=== PATIENT | male | born 1950 | race Caucasian/White ===

== ENCOUNTER 2017-03-06 19:26 | Emergency (ER) | payer MEDICARE ==
[~2017-03-06] VITALS: Ht 182.9 cm; Wt 113.4 kg
[2017-03-06] MEDS ORDERED: IV NORMAL SALINE 1000ML BAG 1,000 ML IV SCH (20:05)
[2017-03-06 20:13] LABS: BASO # 0.1 x10^3/uL (0.0-0.2); BASO % 1 % (0-3); EOS % 1 % (0-3); HEMATOCRIT 44.6 % (39.0-53.0); HEMOGLOBIN 15.3 g/dL (13.0-17.5); LYMPH # 2.1 x10^3/uL (1.0-4.8); LYMPH % 14 % (24-48); MEAN CORPUSCULAR HEMOGLOBIN 31 pg (25-35); MEAN CORPUSCULAR HGB CONC 34 g/dL (31-37); MEAN CORPUSCULAR VOLUME 91 fL (79-100); MONO % 7 % (0-9); NEUT % 77 % (31-73); PLATELET COUNT 278 x10^3/uL (140-400); RED CELL DISTRIBUTION WIDTH 14.6 % (11.5-14.5); WHITE BLOOD COUNT 14.8 x10^3/uL (4.0-11.0)
[2017-03-06] MEDS ORDERED: KETOROLAC TROMETHAMINE 30 MG/ML INJ. IV ONE (20:15)
[2017-03-06 20:36] LABS: ALBUMIN 3.6 g/dL (3.4-5.0); CREATININE 1.3 mg/dL (0.7-1.3); GFR 55.1; TOTAL BILIRUBIN 0.5 mg/dL (0.2-1.0); TOTAL PROTEIN 7.3 g/dL (6.4-8.2)
--- NOTE | 2017-03-06 20:55 | RAD ---
CT HEAD AND MAXILLOFACIAL WITHOUT CONTRAST History: 66-year-old male with facial pain, evaluate sinuses. History of sinus surgery. Comparison: None. Procedure: Axial images are obtained of the head from the skull base through the vertex without IV contrast. Noncontrast helical CT of the facial bones was performed. Axial, sagittal, and coronal reconstructions were obtained. RS compliance statement: One or more of the following individualized dose reduction techniques were utilized for this examination: 1. Automated exposure control 2. Adjustment of the mA and/or kV according to patient size 3. Use of iterative reconstruction technique Head Findings: The ventricles and sulci are normal for the patient's age. No mass-effect, midline shift, hemorrhage or obvious acute infarction is identified. Bone windows demonstrate no significant calvarial abnormality. Mastoid air cells are well aerated. Maxillofacial Findings: Postsurgical changes of the sinuses are seen. Mild mucosal thickening is present within the bilateral maxillary sinuses, left greater than right. Trace mucosal thickening is seen within the ethmoid air cells and right sphenoid sinus. No air-fluid levels are present. Globes and orbits are unremarkable. No acute facial fracture is seen. Surrounding soft tissues demonstrate no focal abnormality, specifically no fluid collection. IMPRESSION: 1. No acute intracranial abnormality. 2. Mild paranasal sinus mucosal thickening without an air-fluid level present. Electronically signed by: Preethi Chua MD (03/06/2017 8:52 PM) [facility]
[2017-03-06] MEDS ORDERED: AMOXICILLIN/K CLAV 875/125MG TABLET. PO ONE (21:30)
[2017-03-06] MEDS ORDERED: HYDROcodone/APAP 5/325MG 1 TAB TABLET PO ONE (21:30)
[2017-03-06] MEDS ORDERED: OXYMETAZOLINE 0.05% NASAL SPRAY 30ML BOTTLE. NS ONE (21:30)
--- NOTE | 2017-03-06 21:33 | PHYS DOC ---
Past Medical History Past Medical History: Diabetes-Type II, GERD, High Cholesterol, Hypertension, Hypothyroid, Other Additional Past Medical Histor: vertigo, restless leg syndrome Past Surgical History: Other Additional Past Surgical Histo: stents in back(to try to stop pain in knees), rt knee surgery/acl Alcohol Use: None Drug Use: None Adult General Chief Complaint Chief Complaint: DIZZY/LIGHT HEADED HPI HPI Patient is a 66 year old male brought from home by EMS with the complaint of a headache, dizziness. Patient lives alone. His in November. He has had a headache for about a week and has been dizzy. He describes his dizziness "the blood rushing to your head". He has tried Advil with little improvement. He 's had no nausea or vomiting. The headache is across the front of his head. His neck does not hurt and is not stiff. He's had no fever or chills. The headache has been constant. He's never had a headache like this before. He doesn't remember how it started, it was not thunderclap in onset. In terms of injury, the patient did have a fall 3 weeks ago but states he did not hit his head and had no head injury. PCP Dr. Knox Review of Systems Review of Systems Constitutional: Denies fever or chills [] Eyes: Denies change in visual acuity, redness, or eye pain [] HENT: He has had some nasal congestion and stuffiness Respiratory: Denies cough or shortness of breath [] Cardiovascular: Denies chest pain GI: Denies abdominal pain, nausea, vomiting, bloody stools or diarrhea [] : Denies dysuria or hematuria [] Musculoskeletal: Denies back pain or joint pain [] Integument: Denies rash or skin lesions [] Neurologic: As in history of present illness Current Medications Current Medications Current Medications Medications (Trade) Dose Ordered Sig/Xuan Start Time Stop Time Status Last Admin Dose Admin Acetaminophen/ Hydrocodone Bitart (Lortab 5/325) 1 tab 1X ONCE 03/06/17 21:30 03/06/17 21:31 Cancel Amoxicillin/ Clavulanate Potassium (Augmentin 875/ 125mg) 1 tab 1X ONCE 03/06/17 21:30 03/06/17 21:31 DC 03/06/17 21:49 1 TAB Fentanyl Citrate (Fentanyl 2ml Vial) 75 mcg 1X ONCE 03/06/17 22:00 03/06/17 22:01 DC 03/06/17 21:50 75 MCG Ketorolac Tromethamine (Toradol) 30 mg 1X ONCE 03/06/17 20:15 03/06/17 20:33 DC 03/06/17 20:26 30 MG Oxymetazoline HCl (Afrin) 2 spray 1X ONCE 03/06/17 21:30 03/06/17 21:31 DC 03/06/17 21:50 2 SPRAY Sodium Chloride 1,000 ml @ 1,000 mls/hr Q1H 03/06/17 20:05 03/06/17 21:04 DC 03/06/17 20:26 1,000 MLS/HR Allergies Allergies Allergies Coded Allergies Type Severity Reaction Last Updated Verified hydrocodone Allergy Severe throat swelling 03/06/17 Yes oxycodone Allergy Severe throat swelling 03/06/17 Yes Physical Exam Physical Exam Constitutional: Well developed, well nourished, appears to not feel well, alert , mentating normally, holding his forehead HENT: Normocephalic, atraumatic, bilateral external ears normal, nose normal. [ ] Eyes:PERRL, EOMI, conjunctiva normal, no discharge. [] Neck: Normal range of motion, no tenderness, supple, no stridor. [] Cardiovascular:Heart rate regular rhythm, no murmur [] Lungs & Thorax: Bilateral breath sounds clear to auscultation [] Abdomen: Bowel sounds normal, soft, no tenderness, no masses, no pulsatile masses. [] Skin: Warm, dry, no erythema, no rash. [] Extremities: No tenderness, no cyanosis, no clubbing, ROM intact, no edema. [] Neurologic: Alert and oriented X 3, normal motor function, normal sensory function, no focal deficits noted. [] Current Patient Data Vital Signs Vital Signs Date Time Temp Pulse Resp B/P (MAP) Pulse Ox O2 Delivery O2 Flow Rate FiO2 03/06/17 21:50 18 100 Room Air 03/06/17 21:37 58 142/65 (90) 03/06/17 19:26 97.9 97.9 Lab Values Laboratory Tests Test 03/06/17 19:34 White Blood Count 14.8 x10^3/uL (4.0-11.0) H Red Blood Count 4.90 x10^6/uL (4.30-5.70) Hemoglobin 15.3 g/dL (13.0-17.5) Hematocrit 44.6 % (39.0-53.0) Mean Corpuscular Volume 91 fL (79-100) Mean Corpuscular Hemoglobin 31 pg (25-35) Mean Corpuscular Hemoglobin Concent 34 g/dL (31-37) Red Cell Distribution Width 14.6 % (11.5-14.5) H Platelet Count 278 x10^3/uL (140-400) Neutrophils (%) (Auto) 77 % (31-73) H Lymphocytes (%) (Auto) 14 % (24-48) L Monocytes (%) (Auto) 7 % (0-9) Eosinophils (%) (Auto) 1 % (0-3) Basophils (%) (Auto) 1 % (0-3) Neutrophils # (Auto) 11.4 x10^3uL (1.8-7.7) H Lymphocytes # (Auto) 2.1 x10^3/uL (1.0-4.8) Monocytes # (Auto) 1.1 x10^3/uL (0.0-1.1) Eosinophils # (Auto) 0.2 x10^3/uL (0.0-0.7) Basophils # (Auto) 0.1 x10^3/uL (0.0-0.2) Sodium Level 138 mmol/L (136-145) Potassium Level 3.0 mmol/L (3.5-5.1) L Chloride Level 102 mmol/L (98-107) Carbon Dioxide Level 23 mmol/L (21-32) Anion Gap 13 (6-14) Blood Urea Nitrogen 19 mg/dL (8-26) Creatinine 1.3 mg/dL (0.7-1.3) Estimated GFR (Cockcroft-Gault) 55.1 BUN/Creatinine Ratio 15 (6-20) Glucose Level 138 mg/dL (70-99) H Calcium Level 9.0 mg/dL (8.5-10.1) Total Bilirubin 0.5 mg/dL (0.2-1.0) Aspartate Amino Transferase (AST) 19 U/L (15-37) Alanine Aminotransferase (ALT) 30 U/L (16-63) Alkaline Phosphatase 84 U/L (46-116) Total Protein 7.3 g/dL (6.4-8.2) Albumin 3.6 g/dL (3.4-5.0) Albumin/Globulin Ratio 1.0 (1.0-1.7) Laboratory Tests 03/06/17 19:34 Laboratory Tests 03/06/17 19:34 EKG EKG 12-lead EKG read by me. Sinus rhythm. Heart rate 60. There are no acute ST or T wave changes indicative of ischemia or infarction no STEMI. 1951 [] Radiology/Procedures Radiology/Procedures CT scan of the head and maxillofacial read by the radiologist. Head, nothing acute. Maxillofacial, positive for acute sinusitis [] Course & Med Decision Making Course & Med Decision Making Pertinent Labs and Imaging studies reviewed. (See chart for details) Patient was given IV fluids and IV Toradol in the ED which did help his symptoms some. Evaluation consistent with sinusitis. I believe sinusitis explains his symptoms. Discussed this with the patient. We will treat him with antibiotics. See instructions for plan. [] Dragon Disclaimer Dragon Disclaimer This electronic medical record was generated, in whole or in part, using a voice recognition dictation system. Departure Departure Impression: Primary Impression: Sinusitis Additional Impression: Headache Disposition: 01 HOME, SELF-CARE Condition: STABLE Referrals: AUGUST KNOX (PCP) Patient Instructions: Sinusitis, [id number] Additional Instructions: As we discussed, I believe your headache and dizziness are being caused by a sinus infection. I have prescribed Augmentin, an antibiotic, for sinus infection. Purchase ctrn-gvo-golnteg decongestant such as phenylephrine and take as directed for 2 or 3 days. Also use nasal spray decongestant every 12 hours for 2 or 3 days. Because you are allergic to oxycodone and hydrocodone, we are limited to Tylenol or ibuprofen mleb-pek-owqsffb for headache. Take as directed. Also try a warm moist towel to your forehead. Scripts Amoxicillin/Potassium Clav (AUGMENTIN 875-125 TABLET) 1 Each Tablet 1 TAB PO BID for sinus infection, #20 TAB Prov: MELODY COSTELLO MD 03/06/17 Problem Qualifiers MELODY COSTELLO MD Mar 06, 2017 21:33
[2017-03-06] MEDS ORDERED: AMOX1TAB61 PO (21:36)
[2017-03-06 21:37] VITALS: BP 142/65
[2017-03-06] MEDS ORDERED: fentaNYL PF VIAL 100 MCG/2 ML VIAL IV ONE (22:00)
--- NOTE | 2017-03-07 06:23 | EKG ---
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
== END 2017-03-06 22:10 | disposition home or self-care (01) ==
LOC: ER 19:26
DX: J32.9 Chronic sinusitis, unspecified (principal); E11.9 Type 2 diabetes mellitus without complications; E03.9 Hypothyroidism, unspecified; E78.00 Pure hypercholesterolemia, unspecified; G25.81 Restless legs syndrome; I10 Essential (primary) hypertension; K21.9 Gastro-esophageal reflux disease without esophagitis; Z88.5 Allergy status to narcotic agent
CPT/HCPCS: 36415; 70450; 70486; 80053; 85027; 93005; 96361; 96374; 96375; 99285; J1885; J3010; J7030

== ENCOUNTER 2017-12-26 13:54 | Inpatient (IN) | payer MEDICARE ==
[2017-12-26 14:17] LABS: POC GLUCOSE 118 mg/dL (70-99)
[2017-12-26 14:38] LABS: BASO # 0.1 x10^3/uL (0.0-0.2); BASO % 1 % (0-3); EOS # 0.1 x10^3/uL (0.0-0.7); EOS % 0 % (0-3); HEMATOCRIT 46.5 % (39.0-53.0); HEMOGLOBIN 16.4 g/dL (13.0-17.5); LYMPH # 2.1 x10^3/uL (1.0-4.8); LYMPH % 11 % (24-48); MEAN CORPUSCULAR HEMOGLOBIN 31 pg (25-35); MEAN CORPUSCULAR HGB CONC 35 g/dL (31-37); MEAN CORPUSCULAR VOLUME 88 fL (79-100); MONO # 1.2 x10^3/uL (0.0-1.1); MONO % 7 % (0-9); NEUT # 14.7 x10^3uL (1.8-7.7); NEUT % 81 % (31-73); PLATELET COUNT 315 x10^3/uL (140-400); RED BLOOD COUNT 5.31 x10^6/uL (4.30-5.70); WHITE BLOOD COUNT 18.1 x10^3/uL (4.0-11.0)
[2017-12-26 14:40] LABS: ADD MAN DIFF? YES
[2017-12-26 14:44] LABS: INR 1.1 (0.8-1.1); PROTHROMBIN TIME PATIENT 13.5 SEC (11.7-14.0)
[2017-12-26 14:51] LABS: ANION GAP 16 (6-14); BLOOD UREA NITROGEN 25 mg/dL (8-26); BUN/CREATININE RATIO 10 (6-20); CALCIUM 9.2 mg/dL (8.5-10.1); CARBON DIOXIDE 21 mmol/L (21-32); CHLORIDE 102 mmol/L (98-107); CREATININE 2.5 mg/dL (0.7-1.3); GFR 25.8; GLUCOSE 134 mg/dL (70-99); SODIUM 139 mmol/L (136-145)
[2017-12-26 14:56] LABS: ALBUMIN 4.2 g/dL (3.4-5.0); ALBUMIN/GLOBULIN RATIO 1.1 (1.0-1.7); ALK PHOS 103 U/L (46-116); ALT (SGPT) 33 U/L (16-63); AST (SGOT) 26 U/L (15-37); CREATINE KINASE 480 U/L (39-308); LIPASE 133 U/L (73-393); MAGNESIUM 2.2 mg/dL (1.8-2.4); TOTAL BILIRUBIN 1.2 mg/dL (0.2-1.0)
[2017-12-26 14:59] LABS: TROPONINI < 0.017 ng/mL (0.000-0.055)
[2017-12-26 15:00] LABS: D-DIMER < 0.27 ug/mlFEU (0.00-0.50)
[2017-12-26 15:05] LABS: CKMB INDEX 0.3 % (0-4); CKMB MASS 1.3 ng/mL (0.0-3.6); CREATINE KINASE 494 U/L (39-308)
[2017-12-26 15:05] LABS: NT-PRO BNP 164 pg/mL (0-124)
[2017-12-26] MEDS: ASPIRIN CHEWABLE 81 MG TABLET. PO (15:13)
[2017-12-26] MEDS: MECLIZINE HCL 12.5 MG TABLET. PO (15:13)
[2017-12-26] MEDS: IV NORMAL SALINE 1000ML BAG 1,000 ML IV ×2 (15:14→15:57)
[2017-12-26] MEDS: NITROGLYCERIN OINT 1 GM PACKET. TP (15:14)
[2017-12-26] MEDS: POTASSIUM CHLORIDE 20 MEQ TABLET.ER. PO (15:55)
[2017-12-26] MEDS: ACETAMINOPHEN 500 MG TABLET PO (15:55)
[2017-12-26] MEDS: IV RINGERS,LACTATED 1000ML 1,000 ML IV (16:46)
[2017-12-26 18:46] LABS: % LYMPHS 11 % (24-48); % MONOS 6 % (0-10); % SEGS 83 % (35-66); PLT ESTIMATE ADEQUATE (ADEQUATE)
[2017-12-26 19:45] LABS: TROPONINI < 0.017 ng/mL (0.000-0.055)
[2017-12-26 19:51] LABS: LACTIC ACID 1.7 mmol/L (0.4-2.0)
[2017-12-26 20:33] LABS: POC GLUCOSE 132 mg/dL (70-99)
[2017-12-26] MEDS ORDERED: traMADol 50 MG TABLET PO (22:15)
[2017-12-26] MEDS: KETOROLAC TROMETHAMINE 10 MG TABLET PO (22:59)
[2017-12-26 23:09] LABS: TROPONINI < 0.017 ng/mL (0.000-0.055)
[2017-12-27 05:26] LABS: ALK PHOS 80 U/L (46-116); ALT (SGPT) 23 U/L (16-63); ANION GAP 9 (6-14); AST (SGOT) 23 U/L (15-37); BLOOD UREA NITROGEN 23 mg/dL (8-26); BUN/CREATININE RATIO 10 (6-20); CALCIUM 8.1 mg/dL (8.5-10.1); CARBON DIOXIDE 25 mmol/L (21-32); CHLORIDE 106 mmol/L (98-107); CREATININE 2.2 mg/dL (0.7-1.3); GFR 29.9; GLUCOSE 113 mg/dL (70-99); POTASSIUM 3.2 mmol/L (3.5-5.1); SODIUM 140 mmol/L (136-145); TOTAL BILIRUBIN 0.6 mg/dL (0.2-1.0)
[2017-12-27 10:59] LABS: CHOLESTEROL 107 mg/dL (0-200); HDLC 25 mg/dL (40-60); LDLC 58 mg/dL (0-100); NON-HDL CHOLESTEROL 82 mg/dL (0-129); TRIGLYCERIDES 121 mg/dL (0-150); VLDLC 24 mg/dL (0-40)
[2017-12-27 11:00] LABS: CHOLESTEROL/HDL RATIO 4.3
[2017-12-27 11:08] LABS: THYROID STIM HORMONE (TSH) 6.169 uIU/mL (0.358-3.74)
[2017-12-27] MEDS ORDERED: hydrALAZINE 20 MG/ML VIAL. IVP (11:15)
[2017-12-27] MEDS: KETOROLAC TROMETHAMINE 10 MG TABLET PO (11:35)
[2017-12-27] MEDS: REGADENOSON 0.4 MG/5 ML DISP.SYRIN. IV ×2 (12:30→15:51)
[2017-12-27 14:08] LABS: FREE T4 1.19 ng/dL (0.76-1.46)
[2017-12-27] MEDS: ACETAMINOPHEN 325 MG TABLET. PO (17:46)
[2017-12-27] MEDS: POTASSIUM CHLORIDE 20 MEQ TABLET.ER. PO (17:47)
[2017-12-27] MEDS: ATORVASTATIN CALCIUM 40 MG TABLET. PO (19:43)
[2017-12-27] MEDS: GABAPENTIN 300 MG CAPSULE. PO (19:43)
[2017-12-27] MEDS: IBUPROFEN 600 MG TABLET. PO (19:43)
[2017-12-27 20:35] LABS: POC GLUCOSE 118 mg/dL (70-99)
[2017-12-28 05:35] LABS: ADD MAN DIFF? NO
[2017-12-28 05:45] LABS: BASO # 0.1 x10^3/uL (0.0-0.2); BASO % 1 % (0-3); EOS # 0.3 x10^3/uL (0.0-0.7); EOS % 5 % (0-3); HEMATOCRIT 42.6 % (39.0-53.0); LYMPH # 1.9 x10^3/uL (1.0-4.8); LYMPH % 25 % (24-48); MEAN CORPUSCULAR HEMOGLOBIN 32 pg (25-35); MEAN CORPUSCULAR HGB CONC 35 g/dL (31-37); MEAN CORPUSCULAR VOLUME 90 fL (79-100); MONO # 0.6 x10^3/uL (0.0-1.1); MONO % 8 % (0-9); NEUT # 4.7 x10^3uL (1.8-7.7); NEUT % 61 % (31-73); PLATELET COUNT 247 x10^3/uL (140-400); RED BLOOD COUNT 4.75 x10^6/uL (4.30-5.70); RED CELL DISTRIBUTION WIDTH 15.3 % (11.5-14.5); WHITE BLOOD COUNT 7.6 x10^3/uL (4.0-11.0)
[2017-12-28 05:59] LABS: ALBUMIN 3.1 g/dL (3.4-5.0); ALBUMIN/GLOBULIN RATIO 0.9 (1.0-1.7); ALK PHOS 82 U/L (46-116); ALT (SGPT) 27 U/L (16-63); ANION GAP 10 (6-14); AST (SGOT) 20 U/L (15-37); BLOOD UREA NITROGEN 20 mg/dL (8-26); BUN/CREATININE RATIO 13 (6-20); CARBON DIOXIDE 25 mmol/L (21-32); CHLORIDE 109 mmol/L (98-107); CREATININE 1.5 mg/dL (0.7-1.3); GFR 46.5; GLUCOSE 117 mg/dL (70-99); POTASSIUM 3.5 mmol/L (3.5-5.1); SODIUM 144 mmol/L (136-145); TOTAL BILIRUBIN 0.4 mg/dL (0.2-1.0); TOTAL PROTEIN 6.4 g/dL (6.4-8.2)
[2017-12-28] MEDS: LEVOTHYROXINE 50 MCG TABLET PO (06:20)
[2017-12-28 07:51] LABS: POC GLUCOSE 107 mg/dL (70-99)
[2017-12-28 08:01] LABS: BILIRUBIN,URINE NEGATIVE (NEG); CLARITY,URINE CLEAR; COLOR,URINE YELLOW; GLUCOSE,URINE NEGATIVE (NEG); NITRITE,URINE NEGATIVE (NEG); PROTEIN,URINE NEGATIVE (NEG-TRACE); UROBILINOGEN,URINE 0.2 mg/dL (0.2 mg/dL)
[2017-12-28 08:08] LABS: BARBITURATES POS (NEG); BENZODIAZEPINES NEG (NEG); CANNABINOIDS NEG (NEG); COCAINE NEG (NEG); METHADONE NEG (NEG); OPIATES NEG (NEG); PHENCYCLIDINE NEG (NEG)
[2017-12-28 08:10] LABS: AMPHETAMINE/METHAMPHETAMINE NEG (NEG); ETHANOL, URINE N (NEG)
[2017-12-28 08:25] LABS: BACTERIA,URINE 0 /HPF (0-FEW); RBC,URINE 0 /HPF (0-2); SQUAMOUS EPITHELIAL CELL,UR FEW /LPF; WBC,URINE 0 /HPF (0-4)
[2017-12-28] MEDS: GLIMEPIRIDE 2 MG TABLET. PO (08:51)
[2017-12-28] MEDS: PANTOPRAZOLE 40 MG TABLET.DR. PO (08:51)
[2017-12-28] MEDS: amLODIPine BESYLATE 10 MG TABLET PO (08:51)
[2017-12-28] MEDS: IBUPROFEN 600 MG TABLET. PO (08:51)
[2017-12-28] MEDS: POTASSIUM CITRATE 10 MEQ TABLET.ER PO (08:52)
[2017-12-28] MEDS: KETOROLAC TROMETHAMINE 10 MG TABLET PO (10:54)
[2017-12-28 11:27] LABS: POC GLUCOSE 126 mg/dL (70-99)
[2017-12-28 16:38] LABS: POC GLUCOSE 93 mg/dL (70-99)
[2017-12-28 20:24] LABS: POC GLUCOSE 96 mg/dL (70-99)
[2017-12-28] MEDS: ATORVASTATIN CALCIUM 40 MG TABLET. PO (20:34)
[2017-12-28] MEDS: TAMSULOSIN 0.4 MG CAP.ER.24H. PO (20:34)
[2017-12-28] MEDS: GABAPENTIN 300 MG CAPSULE. PO (20:35)
[2017-12-28] MEDS: ACETAMINOPHEN 325 MG TABLET. PO (20:39)
[2017-12-29] MEDS: LEVOTHYROXINE 50 MCG TABLET PO (06:22)
[2017-12-29 07:40] LABS: POC GLUCOSE 111 mg/dL (70-99)
[2017-12-29] MEDS: amLODIPine BESYLATE 10 MG TABLET PO (08:22)
[2017-12-29] MEDS: GLIMEPIRIDE 2 MG TABLET. PO (08:22)
[2017-12-29] MEDS: PANTOPRAZOLE 40 MG TABLET.DR. PO (08:22)
[2017-12-29] MEDS: POTASSIUM CITRATE 10 MEQ TABLET.ER PO (08:24)
[2017-12-29 11:53] LABS: POC GLUCOSE 109 mg/dL (70-99)
[2017-12-29 12:21] LABS: ANION GAP 10 (6-14); BLOOD UREA NITROGEN 20 mg/dL (8-26); CALCIUM 8.3 mg/dL (8.5-10.1); CARBON DIOXIDE 25 mmol/L (21-32); CHLORIDE 106 mmol/L (98-107); CREATININE 1.6 mg/dL (0.7-1.3); GFR 43.2; GLUCOSE 110 mg/dL (70-99); POTASSIUM 3.5 mmol/L (3.5-5.1); SODIUM 141 mmol/L (136-145)
[2017-12-29 16:49] LABS: POC GLUCOSE 85 mg/dL (70-99)
== END 2017-12-29 17:40 | disposition home or self-care (01) | DRG 391 ==
LOC: ER 13:54 → 2 NORTH 16:00
DX: K21.9 Gastro-esophageal reflux disease without esophagitis (principal); N17.0 Acute kidney failure with tubular necrosis; E87.1 Hypo-osmolality and hyponatremia; N13.30 Unspecified hydronephrosis; E11.22 Type 2 diabetes mellitus with diabetic chronic kidney disease; D72.829 Elevated white blood cell count, unspecified; E03.9 Hypothyroidism, unspecified; E78.5 Hyperlipidemia, unspecified; I12.9 Hypertensive chronic kidney disease with stage 1 through stage 4 chronic kidney disease, or unspecified chronic kidney disease; E87.6 Hypokalemia; F17.210 Nicotine dependence, cigarettes, uncomplicated; N18.9 Chronic kidney disease, unspecified; F41.9 Anxiety disorder, unspecified; M19.90 Unspecified osteoarthritis, unspecified site; G25.81 Restless legs syndrome; Z82.49 Family history of ischemic heart disease and other diseases of the circulatory system
CPT/HCPCS: 36415; 71045; 74176; 76770; 78452; 80048; 80053; 80061; 80307; 81001; 82550; 82553; 82962; 83605; 83690; 83735; 83880; 84439; 84443; 84484; 85007; 85025; 85379; 85610; 93005; 93017; 93306; 96360; 96361; 96374; 96375; 96376; 99285; 99285-25; A9500; J2785; J7030; J7120; J8597

== ENCOUNTER → 2018-09-13 | Outpatient (CLI) | payer OTHER ==
[2018-09-12 15:00] VITALS: BP 132/81
[~2018-09-13] MED LIST: ACET325T9 PO; AMLO10TA8 PO; AMOX1TAB61 PO; ASPI-612 PO; ATOR40TA59 PO; GABA300C18 PO; GLIM2TAB2 PO; LEVO50TA5 PO; LINE600T PO; LOSA1TAB22 PO; OMEP40CA5 PO; POTA10TA17 PO; SERT50TA8 PO; TAMS0.4C97 PO; TRIA15OI TP
== END | disposition home or self-care (01) ==
LOC: PMGWOUND 09:11
PROVIDERS: ATTEND Emergency Medicine Undersea and Hyperbaric Medicine
DX: L02.11 Cutaneous abscess of neck (principal); E11.9 Type 2 diabetes mellitus without complications; I10 Essential (primary) hypertension; E03.9 Hypothyroidism, unspecified; E78.5 Hyperlipidemia, unspecified; F41.9 Anxiety disorder, unspecified; G25.81 Restless legs syndrome; E78.00 Pure hypercholesterolemia, unspecified; M19.90 Unspecified osteoarthritis, unspecified site; K21.9 Gastro-esophageal reflux disease without esophagitis
CPT/HCPCS: 99214; G0463

== ENCOUNTER → 2018-09-17 | Outpatient (CLI) | payer OTHER ==
[2018-09-12 15:00] VITALS: BP 132/81
== END | disposition home or self-care (01) ==
LOC: PMGWOUND 12:00
PROVIDERS: ATTEND Emergency Medicine Undersea and Hyperbaric Medicine
DX: L02.11 Cutaneous abscess of neck (principal); E11.9 Type 2 diabetes mellitus without complications; G25.81 Restless legs syndrome; I10 Essential (primary) hypertension; E03.9 Hypothyroidism, unspecified; E78.5 Hyperlipidemia, unspecified; F41.9 Anxiety disorder, unspecified; E78.00 Pure hypercholesterolemia, unspecified; M19.90 Unspecified osteoarthritis, unspecified site; K21.9 Gastro-esophageal reflux disease without esophagitis
CPT/HCPCS: 99213

== ENCOUNTER → 2018-09-20 | Outpatient (CLI) | payer OTHER ==
[2018-09-12 15:00] VITALS: BP 132/81
[~2018-09-20] MED LIST changes: +MONT10TA9 PO; +PRED20TA PO
== END | disposition home or self-care (01) ==
LOC: PMGWOUND 12:11
PROVIDERS: ATTEND Emergency Medicine Undersea and Hyperbaric Medicine
DX: L02.11 Cutaneous abscess of neck (principal); E11.9 Type 2 diabetes mellitus without complications; G25.81 Restless legs syndrome; E03.9 Hypothyroidism, unspecified; E78.5 Hyperlipidemia, unspecified; F41.9 Anxiety disorder, unspecified; I10 Essential (primary) hypertension; E78.00 Pure hypercholesterolemia, unspecified; M19.90 Unspecified osteoarthritis, unspecified site; K21.9 Gastro-esophageal reflux disease without esophagitis
CPT/HCPCS: 99213; G0463

== ENCOUNTER → 2018-09-24 | Outpatient (CLI) | payer OTHER ==
[2018-09-12 15:00] VITALS: BP 132/81
== END | disposition home or self-care (01) ==
LOC: PMGWOUND 11:48
PROVIDERS: ATTEND Emergency Medicine Undersea and Hyperbaric Medicine
DX: L02.11 Cutaneous abscess of neck (principal); E11.9 Type 2 diabetes mellitus without complications; I10 Essential (primary) hypertension; G25.81 Restless legs syndrome; E03.9 Hypothyroidism, unspecified; E78.5 Hyperlipidemia, unspecified; F41.9 Anxiety disorder, unspecified; E78.00 Pure hypercholesterolemia, unspecified; M19.90 Unspecified osteoarthritis, unspecified site; K21.9 Gastro-esophageal reflux disease without esophagitis
CPT/HCPCS: 99214; G0463

== ENCOUNTER 2018-11-14 00:04 | Inpatient (IN) | payer OTHER ==
[~2018-11-14] VITALS: Ht 182.9 cm; Wt 112.5 kg
[~2018-11-14 00:04] MED LIST changes: -MONT10TA9 PO; -PRED20TA PO
[2018-11-14] MEDS ORDERED: MORPHINE SULFATE 2 MG/ML VIAL. IV/SQ PRN (00:30)
[2018-11-14] MEDS ORDERED: ASPIRIN CHEWABLE 81 MG TABLET. PO ONE (01:00)
[2018-11-14] MEDS ORDERED: ONDANSETRON PF 4 MG/2 ML VIAL. IV ONE (01:00)
[2018-11-14] MEDS ORDERED: IV NORMAL SALINE 1000ML BAG 1,000 ML IV SCH (01:00)
[2018-11-14 01:03] LABS: BASO # 0.1 x10^3/uL (0.0-0.2); BASO % 1 % (0-3); EOS # 0.2 x10^3/uL (0.0-0.7); EOS % 2 % (0-3); HEMATOCRIT 43.8 % (39.0-53.0); LYMPH # 1.6 x10^3/uL (1.0-4.8); LYMPH % 15 % (24-48); MEAN CORPUSCULAR HEMOGLOBIN 32 pg (25-35); MEAN CORPUSCULAR HGB CONC 34 g/dL (31-37); MEAN CORPUSCULAR VOLUME 94 fL (79-100); MONO # 1.3 x10^3/uL (0.0-1.1); MONO % 12 % (0-9); NEUT # 7.4 x10^3uL (1.8-7.7); NEUT % 70 % (31-73); PLATELET COUNT 274 x10^3/uL (140-400); RED BLOOD COUNT 4.68 x10^6/uL (4.30-5.70); RED CELL DISTRIBUTION WIDTH 15.1 % (11.5-14.5); WHITE BLOOD COUNT 10.5 x10^3/uL (4.0-11.0)
[2018-11-14 01:15] LABS: PROTHROMBIN TIME PATIENT 13.2 SEC (11.7-14.0)
[2018-11-14 01:21] LABS: ALBUMIN 3.5 g/dL (3.4-5.0); ALBUMIN/GLOBULIN RATIO 1.1 (1.0-1.7); CALCIUM 8.7 mg/dL (8.5-10.1); CREATININE 1.8 mg/dL (0.7-1.3); GFR 37.6; MAGNESIUM 1.9 mg/dL (1.8-2.4); POTASSIUM 3.4 mmol/L (3.5-5.1); TOTAL BILIRUBIN 0.6 mg/dL (0.2-1.0); TOTAL PROTEIN 6.8 g/dL (6.4-8.2)
--- NOTE | 2018-11-14 02:37 | PHYS DOC ---
Past Medical History Past Medical History: Diabetes-Type II, GERD, High Cholesterol, Hypertension, Hypothyroid, Other Additional Past Medical Histor: vertigo, restless leg syndrome Past Surgical History: Other Additional Past Surgical Histo: stents in back(to try to stop pain in knees), rt knee surgery/acl Alcohol Use: None Drug Use: None Adult General Chief Complaint Chief Complaint: SHORTNESS OF BREATH HPI HPI Patient is a 68-year-old male who presents with complaint of chest discomfort with shortness of breath, sore throat and cough that started about 3 days ago. Patient states his symptoms are progressively getting worse. Patient states that shortness of breath and chest discomfort are worsened with exertion. At times he describes pain as tightness and at other times it sharp and stabbing in nature. He denies any nausea, vomiting or diaphoresis. Patient states the cough is been dry. He states that nothing improves his symptoms. Review of Systems Review of Systems Constitutional: Denies fever or chills [] Eyes: Denies change in visual acuity, redness, or eye pain [] HENT: Positive sore throat [] Respiratory: Positive cough and shortness of breath [] Cardiovascular: No additional information not addressed in HPI [] GI: Denies abdominal pain, nausea, vomiting or diarrhea [] Neurologic: Denies headache, focal weakness or sensory changes [] All other systems were reviewed and found to be within normal limits, except as documented in this note. Current Medications Current Medications Current Medications Medications (Trade) Dose Ordered Sig/Xuan Start Time Stop Time Status Last Admin Dose Admin Albuterol/ Ipratropium (Duoneb) 3 ml 1X ONCE 11/14/18 03:00 11/14/18 03:01 DC 11/14/18 02:44 3 ML Aspirin (Children'S Aspirin) 324 mg 1X ONCE 11/14/18 01:00 11/14/18 01:01 DC 11/14/18 00:48 324 MG Morphine Sulfate (Morphine Sulfate) 4 mg 1X ONCE 11/14/18 03:00 11/14/18 03:01 DC Ondansetron HCl (Zofran) 4 mg 1X ONCE 11/14/18 01:00 11/14/18 01:01 DC 11/14/18 00:47 4 MG Sodium Chloride 1,000 ml @ 100 mls/hr Q10H 11/14/18 01:00 11/14/18 10:59 4/17/19 00:47 100 MLS/HR Allergies Allergies Allergies Coded Allergies Type Severity Reaction Last Updated Verified hydrocodone Allergy Severe throat swelling 09/08/18 Yes oxycodone Allergy Severe throat swelling 09/08/18 Yes Physical Exam Physical Exam Constitutional: Well developed, well nourished, no acute distress, non-toxic appearance. [] HENT: Normocephalic, atraumatic, bilateral external ears normal, oropharynx moist, no oral exudates, nose normal. [] Eyes: PERRLA, EOMI, conjunctiva normal, no discharge. [] Neck: Normal range of motion, no tenderness, supple, no stridor. [] Cardiovascular:Heart rate regular rhythm, no murmur [] Lungs & Thorax: Fine inspiratory and expiratory wheezes are noted to auscultation [] Abdomen: Bowel sounds normal, soft, no tenderness. [] Skin: Warm, dry, no erythema, no rash. [] Extremities: No tenderness, no cyanosis, no clubbing, ROM intact, no edema. [] Neurologic: Alert and oriented X 3, no focal deficits noted. [] Current Patient Data Vital Signs Vital Signs Date Time Temp Pulse Resp B/P (MAP) Pulse Ox O2 Delivery O2 Flow Rate FiO2 11/14/18 02:44 99 Room Air 11/14/18 00:18 98.4 80 20 147/86 (106) 98.4 Lab Values Laboratory Tests Test 11/14/18 00:44 White Blood Count 10.5 x10^3/uL (4.0-11.0) Red Blood Count 4.68 x10^6/uL (4.30-5.70) Hemoglobin 15.0 g/dL (13.0-17.5) Hematocrit 43.8 % (39.0-53.0) Mean Corpuscular Volume 94 fL (79-100) Mean Corpuscular Hemoglobin 32 pg (25-35) Mean Corpuscular Hemoglobin Concent 34 g/dL (31-37) Red Cell Distribution Width 15.1 % (11.5-14.5) H Platelet Count 274 x10^3/uL (140-400) Neutrophils (%) (Auto) 70 % (31-73) Lymphocytes (%) (Auto) 15 % (24-48) L Monocytes (%) (Auto) 12 % (0-9) H Eosinophils (%) (Auto) 2 % (0-3) Basophils (%) (Auto) 1 % (0-3) Neutrophils # (Auto) 7.4 x10^3uL (1.8-7.7) Lymphocytes # (Auto) 1.6 x10^3/uL (1.0-4.8) Monocytes # (Auto) 1.3 x10^3/uL (0.0-1.1) H Eosinophils # (Auto) 0.2 x10^3/uL (0.0-0.7) Basophils # (Auto) 0.1 x10^3/uL (0.0-0.2) Prothrombin Time 13.2 SEC (11.7-14.0) Prothrombin Time INR 1.0 (0.8-1.1) D-Dimer (Jessica) 0.33 ug/mlFEU (0.00-0.50) Sodium Level 137 mmol/L (136-145) Potassium Level 3.4 mmol/L (3.5-5.1) L Chloride Level 100 mmol/L (98-107) Carbon Dioxide Level 24 mmol/L (21-32) Anion Gap 13 (6-14) Blood Urea Nitrogen 29 mg/dL (8-26) H Creatinine 1.8 mg/dL (0.7-1.3) H Estimated GFR (Cockcroft-Gault) 37.6 BUN/Creatinine Ratio 16 (6-20) Glucose Level 146 mg/dL (70-99) H Calcium Level 8.7 mg/dL (8.5-10.1) Magnesium Level 1.9 mg/dL (1.8-2.4) Total Bilirubin 0.6 mg/dL (0.2-1.0) Aspartate Amino Transferase (AST) 27 U/L (15-37) Alanine Aminotransferase (ALT) 34 U/L (16-63) Alkaline Phosphatase 86 U/L (46-116) Troponin I Quantitative < 0.017 ng/mL (0.000-0.055) RN-Xpc-P-Type Natriuretic Peptide 28 pg/mL (0-124) Total Protein 6.8 g/dL (6.4-8.2) Albumin 3.5 g/dL (3.4-5.0) Albumin/Globulin Ratio 1.1 (1.0-1.7) Influenza Type A Antigen Negative (NEGATIVE) Influenza Type B Antigen Negative (NEGATIVE) Laboratory Tests 11/14/18 00:44 Laboratory Tests 11/14/18 00:44 EKG EKG [] Radiology/Procedures Radiology/Procedures [] Course & Med Decision Making Course & Med Decision Making Pertinent Labs and Imaging studies reviewed. (See chart for details) [] Dragon Disclaimer Dragon Disclaimer This electronic medical record was generated, in whole or in part, using a voice recognition dictation system. Departure Departure Impression: Primary Impression: Chest pain Additional Impression: Dyspnea Disposition: ADMITTED INPATIENT Admitting Physician: Adam Beltre Condition: IMPROVED Referrals: AUGUST KNOX (PCP) Problem Qualifiers Primary Impression: Chest pain Chest pain type: unspecified Qualified Codes: R07.9 - Chest pain, unspecified Additional Impression: Dyspnea Dyspnea type: shortness of breath Qualified Codes: R06.02 - Shortness of breath MARK ANTHONY HERNANDEZ Jr. DO Nov 14, 2018 02:37
[2018-11-14] MEDS ORDERED: MORPHINE SULFATE 4 MG/ML VIAL. IV ONE (03:00)
[2018-11-14] MEDS ORDERED: IPRATRPIUM/ALBUTEROL 0.5/2.5MG 3 ML NEBU. NEB ONE (03:00)
[2018-11-14 03:17] LABS: INFLUENZA A PATIENT NEGATIVE (NEGATIVE); INFLUENZA B PATIENT NEGATIVE (NEGATIVE)
[2018-11-14] MEDS ORDERED: ONDANSETRON PF 4 MG/2 ML VIAL. IV PRN (03:45)
--- NOTE | 2018-11-14 06:36 | EKG ---
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
[2018-11-14] MEDS: MORPHINE SULFATE 2 MG/ML VIAL. IV PRN ×3 (07:17→13:23)
[2018-11-14 07:38] VITALS: BP 141/65
[2018-11-14] MEDS: IPRATRPIUM/ALBUTEROL 0.5/2.5MG 3 ML NEBU. NEB SCH ×4 (08:11→19:33)
--- NOTE | 2018-11-14 08:37 | RAD ---
Single view of the chest. 11/14/2018 12:50 AM Indication: Shortness of breath Comparison: Chest radiograph December 26, 2017 Findings: There is no focal consolidation. There is no pleural effusion or pneumothorax. The cardiomediastinal silhouette and pulmonary vasculature are within normal limits. No acute osseous abnormalities are seen. Impression: No evidence of acute cardiopulmonary process. Electronically signed by: Sohail Villafuerte MD (11/14/2018 8:34 AM) [id number]
[2018-11-14] MEDS ORDERED: LIDO:MAALOX 1:1 20 ML SINGLE DOSE. PO PRN (09:00)
--- NOTE | 2018-11-14 09:17 | PDOC2 ---
CARDIAC CONSULT DATE OF CONSULT Date of Consult DATE: 11/14/18 TIME: 09:09 REASON FOR CONSULT Reason for Consult: Chest pain REFERRING PHYSICIAN Referring Physician: Tam SOURCE Source: Chart review, Patient HISTORY OF PRESENT ILLNESS HISTORY OF PRESENT ILLNESS This is a pleasant 68 yo male admitted for complains of chest pain. Reports that in the last few days he has been clearing his throat more and has been coughing significnatly especially in the last 2 days. Notrees sharp chest pain that raidates tohis left shoulder. Also has been SOA and has been having increased sensation of drainage to the back of his throat from his nose and started taking nasrin but no decongestants. The GI coctail given did helped some. No past hx of CAD, VTE and no recent falls or injury. PAST MEDICAL HISTORY Cardiovascular: HTN, Hyperlipidemia CENTRAL NERVOUS SYSTEM: Other (RLS) GI: GERD Psych: Anxiety Musculoskeletal: Osteoarthritis Endocrine: Diabetes (2), Hypothyroidism PAST SURGICAL HISTORY Past Surgical History: Other (neck abscess removal, left arm laceration repair) FAMILY HISTORY Family History: Heart Disease SOCIAL HISTORY Smoke: No ALCOHOL: none Drugs: None Lives: with Family CURRENT MEDICATIONS CURRENT MEDICATIONS Current Medications Medications (Trade) Dose Ordered Sig/Xuan Route PRN Reason Start Time Stop Time Status Last Admin Dose Admin Aspirin (Children'S Aspirin) 324 mg 1X ONCE PO 11/14/18 01:00 11/14/18 01:01 DC 11/14/18 00:48 Morphine Sulfate (Morphine Sulfate) 2 mg PRN Q15MIN PRN IV/SQ PAIN GREATER THAN 3/10 11/14/18 00:30 11/15/18 00:29 11/14/18 00:48 Sodium Chloride 1,000 ml @ 100 mls/hr Q10H IV 11/14/18 01:00 11/14/18 10:59 11/14/18 00:47 Ondansetron HCl (Zofran) 4 mg 1X ONCE IV 11/14/18 01:00 11/14/18 01:01 DC 11/14/18 00:47 Albuterol/ Ipratropium (Duoneb) 3 ml 1X ONCE NEB 11/14/18 03:00 11/14/18 03:01 DC 11/14/18 02:44 Morphine Sulfate (Morphine Sulfate) 2 mg PRN Q2HR PRN IV SEVERE PAIN 11/14/18 03:45 11/15/18 03:44 11/14/18 07:17 Albuterol/ Ipratropium (Duoneb) 3 ml RTQID NEB 11/14/18 08:00 11/15/18 07:59 11/14/18 08:11 Multi-Ingredient Mouthwash/Gargle (Gi Cocktail) 20 ml PRN QID PRN PO CHEST PAIN 11/14/18 09:00 11/14/18 08:53 ALLERGIES ALLERGIES: Coded Allergies: hydrocodone (Verified Allergy, Severe, throat swelling, 09/08/18) oxycodone (Verified Allergy, Severe, throat swelling, 09/08/18) ROS Review of System 14 point ROS evaluated with pertinent positives noted per HPI PHYSICAL EXAM General: Alert, Oriented X3, Cooperative, No acute distress HEENT: Atraumatic, Mucous membr. moist/pink, Other (nasal congestion) Lungs: Clear to auscultation, Normal air movement Heart: Regular rate (SR), Normal S1, Normal S2, No murmurs Abdomen: Soft, No tenderness Extremities: No cyanosis, No edema Skin: No breakdown, No significant lesion Neuro: Normal speech, Sensation intact Psych/Mental Status: Mental status NL, Mood NL MUSCULOSKELETAL: Osteoarthritic changes both hands VITALS VITALS Vital Signs Date Time Temp Pulse Resp B/P (MAP) Pulse Ox O2 Delivery O2 Flow Rate FiO2 11/14/18 08:11 96 Room Air 11/14/18 07:47 20 11/14/18 07:38 98.0 65 141/65 (90) 98.0 LABS Lab: Laboratory Tests Test 11/14/18 00:44 11/14/18 07:30 11/14/18 07:45 White Blood Count 10.5 x10^3/uL (4.0-11.0) Red Blood Count 4.68 x10^6/uL (4.30-5.70) Hemoglobin 15.0 g/dL (13.0-17.5) Hematocrit 43.8 % (39.0-53.0) Mean Corpuscular Volume 94 fL (79-100) Mean Corpuscular Hemoglobin 32 pg (25-35) Mean Corpuscular Hemoglobin Concent 34 g/dL (31-37) Red Cell Distribution Width 15.1 % (11.5-14.5) Platelet Count 274 x10^3/uL (140-400) Neutrophils (%) (Auto) 70 % (31-73) Lymphocytes (%) (Auto) 15 % (24-48) Monocytes (%) (Auto) 12 % (0-9) Eosinophils (%) (Auto) 2 % (0-3) Basophils (%) (Auto) 1 % (0-3) Neutrophils # (Auto) 7.4 x10^3uL (1.8-7.7) Lymphocytes # (Auto) 1.6 x10^3/uL (1.0-4.8) Monocytes # (Auto) 1.3 x10^3/uL (0.0-1.1) Eosinophils # (Auto) 0.2 x10^3/uL (0.0-0.7) Basophils # (Auto) 0.1 x10^3/uL (0.0-0.2) Prothrombin Time 13.2 SEC (11.7-14.0) Prothromb Time International Ratio 1.0 (0.8-1.1) D-Dimer (Jessica) 0.33 ug/mlFEU (0.00-0.50) Sodium Level 137 mmol/L (136-145) Potassium Level 3.4 mmol/L (3.5-5.1) Chloride Level 100 mmol/L (98-107) Carbon Dioxide Level 24 mmol/L (21-32) Anion Gap 13 (6-14) Blood Urea Nitrogen 29 mg/dL (8-26) Creatinine 1.8 mg/dL (0.7-1.3) Estimated GFR (Cockcroft-Gault) 37.6 BUN/Creatinine Ratio 16 (6-20) Glucose Level 146 mg/dL (70-99) Calcium Level 8.7 mg/dL (8.5-10.1) Magnesium Level 1.9 mg/dL (1.8-2.4) Total Bilirubin 0.6 mg/dL (0.2-1.0) Aspartate Amino Transf (AST/SGOT) 27 U/L (15-37) Alanine Aminotransferase (ALT/SGPT) 34 U/L (16-63) Alkaline Phosphatase 86 U/L (46-116) Troponin I Quantitative < 0.017 ng/mL (0.000-0.055) < 0.017 ng/mL (0.000-0.055) UI-Hlg-L-Type Natriuretic Peptide 28 pg/mL (0-124) Total Protein 6.8 g/dL (6.4-8.2) Albumin 3.5 g/dL (3.4-5.0) Albumin/Globulin Ratio 1.1 (1.0-1.7) Influenza Type A Antigen Negative (NEGATIVE) Influenza Type B Antigen Negative (NEGATIVE) Group A Streptococcus Rapid Negative (NEGATIVE) Glucose (Fingerstick) 128 mg/dL (70-99) ECHOCARDIOGRAM ECHOCARDIOGRAM <Conclusion> The left ventricular systolic function is normal and the ejection fraction is within normal range. The Ejection Fraction is 55-60%. There is normal LV segmental wall motion. Doppler and Color Flow revealed trace tricuspid regurgitation. The PA pressure was estimated at 35 mmHg. DATE: 12/29/17 0953 STRESS TEST STRESS TEST Conclusion 1. Regadenoson cardioisotope stress test did not show any evidence of ischemia or infarct. 2. Normal left ventricular systolic function with ejection fraction calculated at 69%. 3. Low risk for cardiac events. DATE: 12/27/17 1605 ASSESSMENT/PLAN ASSESSMENT/PLAN 1. Atypical chest pain: trops nml, EKG SR without acute changes by comparison. suspect MSK due to cough 2. Cough/nasal allergy/post nasal drip syndrome 3. HTN: mildly labile 4. DM2/HLP 5. Hypothyroidism 6. Suspect CKD3 Recommendations 1. TTE, TSH, A1C, BMP and Mg. 2. GI cocktail. Resume home BP meds. ASA and statin. 3. Potential DC this afternoon pending test. 4. Will consider for outpt stress test if CP persist BIPIN WARD CUSTOMER CONTACT SPECIALIST Nov 14, 2018 09:17
--- NOTE | 2018-11-14 10:06 | PDOC1 ---
History and Physical Date of Admission Date of Admission DATE: 11/14/18 TIME: 10:05 Identification/Chief Complaint Chief Complaint SEEN IN ER ,68-year-old male who presents with complaint of chest discomfort with shortness of breath, sore throat and cough that started about 3 days ago. Patient states his symptoms are progressively getting worse. Patient states that shortness of breath and chest discomfort are worsened with exertion. At times he describes pain as tightness Past Medical History Past Medical History Past Medical History Past Medical History Past Medical History: Diabetes-Type II, GERD, High Cholesterol, Hypertension, Hypothyroid, Other Additional Past Medical Histor: vertigo, restless leg syndrome Past Surgical History: Other Additional Past Surgical Histo: stents in back(to try to stop pain in knees), rt knee surgery/acl Alcohol Use: None Drug Use: None family hx obesity Cardiovascular: HTN, Hyperlipidemia Pulmonary: No pertinent hx CENTRAL NERVOUS SYSTEM: Other (RLS) GI: GERD Heme/Onc: No pertinent hx Hepatobiliary: No pertinent hx Psych: Anxiety Musculoskeletal: Osteoarthritis Rheumatologic: No pertinent hx Infectious disease: No pertinent hx Renal/: No pertinent hx Endocrine: Diabetes (2), Hypothyroidism Past Surgical History Past Surgical History: Other (neck abscess removal, left arm laceration repair) Family History Family History: Heart Disease Family History: Parent Social History Smoke: No ALCOHOL: none Drugs: None Current Problem List Problem List Problems Medical Problems: (1) Dyspnea Status: Acute Current Medications Current Medications Current Medications Aspirin (Children'S Aspirin) 324 mg 1X ONCE PO Last administered on 11/14/18at 00:48; Start 11/14/18 at 01:00; Stop 11/14/18 at 01:01; Status DC Morphine Sulfate (Morphine Sulfate) 2 mg PRN Q15MIN PRN IV/SQ PAIN GREATER THAN 3/10 Last administered on 11/14/18at 00:48; Start 11/14/18 at 00:30; Stop at 00:29 Sodium Chloride 1,000 ml @ 100 mls/hr Q10H IV Last administered on 11/14/18at 00:47; Start 11/14/18 at 01:00; Stop 11/14/18 at 10:59 Ondansetron HCl (Zofran) 4 mg 1X ONCE IV Last administered on 11/14/18at 00:47 ; Start 11/14/18 at 01:00; Stop 11/14/18 at 01:01; Status DC Morphine Sulfate (Morphine Sulfate) 4 mg 1X ONCE IV ; Start 11/14/18 at 03:00; Stop 11/14/18 at 03:01; Status DC Albuterol/ Ipratropium (Duoneb) 3 ml 1X ONCE NEB Last administered on at 02:44; Start 11/14/18 at 03:00; Stop 11/14/18 at 03:01; Status DC Ondansetron HCl (Zofran) 4 mg PRN Q8HRS PRN IV NAUSEA/VOMITING 1ST CHOICE; Start 11/14/18 at 03:45; Stop 11/15/18 at 03:44 Morphine Sulfate (Morphine Sulfate) 2 mg PRN Q2HR PRN IV SEVERE PAIN Last administered on 11/14/18at 09:48; Start 11/14/18 at 03:45; Stop 11/15/18 at 03:44 Albuterol/ Ipratropium (Duoneb) 3 ml RTQID NEB Last administered on 11/14/18at 08:11; Start 11/14/18 at 08:00; Stop 11/15/18 at 07:59 Multi-Ingredient Mouthwash/Gargle (Gi Cocktail) 20 ml PRN QID PRN PO CHEST PAIN Last administered on 11/14/18at 08:53; Start 11/14/18 at 09:00 Guaifenesin (MUCINEX ER with DM) 2 tab BID PO ; Start 11/14/18 at 21:00; Status UNV Cetirizine HCl (ZyrTEC) 10 mg DAILY PO ; Start 11/15/18 at 09:00; Status UNV Active Scripts Active Flomax (Tamsulosin Hcl) 0.4 Mg Cap.er.24h 0.4 Mg PO QHS 30 Days Tylenol (Acetaminophen) 325 Mg Tablet 650 Mg PO PRN Q6HRS PRN 30 Days Reported Losartan-Hctz 100-25 Mg Tab (Losartan/Hydrochlorothiazide) 1 Each Tablet 1 Tab PO DAILY Triamcinolone Acetonide 0.1% Oint (Triamcinolone Acetonide) 15 Gm Oint...g. 1 Zi TP BID PRN MIX WITH EUCERIN DIRECTED BY PHYSICIAN Aspirin Ec (Aspirin) 81 Mg Tablet.dr 1 Tab PO DAILY Glimepiride 2 Mg Tablet 2 Mg PO DAILY Atorvastatin Calcium 40 Mg Tablet 40 Mg PO HS Gabapentin 300 Mg Capsule 600 Mg PO HS Potassium Citrate 10 Meq Tablet.er 10 Meq PO DAILY Omeprazole 40 Mg Capsule.dr 40 Mg PO DAILYAC Levothyroxine Sodium 50 Mcg Tablet 50 Mcg PO DAILY Allergies Allergies: Coded Allergies: hydrocodone (Verified Allergy, Severe, throat swelling, 09/08/18) oxycodone (Verified Allergy, Severe, throat swelling, 09/08/18) ROS Review of System Review of Systems Review of Systems Constitutional: Denies fever or chills [] Eyes: Denies change in visual acuity, redness, or eye pain [] HENT: Positive sore throat [] Respiratory: Positive cough and shortness of breath [] Cardiovascular: No additional information not addressed in HPI [] GI: Denies abdominal pain, nausea, vomiting or diarrhea [] Neurologic: Denies headache, focal weakness or sensory changes [] 14 PT systems were reviewed and found to be within normal limits, except as documented . General: YES: Fatigue PSYCHOLOGICAL ROS: No: Anxiety, Behavioral Disorder, Concentration difficultie , Decreased libido, Depression, Disorientation, Hallucinations, Hostility, Irritablity, Memory difficulties, Mood Swings, Obsessive thoughts, Physical abuse, Sexual abuse, Sleep disturbances, Suicidal ideation, Other ALLERGY AND IMMUNOLOGY: YES: Nasal Congestion, Post Nasal Drip Hematological and Lymphatic: YES: Bleeding Problems; No: Blood Clots, Blood Transfusions, Brusing, Night Sweats, Pallor, Swollen Lymph Nodes, Other ENDOCRINE: No: Breast Changes, Galactorrhea, Hair Pattern Changes, Hot Flashes , Malaise/lethargy, Mood Swings, Palpitations, Polydipsia/polyuria, Skin Changes , Temperature Intolerance, Unexpected Weight Changes, Other Breast: No New/Changing Breast Lumps, No Nipple changes, No Nipple discharge, No Other Respiratory: YES: Cough, Pleuritic Pain, Shortness of breath Cardiovascular: yes Chest Pain, yes Palpitations Gastrointestinal: No Nausea, No Vomiting, No Abdominal Pain, No Diarrhea, No Constipation, No Melena, No Hematochezia, No Other Genitourinary: No Dysuria, No Frequency, No Incontinence, No Hematuria, No Retention, No Discharge, No Urgency, No Pain, No Flank Pain, No Other, No , No , No , No , No , No , No Musculoskeletal: Yes Joint Stiffness Neurological: No Behavorial Changes, No Bowel/Bladder ControlChng, No Confusion , No Dizziness, No Gait Disturbance, No Headaches, No Impaired Coord/balance, No Memory Loss, No Numbness/Tingling, No Seizures, No Speech Problems, No Tremors, No Visual Changes, No Weakness, No Other Skin: Yes Dry Skin Physical Exam Physical Exam Physical Exam Constitutional: Well developed, well nourished, no acute distress, non-toxic appearance. [] HENT: Normocephalic, atraumatic, bilateral external ears normal, oropharynx moist, no oral exudates, nose normal. [] Eyes: PERRLA, EOMI, conjunctiva normal, no discharge. [] Neck: Normal range of motion, no tenderness, supple, no stridor. [] Cardiovascular:Heart rate regular rhythm, no murmur [] Lungs & Thorax: Fine inspiratory and expiratory wheezes are noted to auscultation [] Abdomen: Bowel sounds normal, soft, no tenderness. [] Skin: Warm, dry, no erythema, no rash. [] Extremities: No tenderness, no cyanosis, no clubbing, ROM intact, no edema. [] Neurologic: Alert and oriented X 3, no focal deficits noted. [] General: Oriented X3, Cooperative, mild distress HEENT: Atraumatic, Mucous membr. moist/pink Lungs: Clear to auscultation Heart: RRR Rectal Exam: not examined Extremities: No cyanosis Neuro: Normal speech, Cranial nerves 3-12 NL Psych/Mental Status: Mental status NL, Mood NL Vitals Vitals Vital Signs Date Time Temp Pulse Resp B/P (MAP) Pulse Ox O2 Delivery O2 Flow Rate FiO2 11/14/18 09:48 15 96 Room Air 11/14/18 07:38 98.0 65 141/65 (90) 98.0 Labs Labs Laboratory Tests Test 11/14/18 00:44 11/14/18 07:30 11/14/18 07:45 White Blood Count 10.5 x10^3/uL (4.0-11.0) Red Blood Count 4.68 x10^6/uL (4.30-5.70) Hemoglobin 15.0 g/dL (13.0-17.5) Hematocrit 43.8 % (39.0-53.0) Mean Corpuscular Volume 94 fL (79-100) Mean Corpuscular Hemoglobin 32 pg (25-35) Mean Corpuscular Hemoglobin Concent 34 g/dL (31-37) Red Cell Distribution Width 15.1 % (11.5-14.5) Platelet Count 274 x10^3/uL (140-400) Neutrophils (%) (Auto) 70 % (31-73) Lymphocytes (%) (Auto) 15 % (24-48) Monocytes (%) (Auto) 12 % (0-9) Eosinophils (%) (Auto) 2 % (0-3) Basophils (%) (Auto) 1 % (0-3) Neutrophils # (Auto) 7.4 x10^3uL (1.8-7.7) Lymphocytes # (Auto) 1.6 x10^3/uL (1.0-4.8) Monocytes # (Auto) 1.3 x10^3/uL (0.0-1.1) Eosinophils # (Auto) 0.2 x10^3/uL (0.0-0.7) Basophils # (Auto) 0.1 x10^3/uL (0.0-0.2) Prothrombin Time 13.2 SEC (11.7-14.0) Prothromb Time International Ratio 1.0 (0.8-1.1) D-Dimer (Jessica) 0.33 ug/mlFEU (0.00-0.50) Sodium Level 137 mmol/L (136-145) Potassium Level 3.4 mmol/L (3.5-5.1) Chloride Level 100 mmol/L (98-107) Carbon Dioxide Level 24 mmol/L (21-32) Anion Gap 13 (6-14) Blood Urea Nitrogen 29 mg/dL (8-26) Creatinine 1.8 mg/dL (0.7-1.3) Estimated GFR (Cockcroft-Gault) 37.6 BUN/Creatinine Ratio 16 (6-20) Glucose Level 146 mg/dL (70-99) Calcium Level 8.7 mg/dL (8.5-10.1) Magnesium Level 1.9 mg/dL (1.8-2.4) Total Bilirubin 0.6 mg/dL (0.2-1.0) Aspartate Amino Transf (AST/SGOT) 27 U/L (15-37) Alanine Aminotransferase (ALT/SGPT) 34 U/L (16-63) Alkaline Phosphatase 86 U/L (46-116) Troponin I Quantitative < 0.017 ng/mL (0.000-0.055) < 0.017 ng/mL (0.000-0.055) BR-Mjn-K-Type Natriuretic Peptide 28 pg/mL (0-124) Total Protein 6.8 g/dL (6.4-8.2) Albumin 3.5 g/dL (3.4-5.0) Albumin/Globulin Ratio 1.1 (1.0-1.7) Influenza Type A Antigen Negative (NEGATIVE) Influenza Type B Antigen Negative (NEGATIVE) Group A Streptococcus Rapid Negative (NEGATIVE) Glucose (Fingerstick) 128 mg/dL (70-99) Laboratory Tests Test 11/14/18 00:44 11/14/18 07:30 11/14/18 07:45 White Blood Count 10.5 x10^3/uL (4.0-11.0) Red Blood Count 4.68 x10^6/uL (4.30-5.70) Hemoglobin 15.0 g/dL (13.0-17.5) Hematocrit 43.8 % (39.0-53.0) Mean Corpuscular Volume 94 fL (79-100) Mean Corpuscular Hemoglobin 32 pg (25-35) Mean Corpuscular Hemoglobin Concent 34 g/dL (31-37) Red Cell Distribution Width 15.1 % (11.5-14.5) Platelet Count 274 x10^3/uL (140-400) Neutrophils (%) (Auto) 70 % (31-73) Lymphocytes (%) (Auto) 15 % (24-48) Monocytes (%) (Auto) 12 % (0-9) Eosinophils (%) (Auto) 2 % (0-3) Basophils (%) (Auto) 1 % (0-3) Neutrophils # (Auto) 7.4 x10^3uL (1.8-7.7) Lymphocytes # (Auto) 1.6 x10^3/uL (1.0-4.8) Monocytes # (Auto) 1.3 x10^3/uL (0.0-1.1) Eosinophils # (Auto) 0.2 x10^3/uL (0.0-0.7) Basophils # (Auto) 0.1 x10^3/uL (0.0-0.2) Prothrombin Time 13.2 SEC (11.7-14.0) Prothromb Time International Ratio 1.0 (0.8-1.1) D-Dimer (Jessica) 0.33 ug/mlFEU (0.00-0.50) Sodium Level 137 mmol/L (136-145) Potassium Level 3.4 mmol/L (3.5-5.1) Chloride Level 100 mmol/L (98-107) Carbon Dioxide Level 24 mmol/L (21-32) Anion Gap 13 (6-14) Blood Urea Nitrogen 29 mg/dL (8-26) Creatinine 1.8 mg/dL (0.7-1.3) Estimated GFR (Cockcroft-Gault) 37.6 BUN/Creatinine Ratio 16 (6-20) Glucose Level 146 mg/dL (70-99) Calcium Level 8.7 mg/dL (8.5-10.1) Magnesium Level 1.9 mg/dL (1.8-2.4) Total Bilirubin 0.6 mg/dL (0.2-1.0) Aspartate Amino Transf (AST/SGOT) 27 U/L (15-37) Alanine Aminotransferase (ALT/SGPT) 34 U/L (16-63) Alkaline Phosphatase 86 U/L (46-116) Troponin I Quantitative < 0.017 ng/mL (0.000-0.055) < 0.017 ng/mL (0.000-0.055) FC-Mop-A-Type Natriuretic Peptide 28 pg/mL (0-124) Total Protein 6.8 g/dL (6.4-8.2) Albumin 3.5 g/dL (3.4-5.0) Albumin/Globulin Ratio 1.1 (1.0-1.7) Influenza Type A Antigen Negative (NEGATIVE) Influenza Type B Antigen Negative (NEGATIVE) Group A Streptococcus Rapid Negative (NEGATIVE) Glucose (Fingerstick) 128 mg/dL (70-99) Images Images Single view of the chest. 11/14/2018 12:50 AM Indication: Shortness of breath Comparison: Chest radiograph December 26, 2017 Findings: There is no focal consolidation. There is no pleural effusion or pneumothorax. The cardiomediastinal silhouette and pulmonary vasculature are within normal limits. No acute osseous abnormalities are seen. Impression: No evidence of acute cardiopulmonary process. Electronically signed by: Sohail Oleary MD (11/14/2018 8:34 AM) [id number] DICTATED and SIGNED BY: SOHAIL OLEARY MD VTE Prophylaxis Ordered VTE Prophylaxis Devices: Yes VTE Pharmacological Prophylaxi: Yes Assessment/Plan Assessment/Plan ASSESSMENT Atypical chest pain: Cough/allergy HTN: DM2/HLP Hypothyroidism Suspect CKD3 GERD bph PLAN 1. ECHO 2. SERIAL TROPONIN I 3. CARDIOLOGY CONSULT STRESS TESTING 4. CLARITIN, MUCINEX 5. HOME MEDS 6. TELE 7. DVT PROPHYLAXIS 55 min pt exam, chart review, > 50% of time spent with exam, chart review, pt care coordination JUAN RAMON TAPIA MD Nov 14, 2018 10:06
[2018-11-14 10:30] VITALS: BP 159/69
[2018-11-14 10:33] LABS: CALCIUM 8.3 mg/dL (8.5-10.1); CREATININE 1.6 mg/dL (0.7-1.3); GFR 43.1; POTASSIUM 3.5 mmol/L (3.5-5.1)
[2018-11-14 10:34] LABS: CHOLESTEROL/HDL RATIO 3.5
[2018-11-14 10:36] LABS: BILIRUBIN,URINE NEGATIVE (NEG); CLARITY,URINE CLEAR; COLOR,URINE YELLOW; NITRITE,URINE NEGATIVE (NEG); PROTEIN,URINE NEGATIVE (NEG-TRACE); UROBILINOGEN,URINE 0.2 mg/dL (0.2 mg/dL)
[2018-11-14] MEDS: guaiFENesin DM 600/30MG 1 TAB TAB.ER.12H PO SCH ×2 (10:44→20:42)
[2018-11-14 11:01] LABS: BACTERIA,URINE 0 /HPF (0-FEW); RBC,URINE 0 /HPF (0-2); SQUAMOUS EPITHELIAL CELL,UR OCC /LPF; WBC,URINE 0 /HPF (0-4)
[2018-11-14] MEDS ORDERED: BENZOCAINE/MENTHOL LOZENGE. PO PRN (11:45)
[2018-11-14 12:20] VITALS: BP 148/68
--- NOTE | 2018-11-14 12:36 | NUR ---
SS following for discharge planning. SS reviewed pt chart. Pt is from home and currently on room air. No discharge needs noted at this time. SS will continue to follow for pending discharge needs.
--- NOTE | 2018-11-14 12:55 | CARD ---
MR#: [id number] Date of Study: 11/14/2018 Ordering Physician: BIPIN WARD, Referring Physician: JUAN RAMON TAPIA Tech: Cely Hebert RDCS APPROVED REPORT EXAM: Two-dimensional and M-mode echocardiogram with Doppler and color Doppler. Other Information Quality : Good INDICATION Chest Pain 2D DIMENSIONS RVDd2.9 (2.9-3.5cm)Left Atrium(2D)5.2 (1.6-4.0cm) IVSd1.2 (0.7-1.1cm)Aortic Root(2D)2.6 (2.0-3.7cm) LVDd4.8 (3.9-5.9cm)LVOT Diameter2.3 (1.8-2.4cm) PWd1.0 (0.7-1.1cm)LVDs3.1 (2.5-4.0cm) FS (%) 36.0 %SV71.2 ml LVEF(%)65.5 (>50%) Aortic Valve AoV Peak Santy.196.2cm/sAoV VTI39.1cm AO Peak GR.15.4mmHgLVOT Peak Santy.132.5cm/s LVOT VTI 27.64cmAO Mean GR.8mmHg AGUSTIN (VMAX)2.30tn4LQE (VTI)2.82cm2 Mitral Valve MV E Xwhvlznf17.7cm/sMV DECEL OKKY882ni MV A Dugkbzec77.4cm/sMV GNU23mp E/A Ratio1.1MVA (PHT)3.52cm2 TDI E/Lateral E'6.9E/Medial E'9.3 Tricuspid Valve TR P. Ulbpcbol427zh/sRAP [id number] TR Peak Gr.46fnCuVNXX04bdIa Pulmonary Vein S1 Hyqhtgfj57.1cm/sD2 Wnipjera62.2cm/s LEFT VENTRICLE The left ventricle is normal size. There is mild concentric left ventricular hypertrophy. The left ve ntricular systolic function is normal. The Ejection Fraction is 55-60%. There is normal LV segmental wall motion. RIGHT VENTRICLE The right ventricle is normal size. The right ventricular systolic function is normal. ATRIA The left atrium is moderately dilated. The right atrium size is normal. The interatrial septum is int act with no evidence for an atrial septal defect or patent foramen ovale as noted on 2-D or Doppler i maging. AORTIC VALVE The aortic valve is calcified but opens well. Doppler and Color Flow revealed no significant aortic r egurgitation. There is no significant aortic valvular stenosis. MITRAL VALVE The mitral valve is normal in structure and function. There is no evidence of mitral valve prolapse. There is no mitral valve stenosis. Doppler and Color-flow revealed trace to mild mitral regurgitation . TRICUSPID VALVE The tricuspid valve is normal in structure and function. Doppler and Color Flow revealed trace tricus pid regurgitation. There is mild pulmonary hypertension. The PA pressure was estimated at 32 mmHg. Th ere is no tricuspid valve stenosis. PULMONIC VALVE The pulmonic valve is not well visualized. Doppler and Color Flow revealed trace pulmonic valvular re gurgitation. There is no pulmonic valvular stenosis. GREAT VESSELS The aortic root is normal in size. The ascending aorta is normal in size. The IVC is normal in size a nd collapses >50% with inspiration. PERICARDIAL EFFUSION There is no evidence of significant pericardial effusion. Critical Notification Critical Value: No <Conclusion> The left ventricular systolic function is normal. The Ejection Fraction is 55-60%. There is normal LV segmental wall motion. The left atrium is moderately dilated. Trace to mild mitral regurgitation. Trace tricuspid regurgitation. There is mild pulmonary hypertension. The PA pressure was estimated at 32 mmHg. There is no evidence of significant pericardial effusion. Signed by : Mario Reyes, Electronically Approved : 11/14/2018 12:55:14
[2018-11-14] MEDS: PHENOL ORAL SPRAY 177ML BOTTLE. PO PRN ×3 (13:24→20:43)
[2018-11-14] MEDS ORDERED: TRIAMCINOLONE ACETONIDE 0.1% TOPICAL OINTMENT 15GM TUBE. TP PRN (13:30)
[2018-11-14 15:06] VITALS: BP 119/64
[2018-11-14] MEDS: GLIMEPIRIDE 2 MG TABLET. PO SCH (15:23)
[2018-11-14] MEDS: LOSARTAN POTASSIUM 50 MG TABLET. PO SCH (15:24)
[2018-11-14] MEDS: hydroCHLOROthiazide 25 MG TABLET PO SCH (15:25)
[2018-11-14] MEDS: ASPIRIN ENTERIC COATED 81 MG TABLET.DR. PO SCH (15:25)
[2018-11-14] MEDS: PANTOPRAZOLE 40 MG TABLET.DR. PO SCH (15:26)
[2018-11-14] MEDS: ACETAMINOPHEN 325 MG TABLET. PO PRN ×2 (15:26→21:59)
[2018-11-14] MEDS: POTASSIUM CITRATE 10 MEQ TABLET.ER PO SCH (15:31)
[2018-11-14 19:00] VITALS: BP 141/63
[2018-11-14] MEDS ORDERED: TAMSULOSIN 0.4 MG CAP.ER.24H. PO SCH (21:00)
[2018-11-14] MEDS ORDERED: GABAPENTIN 300 MG CAPSULE. PO SCH (21:00)
[2018-11-14] MEDS ORDERED: ATORVASTATIN CALCIUM 40 MG TABLET. PO SCH (21:00)
[2018-11-14 23:00] VITALS: BP 107/53
[2018-11-14 23:11] LABS: HEMOGLOBIN A1C 5.6 % (4.8-5.6)
[2018-11-15 03:00] VITALS: BP 121/58
[2018-11-15] MEDS: PHENOL ORAL SPRAY 177ML BOTTLE. PO PRN ×3 (05:21→12:30)
[2018-11-15] MEDS: ACETAMINOPHEN 325 MG TABLET. PO PRN ×2 (05:21→12:28)
[2018-11-15] MEDS: PANTOPRAZOLE 40 MG TABLET.DR. PO SCH (05:21)
[2018-11-15] MEDS ORDERED: LEVOTHYROXINE 50 MCG TABLET PO SCH (06:00)
[2018-11-15 07:00] VITALS: BP 123/60
[2018-11-15] MEDS: IPRATRPIUM/ALBUTEROL 0.5/2.5MG 3 ML NEBU. NEB SCH (07:28)
[2018-11-15] MEDS: ASPIRIN ENTERIC COATED 81 MG TABLET.DR. PO SCH (08:20)
[2018-11-15] MEDS: hydroCHLOROthiazide 25 MG TABLET PO SCH (08:21)
[2018-11-15] MEDS: GLIMEPIRIDE 2 MG TABLET. PO SCH (08:22)
[2018-11-15] MEDS: LOSARTAN POTASSIUM 50 MG TABLET. PO SCH (08:22)
[2018-11-15] MEDS: guaiFENesin DM 600/30MG 1 TAB TAB.ER.12H PO SCH (08:22)
[2018-11-15] MEDS ORDERED: CETIRIZINE HCL 10 MG TABLET. PO SCH (09:00)
[2018-11-15] MEDS: POTASSIUM CITRATE 10 MEQ TABLET.ER PO SCH (10:11)
[2018-11-15 11:10] VITALS: BP 140/61
[2018-11-15] MEDS ORDERED: IPRATRPIUM/ALBUTEROL 0.5/2.5MG 3 ML NEBU. NEB SCH (12:00)
[2018-11-15] MEDS ORDERED: MONT10TA9 PO (13:34)
[2018-11-15] MEDS ORDERED: PRED20TA PO (13:34)
--- NOTE | 2018-11-15 13:37 | PDOC ---
PROGRESS NOTES Chief Complaint Chief Complaint Atypical chest pain: Cough/allergy HTN: DM2/HLP Hypothyroidism Suspect CKD3 GERD bph History of Present Illness History of Present Illness 68-year-old male who presents with complaint of chest discomfort with shortness of breath, sore throat and cough that started about 3 days ago. Patient states his symptoms are progressively getting worse. Patient states that shortness of breath and chest discomfort are worsened with exertion. At times he describes pain as tightness. Seen by cardiology, had negative troponins, had Cr elevated as well, which improved. Likely viral cough syndrome. Feeling better today, still coughing. Echo - The left ventricular systolic function is normal. The Ejection Fraction is 55-60%. There is normal LV segmental wall motion. The left atrium is moderately dilated. Trace to mild mitral regurgitation. Trace tricuspid regurgitation. There is mild pulmonary hypertension. The PA pressure was estimated at 32 mmHg. There is no evidence of significant pericardial effusion. Vitals Vitals Vital Signs Date Time Temp Pulse Resp B/P (MAP) Pulse Ox O2 Delivery O2 Flow Rate FiO2 11/15/18 11:53 Room Air 11/15/18 11:10 97.4 65 19 140/61 (87) 94 97.4 Physical Exam General: Alert, Oriented X3, Cooperative, No acute distress Heart: Regular rate (SR), Normal S1, Normal S2, No murmurs Lungs: Clear Abdomen: Soft, No tenderness Extremities: No cyanosis, No edema Skin: No breakdown, No significant lesion Assessment and Plan Assessmemt and Plan Problems Medical Problems: (1) Dyspnea Status: Acute Comment Review of Relevant I have reviewed the following items aditya (where applicable) has been applied. Labs Laboratory Tests Test 11/14/18 00:44 11/14/18 07:30 11/14/18 07:45 11/14/18 09:40 White Blood Count 10.5 x10^3/uL (4.0-11.0) Red Blood Count 4.68 x10^6/uL (4.30-5.70) Hemoglobin 15.0 g/dL (13.0-17.5) Hematocrit 43.8 % (39.0-53.0) Mean Corpuscular Volume 94 fL (79-100) Mean Corpuscular Hemoglobin 32 pg (25-35) Mean Corpuscular Hemoglobin Concent 34 g/dL (31-37) Red Cell Distribution Width 15.1 % (11.5-14.5) Platelet Count 274 x10^3/uL (140-400) Neutrophils (%) (Auto) 70 % (31-73) Lymphocytes (%) (Auto) 15 % (24-48) Monocytes (%) (Auto) 12 % (0-9) Eosinophils (%) (Auto) 2 % (0-3) Basophils (%) (Auto) 1 % (0-3) Neutrophils # (Auto) 7.4 x10^3uL (1.8-7.7) Lymphocytes # (Auto) 1.6 x10^3/uL (1.0-4.8) Monocytes # (Auto) 1.3 x10^3/uL (0.0-1.1) Eosinophils # (Auto) 0.2 x10^3/uL (0.0-0.7) Basophils # (Auto) 0.1 x10^3/uL (0.0-0.2) Prothrombin Time 13.2 SEC (11.7-14.0) Prothromb Time International Ratio 1.0 (0.8-1.1) D-Dimer (Jessica) 0.33 ug/mlFEU (0.00-0.50) Sodium Level 137 mmol/L (136-145) 139 mmol/L (136-145) Potassium Level 3.4 mmol/L (3.5-5.1) 3.5 mmol/L (3.5-5.1) Chloride Level 100 mmol/L (98-107) 103 mmol/L (98-107) Carbon Dioxide Level 24 mmol/L (21-32) 23 mmol/L (21-32) Anion Gap 13 (6-14) 13 (6-14) Blood Urea Nitrogen 29 mg/dL (8-26) 30 mg/dL (8-26) Creatinine 1.8 mg/dL (0.7-1.3) 1.6 mg/dL (0.7-1.3) Estimated GFR (Cockcroft-Gault) 37.6 43.1 BUN/Creatinine Ratio 16 (6-20) Glucose Level 146 mg/dL (70-99) 137 mg/dL (70-99) Hemoglobin A1c 5.6 % (4.8-5.6) Calcium Level 8.7 mg/dL (8.5-10.1) 8.3 mg/dL (8.5-10.1) Magnesium Level 1.9 mg/dL (1.8-2.4) 2.0 mg/dL (1.8-2.4) Total Bilirubin 0.6 mg/dL (0.2-1.0) Aspartate Amino Transf (AST/SGOT) 27 U/L (15-37) Alanine Aminotransferase (ALT/SGPT) 34 U/L (16-63) Alkaline Phosphatase 86 U/L (46-116) Troponin I Quantitative < 0.017 ng/mL (0.000-0.055) < 0.017 ng/mL (0.000-0.055) < 0.017 ng/mL (0.000-0.055) BL-Loo-R-Type Natriuretic Peptide 28 pg/mL (0-124) Total Protein 6.8 g/dL (6.4-8.2) Albumin 3.5 g/dL (3.4-5.0) Albumin/Globulin Ratio 1.1 (1.0-1.7) Influenza Type A Antigen Negative (NEGATIVE) Influenza Type B Antigen Negative (NEGATIVE) Group A Streptococcus Rapid Negative (NEGATIVE) Triglycerides Level 90 mg/dL (0-150) Cholesterol Level 120 mg/dL (0-200) LDL Cholesterol, Calculated 68 mg/dL (0-100) VLDL Cholesterol, Calculated 18 mg/dL (0-40) Non-HDL Cholesterol Calculated 86 mg/dL (0-129) HDL Cholesterol 34 mg/dL (40-60) Cholesterol/HDL Ratio 3.5 Thyroid Stimulating Hormone (TSH) 6.491 uIU/mL (0.358-3.74) Glucose (Fingerstick) 128 mg/dL (70-99) Test 11/14/18 10:10 Urine Collection Type Unknown Urine Color Yellow Urine Clarity Clear Urine pH 6.0 Urine Specific [place] 1.020 Urine Protein Negative mg/dL (NEG-TRACE) Urine Glucose (UA) Negative mg/dL (NEG) Urine Ketones (Stick) Negative mg/dL (NEG) Urine Blood Negative (NEG) Urine Nitrite Negative (NEG) Urine Bilirubin Negative (NEG) Urine Urobilinogen Dipstick 0.2 mg/dL (0.2 mg/dL) Urine Leukocyte Esterase Negative (NEG) Urine RBC 0 /HPF (0-2) Urine WBC 0 /HPF (0-4) Urine Squamous Epithelial Cells Occ /LPF Urine Bacteria 0 /HPF (0-FEW) Urine Mucus Slight /LPF Medications Current Medications Aspirin (Children'S Aspirin) 324 mg 1X ONCE PO Last administered on 11/14/18at 00:48; Start 11/14/18 at 01:00; Stop 11/14/18 at 01:01; Status DC Morphine Sulfate (Morphine Sulfate) 2 mg PRN Q15MIN PRN IV/SQ PAIN GREATER THAN 3/10 Last administered on 11/14/18at 00:48; Start 11/14/18 at 00:30; Stop at 00:29; Status DC Sodium Chloride 1,000 ml @ 100 mls/hr Q10H IV Last administered on 11/14/18at 00:47; Start 11/14/18 at 01:00; Stop 11/14/18 at 10:59; Status DC Ondansetron HCl (Zofran) 4 mg 1X ONCE IV Last administered on 11/14/18at 00:47 ; Start 11/14/18 at 01:00; Stop 11/14/18 at 01:01; Status DC Morphine Sulfate (Morphine Sulfate) 4 mg 1X ONCE IV ; Start 11/14/18 at 03:00; Stop 11/14/18 at 03:01; Status DC Albuterol/ Ipratropium (Duoneb) 3 ml 1X ONCE NEB Last administered on at 02:44; Start 11/14/18 at 03:00; Stop 11/14/18 at 03:01; Status DC Ondansetron HCl (Zofran) 4 mg PRN Q8HRS PRN IV NAUSEA/VOMITING 1ST CHOICE; Start 11/14/18 at 03:45; Stop 11/15/18 at 03:44; Status DC Morphine Sulfate (Morphine Sulfate) 2 mg PRN Q2HR PRN IV SEVERE PAIN Last administered on 11/14/18at 13:23; Start 11/14/18 at 03:45; Stop 11/15/18 at 03:44 ; Status DC Albuterol/ Ipratropium (Duoneb) 3 ml RTQID NEB Last administered on 11/15/18at 07:28; Start 11/14/18 at 08:00; Stop 11/15/18 at 07:59; Status DC Multi-Ingredient Mouthwash/Gargle (Gi Cocktail) 20 ml PRN QID PRN PO CHEST PAIN Last administered on 11/14/18 08:53; Start 11/14/18 at 09:00 Guaifenesin (MUCINEX ER with DM) 2 tab BID PO Last administered on 11/15/18 08 :22; Start 11/14/18 at 11:00 Cetirizine HCl (ZyrTEC) 10 mg DAILY PO Last administered on 11/15/18 08:22; Start 11/15/18 at 09:00 Throat Lozenges (Cepacol Sore Throat Lozenge) 1 staci PRN Q2HRS PRN PO SORE THROAT Last administered on 11/14/18 11:51; Start 11/14/18 at 11:45 Throat Lozenges (Chloraseptic) 1 spray PRN Q2HR PRN PO SORE THROAT Last administered on 11/15/18 12:30; Start 11/14/18 at 11:45 Acetaminophen (Tylenol) 650 mg PRN Q6HRS PRN PO MILD PAIN Last administered on 11/15/18 12:28; Start 11/14/18 at 13:30 Aspirin (Ecotrin) 81 mg DAILY PO Last administered on 11/15/18 08:20; Start at 15:00 Atorvastatin Calcium (Lipitor) 40 mg HS PO Last administered on 11/14/18 20:41 ; Start 11/14/18 at 21:00 Gabapentin (Neurontin) 600 mg HS PO Last administered on 11/14/18at 20:42; Start 11/14/18 at 21:00 Glimepiride (Amaryl) 2 mg DAILY PO Last administered on 11/15/18 08:22; Start 11/14/18 at 15:00 Potassium Citrate (Urocit-K) 10 meq DAILY PO Last administered on 11/15/18 10: 11; Start 11/14/18 at 15:00 Tamsulosin HCl (Flomax) 0.4 mg QHS PO Last administered on 11/14/18 20:42; Start 11/14/18 at 21:00 Triamcinolone Acetonide (Kenalog) 1 zi PRN BID PRN TP ITCHING; Start 11/14/18 at 13:30 Levothyroxine Sodium (Synthroid) 50 mcg DAILY06 PO Last administered on 05:21; Start 11/15/18 at 06:00 Losartan Potassium (Cozaar) 100 mg DAILY PO Last administered on 11/15/18at 08: 22; Start 11/14/18 at 15:00 Pantoprazole Sodium (Protonix) 40 mg DAILYAC PO Last administered on 11/15/18at 05:21; Start 11/14/18 at 16:30 Hydrochlorothiazide (Hydrodiuril) 25 mg DAILY PO Last administered on at 08:21; Start 11/14/18 at 15:00 Albuterol/ Ipratropium (Duoneb) 3 ml RTQID NEB Last administered on 11/15/18at 11:53; Start 11/15/18 at 12:00 Active Scripts Active Flomax (Tamsulosin Hcl) 0.4 Mg Cap.er.24h 0.4 Mg PO QHS 30 Days Tylenol (Acetaminophen) 325 Mg Tablet 650 Mg PO PRN Q6HRS PRN 30 Days Reported Losartan-Hctz 100-25 Mg Tab (Losartan/Hydrochlorothiazide) 1 Each Tablet 1 Tab PO DAILY Triamcinolone Acetonide 0.1% Oint (Triamcinolone Acetonide) 15 Gm Oint...g. 1 Zi TP BID PRN MIX WITH EUCERIN DIRECTED BY PHYSICIAN Aspirin Ec (Aspirin) 81 Mg Tablet. 1 Tab PO DAILY Glimepiride 2 Mg Tablet 2 Mg PO DAILY Atorvastatin Calcium 40 Mg Tablet 40 Mg PO HS Gabapentin 300 Mg Capsule 600 Mg PO HS Potassium Citrate 10 Meq Tablet.er 10 Meq PO DAILY Omeprazole 40 Mg Capsule.dr 40 Mg PO DAILYAC Levothyroxine Sodium 50 Mcg Tablet 50 Mcg PO DAILY Vitals/I & O Vital Sign - Last 24 Hours 11/14/18 11/14/18 11/14/18 11/14/18 14:00 15:06 15:24 16:40 Temp 98.3 98.3 Pulse 66 66 Resp 24 B/P (MAP) 119/64 (82) 119/64 Pulse Ox 92 92 O2 Delivery Room Air Room Air Room Air 11/14/18 11/14/18 11/14/18 11/14/18 19:00 19:33 20:00 23:00 Temp 98.0 98.0 98.0 98.0 Pulse 64 67 Resp 18 16 B/P (MAP) 141/63 (89) 107/53 (71) Pulse Ox 93 96 91 O2 Delivery Room Air Room Air Room Air Room Air 11/15/18 11/15/18 11/15/18 11/15/18 03:00 07:00 07:29 08:03 Temp 98.0 98.2 98.0 98.2 Pulse 65 64 Resp 18 18 B/P (MAP) 121/58 (79) 123/60 (81) Pulse Ox 97 92 O2 Delivery Room Air Room Air Room Air Room Air 11/15/18 11/15/18 11/15/18 08:22 11:10 11:53 Temp 97.4 97.4 Pulse 64 65 Resp 19 B/P (MAP) 123/60 140/61 (87) Pulse Ox 94 O2 Delivery Room Air Room Air Intake and Output 11/14/18 11/14/18 11/15/18 15:00 23:00 07:00 Intake Total 600 ml 600 ml 600 ml Output Total 500 ml Balance 100 ml 600 ml 600 ml KAREN DIALLO MD Nov 15, 2018 13:37
--- NOTE | 2018-11-15 13:39 | PDOC3 ---
Discharge Summary Visit Information Date of Admission: Nov 14, 2018 Date of Discharge: Nov 15, 2018 Admitting Diagnosis: Dyspnea, chest pain Final Diagnosis Problems Medical Problems: (1) Dyspnea Status: Acute Brief Hospital Course Allergies Allergies Coded Allergies Type Severity Reaction Last Updated Verified hydrocodone Allergy Severe throat swelling 09/08/18 Yes oxycodone Allergy Severe throat swelling 09/08/18 Yes Vital Signs Vital Signs Date Time Temp Pulse Resp B/P (MAP) Pulse Ox O2 Delivery O2 Flow Rate FiO2 11/15/18 11:53 Room Air 11/15/18 11:10 97.4 65 19 140/61 (87) 94 97.4 Lab Results Laboratory Tests Test 11/14/18 00:44 11/14/18 07:30 11/14/18 07:45 11/14/18 09:40 White Blood Count 10.5 x10^3/uL (4.0-11.0) Red Blood Count 4.68 x10^6/uL (4.30-5.70) Hemoglobin 15.0 g/dL (13.0-17.5) Hematocrit 43.8 % (39.0-53.0) Mean Corpuscular Volume 94 fL (79-100) Mean Corpuscular Hemoglobin 32 pg (25-35) Mean Corpuscular Hemoglobin Concent 34 g/dL (31-37) Red Cell Distribution Width 15.1 % (11.5-14.5) Platelet Count 274 x10^3/uL (140-400) Neutrophils (%) (Auto) 70 % (31-73) Lymphocytes (%) (Auto) 15 % (24-48) Monocytes (%) (Auto) 12 % (0-9) Eosinophils (%) (Auto) 2 % (0-3) Basophils (%) (Auto) 1 % (0-3) Neutrophils # (Auto) 7.4 x10^3uL (1.8-7.7) Lymphocytes # (Auto) 1.6 x10^3/uL (1.0-4.8) Monocytes # (Auto) 1.3 x10^3/uL (0.0-1.1) Eosinophils # (Auto) 0.2 x10^3/uL (0.0-0.7) Basophils # (Auto) 0.1 x10^3/uL (0.0-0.2) Prothrombin Time 13.2 SEC (11.7-14.0) Prothromb Time International Ratio 1.0 (0.8-1.1) D-Dimer (Jessica) 0.33 ug/mlFEU (0.00-0.50) Sodium Level 137 mmol/L (136-145) 139 mmol/L (136-145) Potassium Level 3.4 mmol/L (3.5-5.1) 3.5 mmol/L (3.5-5.1) Chloride Level 100 mmol/L (98-107) 103 mmol/L (98-107) Carbon Dioxide Level 24 mmol/L (21-32) 23 mmol/L (21-32) Anion Gap 13 (6-14) 13 (6-14) Blood Urea Nitrogen 29 mg/dL (8-26) 30 mg/dL (8-26) Creatinine 1.8 mg/dL (0.7-1.3) 1.6 mg/dL (0.7-1.3) Estimated GFR (Cockcroft-Gault) 37.6 43.1 BUN/Creatinine Ratio 16 (6-20) Glucose Level 146 mg/dL (70-99) 137 mg/dL (70-99) Hemoglobin A1c 5.6 % (4.8-5.6) Calcium Level 8.7 mg/dL (8.5-10.1) 8.3 mg/dL (8.5-10.1) Magnesium Level 1.9 mg/dL (1.8-2.4) 2.0 mg/dL (1.8-2.4) Total Bilirubin 0.6 mg/dL (0.2-1.0) Aspartate Amino Transf (AST/SGOT) 27 U/L (15-37) Alanine Aminotransferase (ALT/SGPT) 34 U/L (16-63) Alkaline Phosphatase 86 U/L (46-116) Troponin I Quantitative < 0.017 ng/mL (0.000-0.055) < 0.017 ng/mL (0.000-0.055) < 0.017 ng/mL (0.000-0.055) IJ-Kiq-D-Type Natriuretic Peptide 28 pg/mL (0-124) Total Protein 6.8 g/dL (6.4-8.2) Albumin 3.5 g/dL (3.4-5.0) Albumin/Globulin Ratio 1.1 (1.0-1.7) Influenza Type A Antigen Negative (NEGATIVE) Influenza Type B Antigen Negative (NEGATIVE) Group A Streptococcus Rapid Negative (NEGATIVE) Triglycerides Level 90 mg/dL (0-150) Cholesterol Level 120 mg/dL (0-200) LDL Cholesterol, Calculated 68 mg/dL (0-100) VLDL Cholesterol, Calculated 18 mg/dL (0-40) Non-HDL Cholesterol Calculated 86 mg/dL (0-129) HDL Cholesterol 34 mg/dL (40-60) Cholesterol/HDL Ratio 3.5 Thyroid Stimulating Hormone (TSH) 6.491 uIU/mL (0.358-3.74) Glucose (Fingerstick) 128 mg/dL (70-99) Test 11/14/18 10:10 Urine Collection Type Unknown Urine Color Yellow Urine Clarity Clear Urine pH 6.0 Urine Specific [place] 1.020 Urine Protein Negative mg/dL (NEG-TRACE) Urine Glucose (UA) Negative mg/dL (NEG) Urine Ketones (Stick) Negative mg/dL (NEG) Urine Blood Negative (NEG) Urine Nitrite Negative (NEG) Urine Bilirubin Negative (NEG) Urine Urobilinogen Dipstick 0.2 mg/dL (0.2 mg/dL) Urine Leukocyte Esterase Negative (NEG) Urine RBC 0 /HPF (0-2) Urine WBC 0 /HPF (0-4) Urine Squamous Epithelial Cells Occ /LPF Urine Bacteria 0 /HPF (0-FEW) Urine Mucus Slight /LPF Brief Hospital Course Mr Gómez is a 68-year-old male who presents with complaint of chest discomfort with shortness of breath, sore throat and cough that started about 3 days ago. Patient states his symptoms are progressively getting worse. Patient states that shortness of breath and chest discomfort are worsened with exertion. At times he describes pain as tightness. Seen by cardiology, had negative troponins, had Cr elevated as well, which improved. Likely viral cough syndrome. Feeling better today, still coughing. Improved with nebs, steroids, singulair. Seen by cardiology. Echo - The left ventricular systolic function is normal. The Ejection Fraction is 55-60%. There is normal LV segmental wall motion. The left atrium is moderately dilated. Trace to mild mitral regurgitation. Trace tricuspid regurgitation. There is mild pulmonary hypertension. The PA pressure was estimated at 32 mmHg. There is no evidence of significant pericardial effusion. Atypical chest pain - costochondritis 2/2 acute bronchitis Cough/allergy HTN: DM2/HLP Hypothyroidism Suspect CKD3 GERD bph Greater than 30 minutes spent on discharge. Discharge Information Condition at Discharge: Improved Follow Up: Weeks (2) Disposition/Orders: D/C to Home Scheduled Aspirin (Aspirin Ec) 81 Mg Tablet., 1 TAB PO DAILY for per list, #30 Ref 3 ( Reported) Entered as Reported by: ADAM BARBOUR on 09/07/181526 Last Action: Continued on 11/14/181318 by JUAN RAMON TAPIA MD Atorvastatin Calcium (Atorvastatin Calcium) 40 Mg Tablet, 40 MG PO HS, (Reported ) Entered as Reported by: LA LARA on 12/27/171352 Last Action: Continued on 11/14/181318 by JUAN RAMON TAPIA MD Gabapentin (Gabapentin) 300 Mg Capsule, 600 MG PO HS, (Reported) Entered as Reported by: LA LARA on 12/27/171352 Last Action: Continued on 11/14/181318 by JUAN RAMON TAPIA MD Glimepiride (Glimepiride) 2 Mg Tablet, 2 MG PO DAILY, (Reported) Entered as Reported by: LA LARA on 12/27/171352 Last Action: Continued on 11/14/181318 by JUAN RAMON TAPIA MD Levothyroxine Sodium (Levothyroxine Sodium) 50 Mcg Tablet, 50 MCG PO DAILY, ( Reported) Entered as Reported by: LA LARA on 12/27/171352 Last Action: Converted on 11/14/181318 by JUAN RAMON TAPIA MD Losartan/Hydrochlorothiazide (Losartan-Hctz 100-25 Mg Tab) 1 Each Tablet, 1 TAB PO DAILY for htn, #30 Ref 5 (Reported) Entered as Reported by: ADAM BARBOUR on 09/07/181526 Last Action: Converted on 11/14/181318 by JUAN RAMON TAPIA MD Montelukast Sodium (Montelukast Sodium Tablet) 10 Mg Tablet, 1 TAB PO DAILY for Allergies for 30 Days, #30 Ref 5 Prescribed by: KAREN DIALLO MD on 11/15/181333 Omeprazole (Omeprazole) 40 Mg Capsule.dr, 40 MG PO DAILYAC, (Reported) Entered as Reported by: LA LARA on 12/27/17 1353 Last Action: Converted on 11/14/181318 by JUAN RAMON TAPIA MD Potassium Citrate (Potassium Citrate) 10 Meq Tablet.er, 10 MEQ PO DAILY, ( Reported) Entered as Reported by: LA LARA on 12/27/17 1353 Last Action: Continued on 11/14/181318 by JUAN RAMON TAPIA MD Prednisone (Prednisone) 20 Mg Tablet, 1 TAB PO DAILY for Bronchitis for 5 Days, #5 Prescribed by: KAREN DIALLO MD on 11/15/18 1334 Tamsulosin Hcl (Flomax) 0.4 Mg Cap.er.24h, 0.4 MG PO QHS for PROSTATE for 30 Days, #30 Prescribed by: JUAN RAMON TAPIA MD on 09/12/18 1311 Last Action: Continued on 11/14/181318 by JUAN RAMON TAPIA MD Scheduled PRN Acetaminophen (Tylenol) 325 Mg Tablet, 650 MG PO PRN Q6HRS PRN for PAIN for 30 Days, #30 Prescribed by: MINDY VERNON MD on 12/29/17 1606 Last Action: Continued on 11/14/181318 by JUAN RAMON TAPIA MD Triamcinolone Acetonide (Triamcinolone Acetonide 0.1% Oint) 15 Gm Oint...g., 1 NICOLE TP BID PRN for ITCHING, #1 (Reported) MIX WITH EUCERIN DIRECTED BY PHYSICIAN Entered as Reported by: ADAM BARBOUR on 09/07/18 1527 Last Action: Continued on 11/14/181318 by MD IMANI NASCIMENTO CHRISTOPHER S MD Nov 15, 2018 13:39
[2018-11-15 15:00] VITALS: BP 118/55
--- NOTE | 2018-11-15 15:25 | NUR ---
Discharge Note: BONNIE HENSON Discharge instructions and discharge home medications reviewed with Patient and a copy given. All questions have been answered and understanding verbalized.
== END 2018-11-15 15:27 | disposition home or self-care (01) | DRG 206 ==
LOC: ER 00:04 → ED HOLD 03:40 → 2 SOUTH 12:29
PROVIDERS: ADMIT Family Medicine; ATTEND Family Medicine
DX: M94.0 Chondrocostal junction syndrome [Tietze] (principal); J20.9 Acute bronchitis, unspecified; K21.9 Gastro-esophageal reflux disease without esophagitis; E78.00 Pure hypercholesterolemia, unspecified; E03.9 Hypothyroidism, unspecified; E78.5 Hyperlipidemia, unspecified; G25.81 Restless legs syndrome; I27.20 Pulmonary hypertension, unspecified; N40.0 Benign prostatic hyperplasia without lower urinary tract symptoms; F41.9 Anxiety disorder, unspecified; M19.90 Unspecified osteoarthritis, unspecified site; I12.9 Hypertensive chronic kidney disease with stage 1 through stage 4 chronic kidney disease, or unspecified chronic kidney disease; N18.3 Chronic kidney disease, stage 3 (moderate); E11.22 Type 2 diabetes mellitus with diabetic chronic kidney disease
CPT/HCPCS: 36415; 71045; 80048; 80053; 80061; 81001; 82962; 83036; 83735; 83880; 84443; 84484; 85025; 85379; 85610; 87070; 87804; 87880; 93005; 93306; 94640; 94760; 96374; 96375; J2270; J2405; J7030; J7620; 99285-25

== ENCOUNTER 2019-04-05 11:05 | Inpatient (IN) | payer OTHER ==
[~2019-04-05] VITALS: Ht 182.9 cm; Wt 112.6 kg
[~2019-04-05 11:05] MED LIST changes: -LINE600T PO; +LINE600T37 PO; +MONT10TA49 PO; +PRED20TA PO
--- NOTE | 2019-04-05 11:49 | PHYS DOC ---
Past Medical History Past Medical History: Diabetes-Type II, GERD, High Cholesterol, Hypertension, Hypothyroid, Other Additional Past Medical Histor: vertigo, restless leg syndrome Past Surgical History: Other Additional Past Surgical Histo: stents in back(to try to stop pain in knees), rt knee surgery/acl Alcohol Use: None Drug Use: None Adult General Chief Complaint Chief Complaint: dizziness and chest pain [facility] HPI Patient is a 68 year old male who presents via EMS with complaining of dizziness and chest pain. Patient states he has had intermittent episodes of substernal aching pain since yesterday associated with dizziness after he walked outside about couple of hours that was repeated today again after he worked on his tractor about an hour again. Patient went to urgent care and had blood pressure of 64/46 with diaphoresis and looking pain and complaining of bilateral upper extremity pain and sent by EMS to this emergency room. EMS reported the patient had blood pressure of 90s and treated with IV fluid with improvement of blood pressure to 115 at arrival to ER with heart rate of 59 without diaphoresis. Patient denies shortness of breath, headache, nausea and vomiting, tinnitus, focal neuro deficit but EMS reported that he had a very mild facial droop with slurred speech. Review of Systems Review of Systems Constitutional: Denies fever or chills [] Eyes: Denies change in visual acuity, redness, or eye pain [] HENT: Denies nasal congestion or sore throat [] Respiratory: Denies cough or shortness of breath [] Cardiovascular: No additional information not addressed in HPI [] GI: Denies abdominal pain, nausea, vomiting, bloody stools or diarrhea [] : Denies dysuria or hematuria [] Musculoskeletal: Denies back pain or joint pain [] Integument: Denies rash or skin lesions [] Neurologic: Denies headache, focal weakness or sensory changes [] Endocrine: Denies polyuria or polydipsia [] All other systems were reviewed and found to be within normal limits, except as documented in this note. Current Medications Current Medications Current Medications Medications (Trade) Dose Ordered Sig/Xuan Start Time Stop Time Status Last Admin Dose Admin Fentanyl Citrate (Fentanyl 2ml Vial) 50 mcg 1X ONCE 04/05/19 12:15 04/05/19 12:16 DC 04/05/19 12:24 50 MCG Allergies Allergies Allergies Coded Allergies Type Severity Reaction Last Updated Verified hydrocodone Allergy Severe throat swelling 09/08/18 Yes oxycodone Allergy Severe throat swelling 09/08/18 Yes Physical Exam Physical Exam Constitutional: Well developed, well nourished, mild distress, non-toxic appearance. [] HENT: Normocephalic, atraumatic. Eyes: PERRLA, EOMI, conjunctiva normal, no discharge. [] Neck: Normal range of motion, no tenderness, supple, no stridor. [] Cardiovascular:Heart rate regular rhythm, no murmur [] Lungs & Thorax: Bilateral breath sounds clear to auscultation [] Abdomen: Bowel sounds normal, soft, no tenderness, no masses, no pulsatile masses. [] Skin: Warm, dry, no erythema, no rash. [] Back: No tenderness, no CVA tenderness. [] Extremities: No tenderness, no cyanosis, no clubbing, ROM intact, no edema. [] Neurologic: Alert and oriented X 3, very mild left facial droop, NIHS of 1 Psychologic: Affect normal, judgement normal, mood normal. [] Current Patient Data Vital Signs Vital Signs Date Time Temp Pulse Resp B/P (MAP) Pulse Ox O2 Delivery O2 Flow Rate FiO2 04/05/19 12:24 18 96 Room Air 04/05/19 12:24 55 04/05/19 11:05 97.8 115/55 (75) 97.8 Lab Values Laboratory Tests Test 04/05/19 11:19 04/05/19 11:37 Glucose (Fingerstick) 103 mg/dL (70-99) H White Blood Count 9.9 x10^3/uL (4.0-11.0) Red Blood Count 4.95 x10^6/uL (4.30-5.70) Hemoglobin 16.0 g/dL (13.0-17.5) Hematocrit 45.1 % (39.0-53.0) Mean Corpuscular Volume 91 fL (79-100) Mean Corpuscular Hemoglobin 32 pg (25-35) Mean Corpuscular Hemoglobin Concent 35 g/dL (31-37) Red Cell Distribution Width 14.8 % (11.5-14.5) H Platelet Count 254 x10^3/uL (140-400) Neutrophils (%) (Auto) 77 % (31-73) H Lymphocytes (%) (Auto) 9 % (24-48) L Monocytes (%) (Auto) 12 % (0-9) H Eosinophils (%) (Auto) 1 % (0-3) Basophils (%) (Auto) 1 % (0-3) Neutrophils # (Auto) 7.7 x10^3/uL (1.8-7.7) Lymphocytes # (Auto) 0.9 x10^3/uL (1.0-4.8) L Monocytes # (Auto) 1.2 x10^3/uL (0.0-1.1) H Eosinophils # (Auto) 0.1 x10^3/uL (0.0-0.7) Basophils # (Auto) 0.1 x10^3/uL (0.0-0.2) Prothrombin Time 13.4 SEC (11.7-14.0) Prothrombin Time INR 1.1 (0.8-1.1) D-Dimer (Jessica) 0.65 ug/mlFEU (0.00-0.50) H Sodium Level 141 mmol/L (136-145) Potassium Level 3.5 mmol/L (3.5-5.1) Chloride Level 103 mmol/L (98-107) Carbon Dioxide Level 24 mmol/L (21-32) Anion Gap 14 (6-14) Blood Urea Nitrogen 38 mg/dL (8-26) H Creatinine 2.7 mg/dL (0.7-1.3) H Estimated GFR (Cockcroft-Gault) 23.5 BUN/Creatinine Ratio 14 (6-20) Glucose Level 103 mg/dL (70-99) H Calcium Level 9.1 mg/dL (8.5-10.1) Magnesium Level 1.7 mg/dL (1.8-2.4) L Total Bilirubin 0.8 mg/dL (0.2-1.0) Aspartate Amino Transferase (AST) 38 U/L (15-37) H Alanine Aminotransferase (ALT) 42 U/L (16-63) Alkaline Phosphatase 70 U/L (46-116) Creatine Kinase 520 U/L (39-308) H Troponin I Quantitative < 0.017 ng/mL (0.000-0.055) IL-Xgi-V-Type Natriuretic Peptide 117 pg/mL (0-124) Total Protein 7.8 g/dL (6.4-8.2) Albumin 3.9 g/dL (3.4-5.0) Albumin/Globulin Ratio 1.0 (1.0-1.7) Lipase 191 U/L (73-393) Thyroid Stimulating Hormone (TSH) 5.976 uIU/mL (0.358-3.74) H Laboratory Tests 04/05/19 11:37 Laboratory Tests 04/05/19 11:37 EKG EKG EKG interpreted by me. EKG at 1108 showed sinus bradycardia at rate of 59, normal [place] and QT intervals, no acute ST and T-wave elevation. Radiology/Procedures Radiology/Procedures [][address] [address] IMAGING REPORT Signed PATIENT: BONNIE HENSON ACCOUNT: [id number] : 1950 LOCATION: ER AGE: 68 SEX: M EXAM STATUS: PRE ER ORD. PHYSICIAN: VASILE BARROW MD REASON: chest pain and dizziness PROCEDURE: PORTABLE CHEST 1V EXAM: CHEST 1 VIEW History: Chest pain, dizziness COMPARISON: 11/14/2018 TECHNIQUE: Single portable radiograph of the chest FINDINGS: The cardiac silhouette is unremarkable. The lungs are clear bilaterally. The costophrenic sulci are clear and well demarcated. IMPRESSION: No radiographic evidence of an acute cardiopulmonary process. Electronically signed by: Bay Long MD (04/05/2019 11:46 AM) [facility] DICTATED and SIGNED BY: BAY LONG MD DATE: 04/05/[address] [address] IMAGING REPORT Signed PATIENT: BONNIE HENSON ACCOUNT: [id number] : 1950 LOCATION: ER AGE: 68 SEX: M EXAM STATUS: PRE ER ORD. PHYSICIAN: VASILE BARROW MD REASON: chest pain and dizziness PROCEDURE: CT HEAD WO CONTRAST CT HEAD WO CONTRAST History: Chest pain. Dizziness. Comparison: March 06, 2017 Technique: Noncontrast CT imaging was performed of the head. Exposure: One or more of the following individualized dose reduction techniques were utilized for this examination: 1. Automated exposure control 2. Adjustment of the mA and/or kV according to patient size 3. Use of iterative reconstruction technique. Findings: No intracranial hemorrhage. No mass effect. No hydrocephalus. Extra-axial spaces are unremarkable. Imaged orbits are unremarkable. Mild scattered paranasal sinus mucosal thickening. Mastoid air cells are clear. Old left mediolateral wall defect. Impression: 1. No acute intracranial abnormality. Electronically signed by: Ag Larsen DO (04/05/2019 12:12 PM) [email or web address] DICTATED and SIGNED BY: AG LARSEN DO DATE: 04/05/191211 Course & Med Decision Making Course & Med Decision Making Pertinent Labs and Imaging studies reviewed. (See chart for details) Evaluation of patient in ER showed 68-year-old male patient with complaining of dizziness and chest pain intermittently since yesterday had diaphoresis and hypotension and bradycardia urgent care and sent by EMS to ER. Patient did not have diaphoresis or hypotension in ER and heart rate was 59 at arrival to ER. Patient rated the treatment with fentanyl. Labs did not show acute finding except for elevation of BUN/creatinine.Patient requiring admission for further evaluation and treatment. Discussed with Dr. Sánchez who is in agreement with admission. Discussed findings and plan with patient and family, who acknowledge understanding and agreement. Dragon Disclaimer Dragon Disclaimer This electronic medical record was generated, in whole or in part, using a voice recognition dictation system. Departure Departure Impression: Primary Impression: Acute chest pain Additional Impressions: Dizziness Renal insufficiency Rhabdomyolysis Disposition: ADMITTED INPATIENT (at 1244) Condition: IMPROVED Referrals: AUGUST KNOX (PCP) The HEART Score for CP Pts HEART Score for Chest Pain: HEART Score for Chest Pain Response (Comments) Value History Moderately Suspicious 1 ECG Normal 0 Age > 65 2 Risk Factors >3 Risk Factors or Hx CAD 2 Troponin < Normal Limit 0 Total 5 Risk Factors: Risk Factors: DM, Current or recent (<one month) smoker, HTN, HLP, family history of CAD, obesity. Risk Scores: Score 0 - 3: 2.5% MACE over next 6 weeks - Discharge Home Score 4 - 6: 20.3% MACE over next 6 weeks - Admit for Clinical Observation Score 7 - 10: 72.7% MACE over next 6 weeks - Early Invasive Strategies NIHSS Stroke Scale NIH Stroke Scale: NIH Stroke Scale Response (Comments) Value Level of Consciousness: 0 Alert/Responsive 0 LOC Questions: 0 Answers both correctly 0 Best Gaze: 0 Normal 0 Visual: 0 No visual loss 0 Facial Palsy: 1 Minor paralysis 1 Motor - Left Arm 0 No drift 0 Motor - Right Arm 0 No drift 0 Motor - Left Leg 0 No drift 0 Motor: Right Leg 0 No drift 0 Limb Ataxia: 0 Absent 0 Sensory: 0 No loss 0 Best Language: 0 Normal 0 Dysathria: 0 Normal 0 Extinction and Inattention: 0 Normal 0 Total 1 Critical Care Time Critical care time was 80 minutes exclusive of procedures. Problem Qualifiers Additional Impressions: Rhabdomyolysis Rhabdomyolysis type: non-traumatic Qualified Codes: M62.82 - Rhabdomyolysis VASILE BARROW MD Apr 05, 2019 11:49
[2019-04-05 11:53] LABS: BASO # 0.1 x10^3/uL (0.0-0.2); BASO % 1 % (0-3); EOS # 0.1 x10^3/uL (0.0-0.7); EOS % 1 % (0-3); HEMATOCRIT 45.1 % (39.0-53.0); LYMPH # 0.9 x10^3/uL (1.0-4.8); LYMPH % 9 % (24-48); MEAN CORPUSCULAR HEMOGLOBIN 32 pg (25-35); MEAN CORPUSCULAR HGB CONC 35 g/dL (31-37); MEAN CORPUSCULAR VOLUME 91 fL (79-100); MONO # 1.2 x10^3/uL (0.0-1.1); MONO % 12 % (0-9); NEUT # 7.7 x10^3/uL (1.8-7.7); NEUT % 77 % (31-73); PLATELET COUNT 254 x10^3/uL (140-400); RED BLOOD COUNT 4.95 x10^6/uL (4.30-5.70); RED CELL DISTRIBUTION WIDTH 14.8 % (11.5-14.5); WHITE BLOOD COUNT 9.9 x10^3/uL (4.0-11.0)
[2019-04-05 11:57] LABS: PROTHROMBIN TIME PATIENT 13.4 SEC (11.7-14.0)
[2019-04-05 12:09] LABS: D-DIMER 0.65 ug/mlFEU (0.00-0.50)
[2019-04-05] MEDS ORDERED: fentaNYL PF VIAL 100 MCG/2 ML VIAL IV ONE (12:15)
--- NOTE | 2019-04-05 12:15 | RAD ---
CT HEAD WO CONTRAST History: Chest pain. Dizziness. Comparison: March 06, 2017 Technique: Noncontrast CT imaging was performed of the head. Exposure: One or more of the following individualized dose reduction techniques were utilized for this examination: 1. Automated exposure control 2. Adjustment of the mA and/or kV according to patient size 3. Use of iterative reconstruction technique. Findings: No intracranial hemorrhage. No mass effect. No hydrocephalus. Extra-axial spaces are unremarkable. Imaged orbits are unremarkable. Mild scattered paranasal sinus mucosal thickening. Mastoid air cells are clear. Old left mediolateral wall defect. Impression: 1. No acute intracranial abnormality. Electronically signed by: Ag Larsen DO (04/05/2019 12:12 PM) [email or web address]
[2019-04-05 12:20] LABS: ALBUMIN 3.9 g/dL (3.4-5.0); CALCIUM 9.1 mg/dL (8.5-10.1); CREATININE 2.7 mg/dL (0.7-1.3); GFR 23.5; MAGNESIUM 1.7 mg/dL (1.8-2.4); POTASSIUM 3.5 mmol/L (3.5-5.1); TOTAL BILIRUBIN 0.8 mg/dL (0.2-1.0); TOTAL PROTEIN 7.8 g/dL (6.4-8.2)
[2019-04-05] MEDS ORDERED: ASPIRIN CHEWABLE 81 MG TABLET. PO ONE (12:30)
--- NOTE | 2019-04-05 12:57 | EKG ---
[facility] [address] [place] [address] Test Date: 2019-04-05 Test Time: 11:08:40 Pat Name: BONNIE HENSON Department: Room: Gender: M [employer]: : 1950 Requested By: VASILE BARROW Order Number: [id number] Reading MD: Measurements Intervals [place] Rate: 59 P: 0 OR: 156 QRS: 4 QRSD: 86 T: 17 QT: 434 QTc: 434 Interpretive Statements SINUS RHYTHM NORMAL ECG RI6.01 No previous ECG available for comparison
[2019-04-05] MEDS ORDERED: IV NORMAL SALINE 1000ML BAG 1,000 ML IV SCH ×2 (13:10→16:15)
[2019-04-05 13:20] VITALS: BP 115/65
[2019-04-05] MEDS ORDERED: NAPR-514 PO (13:37)
[2019-04-05 15:00] VITALS: BP 108/49
[2019-04-05] MEDS ORDERED: MAGNESIUM SULFATE 1GM 100 ML IV ONE (16:00)
[2019-04-05] MEDS: ASPIRIN ENTERIC COATED 81 MG TABLET.DR. PO SCH (16:00)
--- NOTE | 2019-04-05 16:02 | PDOC2 ---
BIPIN WARD GLASS DRILLER 04/05/19 1602: CARDIAC CONSULT DATE OF CONSULT Date of Consult DATE: 04/05/19 TIME: 15:52 REASON FOR CONSULT Reason for Consult: Chest pain REFERRING PHYSICIAN Referring Physician: Fercho SOURCE Source: Chart review, Patient HISTORY OF PRESENT ILLNESS HISTORY OF PRESENT ILLNESS This is a pleasant 68 yo male admitted for complains of body aches and also some chest pain noted in ED which he denies for me. Also with throbbing JOSEPH but no focal neuro symptoms. He has been having SOA in the last 2 days. His appetite has been poor but still drinks abot 2L a day. He continues to take NSAIDs routinely and also takes losartan and HCTZ. He also take his amaryl without eating breakfast this morning. He has been having dizziness since this morning as well but no passing out. No orthopnea, PND and no significnat leg swelling. He was suppose to follow up in our office as an outpt but did not follow up. He also denied having renal insufficiency PAST MEDICAL HISTORY Past Medical History Cardiovascular: HTN, Hyperlipidemia CENTRAL NERVOUS SYSTEM: Other (RLS) GI: GERD Psych: Anxiety Musculoskeletal: Osteoarthritis Endocrine: Diabetes (2), Hypothyroidism PAST SURGICAL HISTORY Past Surgical History neck abscess removal, left arm laceration repair FAMILY HISTORY Family History: Heart Disease SOCIAL HISTORY Smoke: No ALCOHOL: none Drugs: None Lives: with Family CURRENT MEDICATIONS CURRENT MEDICATIONS Current Medications Medications (Trade) Dose Ordered Sig/Xuan Route PRN Reason Start Time Stop Time Status Last Admin Dose Admin Fentanyl Citrate (Fentanyl 2ml Vial) 50 mcg 1X ONCE IV 04/05/19 12:15 04/05/19 12:16 DC 04/05/19 12:24 Aspirin (Children'S Aspirin) 324 mg 1X ONCE PO 04/05/19 12:30 04/05/19 12:31 DC 04/05/19 12:42 Sodium Chloride 1,000 ml @ 75 mls/hr [id number] IV 04/05/19 13:10 04/06/19 13:09 04/05/19 13:56 ALLERGIES ALLERGIES: Coded Allergies: hydrocodone (Verified Allergy, Severe, throat swelling, 09/08/18) oxycodone (Verified Allergy, Severe, throat swelling, 09/08/18) ROS Review of System 14 point ROS evaluated with pertinent positives noted per HPI PHYSICAL EXAM General: Alert, Oriented X3, Cooperative, No acute distress HEENT: Atraumatic, Mucous membr. moist/pink Lungs: Clear to auscultation, Normal air movement Heart: Regular rate (SR/SB), Normal S1, Normal S2, No murmurs Abdomen: Soft, No tenderness Extremities: No cyanosis, No edema Skin: No significant lesion Neuro: Normal speech, Sensation intact Psych/Mental Status: Mental status NL, Mood NL MUSCULOSKELETAL: Osteoarthritic changes both hands VITALS/I&O VITALS/I&O: Vital Signs Date Time Temp Pulse Resp B/P (MAP) Pulse Ox O2 Delivery O2 Flow Rate FiO2 04/05/19 15:00 97.7 65 16 108/49 (68) 96 Room Air 97.7 LABS Lab: Laboratory Tests Test 04/05/19 11:19 04/05/19 11:37 04/05/19 13:29 Glucose (Fingerstick) 103 mg/dL (70-99) H 80 mg/dL (70-99) White Blood Count 9.9 x10^3/uL (4.0-11.0) Red Blood Count 4.95 x10^6/uL (4.30-5.70) Hemoglobin 16.0 g/dL (13.0-17.5) Hematocrit 45.1 % (39.0-53.0) Mean Corpuscular Volume 91 fL (79-100) Mean Corpuscular Hemoglobin 32 pg (25-35) Mean Corpuscular Hemoglobin Concent 35 g/dL (31-37) Red Cell Distribution Width 14.8 % (11.5-14.5) H Platelet Count 254 x10^3/uL (140-400) Neutrophils (%) (Auto) 77 % (31-73) H Lymphocytes (%) (Auto) 9 % (24-48) L Monocytes (%) (Auto) 12 % (0-9) H Eosinophils (%) (Auto) 1 % (0-3) Basophils (%) (Auto) 1 % (0-3) Neutrophils # (Auto) 7.7 x10^3/uL (1.8-7.7) Lymphocytes # (Auto) 0.9 x10^3/uL (1.0-4.8) L Monocytes # (Auto) 1.2 x10^3/uL (0.0-1.1) H Eosinophils # (Auto) 0.1 x10^3/uL (0.0-0.7) Basophils # (Auto) 0.1 x10^3/uL (0.0-0.2) Prothrombin Time 13.4 SEC (11.7-14.0) Prothrombin Time INR 1.1 (0.8-1.1) D-Dimer (Jessica) 0.65 ug/mlFEU (0.00-0.50) H Sodium Level 141 mmol/L (136-145) Potassium Level 3.5 mmol/L (3.5-5.1) Chloride Level 103 mmol/L (98-107) Carbon Dioxide Level 24 mmol/L (21-32) Anion Gap 14 (6-14) Blood Urea Nitrogen 38 mg/dL (8-26) H Creatinine 2.7 mg/dL (0.7-1.3) H Estimated GFR (Cockcroft-Gault) 23.5 BUN/Creatinine Ratio 14 (6-20) Glucose Level 103 mg/dL (70-99) H Calcium Level 9.1 mg/dL (8.5-10.1) Magnesium Level 1.7 mg/dL (1.8-2.4) L Total Bilirubin 0.8 mg/dL (0.2-1.0) Aspartate Amino Transferase (AST) 38 U/L (15-37) H Alanine Aminotransferase (ALT) 42 U/L (16-63) Alkaline Phosphatase 70 U/L (46-116) Creatine Kinase 520 U/L (39-308) H Troponin I Quantitative < 0.017 ng/mL (0.000-0.055) LA-Ovj-W-Type Natriuretic Peptide 117 pg/mL (0-124) Total Protein 7.8 g/dL (6.4-8.2) Albumin 3.9 g/dL (3.4-5.0) Albumin/Globulin Ratio 1.0 (1.0-1.7) Lipase 191 U/L (73-393) Laboratory Tests 04/05/19 11:37 Laboratory Tests 04/05/19 11:37 ECHOCARDIOGRAM ECHOCARDIOGRAM <Conclusion> The left ventricular systolic function is normal. The Ejection Fraction is 55-60%. There is normal LV segmental wall motion. The left atrium is moderately dilated. Trace to mild mitral regurgitation. Trace tricuspid regurgitation. There is mild pulmonary hypertension. The PA pressure was estimated at 32 mmHg. There is no evidence of significant pericardial effusion. DATE: 11/14/18 1255 STRESS TEST STRESS TEST Conclusion 1. Regadenoson cardioisotope stress test did not show any evidence of ischemia or infarct. 2. Normal left ventricular systolic function with ejection fraction calculated at 69%. 3. Low risk for cardiac events. DATE: 12/27/17 1605 ASSESSMENT/PLAN ASSESSMENT/PLAN 1. Generalized body aches with JOSEPH, suspect Myopathy CP in ED but denied for me. trop nml, EKG SR without acute changes 2. HTN: controlled 3. Dizziness: hypoglycemia?, had amaryl without having breakfast 4. DM2/HLP 5. Hypothyroidism: per PCP, on replacement 6. JOSEPH vs CKD 7. Dyspnea: mild elevation on DDIMER Recommendations 1. DC NSAIDs Stop losartan/HCTZ 2. IVF 3. Consult nephrology 4. SR/SB, no BB. Monitor rhythm 5. DC statin for now. CK mildly elevated with myopathy 6. Hydralazine IV PRN. 7. V/Q scan today 8. Discussed meals with DM meds. JUAN JOSÉ GODFREY MD 04/05/19 2144: CARDIAC CONSULT ASSESSMENT/PLAN ASSESSMENT/PLAN Patient seen and examined. Agree with [employer]ER's assessment and plan. CP with atypical features and probably musculoskeletal MN ruled out Agree with holding statins for bodyaches and CK elevation Nephrology consultation for acute on chr renal insuff Thank you for your consultation BIPIN WARD APRN Apr 05, 2019 16:02 JUAN JOSÉ GODFREY MD Apr 05, 2019 21:44
[2019-04-05] MEDS ORDERED: fentaNYL PF VIAL 100 MCG/2 ML VIAL IV PRN (17:15)
[2019-04-05 17:33] LABS: BILIRUBIN,URINE NEGATIVE (NEG); CLARITY,URINE CLEAR; COLOR,URINE YELLOW; NITRITE,URINE NEGATIVE (NEG); PH,URINE 5.5; PROTEIN,URINE NEGATIVE (NEG-TRACE); UROBILINOGEN,URINE 0.2 mg/dL (0.2 mg/dL)
[2019-04-05 17:42] LABS: BACTERIA,URINE 0 /HPF (0-FEW); HYALINE CASTS, URINE MANY /HPF; RBC,URINE 0 /HPF (0-2); WBC,URINE OCC /HPF (0-4)
--- NOTE | 2019-04-05 17:47 | PDOC1 ---
History and Physical Date of Admission Date of Admission DATE: 04/05/19 TIME: 17:44 Identification/Chief Complaint Chief Complaint pain and dizzyness Source Source: Chart review, Patient History of Present Illness History of Present Illness Mr. Gómez is a 68 year old male admit for acute dizzyness and diffuse pain. He states he has had intermittent episodes of substernal aching pain since yesterday. We worked on his tractor for a few hours yesterday, and an hour today, and after, he had dizzyness, and new weakness Patient went to urgent care and had blood pressure of 64/46 with diaphoresis and looking pain and complaining of bilateral upper extremity pain, BP better here after IV fluid given came by EMS from urgent care Past Medical History Cardiovascular: HTN, Hyperlipidemia Pulmonary: No pertinent hx CENTRAL NERVOUS SYSTEM: Other GI: GERD Heme/Onc: No pertinent hx Hepatobiliary: No pertinent hx Psych: Anxiety Musculoskeletal: Osteoarthritis Rheumatologic: No pertinent hx Infectious disease: No pertinent hx Renal/: No pertinent hx Endocrine: Diabetes, Hypothyroidism Past Surgical History Past Surgical History: Other Family History Family History: Heart Disease Family History: Parent Social History Smoke: No ALCOHOL: none Drugs: None Current Problem List Problem List Problems Medical Problems: (1) Acute chest pain Status: Acute (2) Dizziness Status: Acute (3) Renal insufficiency Status: Acute (4) Rhabdomyolysis Status: Acute Current Medications Current Medications Current Medications Fentanyl Citrate (Fentanyl 2ml Vial) 50 mcg 1X ONCE IV Last administered on 04/05/19at 12:24; Start 04/05/19 at 12:15; Stop 04/05/19 at 12:16; Status DC Aspirin (Children'S Aspirin) 324 mg 1X ONCE PO Last administered on 04/05/19at 12:42; Start 04/05/19 at 12:30; Stop 04/05/19 at 12:31; Status DC Sodium Chloride 1,000 ml @ 75 mls/hr [id number] IV Last administered on 04/05/19at 13:56; Start 04/05/19 at 13:10; Stop 04/05/19 at 16:09; Status DC Magnesium Sulfate/ Dextrose 100 ml @ 100 mls/hr 1X ONCE IV Last administered on 04/05/19at 16:36; Start 04/05/19 at 16:00; Stop 04/05/19 at 16:59; Status DC Aspirin (Ecotrin) 81 mg [id number] PO ; Start 04/05/19 at 16:00 Hydralazine HCl (Apresoline Inj) 10 mg PRN Q4HRS PRN IVP ELEVATED BP, SEE COMMENTS; Start 04/05/19 at 16:00 Sodium Chloride 1,000 ml @ 100 mls/hr Q10H IV ; Start 04/05/19 at 16:15; Stop 04/05/19 at 16:51; Status DC Sodium Chloride 1,000 ml @ 100 mls/hr Q10H IV ; Start 04/06/19 at 00:00 Fentanyl Citrate (Fentanyl 2ml Vial) 50 mcg PRN Q2HR PRN IV PAIN Last administered on 04/05/19at 17:33; Start 04/05/19 at 17:15 Active Scripts Active Tylenol (Acetaminophen) 325 Mg Tablet 650 Mg PO PRN Q6HRS PRN 30 Days Reported Naproxen 500 Mg Tablet 1 Tab PO BID Losartan-Hctz 100-25 Mg Tab (Losartan/Hydrochlorothiazide) 1 Each Tablet 1 Tab PO DAILY Triamcinolone Acetonide 0.1% Oint (Triamcinolone Acetonide) 15 Gm Oint...g. 1 Zi TP BID PRN MIX WITH EUCERIN DIRECTED BY PHYSICIAN Aspirin Ec (Aspirin) 81 Mg Tablet.dr 1 Tab PO DAILY Glimepiride 2 Mg Tablet 2 Mg PO DAILY Atorvastatin Calcium 40 Mg Tablet 40 Mg PO HS Gabapentin 300 Mg Capsule 600 Mg PO HS Potassium Citrate 10 Meq Tablet.er 10 Meq PO DAILY Omeprazole 40 Mg Capsule.dr 40 Mg PO DAILYAC Levothyroxine Sodium 50 Mcg Tablet 50 Mcg PO DAILY Allergies Allergies: Coded Allergies: hydrocodone (Verified Allergy, Severe, throat swelling, 09/08/18) oxycodone (Verified Allergy, Severe, throat swelling, 09/08/18) ROS General: YES: Night Sweats, Fatigue, Other PSYCHOLOGICAL ROS: YES: Irritablity, Sleep disturbances; No: Anxiety, Behavioral Disorder, Concentration difficultie, Decreased libido, Depression, Disorientation, Hallucinations, Hostility, Memory difficulties, Mood Swings, Obsessive thoughts, Physical abuse, Sexual abuse, Suicidal ideation, Other Eyes: No Blurry vision, No Decreased vision, No Double vision, No Dry eyes, No Excessive tearing, No Eye Pain, No Itchy Eyes, No Loss of vision, No Photophobia, No Scotomata, No Uses contacts, No Uses glasses, No Other HEENT: No: Heacaches, Visual Changes, Hearing change, Nasal congestion, Nasal discharge, Oral lesions, Sinus pain, Sore Throat, Epistaxis, Sneezing, Snoring, Tinnitus, Vertigo, Vocal changes, Other Respiratory: No: Cough, Hemoptysis, Orthopnea, Pleuritic Pain, Shortness of breath, SOB with excertion, Sputum Changes, Stridor, Tachypnea, Wheezing, Other Cardiovascular: No Chest Pain, No Palpitations, No Orthopnea, No Paroxysmal Noc. Dyspnea, No Edema, No Lt Headedness, No Other Gastrointestinal: Yes Nausea Genitourinary: No Dysuria, No Frequency, No Incontinence, No Hematuria, No Retention, No Discharge, No Urgency, No Pain, No Flank Pain, No Other, No , No , No , No , No , No , No Musculoskeletal: Yes Gait Disturbance, Yes Joint Stiffness, Yes Muscle Pain, Yes Muscular Weakness, Yes Pain In: (back, legs, feet, arms, ) Neurological: Yes Gait Disturbance; No Behavorial Changes, No Bowel/Bladder ControlChng, No Confusion, No Dizziness, No Headaches, No Impaired Coord/balance, No Memory Loss, No Numbness/Tingling, No Seizures, No Speech Problems, No Tremors, No Visual Changes, No Weakness, No Other Skin: No Dry Skin, No Eczema, No Hair Changes, No Lumps, No Mole Changes, No Mottling, No Nail Changes, No Pruritus, No Rash, No Skin Lesion Changes, No Other, No Acne Physical Exam General: Alert, Oriented X3, mild distress HEENT: Atraumatic Extremities: No edema Skin: No significant lesion Neuro: Normal speech, Normal tone, Sensation intact Psych/Mental Status: Mental status NL, Mood NL Vitals Vitals Vital Signs Date Time Temp Pulse Resp B/P (MAP) Pulse Ox O2 Delivery O2 Flow Rate FiO2 04/05/19 17:33 96 Room Air 04/05/19 15:00 97.7 65 16 108/49 (68) 97.7 Labs Labs Laboratory Tests Test 04/05/19 11:19 04/05/19 11:37 04/05/19 13:29 04/05/19 16:15 Glucose (Fingerstick) 103 mg/dL (70-99) 80 mg/dL (70-99) White Blood Count 9.9 x10^3/uL (4.0-11.0) Red Blood Count 4.95 x10^6/uL (4.30-5.70) Hemoglobin 16.0 g/dL (13.0-17.5) Hematocrit 45.1 % (39.0-53.0) Mean Corpuscular Volume 91 fL (79-100) Mean Corpuscular Hemoglobin 32 pg (25-35) Mean Corpuscular Hemoglobin Concent 35 g/dL (31-37) Red Cell Distribution Width 14.8 % (11.5-14.5) Platelet Count 254 x10^3/uL (140-400) Neutrophils (%) (Auto) 77 % (31-73) Lymphocytes (%) (Auto) 9 % (24-48) Monocytes (%) (Auto) 12 % (0-9) Eosinophils (%) (Auto) 1 % (0-3) Basophils (%) (Auto) 1 % (0-3) Neutrophils # (Auto) 7.7 x10^3/uL (1.8-7.7) Lymphocytes # (Auto) 0.9 x10^3/uL (1.0-4.8) Monocytes # (Auto) 1.2 x10^3/uL (0.0-1.1) Eosinophils # (Auto) 0.1 x10^3/uL (0.0-0.7) Basophils # (Auto) 0.1 x10^3/uL (0.0-0.2) Prothrombin Time 13.4 SEC (11.7-14.0) Prothromb Time International Ratio 1.1 (0.8-1.1) D-Dimer (Jessica) 0.65 ug/mlFEU (0.00-0.50) Sodium Level 141 mmol/L (136-145) Potassium Level 3.5 mmol/L (3.5-5.1) Chloride Level 103 mmol/L (98-107) Carbon Dioxide Level 24 mmol/L (21-32) Anion Gap 14 (6-14) Blood Urea Nitrogen 38 mg/dL (8-26) Creatinine 2.7 mg/dL (0.7-1.3) Estimated GFR (Cockcroft-Gault) 23.5 BUN/Creatinine Ratio 14 (6-20) Glucose Level 103 mg/dL (70-99) Calcium Level 9.1 mg/dL (8.5-10.1) Magnesium Level 1.7 mg/dL (1.8-2.4) Total Bilirubin 0.8 mg/dL (0.2-1.0) Aspartate Amino Transf (AST/SGOT) 38 U/L (15-37) Alanine Aminotransferase (ALT/SGPT) 42 U/L (16-63) Alkaline Phosphatase 70 U/L (46-116) Creatine Kinase 520 U/L (39-308) Troponin I Quantitative < 0.017 ng/mL (0.000-0.055) < 0.017 ng/mL (0.000-0.055) DV-Ayk-N-Type Natriuretic Peptide 117 pg/mL (0-124) Total Protein 7.8 g/dL (6.4-8.2) Albumin 3.9 g/dL (3.4-5.0) Albumin/Globulin Ratio 1.0 (1.0-1.7) Lipase 191 U/L (73-393) Thyroid Stimulating Hormone (TSH) 5.976 uIU/mL (0.358-3.74) Test 04/05/19 16:37 04/05/19 17:17 Urine Collection Type Unknown Urine Color Yellow Urine Clarity Clear Urine pH 5.5 Urine Specific [place] 1.025 Urine Protein Negative mg/dL (NEG-TRACE) Urine Glucose (UA) Negative mg/dL (NEG) Urine Ketones (Stick) Negative mg/dL (NEG) Urine Blood Negative (NEG) Urine Nitrite Negative (NEG) Urine Bilirubin Negative (NEG) Urine Urobilinogen Dipstick 0.2 mg/dL (0.2 mg/dL) Urine Leukocyte Esterase Negative (NEG) Urine RBC 0 /HPF (0-2) Urine WBC Occ /HPF (0-4) Urine Bacteria 0 /HPF (0-FEW) Urine Hyaline Casts Many /HPF Urine Mucus Marked /LPF Glucose (Fingerstick) 70 mg/dL (70-99) Laboratory Tests Test 04/05/19 11:19 04/05/19 11:37 04/05/19 13:29 04/05/19 16:15 Glucose (Fingerstick) 103 mg/dL (70-99) 80 mg/dL (70-99) White Blood Count 9.9 x10^3/uL (4.0-11.0) Red Blood Count 4.95 x10^6/uL (4.30-5.70) Hemoglobin 16.0 g/dL (13.0-17.5) Hematocrit 45.1 % (39.0-53.0) Mean Corpuscular Volume 91 fL (79-100) Mean Corpuscular Hemoglobin 32 pg (25-35) Mean Corpuscular Hemoglobin Concent 35 g/dL (31-37) Red Cell Distribution Width 14.8 % (11.5-14.5) Platelet Count 254 x10^3/uL (140-400) Neutrophils (%) (Auto) 77 % (31-73) Lymphocytes (%) (Auto) 9 % (24-48) Monocytes (%) (Auto) 12 % (0-9) Eosinophils (%) (Auto) 1 % (0-3) Basophils (%) (Auto) 1 % (0-3) Neutrophils # (Auto) 7.7 x10^3/uL (1.8-7.7) Lymphocytes # (Auto) 0.9 x10^3/uL (1.0-4.8) Monocytes # (Auto) 1.2 x10^3/uL (0.0-1.1) Eosinophils # (Auto) 0.1 x10^3/uL (0.0-0.7) Basophils # (Auto) 0.1 x10^3/uL (0.0-0.2) Prothrombin Time 13.4 SEC (11.7-14.0) Prothromb Time International Ratio 1.1 (0.8-1.1) D-Dimer (Jessica) 0.65 ug/mlFEU (0.00-0.50) Sodium Level 141 mmol/L (136-145) Potassium Level 3.5 mmol/L (3.5-5.1) Chloride Level 103 mmol/L (98-107) Carbon Dioxide Level 24 mmol/L (21-32) Anion Gap 14 (6-14) Blood Urea Nitrogen 38 mg/dL (8-26) Creatinine 2.7 mg/dL (0.7-1.3) Estimated GFR (Cockcroft-Gault) 23.5 BUN/Creatinine Ratio 14 (6-20) Glucose Level 103 mg/dL (70-99) Calcium Level 9.1 mg/dL (8.5-10.1) Magnesium Level 1.7 mg/dL (1.8-2.4) Total Bilirubin 0.8 mg/dL (0.2-1.0) Aspartate Amino Transf (AST/SGOT) 38 U/L (15-37) Alanine Aminotransferase (ALT/SGPT) 42 U/L (16-63) Alkaline Phosphatase 70 U/L (46-116) Creatine Kinase 520 U/L (39-308) Troponin I Quantitative < 0.017 ng/mL (0.000-0.055) < 0.017 ng/mL (0.000-0.055) WW-Hnn-Y-Type Natriuretic Peptide 117 pg/mL (0-124) Total Protein 7.8 g/dL (6.4-8.2) Albumin 3.9 g/dL (3.4-5.0) Albumin/Globulin Ratio 1.0 (1.0-1.7) Lipase 191 U/L (73-393) Thyroid Stimulating Hormone (TSH) 5.976 uIU/mL (0.358-3.74) Test 04/05/19 16:37 04/05/19 17:17 Urine Collection Type Unknown Urine Color Yellow Urine Clarity Clear Urine pH 5.5 Urine Specific [place] 1.025 Urine Protein Negative mg/dL (NEG-TRACE) Urine Glucose (UA) Negative mg/dL (NEG) Urine Ketones (Stick) Negative mg/dL (NEG) Urine Blood Negative (NEG) Urine Nitrite Negative (NEG) Urine Bilirubin Negative (NEG) Urine Urobilinogen Dipstick 0.2 mg/dL (0.2 mg/dL) Urine Leukocyte Esterase Negative (NEG) Urine RBC 0 /HPF (0-2) Urine WBC Occ /HPF (0-4) Urine Bacteria 0 /HPF (0-FEW) Urine Hyaline Casts Many /HPF Urine Mucus Marked /LPF Glucose (Fingerstick) 70 mg/dL (70-99) VTE Prophylaxis Ordered VTE Prophylaxis Devices: No VTE Pharmacological Prophylaxi: Yes Assessment/Plan Assessment/Plan acute myalgia, generalized pain, not rhabdo, will hydrate acute vasomotor nephropathy and ATN , ibuprofen use, will stop back pain, lidoderm and PO meds allergic to hydro and oxycodone obese, BMI 34 RAY DIOP MD Apr 05, 2019 17:47
[2019-04-05 17:58] LABS: BARBITURATES NEG (NEG); BENZODIAZEPINES NEG (NEG); CANNABINOIDS NEG (NEG); COCAINE NEG (NEG); METHADONE NEG (NEG); OPIATES POS (NEG); PHENCYCLIDINE NEG (NEG)
[2019-04-05 17:59] LABS: AMPHETAMINE/METHAMPHETAMINE NEG (NEG)
[2019-04-05 19:00] VITALS: BP 136/64
[2019-04-05] MEDS: MORPHINE IR 15 MG TABLET PO PRN (20:15)
--- NOTE | 2019-04-05 20:32 | RAD ---
NUCLEAR MEDICINE VENTILATION PERFUSION SCAN History: Dyspnea. Dizziness. Comparison: Correlation is made to the single AP chest radiograph from 04/05/2019 performed at 1056 hours. Technique: Ventilation portion performed after inhalation of 14 mCi Xe-133 gas. Perfusion portion performed after intravenous administration of 4.5 mCi Technetium 99m MAA. Multiple projection planar images of the lungs were obtained. Findings: Ventilation images reveal confluent radiotracer uptake throughout both lungs during inspiration phase with no significant retention of radiotracer at washout. Perfusion images demonstrate heterogeneous but maintained perfusion throughout both lungs without discrete mismatched defect.. IMPRESSION: Low probability for pulmonary embolism. Electronically signed by: GASTON ANTONIO MD (04/05/2019 8:29 PM) [facility]
[2019-04-05 23:00] VITALS: BP_SYST 131; BP_SYST 139; BP_SYST 146; BP_DIAS 77; BP_DIAS 87; BP_DIAS 88
[2019-04-06] VITALS (8 sets, daily range): BP systolic 119–159; BP diastolic 64–98
[2019-04-06] MEDS: IV NORMAL SALINE 1000ML BAG 1,000 ML IV SCH ×2 (00:05→10:16)
--- NOTE | 2019-04-06 07:40 | PDOC ---
PROGRESS NOTES History of Present Illness History of Present Illness VTE Prophylaxis Ordered VTE Prophylaxis Devices: No VTE Pharmacological Prophylaxi: Yes Assessment/Plan Assessment/Plan acute myalgia, generalized pain, not rhabdo, DM DC NSAIDs Stop losartan/HCTZ hydrate iv acute vasomotor nephropathy and ATN , Chronic kidney disease stage III presumed diabetic hypertensive nephrosclerosis: stop ibuprofen use, back pain, lidoderm and PO meds allergic to hydro and oxycodone obese, BMI 34 NEPHROLOGY CONSULT HOLD STATIN RX 38 MIN PT EXAM, CHART REVIEW, > 50% OF TIME SPENT WITH EXAM, CHART REVIEW, PT CARE COORDINATION Vitals Vitals Vital Signs Date Time Temp Pulse Resp B/P (MAP) Pulse Ox O2 Delivery O2 Flow Rate FiO2 04/06/19 03:00 98.0 52 18 119/66 (83) 94 Room Air 98.0 Physical Exam General: Alert, Oriented X3, No acute distress, mild distress Heart: Regular rate (SR/SB), Normal S1, Normal S2, No murmurs Lungs: Clear Abdomen: Soft, No tenderness Extremities: No edema Skin: No significant lesion Labs LABS Laboratory Tests Test 04/05/19 11:19 04/05/19 11:37 04/05/19 13:29 04/05/19 16:15 Glucose (Fingerstick) 103 mg/dL (70-99) 80 mg/dL (70-99) White Blood Count 9.9 x10^3/uL (4.0-11.0) Red Blood Count 4.95 x10^6/uL (4.30-5.70) Hemoglobin 16.0 g/dL (13.0-17.5) Hematocrit 45.1 % (39.0-53.0) Mean Corpuscular Volume 91 fL (79-100) Mean Corpuscular Hemoglobin 32 pg (25-35) Mean Corpuscular Hemoglobin Concent 35 g/dL (31-37) Red Cell Distribution Width 14.8 % (11.5-14.5) Platelet Count 254 x10^3/uL (140-400) Neutrophils (%) (Auto) 77 % (31-73) Lymphocytes (%) (Auto) 9 % (24-48) Monocytes (%) (Auto) 12 % (0-9) Eosinophils (%) (Auto) 1 % (0-3) Basophils (%) (Auto) 1 % (0-3) Neutrophils # (Auto) 7.7 x10^3/uL (1.8-7.7) Lymphocytes # (Auto) 0.9 x10^3/uL (1.0-4.8) Monocytes # (Auto) 1.2 x10^3/uL (0.0-1.1) Eosinophils # (Auto) 0.1 x10^3/uL (0.0-0.7) Basophils # (Auto) 0.1 x10^3/uL (0.0-0.2) Prothrombin Time 13.4 SEC (11.7-14.0) Prothromb Time International Ratio 1.1 (0.8-1.1) D-Dimer (Jessica) 0.65 ug/mlFEU (0.00-0.50) Sodium Level 141 mmol/L (136-145) Potassium Level 3.5 mmol/L (3.5-5.1) Chloride Level 103 mmol/L (98-107) Carbon Dioxide Level 24 mmol/L (21-32) Anion Gap 14 (6-14) Blood Urea Nitrogen 38 mg/dL (8-26) Creatinine 2.7 mg/dL (0.7-1.3) Estimated GFR (Cockcroft-Gault) 23.5 BUN/Creatinine Ratio 14 (6-20) Glucose Level 103 mg/dL (70-99) Calcium Level 9.1 mg/dL (8.5-10.1) Magnesium Level 1.7 mg/dL (1.8-2.4) Total Bilirubin 0.8 mg/dL (0.2-1.0) Aspartate Amino Transf (AST/SGOT) 38 U/L (15-37) Alanine Aminotransferase (ALT/SGPT) 42 U/L (16-63) Alkaline Phosphatase 70 U/L (46-116) Creatine Kinase 520 U/L (39-308) Troponin I Quantitative < 0.017 ng/mL (0.000-0.055) < 0.017 ng/mL (0.000-0.055) MW-Bqb-I-Type Natriuretic Peptide 117 pg/mL (0-124) Total Protein 7.8 g/dL (6.4-8.2) Albumin 3.9 g/dL (3.4-5.0) Albumin/Globulin Ratio 1.0 (1.0-1.7) Lipase 191 U/L (73-393) Thyroid Stimulating Hormone (TSH) 5.976 uIU/mL (0.358-3.74) Test 04/05/19 16:37 04/05/19 17:17 04/05/19 19:15 04/05/19 21:04 Urine Collection Type Unknown Urine Color Yellow Urine Clarity Clear Urine pH 5.5 Urine Specific [place] 1.025 Urine Protein Negative mg/dL (NEG-TRACE) Urine Glucose (UA) Negative mg/dL (NEG) Urine Ketones (Stick) Negative mg/dL (NEG) Urine Blood Negative (NEG) Urine Nitrite Negative (NEG) Urine Bilirubin Negative (NEG) Urine Urobilinogen Dipstick 0.2 mg/dL (0.2 mg/dL) Urine Leukocyte Esterase Negative (NEG) Urine RBC 0 /HPF (0-2) Urine WBC Occ /HPF (0-4) Urine Bacteria 0 /HPF (0-FEW) Urine Hyaline Casts Many /HPF Urine Mucus Marked /LPF Urine Opiates Screen Pos (NEG) Urine Methadone Screen Neg (NEG) Urine Barbiturates Neg (NEG) Urine Phencyclidine Screen Neg (NEG) Urine Amphetamine/Methamphetamine Neg (NEG) Urine Benzodiazepines Screen Neg (NEG) Urine Cocaine Screen Neg (NEG) Urine Cannabinoids Screen Neg (NEG) Urine Ethyl Alcohol Neg (NEG) Glucose (Fingerstick) 70 mg/dL (70-99) 92 mg/dL (70-99) Troponin I Quantitative < 0.017 ng/mL (0.000-0.055) Assessment and Plan Assessmemt and Plan Problems Medical Problems: (1) Acute chest pain Status: Acute (2) Dizziness Status: Acute (3) Renal insufficiency Status: Acute (4) Rhabdomyolysis Status: Acute Comment Review of Relevant I have reviewed the following items aditya (where applicable) has been applied. Labs Laboratory Tests Test 04/05/19 11:19 04/05/19 11:37 04/05/19 13:29 04/05/19 16:15 Glucose (Fingerstick) 103 mg/dL (70-99) 80 mg/dL (70-99) White Blood Count 9.9 x10^3/uL (4.0-11.0) Red Blood Count 4.95 x10^6/uL (4.30-5.70) Hemoglobin 16.0 g/dL (13.0-17.5) Hematocrit 45.1 % (39.0-53.0) Mean Corpuscular Volume 91 fL (79-100) Mean Corpuscular Hemoglobin 32 pg (25-35) Mean Corpuscular Hemoglobin Concent 35 g/dL (31-37) Red Cell Distribution Width 14.8 % (11.5-14.5) Platelet Count 254 x10^3/uL (140-400) Neutrophils (%) (Auto) 77 % (31-73) Lymphocytes (%) (Auto) 9 % (24-48) Monocytes (%) (Auto) 12 % (0-9) Eosinophils (%) (Auto) 1 % (0-3) Basophils (%) (Auto) 1 % (0-3) Neutrophils # (Auto) 7.7 x10^3/uL (1.8-7.7) Lymphocytes # (Auto) 0.9 x10^3/uL (1.0-4.8) Monocytes # (Auto) 1.2 x10^3/uL (0.0-1.1) Eosinophils # (Auto) 0.1 x10^3/uL (0.0-0.7) Basophils # (Auto) 0.1 x10^3/uL (0.0-0.2) Prothrombin Time 13.4 SEC (11.7-14.0) Prothromb Time International Ratio 1.1 (0.8-1.1) D-Dimer (Jessica) 0.65 ug/mlFEU (0.00-0.50) Sodium Level 141 mmol/L (136-145) Potassium Level 3.5 mmol/L (3.5-5.1) Chloride Level 103 mmol/L (98-107) Carbon Dioxide Level 24 mmol/L (21-32) Anion Gap 14 (6-14) Blood Urea Nitrogen 38 mg/dL (8-26) Creatinine 2.7 mg/dL (0.7-1.3) Estimated GFR (Cockcroft-Gault) 23.5 BUN/Creatinine Ratio 14 (6-20) Glucose Level 103 mg/dL (70-99) Calcium Level 9.1 mg/dL (8.5-10.1) Magnesium Level 1.7 mg/dL (1.8-2.4) Total Bilirubin 0.8 mg/dL (0.2-1.0) Aspartate Amino Transf (AST/SGOT) 38 U/L (15-37) Alanine Aminotransferase (ALT/SGPT) 42 U/L (16-63) Alkaline Phosphatase 70 U/L (46-116) Creatine Kinase 520 U/L (39-308) Troponin I Quantitative < 0.017 ng/mL (0.000-0.055) < 0.017 ng/mL (0.000-0.055) TO-Gqi-S-Type Natriuretic Peptide 117 pg/mL (0-124) Total Protein 7.8 g/dL (6.4-8.2) Albumin 3.9 g/dL (3.4-5.0) Albumin/Globulin Ratio 1.0 (1.0-1.7) Lipase 191 U/L (73-393) Thyroid Stimulating Hormone (TSH) 5.976 uIU/mL (0.358-3.74) Test 04/05/19 16:37 04/05/19 17:17 04/05/19 19:15 04/05/19 21:04 Urine Collection Type Unknown Urine Color Yellow Urine Clarity Clear Urine pH 5.5 Urine Specific [place] 1.025 Urine Protein Negative mg/dL (NEG-TRACE) Urine Glucose (UA) Negative mg/dL (NEG) Urine Ketones (Stick) Negative mg/dL (NEG) Urine Blood Negative (NEG) Urine Nitrite Negative (NEG) Urine Bilirubin Negative (NEG) Urine Urobilinogen Dipstick 0.2 mg/dL (0.2 mg/dL) Urine Leukocyte Esterase Negative (NEG) Urine RBC 0 /HPF (0-2) Urine WBC Occ /HPF (0-4) Urine Bacteria 0 /HPF (0-FEW) Urine Hyaline Casts Many /HPF Urine Mucus Marked /LPF Urine Opiates Screen Pos (NEG) Urine Methadone Screen Neg (NEG) Urine Barbiturates Neg (NEG) Urine Phencyclidine Screen Neg (NEG) Urine Amphetamine/Methamphetamine Neg (NEG) Urine Benzodiazepines Screen Neg (NEG) Urine Cocaine Screen Neg (NEG) Urine Cannabinoids Screen Neg (NEG) Urine Ethyl Alcohol Neg (NEG) Glucose (Fingerstick) 70 mg/dL (70-99) 92 mg/dL (70-99) Troponin I Quantitative < 0.017 ng/mL (0.000-0.055) Laboratory Tests Test 04/05/19 11:19 04/05/19 11:37 04/05/19 13:29 04/05/19 16:15 Glucose (Fingerstick) 103 mg/dL (70-99) 80 mg/dL (70-99) White Blood Count 9.9 x10^3/uL (4.0-11.0) Red Blood Count 4.95 x10^6/uL (4.30-5.70) Hemoglobin 16.0 g/dL (13.0-17.5) Hematocrit 45.1 % (39.0-53.0) Mean Corpuscular Volume 91 fL (79-100) Mean Corpuscular Hemoglobin 32 pg (25-35) Mean Corpuscular Hemoglobin Concent 35 g/dL (31-37) Red Cell Distribution Width 14.8 % (11.5-14.5) Platelet Count 254 x10^3/uL (140-400) Neutrophils (%) (Auto) 77 % (31-73) Lymphocytes (%) (Auto) 9 % (24-48) Monocytes (%) (Auto) 12 % (0-9) Eosinophils (%) (Auto) 1 % (0-3) Basophils (%) (Auto) 1 % (0-3) Neutrophils # (Auto) 7.7 x10^3/uL (1.8-7.7) Lymphocytes # (Auto) 0.9 x10^3/uL (1.0-4.8) Monocytes # (Auto) 1.2 x10^3/uL (0.0-1.1) Eosinophils # (Auto) 0.1 x10^3/uL (0.0-0.7) Basophils # (Auto) 0.1 x10^3/uL (0.0-0.2) Prothrombin Time 13.4 SEC (11.7-14.0) Prothromb Time International Ratio 1.1 (0.8-1.1) D-Dimer (Jessica) 0.65 ug/mlFEU (0.00-0.50) Sodium Level 141 mmol/L (136-145) Potassium Level 3.5 mmol/L (3.5-5.1) Chloride Level 103 mmol/L (98-107) Carbon Dioxide Level 24 mmol/L (21-32) Anion Gap 14 (6-14) Blood Urea Nitrogen 38 mg/dL (8-26) Creatinine 2.7 mg/dL (0.7-1.3) Estimated GFR (Cockcroft-Gault) 23.5 BUN/Creatinine Ratio 14 (6-20) Glucose Level 103 mg/dL (70-99) Calcium Level 9.1 mg/dL (8.5-10.1) Magnesium Level 1.7 mg/dL (1.8-2.4) Total Bilirubin 0.8 mg/dL (0.2-1.0) Aspartate Amino Transf (AST/SGOT) 38 U/L (15-37) Alanine Aminotransferase (ALT/SGPT) 42 U/L (16-63) Alkaline Phosphatase 70 U/L (46-116) Creatine Kinase 520 U/L (39-308) Troponin I Quantitative < 0.017 ng/mL (0.000-0.055) < 0.017 ng/mL (0.000-0.055) TM-Toh-I-Type Natriuretic Peptide 117 pg/mL (0-124) Total Protein 7.8 g/dL (6.4-8.2) Albumin 3.9 g/dL (3.4-5.0) Albumin/Globulin Ratio 1.0 (1.0-1.7) Lipase 191 U/L (73-393) Thyroid Stimulating Hormone (TSH) 5.976 uIU/mL (0.358-3.74) Test 04/05/19 16:37 04/05/19 17:17 04/05/19 19:15 04/05/19 21:04 Urine Collection Type Unknown Urine Color Yellow Urine Clarity Clear Urine pH 5.5 Urine Specific [place] 1.025 Urine Protein Negative mg/dL (NEG-TRACE) Urine Glucose (UA) Negative mg/dL (NEG) Urine Ketones (Stick) Negative mg/dL (NEG) Urine Blood Negative (NEG) Urine Nitrite Negative (NEG) Urine Bilirubin Negative (NEG) Urine Urobilinogen Dipstick 0.2 mg/dL (0.2 mg/dL) Urine Leukocyte Esterase Negative (NEG) Urine RBC 0 /HPF (0-2) Urine WBC Occ /HPF (0-4) Urine Bacteria 0 /HPF (0-FEW) Urine Hyaline Casts Many /HPF Urine Mucus Marked /LPF Urine Opiates Screen Pos (NEG) Urine Methadone Screen Neg (NEG) Urine Barbiturates Neg (NEG) Urine Phencyclidine Screen Neg (NEG) Urine Amphetamine/Methamphetamine Neg (NEG) Urine Benzodiazepines Screen Neg (NEG) Urine Cocaine Screen Neg (NEG) Urine Cannabinoids Screen Neg (NEG) Urine Ethyl Alcohol Neg (NEG) Glucose (Fingerstick) 70 mg/dL (70-99) 92 mg/dL (70-99) Troponin I Quantitative < 0.017 ng/mL (0.000-0.055) Medications Current Medications Fentanyl Citrate (Fentanyl 2ml Vial) 50 mcg 1X ONCE IV Last administered on 04/05/19at 12:24; Start 04/05/19 at 12:15; Stop 04/05/19 at 12:16; Status DC Aspirin (Children'S Aspirin) 324 mg 1X ONCE PO Last administered on 04/05/19at 12:42; Start 04/05/19 at 12:30; Stop 04/05/19 at 12:31; Status DC Sodium Chloride 1,000 ml @ 75 mls/hr [id number] IV Last administered on 04/05/19at 13:56; Start 04/05/19 at 13:10; Stop 04/05/19 at 16:09; Status DC Magnesium Sulfate/ Dextrose 100 ml @ 100 mls/hr 1X ONCE IV Last administered on 04/05/19at 16:36; Start 04/05/19 at 16:00; Stop 04/05/19 at 16:59; Status DC Aspirin (Ecotrin) 81 mg [id number] PO ; Start 04/05/19 at 16:00 Hydralazine HCl (Apresoline Inj) 10 mg PRN Q4HRS PRN IVP ELEVATED BP, SEE COMMENTS; Start 04/05/19 at 16:00 Sodium Chloride 1,000 ml @ 100 mls/hr Q10H IV ; Start 04/05/19 at 16:15; Stop 04/05/19 at 16:51; Status DC Sodium Chloride 1,000 ml @ 100 mls/hr Q10H IV Last administered on 04/06/19at 00:05; Start 04/06/19 at 00:00 Fentanyl Citrate (Fentanyl 2ml Vial) 50 mcg PRN Q2HR PRN IV PAIN Last administered on 04/05/19at 17:33; Start 04/05/19 at 17:15 Morphine Sulfate (Morphine Ir) 15 mg PRN Q4HRS PRN PO PAIN Last administered on 04/05/19at 20:15; Start 04/05/19 at 17:45 Acetaminophen (Tylenol) 1,000 mg PRN Q6HRS PRN PO PAIN Last administered on 04/06/19at 00:01; Start 04/05/19 at 23:30 Active Scripts Active Tylenol (Acetaminophen) 325 Mg Tablet 650 Mg PO PRN Q6HRS PRN 30 Days Reported Naproxen 500 Mg Tablet 1 Tab PO BID Losartan-Hctz 100-25 Mg Tab (Losartan/Hydrochlorothiazide) 1 Each Tablet 1 Tab PO DAILY Triamcinolone Acetonide 0.1% Oint (Triamcinolone Acetonide) 15 Gm Oint...g. 1 Zi TP BID PRN MIX WITH EUCERIN DIRECTED BY PHYSICIAN Aspirin Ec (Aspirin) 81 Mg Tablet. 1 Tab PO DAILY Glimepiride 2 Mg Tablet 2 Mg PO DAILY Atorvastatin Calcium 40 Mg Tablet 40 Mg PO HS Gabapentin 300 Mg Capsule 600 Mg PO HS Potassium Citrate 10 Meq Tablet.er 10 Meq PO DAILY Omeprazole 40 Mg Capsule.dr 40 Mg PO DAILYAC Levothyroxine Sodium 50 Mcg Tablet 50 Mcg PO DAILY Vitals/I & O Vital Sign - Last 24 Hours 04/05/19 04/05/19 04/05/19 04/05/19 11:05 11:24 11:42 11:54 Temp 97.8 97.8 Pulse 58 58 58 58 Resp 18 16 16 16 B/P (MAP) 115/55 (75) Pulse Ox 98 97 98 96 O2 Delivery Room Air 04/05/19 04/05/19 04/05/19 04/05/19 12:09 12:24 12:24 12:39 Pulse 57 55 56 Resp 16 16 18 16 Pulse Ox 94 98 96 97 O2 Delivery Room Air 04/05/19 04/05/19 04/05/19 04/05/19 12:54 13:09 13:15 13:20 Temp 97.7 97.7 Pulse 52 52 57 Resp 16 16 18 B/P (MAP) 115/65 (82) Pulse Ox 98 97 98 O2 Delivery Room Air Room Air 04/05/19 04/05/19 04/05/19 04/05/19 13:55 15:00 17:33 18:11 Temp 97.7 97.7 Pulse 65 Resp 16 B/P (MAP) 108/49 (68) Pulse Ox 97 96 96 96 O2 Delivery Room Air Room Air Room Air Room Air 04/05/19 04/05/19 04/05/19 04/05/19 19:00 20:00 23:00 23:00 Temp 97.8 97.9 97.8 97.9 Pulse 57 51 62 Resp 18 18 B/P (MAP) 136/64 (88) 131/77 (95) 139/88 (105) Pulse Ox 97 94 O2 Delivery Room Air Room Air Room Air 04/05/19 04/06/19 23:00 03:00 Temp 98.0 98.0 Pulse 67 52 Resp 18 B/P (MAP) 146/87 (106) 119/66 (83) Pulse Ox 94 O2 Delivery Room Air Intake and Output 04/05/19 04/05/19 04/06/19 15:00 23:00 07:00 Intake Total 1000 ml Output Total 575 ml Balance 425 ml JUAN RAMON TAPIA MD Apr 06, 2019 07:40
[2019-04-06] MEDS: MORPHINE IR 15 MG TABLET PO PRN ×2 (08:42→15:13)
[2019-04-06] MEDS: ASPIRIN ENTERIC COATED 81 MG TABLET.DR. PO SCH (08:42)
[2019-04-06 09:26] LABS: BASO % 1 % (0-3); EOS # 0.1 x10^3/uL (0.0-0.7); EOS % 2 % (0-3); HEMOGLOBIN 15.8 g/dL (13.0-17.5); LYMPH # 1.1 x10^3/uL (1.0-4.8); LYMPH % 17 % (24-48); MEAN CORPUSCULAR HEMOGLOBIN 32 pg (25-35); MEAN CORPUSCULAR HGB CONC 35 g/dL (31-37); MEAN CORPUSCULAR VOLUME 93 fL (79-100); MONO % 15 % (0-9); NEUT # 4.3 x10^3/uL (1.8-7.7); NEUT % 65 % (31-73); PLATELET COUNT 231 x10^3/uL (140-400); RED BLOOD COUNT 4.95 x10^6/uL (4.30-5.70); RED CELL DISTRIBUTION WIDTH 15.1 % (11.5-14.5); WHITE BLOOD COUNT 6.5 x10^3/uL (4.0-11.0)
[2019-04-06 09:29] LABS: CALCIUM 8.4 mg/dL (8.5-10.1); CREATININE 1.8 mg/dL (0.7-1.3); GFR 37.6; POTASSIUM 3.3 mmol/L (3.5-5.1)
[2019-04-06 09:35] LABS: CHOLESTEROL/HDL RATIO 3.5
[2019-04-06] MEDS ORDERED: MAGNESIUM SULFATE 2GM 50 ML IV PRN (13:30)
--- NOTE | 2019-04-06 13:31 | PDOC2 ---
CONSULT Date of Consult Date of Consult DATE: 04/06/19 TIME: 13:22 Reason for Consult Reason for Consult: Acute kidney injury Referring Physician Referring Physician: Dr. Pizano Identification/Chief Complaint Chief Complaint Balance issues dizziness Source Source: Chart review, Patient History of Present Illness Reason for Visit: Yinka is a pleasant 68-year-old gentleman who presented to the ER with complaints of generalized achiness, cramping, dizziness and lightheadedness. He is being on ARB plus diuretic for a long time by his reports. No new medications were added. He has been working on his tractor as usual. He denies excessive heat exposure. Denies nausea vomiting diarrhea. He's been having some myalgias and hence been taking some NSAIDs. There is some question about possible chest p ain also at time of presentation. He presented the ER for further evaluation. He is known to be diabetic for a long time. At presentation is noted to have a creatinine of 2.7. He is not aware of known renal insufficiency from the past from his visits with his primary care provider however it appears that his baseline creatinine appears to be 1.6-1.8 based on labs from October 2018. He does complain of some right flank pain. 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 Differentiation is difficult without IV contrast. An CT scan will be ordered for further evaluation although his pain is on the contralateral side. Past Medical History Cardiovascular: HTN, Hyperlipidemia Pulmonary: No pertinent hx CENTRAL NERVOUS SYSTEM: Other GI: GERD Heme/Onc: No pertinent hx Hepatobiliary: No pertinent hx Psych: Anxiety Musculoskeletal: Osteoarthritis Rheumatologic: No pertinent hx Infectious disease: No pertinent hx Renal/: No pertinent hx, Chronic renal insuff Endocrine: Diabetes, Hypothyroidism Past Surgical History Past Surgical History: Other Family History Family History: Heart Disease Social History Social History: Parent No ALCOHOL: none Drugs: None Lives: with Family Current Problem List Problem List Problems Medical Problems: (1) Acute chest pain Status: Acute (2) Dizziness Status: Acute (3) Renal insufficiency Status: Acute (4) Rhabdomyolysis Status: Acute Current Medications Current Medications Current Medications Fentanyl Citrate (Fentanyl 2ml Vial) 50 mcg 1X ONCE IV Last administered on 04/05/19 12:24; Start 04/05/19 at 12:15; Stop 04/05/19 at 12:16; Status DC Aspirin (Children'S Aspirin) 324 mg 1X ONCE PO Last administered on 04/05/19at 12:42; Start 04/05/19 at 12:30; Stop 04/05/19 at 12:31; Status DC Sodium Chloride 1,000 ml @ 75 mls/hr [id number] IV Last administered on 04/05/19at 13:56; Start 04/05/19 at 13:10; Stop 04/05/19 at 16:09; Status DC Magnesium Sulfate/ Dextrose 100 ml @ 100 mls/hr 1X ONCE IV Last administered on 04/05/19at 16:36; Start 04/05/19 at 16:00; Stop 04/05/19 at 16:59; Status DC Aspirin (Ecotrin) 81 mg [id number] PO Last administered on 04/06/19 08:42; Start 04/05/19 at 16:00 Hydralazine HCl (Apresoline Inj) 10 mg PRN Q4HRS PRN IVP ELEVATED BP, SEE COMMENTS; Start 04/05/19 at 16:00 Sodium Chloride 1,000 ml @ 100 mls/hr Q10H IV ; Start 04/05/19 at 16:15; Stop 04/05/19 at 16:51; Status DC Sodium Chloride 1,000 ml @ 100 mls/hr Q10H IV Last administered on 04/06/19at 10:16; Start 04/06/19 at 00:00 Fentanyl Citrate (Fentanyl 2ml Vial) 50 mcg PRN Q2HR PRN IV PAIN Last administered on 04/05/19 17:33; Start 04/05/19 at 17:15 Morphine Sulfate (Morphine Ir) 15 mg PRN Q4HRS PRN PO PAIN Last administered on 04/06/19 08:42; Start 04/05/19 at 17:45 Acetaminophen (Tylenol) 1,000 mg PRN Q6HRS PRN PO PAIN Last administered on 04/06/19at 00:01; Start 04/05/19 at 23:30 Active Scripts Active Tylenol (Acetaminophen) 325 Mg Tablet 650 Mg PO PRN Q6HRS PRN 30 Days Reported Naproxen 500 Mg Tablet 1 Tab PO BID Losartan-Hctz 100-25 Mg Tab (Losartan/Hydrochlorothiazide) 1 Each Tablet 1 Tab PO DAILY Triamcinolone Acetonide 0.1% Oint (Triamcinolone Acetonide) 15 Gm Oint...g. 1 Zi TP BID PRN MIX WITH EUCERIN DIRECTED BY PHYSICIAN Aspirin Ec (Aspirin) 81 Mg Tablet.dr 1 Tab PO DAILY Glimepiride 2 Mg Tablet 2 Mg PO DAILY Atorvastatin Calcium 40 Mg Tablet 40 Mg PO HS Gabapentin 300 Mg Capsule 600 Mg PO HS Potassium Citrate 10 Meq Tablet.er 10 Meq PO DAILY Omeprazole 40 Mg Capsule.dr 40 Mg PO DAILYAC Levothyroxine Sodium 50 Mcg Tablet 50 Mcg PO DAILY Allergies Allergies: Coded Allergies: hydrocodone (Verified Allergy, Severe, throat swelling, 09/08/18) oxycodone (Verified Allergy, Severe, throat swelling, 09/08/18) ROS Review of System 14 point review of systems as reviewed under history of present illness is otherwise grossly negative Physical Exam Physical Exam General Appearance: Awake Alert Oriented x 3 In min Distress, appears fatigued and tired Eyes: VIsion Unchanged Conjunctiva Normal EN: No EN Drainage Mucous Memb. dryish Neck: no JVD no JVP Supple no Thyromegaly CVS: S1 S2 no Murmur No Gallop No Rub no Edema Resp: no Rales no Rhonchi no Acc. Muscle use GI: BAS +ve NO Bruit Non Tender Non Distended : no CVA tenderness per se, patient does mention some musculoskeletal discomfort in his right flank; no Suprapubic Tenderness SKIN: n ovisilbe Rashes Breast Exam deferred Mu.Sk: Adequate ROM (vision moves gingerly because he is afraid of cramping) no Muscle Atrophy Heme: Unable to palpate Obvious LAD no palp Splenomegaly NEURO: Good Strength and Tone Cranial Nerves II - XII grossly intact Psych: not Depressed no Active hallucination Vital Signs Vital Signs Date Time Temp Pulse Resp B/P (MAP) Pulse Ox O2 Delivery O2 Flow Rate FiO2 04/06/19 11:00 98.5 56 16 141/73 (95) 95 98.5 04/06/19 10:17 Room Air Assessment & Plan Acute kidney injury: This appears to have resolved with IV fluids as administered. Follow CPK given mild elevation yesterday as well as ongoing cramping and muscle aches Chronic kidney disease stage III presumed diabetic hypertensive nephrosclerosis: Current FLuid and E-lyte status does not necessitate emergent need for Dialysis. Will re-evaluate for Dialysis in am Previous possible left hydronephrosis: We'll check renal sonogram Right flank pain: Unclear. Musculoskeletal: We'll check CPK as well as renal sonogram to rule out obstructive uropathy. Suspected significant intravascular volume depletion (presumably due to diuretic use) with possible orthostasis: We'll check orthostasis. This will help guide further IV fluids administration. May benefit from A1c check. Token anemia: Change IV fluids to lactated Ringer's Labs Labs Laboratory Tests Test 04/05/19 11:19 04/05/19 11:37 04/05/19 13:29 04/05/19 16:15 Glucose (Fingerstick) 103 mg/dL (70-99) 80 mg/dL (70-99) White Blood Count 9.9 x10^3/uL (4.0-11.0) Red Blood Count 4.95 x10^6/uL (4.30-5.70) Hemoglobin 16.0 g/dL (13.0-17.5) Hematocrit 45.1 % (39.0-53.0) Mean Corpuscular Volume 91 fL (79-100) Mean Corpuscular Hemoglobin 32 pg (25-35) Mean Corpuscular Hemoglobin Concent 35 g/dL (31-37) Red Cell Distribution Width 14.8 % (11.5-14.5) Platelet Count 254 x10^3/uL (140-400) Neutrophils (%) (Auto) 77 % (31-73) Lymphocytes (%) (Auto) 9 % (24-48) Monocytes (%) (Auto) 12 % (0-9) Eosinophils (%) (Auto) 1 % (0-3) Basophils (%) (Auto) 1 % (0-3) Neutrophils # (Auto) 7.7 x10^3/uL (1.8-7.7) Lymphocytes # (Auto) 0.9 x10^3/uL (1.0-4.8) Monocytes # (Auto) 1.2 x10^3/uL (0.0-1.1) Eosinophils # (Auto) 0.1 x10^3/uL (0.0-0.7) Basophils # (Auto) 0.1 x10^3/uL (0.0-0.2) Prothrombin Time 13.4 SEC (11.7-14.0) Prothromb Time International Ratio 1.1 (0.8-1.1) D-Dimer (Jessica) 0.65 ug/mlFEU (0.00-0.50) Sodium Level 141 mmol/L (136-145) Potassium Level 3.5 mmol/L (3.5-5.1) Chloride Level 103 mmol/L (98-107) Carbon Dioxide Level 24 mmol/L (21-32) Anion Gap 14 (6-14) Blood Urea Nitrogen 38 mg/dL (8-26) Creatinine 2.7 mg/dL (0.7-1.3) Estimated GFR (Cockcroft-Gault) 23.5 BUN/Creatinine Ratio 14 (6-20) Glucose Level 103 mg/dL (70-99) Calcium Level 9.1 mg/dL (8.5-10.1) Magnesium Level 1.7 mg/dL (1.8-2.4) Total Bilirubin 0.8 mg/dL (0.2-1.0) Aspartate Amino Transf (AST/SGOT) 38 U/L (15-37) Alanine Aminotransferase (ALT/SGPT) 42 U/L (16-63) Alkaline Phosphatase 70 U/L (46-116) Creatine Kinase 520 U/L (39-308) Troponin I Quantitative < 0.017 ng/mL (0.000-0.055) < 0.017 ng/mL (0.000-0.055) XB-Ecl-H-Type Natriuretic Peptide 117 pg/mL (0-124) Total Protein 7.8 g/dL (6.4-8.2) Albumin 3.9 g/dL (3.4-5.0) Albumin/Globulin Ratio 1.0 (1.0-1.7) Lipase 191 U/L (73-393) Thyroid Stimulating Hormone (TSH) 5.976 uIU/mL (0.358-3.74) Test 04/05/19 16:37 04/05/19 17:17 04/05/19 19:15 04/05/19 21:04 Urine Collection Type Unknown Urine Color Yellow Urine Clarity Clear Urine pH 5.5 Urine Specific [place] 1.025 Urine Protein Negative mg/dL (NEG-TRACE) Urine Glucose (UA) Negative mg/dL (NEG) Urine Ketones (Stick) Negative mg/dL (NEG) Urine Blood Negative (NEG) Urine Nitrite Negative (NEG) Urine Bilirubin Negative (NEG) Urine Urobilinogen Dipstick 0.2 mg/dL (0.2 mg/dL) Urine Leukocyte Esterase Negative (NEG) Urine RBC 0 /HPF (0-2) Urine WBC Occ /HPF (0-4) Urine Bacteria 0 /HPF (0-FEW) Urine Hyaline Casts Many /HPF Urine Mucus Marked /LPF Urine Opiates Screen Pos (NEG) Urine Methadone Screen Neg (NEG) Urine Barbiturates Neg (NEG) Urine Phencyclidine Screen Neg (NEG) Urine Amphetamine/Methamphetamine Neg (NEG) Urine Benzodiazepines Screen Neg (NEG) Urine Cocaine Screen Neg (NEG) Urine Cannabinoids Screen Neg (NEG) Urine Ethyl Alcohol Neg (NEG) Glucose (Fingerstick) 70 mg/dL (70-99) 92 mg/dL (70-99) Troponin I Quantitative < 0.017 ng/mL (0.000-0.055) Test 04/06/19 07:17 04/06/19 08:25 04/06/19 12:00 Glucose (Fingerstick) 96 mg/dL (70-99) 113 mg/dL (70-99) White Blood Count 6.5 x10^3/uL (4.0-11.0) Red Blood Count 4.95 x10^6/uL (4.30-5.70) Hemoglobin 15.8 g/dL (13.0-17.5) Hematocrit 46.0 % (39.0-53.0) Mean Corpuscular Volume 93 fL (79-100) Mean Corpuscular Hemoglobin 32 pg (25-35) Mean Corpuscular Hemoglobin Concent 35 g/dL (31-37) Red Cell Distribution Width 15.1 % (11.5-14.5) Platelet Count 231 x10^3/uL (140-400) Neutrophils (%) (Auto) 65 % (31-73) Lymphocytes (%) (Auto) 17 % (24-48) Monocytes (%) (Auto) 15 % (0-9) Eosinophils (%) (Auto) 2 % (0-3) Basophils (%) (Auto) 1 % (0-3) Neutrophils # (Auto) 4.3 x10^3/uL (1.8-7.7) Lymphocytes # (Auto) 1.1 x10^3/uL (1.0-4.8) Monocytes # (Auto) 1.0 x10^3/uL (0.0-1.1) Eosinophils # (Auto) 0.1 x10^3/uL (0.0-0.7) Basophils # (Auto) 0.0 x10^3/uL (0.0-0.2) Sodium Level 139 mmol/L (136-145) Potassium Level 3.3 mmol/L (3.5-5.1) Chloride Level 103 mmol/L (98-107) Carbon Dioxide Level 26 mmol/L (21-32) Anion Gap 10 (6-14) Blood Urea Nitrogen 31 mg/dL (8-26) Creatinine 1.8 mg/dL (0.7-1.3) Estimated GFR (Cockcroft-Gault) 37.6 Glucose Level 93 mg/dL (70-99) Calcium Level 8.4 mg/dL (8.5-10.1) Triglycerides Level 88 mg/dL (0-150) Cholesterol Level 119 mg/dL (0-200) LDL Cholesterol, Calculated 67 mg/dL (0-100) VLDL Cholesterol, Calculated 18 mg/dL (0-40) Non-HDL Cholesterol Calculated 85 mg/dL (0-129) HDL Cholesterol 34 mg/dL (40-60) Cholesterol/HDL Ratio 3.5 Laboratory Tests Test 04/05/19 13:29 04/05/19 16:15 04/05/19 16:37 04/05/19 17:17 Glucose (Fingerstick) 80 mg/dL (70-99) 70 mg/dL (70-99) Troponin I Quantitative < 0.017 ng/mL (0.000-0.055) Urine Collection Type Unknown Urine Color Yellow Urine Clarity Clear Urine pH 5.5 Urine Specific [place] 1.025 Urine Protein Negative mg/dL (NEG-TRACE) Urine Glucose (UA) Negative mg/dL (NEG) Urine Ketones (Stick) Negative mg/dL (NEG) Urine Blood Negative (NEG) Urine Nitrite Negative (NEG) Urine Bilirubin Negative (NEG) Urine Urobilinogen Dipstick 0.2 mg/dL (0.2 mg/dL) Urine Leukocyte Esterase Negative (NEG) Urine RBC 0 /HPF (0-2) Urine WBC Occ /HPF (0-4) Urine Bacteria 0 /HPF (0-FEW) Urine Hyaline Casts Many /HPF Urine Mucus Marked /LPF Urine Opiates Screen Pos (NEG) Urine Methadone Screen Neg (NEG) Urine Barbiturates Neg (NEG) Urine Phencyclidine Screen Neg (NEG) Urine Amphetamine/Methamphetamine Neg (NEG) Urine Benzodiazepines Screen Neg (NEG) Urine Cocaine Screen Neg (NEG) Urine Cannabinoids Screen Neg (NEG) Urine Ethyl Alcohol Neg (NEG) Test 04/05/19 19:15 04/05/19 21:04 04/06/19 07:17 04/06/19 08:25 Troponin I Quantitative < 0.017 ng/mL (0.000-0.055) Glucose (Fingerstick) 92 mg/dL (70-99) 96 mg/dL (70-99) White Blood Count 6.5 x10^3/uL (4.0-11.0) Red Blood Count 4.95 x10^6/uL (4.30-5.70) Hemoglobin 15.8 g/dL (13.0-17.5) Hematocrit 46.0 % (39.0-53.0) Mean Corpuscular Volume 93 fL (79-100) Mean Corpuscular Hemoglobin 32 pg (25-35) Mean Corpuscular Hemoglobin Concent 35 g/dL (31-37) Red Cell Distribution Width 15.1 % (11.5-14.5) Platelet Count 231 x10^3/uL (140-400) Neutrophils (%) (Auto) 65 % (31-73) Lymphocytes (%) (Auto) 17 % (24-48) Monocytes (%) (Auto) 15 % (0-9) Eosinophils (%) (Auto) 2 % (0-3) Basophils (%) (Auto) 1 % (0-3) Neutrophils # (Auto) 4.3 x10^3/uL (1.8-7.7) Lymphocytes # (Auto) 1.1 x10^3/uL (1.0-4.8) Monocytes # (Auto) 1.0 x10^3/uL (0.0-1.1) Eosinophils # (Auto) 0.1 x10^3/uL (0.0-0.7) Basophils # (Auto) 0.0 x10^3/uL (0.0-0.2) Sodium Level 139 mmol/L (136-145) Potassium Level 3.3 mmol/L (3.5-5.1) Chloride Level 103 mmol/L (98-107) Carbon Dioxide Level 26 mmol/L (21-32) Anion Gap 10 (6-14) Blood Urea Nitrogen 31 mg/dL (8-26) Creatinine 1.8 mg/dL (0.7-1.3) Estimated GFR (Cockcroft-Gault) 37.6 Glucose Level 93 mg/dL (70-99) Calcium Level 8.4 mg/dL (8.5-10.1) Triglycerides Level 88 mg/dL (0-150) Cholesterol Level 119 mg/dL (0-200) LDL Cholesterol, Calculated 67 mg/dL (0-100) VLDL Cholesterol, Calculated 18 mg/dL (0-40) Non-HDL Cholesterol Calculated 85 mg/dL (0-129) HDL Cholesterol 34 mg/dL (40-60) Cholesterol/HDL Ratio 3.5 Test 04/06/19 12:00 Glucose (Fingerstick) 113 mg/dL (70-99) Review All relevant outside records, renal labs, imaging studies, telemetry/EKG's were reviewed. Images Images FINDINGS: The cardiac silhouette is unremarkable. The lungs are clear bilaterally. The costophrenic sulci are clear and well demarcated. IMPRESSION: No radiographic evidence of an acute cardiopulmonary process. GIRISH JOHNSON MD Apr 06, 2019 13:31
--- NOTE | 2019-04-06 14:48 | RAD ---
Renal ultrasound 04/06/2019 CLINICAL HISTORY: Acute renal failure. TECHNIQUE: A real-time ultrasound examination of both kidneys and the urinary bladder was performed. Multiple images were obtained. FINDINGS: Comparison is made to the patient's CT scan of the abdomen and pelvis dated 10/28/2017. Additional comparison is made to the patient's previous renal ultrasound dated 12/27/2017. The left kidney is slightly larger than the right. The right kidney measures 10.7 cm in length. The left kidney measures 12.9 cm in length. Mild left hydronephrosis is seen, unchanged. No focal abnormality of either kidney is seen. The urinary bladder is distended with urine. The prevoid volume of the urinary bladder is 464.5 mL. The post void residual is 285.4 mL. IMPRESSION: 1. Mild left hydronephrosis, unchanged. 2. Large post void urinary residual. Electronically signed by: Tobias Arenas MD (04/06/2019 2:45 PM) [facility]
[2019-04-06] MEDS ORDERED: POTASSIUM CHLORIDE 20 MEQ TABLET.ER. PO ONE (15:00)
[2019-04-06] MEDS: IV RINGERS,LACTATED 1000ML 1,000 ML IV SCH ×2 (15:15→22:25)
--- NOTE | 2019-04-06 16:41 | PDOC ---
PROGRESS NOTES Subjective Subjective Continues to complain of generalized body aches and back pain Objective Objective Vital Signs Date Time Temp Pulse Resp B/P (MAP) Pulse Ox O2 Delivery O2 Flow Rate FiO2 04/06/19 16:24 18 Room Air 04/06/19 15:00 98.7 67 159/87 (111) 92 98.7 Intake and Output 04/06/19 07:00 Intake Total 1000 ml Output Total 575 ml Balance 425 ml IV Total 1000 ml Output Urine Total 575 ml Physical Exam Abdomen: Soft, No tenderness Heart: Regular rate (SR/SB), Normal S1, Normal S2, No murmurs Extremities: No edema General: Alert, Oriented X3, No acute distress, mild distress HEENT: Atraumatic Lungs: Clear to auscultation, Normal air movement Neuro: Normal speech, Normal tone, Sensation intact Psych/Mental Status: Mental status NL, Mood NL Skin: No significant lesion Assessment Assessment 1. Generalized body aches with CK elevation, statins on hold. Myocardial infarction has been ruled out. Recent 2-D echo showed normal LV function without any wall motion abnormalities.. 2. HTN: controlled 3. DM2: per IM 4. Hypothyroidism: per PCP, on replacement 5. Ac on chr renal insuff: nephrology following Plan Plan of Care Problems Medical Problems: (1) Acute chest pain Status: Acute (2) Dizziness Status: Acute (3) Renal insufficiency Status: Acute (4) Rhabdomyolysis Status: Acute Comment Review of Relevant I have reviewed the following items aditya (where applicable) has been applied. Labs Laboratory Tests Test 04/05/19 17:17 04/05/19 19:15 04/05/19 21:04 04/06/19 07:17 Glucose (Fingerstick) 70 mg/dL (70-99) 92 mg/dL (70-99) 96 mg/dL (70-99) Troponin I Quantitative < 0.017 ng/mL (0.000-0.055) Test 04/06/19 08:25 04/06/19 12:00 White Blood Count 6.5 x10^3/uL (4.0-11.0) Red Blood Count 4.95 x10^6/uL (4.30-5.70) Hemoglobin 15.8 g/dL (13.0-17.5) Hematocrit 46.0 % (39.0-53.0) Mean Corpuscular Volume 93 fL (79-100) Mean Corpuscular Hemoglobin 32 pg (25-35) Mean Corpuscular Hemoglobin Concent 35 g/dL (31-37) Red Cell Distribution Width 15.1 % (11.5-14.5) Platelet Count 231 x10^3/uL (140-400) Neutrophils (%) (Auto) 65 % (31-73) Lymphocytes (%) (Auto) 17 % (24-48) Monocytes (%) (Auto) 15 % (0-9) Eosinophils (%) (Auto) 2 % (0-3) Basophils (%) (Auto) 1 % (0-3) Neutrophils # (Auto) 4.3 x10^3/uL (1.8-7.7) Lymphocytes # (Auto) 1.1 x10^3/uL (1.0-4.8) Monocytes # (Auto) 1.0 x10^3/uL (0.0-1.1) Eosinophils # (Auto) 0.1 x10^3/uL (0.0-0.7) Basophils # (Auto) 0.0 x10^3/uL (0.0-0.2) Sodium Level 139 mmol/L (136-145) Potassium Level 3.3 mmol/L (3.5-5.1) Chloride Level 103 mmol/L (98-107) Carbon Dioxide Level 26 mmol/L (21-32) Anion Gap 10 (6-14) Blood Urea Nitrogen 31 mg/dL (8-26) Creatinine 1.8 mg/dL (0.7-1.3) Estimated GFR (Cockcroft-Gault) 37.6 Glucose Level 93 mg/dL (70-99) Calcium Level 8.4 mg/dL (8.5-10.1) Creatine Kinase 501 U/L (39-308) Triglycerides Level 88 mg/dL (0-150) Cholesterol Level 119 mg/dL (0-200) LDL Cholesterol, Calculated 67 mg/dL (0-100) VLDL Cholesterol, Calculated 18 mg/dL (0-40) Non-HDL Cholesterol Calculated 85 mg/dL (0-129) HDL Cholesterol 34 mg/dL (40-60) Cholesterol/HDL Ratio 3.5 Glucose (Fingerstick) 113 mg/dL (70-99) Medications Current Medications Acetaminophen (Tylenol) 1,000 mg PRN Q6HRS PRN PO PAIN MILD-MODERATE Last administered on 04/06/19at 00:01; Start 04/05/19 at 23:30 Fentanyl Citrate (Fentanyl 2ml Vial) 50 mcg PRN Q2HR PRN IV PAIN Last administered on 04/05/19at 17:33; Start 04/05/19 at 17:15 Magnesium Sulfate 50 ml @ 25 mls/hr PRN DAILY PRN IV for Mag < 1.7 on am labs; Start 04/06/19 at 13:30 Morphine Sulfate (Morphine Ir) 15 mg PRN Q4HRS PRN PO PAIN SEVERE Last a dministered on 04/06/19at 15:22; Start 04/05/19 at 17:45 Potassium Chloride (Klor-Con) 20 meq 1X ONCE PO Last administered on 04/06/19at 15:22; Start 04/06/19 at 15:00; Stop 04/06/19 at 15:01; Status DC Ringer's Solution 1,000 ml @ 125 mls/hr Q8H IV Last administered on 04/06/19at 15:22; Start 04/06/19 at 13:30 Sodium Chloride 1,000 ml @ 100 mls/hr Q10H IV Last administered on 04/06/19at 10:16; Start 04/06/19 at 00:00; Stop 04/06/19 at 13:22; Status DC Vitals/I & O Vital Sign - Last 24 Hours 04/05/19 04/05/19 04/05/19 04/05/19 17:33 18:11 19:00 20:00 Temp 97.8 97.8 Pulse 57 Resp 18 B/P (MAP) 136/64 (88) Pulse Ox 96 96 97 O2 Delivery Room Air Room Air Room Air Room Air 04/05/19 04/05/19 04/05/19 04/06/19 23:00 23:00 23:00 03:00 Temp 97.9 98.0 97.9 98.0 Pulse 51 62 67 52 Resp 18 18 B/P (MAP) 131/77 (95) 139/88 (105) 146/87 (106) 119/66 (83) Pulse Ox 94 94 O2 Delivery Room Air Room Air 04/06/19 04/06/19 04/06/19 04/06/19 07:00 08:00 08:42 10:17 Temp 97.9 97.9 Pulse 54 Resp 16 16 16 B/P (MAP) 151/64 (93) Pulse Ox 94 O2 Delivery Nasal Cannula Room Air Room Air Room Air 04/06/19 04/06/19 04/06/19 04/06/19 11:00 15:00 15:22 16:24 Temp 98.5 98.7 98.5 98.7 Pulse 56 67 Resp 16 18 16 18 B/P (MAP) 141/73 (95) 159/87 (111) Pulse Ox 95 92 O2 Delivery Room Air Room Air Room Air Intake and Output 04/05/19 04/05/19 04/06/19 15:00 23:00 07:00 Intake Total 1000 ml Output Total 575 ml Balance 425 ml JUAN JOSÉ GODFREY MD Apr 06, 2019 16:41
[2019-04-06] MEDS: ACETAMINOPHEN 500 MG TABLET PO PRN ×2 (22:25)
[2019-04-07 02:14] VITALS: BP 147/87
[2019-04-07] MEDS: MORPHINE IR 15 MG TABLET PO PRN ×3 (02:42→08:46)
[2019-04-07 04:27] LABS: ALBUMIN 3.2 g/dL (3.4-5.0); CALCIUM 8.2 mg/dL (8.5-10.1); CREATININE 1.7 mg/dL (0.7-1.3); GFR 40.2; PHOSPHORUS 2.5 mg/dL (2.6-4.7); POTASSIUM 3.3 mmol/L (3.5-5.1)
[2019-04-07 04:31] LABS: BASO % 0 % (0-3); EOS # 0.1 x10^3/uL (0.0-0.7); EOS % 1 % (0-3); HEMATOCRIT 42.2 % (39.0-53.0); HEMOGLOBIN 14.6 g/dL (13.0-17.5); LYMPH # 1.5 x10^3/uL (1.0-4.8); LYMPH % 18 % (24-48); MEAN CORPUSCULAR HEMOGLOBIN 32 pg (25-35); MEAN CORPUSCULAR HGB CONC 35 g/dL (31-37); MEAN CORPUSCULAR VOLUME 93 fL (79-100); MONO # 1.2 x10^3/uL (0.0-1.1); MONO % 15 % (0-9); NEUT # 5.2 x10^3/uL (1.8-7.7); NEUT % 66 % (31-73); PLATELET COUNT 222 x10^3/uL (140-400); RED BLOOD COUNT 4.56 x10^6/uL (4.30-5.70)
[2019-04-07 07:00] VITALS: BP 163/66
[2019-04-07] MEDS: IV RINGERS,LACTATED 1000ML 1,000 ML IV SCH ×2 (07:41→14:07)
[2019-04-07] MEDS: ASPIRIN ENTERIC COATED 81 MG TABLET.DR. PO SCH (07:41)
[2019-04-07] MEDS: ACETAMINOPHEN 500 MG TABLET PO PRN ×2 (07:42→20:00)
--- NOTE | 2019-04-07 09:12 | PDOC ---
SUBJECTIVE ROS Asked to see for acute kidney injury Patient claims he just got some morphine and feels somewhat fuzzy. He claims he does not have a fever but felt like he had chills and sweats. Results of bladder scan as ordered are not available CVS: no Orthopnea, no CP RESP: no SOB, no CONTRERAS GI: no Nausea, no Vomiting : no Dysuria, no Urgency OBJECTIVE Vital Signs Vital Signs Date Time Temp Pulse Resp B/P (MAP) Pulse Ox O2 Delivery O2 Flow Rate FiO2 04/07/19 08:47 18 96 Room Air 04/07/19 07:00 98.6 61 163/66 (98) 1.0 98.6 I & 0 Intake and Output 04/07/19 07:00 Intake Total 2140 ml Output Total 1850 ml Balance 290 ml Intake Oral 640 ml IV Total 1500 ml Output Urine Total 1850 ml PHYSICAL EXAM Physical Exam General Appearance: Awake Alert Oriented x 3 In min Distress, appears fatigued and tired Eyes: VIsion Unchanged Conjunctiva Normal EN: No EN Drainage Mucous Memb. dryish Neck: no JVD no JVP Supple no Thyromegaly CVS: S1 S2 no Murmur No Gallop No Rub no Edema Resp: no Rales no Rhonchi no Acc. Muscle use GI: BAS +ve NO Bruit Non Tender Non Distended : no CVA tenderness per se, patient does mention some musculoskeletal discomfort in his right flank; no Suprapubic Tenderness Assessment & Plan: Acute kidney injury: This appears to have resolved with IV fluids as administered. Follow CPK given mild elevation at presentation. No results from today's levels yet. Unclear to me if urinary retention/left hydronephrosis is contributing. We'll obtain urology input Urinary retention: Bladder scan as ordered: May need Reilly catheter Chronic kidney disease stage III presumed diabetic hypertensive nephrosclerosis: Current FLuid and E-lyte status does not necessitate emergent need for Dialysis. Will re-evaluate for Dialysis in am Previous possible left hydronephrosis: Persistent on renal sonogram: Await urology input Right flank pain: Unclear. Musculoskeletal ?: No obstructive uropathy on right side despite his area of discomfort. We'll defer need for CT scan to primary team Suspected significant intravascular volume depletion-like symptoms. Orthostasis were negative. Continue gentle IV fluids. Chills and sweats: Blood cultures will be checked Hypokalemia : Changed IV fluids to lactated Ringer's. 1 time potassium phosphate will be ordered Low phosphorus: Suspect poor by mouth intake. IV K-Phos �1 Hypomagnesemia: IV mag as ordered COMMENT/RELEVANT DATA Meds Current Medications Medications (Trade) Dose Ordered Sig/Xuan Start Time Stop Time Status Last Admin Dose Admin Acetaminophen (Tylenol) 1,000 mg PRN Q6HRS PRN 04/05/19 23:30 04/07/19 07:42 1,000 MG Aspirin (Children'S Aspirin) 324 mg 1X ONCE 04/05/19 12:30 04/05/19 12:31 DC 04/05/19 12:42 243 MG Aspirin (Ecotrin) 81 mg [id number] 04/05/19 16:00 04/07/19 07:42 81 MG Fentanyl Citrate (Fentanyl 2ml Vial) 50 mcg PRN Q2HR PRN 04/05/19 17:15 04/05/19 17:33 50 MCG Hydralazine HCl (Apresoline Inj) 10 mg PRN Q4HRS PRN 04/05/19 16:00 Magnesium Sulfate 50 ml @ 25 mls/hr PRN DAILY PRN 04/06/19 13:30 Magnesium Sulfate/ Dextrose 100 ml @ 100 mls/hr 1X ONCE 04/05/19 16:00 04/05/19 16:59 DC 04/05/19 16:36 100 MLS/HR Morphine Sulfate (Morphine Ir) 15 mg PRN Q4HRS PRN 04/05/19 17:45 04/07/19 08:47 15 MG Potassium Chloride (Klor-Con) 20 meq 1X ONCE 04/06/19 15:00 04/06/19 15:01 DC 04/06/19 15:22 20 MEQ Ringer's Solution 1,000 ml @ 125 mls/hr Q8H 04/06/19 13:30 04/07/19 07:42 125 MLS/HR Sodium Chloride 1,000 ml @ 100 mls/hr Q10H 04/06/19 00:00 04/06/19 13:22 DC 04/06/19 10:16 100 MLS/HR Lab Laboratory Tests Test 04/06/19 12:00 04/06/19 17:26 04/06/19 20:43 04/07/19 03:41 Glucose (Fingerstick) 113 mg/dL (70-99) 102 mg/dL (70-99) 104 mg/dL (70-99) 113 mg/dL (70-99) Test 04/07/19 03:45 04/07/19 04:00 04/07/19 07:51 White Blood Count 8.0 x10^3/uL (4.0-11.0) Red Blood Count 4.56 x10^6/uL (4.30-5.70) Hemoglobin 14.6 g/dL (13.0-17.5) Hematocrit 42.2 % (39.0-53.0) Mean Corpuscular Volume 93 fL (79-100) Mean Corpuscular Hemoglobin 32 pg (25-35) Mean Corpuscular Hemoglobin Concent 35 g/dL (31-37) Red Cell Distribution Width 15.0 % (11.5-14.5) Platelet Count 222 x10^3/uL (140-400) Neutrophils (%) (Auto) 66 % (31-73) Lymphocytes (%) (Auto) 18 % (24-48) Monocytes (%) (Auto) 15 % (0-9) Eosinophils (%) (Auto) 1 % (0-3) Basophils (%) (Auto) 0 % (0-3) Neutrophils # (Auto) 5.2 x10^3/uL (1.8-7.7) Lymphocytes # (Auto) 1.5 x10^3/uL (1.0-4.8) Monocytes # (Auto) 1.2 x10^3/uL (0.0-1.1) Eosinophils # (Auto) 0.1 x10^3/uL (0.0-0.7) Basophils # (Auto) 0.0 x10^3/uL (0.0-0.2) Magnesium Level 1.6 mg/dL (1.8-2.4) Sodium Level 137 mmol/L (136-145) Potassium Level 3.3 mmol/L (3.5-5.1) Chloride Level 103 mmol/L (98-107) Carbon Dioxide Level 26 mmol/L (21-32) Anion Gap 8 (6-14) Blood Urea Nitrogen 24 mg/dL (8-26) Creatinine 1.7 mg/dL (0.7-1.3) Estimated GFR (Cockcroft-Gault) 40.2 Glucose Level 113 mg/dL (70-99) Calcium Level 8.2 mg/dL (8.5-10.1) Phosphorus Level 2.5 mg/dL (2.6-4.7) Albumin 3.2 g/dL (3.4-5.0) Glucose (Fingerstick) 97 mg/dL (70-99) Results All relevant outside records, renal labs, imaging studies, telemetry/EKG's were reviewed. GIRISH JOHNSON MD Apr 07, 2019 09:12
--- NOTE | 2019-04-07 09:22 | PDOC ---
PROGRESS NOTES History of Present Illness History of Present Illness VTE Prophylaxis Ordered VTE Prophylaxis Devices: No VTE Pharmacological Prophylaxi: Yes Assessment/Plan Assessment/Plan acute myalgia, SEC TO STATIN generalized pain, not rhabdo, DM DC NSAIDs Stop losartan/HCTZ //nephrology following Mild left hydronephrosis, unchanged.04/06 US 04/06 Large post void urinary residual. The urinary bladder is distended with urine. The prevoid volume of the urinary bladder is 464.5 mL. The post void residual is 285.4 mL. hydrate iv acute vasomotor nephropathy and ATN , Chronic kidney disease stage III presumed diabetic hypertensive nephrosclerosis: stop ibuprofen use, back pain, lidoderm and PO meds allergic to hydro and oxycodone obese, BMI 34 NEPHROLOGY CONSULT HOLD STATIN RX UROLOGY CONSULT 28 MIN PT EXAM, CHART REVIEW, > 50% OF TIME SPENT WITH EXAM, CHART REVIEW, PT CARE COORDINATION Vitals Vitals Vital Signs Date Time Temp Pulse Resp B/P (MAP) Pulse Ox O2 Delivery O2 Flow Rate FiO2 04/07/19 08:47 18 96 Room Air 04/07/19 07:00 98.6 61 163/66 (98) 1.0 98.6 Physical Exam General: Alert, Oriented X3, Cooperative, No acute distress, mild distress Heart: Regular rate (SR/SB), Normal S1, Normal S2, No murmurs Lungs: Clear Abdomen: Normal bowel sounds, Soft, No tenderness Extremities: No clubbing, No cyanosis, No edema Skin: No significant lesion Labs LABS Renal ultrasound 04/06/2019 CLINICAL HISTORY: Acute renal failure. TECHNIQUE: A real-time ultrasound examination of both kidneys and the urinary bladder was performed. Multiple images were obtained. FINDINGS: Comparison is made to the patient's CT scan of the abdomen and pelvis dated 10/28/2017. Additional comparison is made to the patient's previous renal ultrasound dated 12/27/2017. The left kidney is slightly larger than the right. The right kidney measures 10.7 cm in length. The left kidney measures 12.9 cm in length. Mild left hydronephrosis is seen, unchanged. No focal abnormality of either kidney is seen. The urinary bladder is distended with urine. The prevoid volume of the urinary bladder is 464.5 mL. The post void residual is 285.4 mL. IMPRESSION: 1. Mild left hydronephrosis, unchanged. 2. Large post void urinary residual. Electronically signed by: Tobias Arenas MD (04/06/2019 2:45 PM) [facility] Laboratory Tests Test 04/06/19 12:00 04/06/19 17:26 04/06/19 20:43 04/07/19 03:41 Glucose (Fingerstick) 113 mg/dL (70-99) 102 mg/dL (70-99) 104 mg/dL (70-99) 113 mg/dL (70-99) Test 04/07/19 03:45 04/07/19 04:00 04/07/19 07:51 White Blood Count 8.0 x10^3/uL (4.0-11.0) Red Blood Count 4.56 x10^6/uL (4.30-5.70) Hemoglobin 14.6 g/dL (13.0-17.5) Hematocrit 42.2 % (39.0-53.0) Mean Corpuscular Volume 93 fL (79-100) Mean Corpuscular Hemoglobin 32 pg (25-35) Mean Corpuscular Hemoglobin Concent 35 g/dL (31-37) Red Cell Distribution Width 15.0 % (11.5-14.5) Platelet Count 222 x10^3/uL (140-400) Neutrophils (%) (Auto) 66 % (31-73) Lymphocytes (%) (Auto) 18 % (24-48) Monocytes (%) (Auto) 15 % (0-9) Eosinophils (%) (Auto) 1 % (0-3) Basophils (%) (Auto) 0 % (0-3) Neutrophils # (Auto) 5.2 x10^3/uL (1.8-7.7) Lymphocytes # (Auto) 1.5 x10^3/uL (1.0-4.8) Monocytes # (Auto) 1.2 x10^3/uL (0.0-1.1) Eosinophils # (Auto) 0.1 x10^3/uL (0.0-0.7) Basophils # (Auto) 0.0 x10^3/uL (0.0-0.2) Magnesium Level 1.6 mg/dL (1.8-2.4) Sodium Level 137 mmol/L (136-145) Potassium Level 3.3 mmol/L (3.5-5.1) Chloride Level 103 mmol/L (98-107) Carbon Dioxide Level 26 mmol/L (21-32) Anion Gap 8 (6-14) Blood Urea Nitrogen 24 mg/dL (8-26) Creatinine 1.7 mg/dL (0.7-1.3) Estimated GFR (Cockcroft-Gault) 40.2 Glucose Level 113 mg/dL (70-99) Calcium Level 8.2 mg/dL (8.5-10.1) Phosphorus Level 2.5 mg/dL (2.6-4.7) Albumin 3.2 g/dL (3.4-5.0) Glucose (Fingerstick) 97 mg/dL (70-99) Assessment and Plan Assessmemt and Plan Problems Medical Problems: (1) Acute chest pain Status: Acute (2) Dizziness Status: Acute (3) Renal insufficiency Status: Acute (4) Rhabdomyolysis Status: Acute Comment Review of Relevant I have reviewed the following items aditya (where applicable) has been applied. Labs Laboratory Tests Test 04/05/19 11:19 04/05/19 11:37 04/05/19 13:29 04/05/19 16:15 Glucose (Fingerstick) 103 mg/dL (70-99) 80 mg/dL (70-99) White Blood Count 9.9 x10^3/uL (4.0-11.0) Red Blood Count 4.95 x10^6/uL (4.30-5.70) Hemoglobin 16.0 g/dL (13.0-17.5) Hematocrit 45.1 % (39.0-53.0) Mean Corpuscular Volume 91 fL (79-100) Mean Corpuscular Hemoglobin 32 pg (25-35) Mean Corpuscular Hemoglobin Concent 35 g/dL (31-37) Red Cell Distribution Width 14.8 % (11.5-14.5) Platelet Count 254 x10^3/uL (140-400) Neutrophils (%) (Auto) 77 % (31-73) Lymphocytes (%) (Auto) 9 % (24-48) Monocytes (%) (Auto) 12 % (0-9) Eosinophils (%) (Auto) 1 % (0-3) Basophils (%) (Auto) 1 % (0-3) Neutrophils # (Auto) 7.7 x10^3/uL (1.8-7.7) Lymphocytes # (Auto) 0.9 x10^3/uL (1.0-4.8) Monocytes # (Auto) 1.2 x10^3/uL (0.0-1.1) Eosinophils # (Auto) 0.1 x10^3/uL (0.0-0.7) Basophils # (Auto) 0.1 x10^3/uL (0.0-0.2) Prothrombin Time 13.4 SEC (11.7-14.0) Prothromb Time International Ratio 1.1 (0.8-1.1) D-Dimer (Jessica) 0.65 ug/mlFEU (0.00-0.50) Sodium Level 141 mmol/L (136-145) Potassium Level 3.5 mmol/L (3.5-5.1) Chloride Level 103 mmol/L (98-107) Carbon Dioxide Level 24 mmol/L (21-32) Anion Gap 14 (6-14) Blood Urea Nitrogen 38 mg/dL (8-26) Creatinine 2.7 mg/dL (0.7-1.3) Estimated GFR (Cockcroft-Gault) 23.5 BUN/Creatinine Ratio 14 (6-20) Glucose Level 103 mg/dL (70-99) Calcium Level 9.1 mg/dL (8.5-10.1) Magnesium Level 1.7 mg/dL (1.8-2.4) Total Bilirubin 0.8 mg/dL (0.2-1.0) Aspartate Amino Transf (AST/SGOT) 38 U/L (15-37) Alanine Aminotransferase (ALT/SGPT) 42 U/L (16-63) Alkaline Phosphatase 70 U/L (46-116) Creatine Kinase 520 U/L (39-308) Troponin I Quantitative < 0.017 ng/mL (0.000-0.055) < 0.017 ng/mL (0.000-0.055) RB-Ysb-S-Type Natriuretic Peptide 117 pg/mL (0-124) Total Protein 7.8 g/dL (6.4-8.2) Albumin 3.9 g/dL (3.4-5.0) Albumin/Globulin Ratio 1.0 (1.0-1.7) Lipase 191 U/L (73-393) Thyroid Stimulating Hormone (TSH) 5.976 uIU/mL (0.358-3.74) Test 04/05/19 16:37 04/05/19 17:17 04/05/19 19:15 04/05/19 21:04 Urine Collection Type Unknown Urine Color Yellow Urine Clarity Clear Urine pH 5.5 Urine Specific Dawson 1.025 Urine Protein Negative mg/dL (NEG-TRACE) Urine Glucose (UA) Negative mg/dL (NEG) Urine Ketones (Stick) Negative mg/dL (NEG) Urine Blood Negative (NEG) Urine Nitrite Negative (NEG) Urine Bilirubin Negative (NEG) Urine Urobilinogen Dipstick 0.2 mg/dL (0.2 mg/dL) Urine Leukocyte Esterase Negative (NEG) Urine RBC 0 /HPF (0-2) Urine WBC Occ /HPF (0-4) Urine Bacteria 0 /HPF (0-FEW) Urine Hyaline Casts Many /HPF Urine Mucus Marked /LPF Urine Opiates Screen Pos (NEG) Urine Methadone Screen Neg (NEG) Urine Barbiturates Neg (NEG) Urine Phencyclidine Screen Neg (NEG) Urine Amphetamine/Methamphetamine Neg (NEG) Urine Benzodiazepines Screen Neg (NEG) Urine Cocaine Screen Neg (NEG) Urine Cannabinoids Screen Neg (NEG) Urine Ethyl Alcohol Neg (NEG) Glucose (Fingerstick) 70 mg/dL (70-99) 92 mg/dL (70-99) Troponin I Quantitative < 0.017 ng/mL (0.000-0.055) Test 04/06/19 07:17 04/06/19 08:25 04/06/19 12:00 04/06/19 17:26 Glucose (Fingerstick) 96 mg/dL (70-99) 113 mg/dL (70-99) 102 mg/dL (70-99) White Blood Count 6.5 x10^3/uL (4.0-11.0) Red Blood Count 4.95 x10^6/uL (4.30-5.70) Hemoglobin 15.8 g/dL (13.0-17.5) Hematocrit 46.0 % (39.0-53.0) Mean Corpuscular Volume 93 fL (79-100) Mean Corpuscular Hemoglobin 32 pg (25-35) Mean Corpuscular Hemoglobin Concent 35 g/dL (31-37) Red Cell Distribution Width 15.1 % (11.5-14.5) Platelet Count 231 x10^3/uL (140-400) Neutrophils (%) (Auto) 65 % (31-73) Lymphocytes (%) (Auto) 17 % (24-48) Monocytes (%) (Auto) 15 % (0-9) Eosinophils (%) (Auto) 2 % (0-3) Basophils (%) (Auto) 1 % (0-3) Neutrophils # (Auto) 4.3 x10^3/uL (1.8-7.7) Lymphocytes # (Auto) 1.1 x10^3/uL (1.0-4.8) Monocytes # (Auto) 1.0 x10^3/uL (0.0-1.1) Eosinophils # (Auto) 0.1 x10^3/uL (0.0-0.7) Basophils # (Auto) 0.0 x10^3/uL (0.0-0.2) Sodium Level 139 mmol/L (136-145) Potassium Level 3.3 mmol/L (3.5-5.1) Chloride Level 103 mmol/L (98-107) Carbon Dioxide Level 26 mmol/L (21-32) Anion Gap 10 (6-14) Blood Urea Nitrogen 31 mg/dL (8-26) Creatinine 1.8 mg/dL (0.7-1.3) Estimated GFR (Cockcroft-Gault) 37.6 Glucose Level 93 mg/dL (70-99) Calcium Level 8.4 mg/dL (8.5-10.1) Creatine Kinase 501 U/L (39-308) Triglycerides Level 88 mg/dL (0-150) Cholesterol Level 119 mg/dL (0-200) LDL Cholesterol, Calculated 67 mg/dL (0-100) VLDL Cholesterol, Calculated 18 mg/dL (0-40) Non-HDL Cholesterol Calculated 85 mg/dL (0-129) HDL Cholesterol 34 mg/dL (40-60) Cholesterol/HDL Ratio 3.5 Test 04/06/19 20:43 04/07/19 03:41 04/07/19 03:45 04/07/19 04:00 Glucose (Fingerstick) 104 mg/dL (70-99) 113 mg/dL (70-99) White Blood Count 8.0 x10^3/uL (4.0-11.0) Red Blood Count 4.56 x10^6/uL (4.30-5.70) Hemoglobin 14.6 g/dL (13.0-17.5) Hematocrit 42.2 % (39.0-53.0) Mean Corpuscular Volume 93 fL (79-100) Mean Corpuscular Hemoglobin 32 pg (25-35) Mean Corpuscular Hemoglobin Concent 35 g/dL (31-37) Red Cell Distribution Width 15.0 % (11.5-14.5) Platelet Count 222 x10^3/uL (140-400) Neutrophils (%) (Auto) 66 % (31-73) Lymphocytes (%) (Auto) 18 % (24-48) Monocytes (%) (Auto) 15 % (0-9) Eosinophils (%) (Auto) 1 % (0-3) Basophils (%) (Auto) 0 % (0-3) Neutrophils # (Auto) 5.2 x10^3/uL (1.8-7.7) Lymphocytes # (Auto) 1.5 x10^3/uL (1.0-4.8) Monocytes # (Auto) 1.2 x10^3/uL (0.0-1.1) Eosinophils # (Auto) 0.1 x10^3/uL (0.0-0.7) Basophils # (Auto) 0.0 x10^3/uL (0.0-0.2) Magnesium Level 1.6 mg/dL (1.8-2.4) Sodium Level 137 mmol/L (136-145) Potassium Level 3.3 mmol/L (3.5-5.1) Chloride Level 103 mmol/L (98-107) Carbon Dioxide Level 26 mmol/L (21-32) Anion Gap 8 (6-14) Blood Urea Nitrogen 24 mg/dL (8-26) Creatinine 1.7 mg/dL (0.7-1.3) Estimated GFR (Cockcroft-Gault) 40.2 Glucose Level 113 mg/dL (70-99) Calcium Level 8.2 mg/dL (8.5-10.1) Phosphorus Level 2.5 mg/dL (2.6-4.7) Albumin 3.2 g/dL (3.4-5.0) Test 04/07/19 07:51 Glucose (Fingerstick) 97 mg/dL (70-99) Laboratory Tests Test 04/06/19 12:00 04/06/19 17:26 04/06/19 20:43 04/07/19 03:41 Glucose (Fingerstick) 113 mg/dL (70-99) 102 mg/dL (70-99) 104 mg/dL (70-99) 113 mg/dL (70-99) Test 04/07/19 03:45 04/07/19 04:00 04/07/19 07:51 White Blood Count 8.0 x10^3/uL (4.0-11.0) Red Blood Count 4.56 x10^6/uL (4.30-5.70) Hemoglobin 14.6 g/dL (13.0-17.5) Hematocrit 42.2 % (39.0-53.0) Mean Corpuscular Volume 93 fL (79-100) Mean Corpuscular Hemoglobin 32 pg (25-35) Mean Corpuscular Hemoglobin Concent 35 g/dL (31-37) Red Cell Distribution Width 15.0 % (11.5-14.5) Platelet Count 222 x10^3/uL (140-400) Neutrophils (%) (Auto) 66 % (31-73) Lymphocytes (%) (Auto) 18 % (24-48) Monocytes (%) (Auto) 15 % (0-9) Eosinophils (%) (Auto) 1 % (0-3) Basophils (%) (Auto) 0 % (0-3) Neutrophils # (Auto) 5.2 x10^3/uL (1.8-7.7) Lymphocytes # (Auto) 1.5 x10^3/uL (1.0-4.8) Monocytes # (Auto) 1.2 x10^3/uL (0.0-1.1) Eosinophils # (Auto) 0.1 x10^3/uL (0.0-0.7) Basophils # (Auto) 0.0 x10^3/uL (0.0-0.2) Magnesium Level 1.6 mg/dL (1.8-2.4) Sodium Level 137 mmol/L (136-145) Potassium Level 3.3 mmol/L (3.5-5.1) Chloride Level 103 mmol/L (98-107) Carbon Dioxide Level 26 mmol/L (21-32) Anion Gap 8 (6-14) Blood Urea Nitrogen 24 mg/dL (8-26) Creatinine 1.7 mg/dL (0.7-1.3) Estimated GFR (Cockcroft-Gault) 40.2 Glucose Level 113 mg/dL (70-99) Calcium Level 8.2 mg/dL (8.5-10.1) Phosphorus Level 2.5 mg/dL (2.6-4.7) Albumin 3.2 g/dL (3.4-5.0) Glucose (Fingerstick) 97 mg/dL (70-99) Medications Current Medications Fentanyl Citrate (Fentanyl 2ml Vial) 50 mcg 1X ONCE IV Last administered on 04/05/19at 12:24; Start 04/05/19 at 12:15; Stop 04/05/19 at 12:16; Status DC Aspirin (Children'S Aspirin) 324 mg 1X ONCE PO Last administered on 04/05/19at 12:42; Start 04/05/19 at 12:30; Stop 04/05/19 at 12:31; Status DC Sodium Chloride 1,000 ml @ 75 mls/hr [id number] IV Last administered on 04/05/19at 13:56; Start 04/05/19 at 13:10; Stop 04/05/19 at 16:09; Status DC Magnesium Sulfate/ Dextrose 100 ml @ 100 mls/hr 1X ONCE IV Last administered on 04/05/19at 16:36; Start 04/05/19 at 16:00; Stop 04/05/19 at 16:59; Status DC Aspirin (Ecotrin) 81 mg [id number] PO Last administered on 04/07/19at 07:42; Start 04/05/19 at 16:00 Hydralazine HCl (Apresoline Inj) 10 mg PRN Q4HRS PRN IVP ELEVATED BP, SEE COMMENTS; Start 04/05/19 at 16:00 Sodium Chloride 1,000 ml @ 100 mls/hr Q10H IV ; Start 04/05/19 at 16:15; Stop 04/05/19 at 16:51; Status DC Sodium Chloride 1,000 ml @ 100 mls/hr Q10H IV Last administered on 04/06/19at 10:16; Start 04/06/19 at 00:00; Stop 04/06/19 at 13:22; Status DC Fentanyl Citrate (Fentanyl 2ml Vial) 50 mcg PRN Q2HR PRN IV PAIN Last administered on 04/05/19at 17:33; Start 04/05/19 at 17:15 Morphine Sulfate (Morphine Ir) 15 mg PRN Q4HRS PRN PO PAIN SEVERE Last administered on 04/07/19at 08:47; Start 04/05/19 at 17:45 Acetaminophen (Tylenol) 1,000 mg PRN Q6HRS PRN PO PAIN MILD-MODERATE Last administered on 04/07/19at 07:42; Start 04/05/19 at 23:30 Magnesium Sulfate 50 ml @ 25 mls/hr PRN DAILY PRN IV for Mag < 1.7 on am labs; Start 04/06/19 at 13:30 Ringer's Solution 1,000 ml @ 125 mls/hr Q8H IV Last administered on 04/07/19at 07:42; Start 04/06/19 at 13:30 Potassium Chloride (Klor-Con) 20 meq 1X ONCE PO Last administered on 04/06/19at 15:22; Start 04/06/19 at 15:00; Stop 04/06/19 at 15:01; Status DC Potassium Phosphate 13.3 mmol/Sodium Chloride 104.4333 ml @ 51.172 m... Q2H IV ; Start 04/07/19 at 10:00; Stop 04/07/19 at 15:59 Active Scripts Active Tylenol (Acetaminophen) 325 Mg Tablet 650 Mg PO PRN Q6HRS PRN 30 Days Reported Naproxen 500 Mg Tablet 1 Tab PO BID Losartan-Hctz 100-25 Mg Tab (Losartan/Hydrochlorothiazide) 1 Each Tablet 1 Tab PO DAILY Triamcinolone Acetonide 0.1% Oint (Triamcinolone Acetonide) 15 Gm Oint...g. 1 Zi TP BID PRN MIX WITH EUCERIN DIRECTED BY PHYSICIAN Aspirin Ec (Aspirin) 81 Mg Tablet.dr 1 Tab PO DAILY Glimepiride 2 Mg Tablet 2 Mg PO DAILY Atorvastatin Calcium 40 Mg Tablet 40 Mg PO HS Gabapentin 300 Mg Capsule 600 Mg PO HS Potassium Citrate 10 Meq Tablet.er 10 Meq PO DAILY Omeprazole 40 Mg Capsule.dr 40 Mg PO DAILYAC Levothyroxine Sodium 50 Mcg Tablet 50 Mcg PO DAILY Vitals/I & O Vital Sign - Last 24 Hours 04/06/19 04/06/19 04/06/19 04/06/19 10:17 11:00 15:00 15:22 Temp 98.5 98.7 98.5 98.7 Pulse 56 67 Resp 16 16 18 16 B/P (MAP) 141/73 (95) 159/87 (111) Pulse Ox 95 92 O2 Delivery Room Air Room Air Room Air 04/06/19 04/06/19 04/06/19 04/06/19 16:24 19:55 19:59 20:00 Temp 98.6 98.6 Pulse 69 79 Resp 18 18 B/P (MAP) 148/64 (92) 141/88 (105) Pulse Ox 96 O2 Delivery Room Air Room Air Room Air 04/06/19 04/06/19 04/07/19 04/07/19 20:04 23:00 02:14 07:00 Temp 97.8 98.7 98.6 97.8 98.7 98.6 Pulse 82 102 91 61 Resp 20 18 16 B/P (MAP) 151/98 (115) 141/75 (97) 147/87 (107) 163/66 (98) Pulse Ox 97 96 96 O2 Delivery Room Air Room Air Nasal Cannula O2 Flow Rate 1.0 04/07/19 04/07/19 07:42 08:47 Resp 18 18 Pulse Ox 96 96 O2 Delivery Room Air Room Air Intake and Output 04/06/19 04/06/19 04/07/19 15:00 23:00 07:00 Intake Total 900 ml 1000 ml 240 ml Output Total 1350 ml 200 ml 300 ml Balance -450 ml 800 ml -60 ml JUAN RAMON TAPIA MD Apr 07, 2019 09:22
[2019-04-07] MEDS: NORMAL SALINE IV SCH ×3 (10:35→14:07)
[2019-04-07] MEDS: POTASSIUM PHOSPHATE DIBASIC IV SCH ×3 (10:35→14:07)
--- NOTE | 2019-04-07 10:41 | PDOC ---
PROGRESS NOTES Subjective Subjective Continues to complain of back ache and generalized body aches Objective Objective Vital Signs Date Time Temp Pulse Resp B/P (MAP) Pulse Ox O2 Delivery O2 Flow Rate FiO2 04/07/19 09:56 96 Room Air 1.0 04/07/19 07:42 18 04/07/19 07:00 98.6 61 163/66 (98) 98.6 Intake and Output 04/07/19 07:00 Intake Total 2140 ml Output Total 1850 ml Balance 290 ml Intake Oral 640 ml IV Total 1500 ml Output Urine Total 1850 ml Physical Exam Abdomen: Soft, No tenderness Heart: Regular rate (SR/SB), Normal S1, Normal S2, No murmurs Extremities: No edema General: Alert, Oriented X3, No acute distress, mild distress HEENT: Atraumatic Lungs: Clear to auscultation, Normal air movement Neuro: Normal speech, Normal tone, Sensation intact Psych/Mental Status: Mental status NL, Mood NL Skin: No significant lesion Assessment Assessment 1. Generalized body aches with CK elevation, statins on hold. Myocardial infarction has been ruled out. Recent 2-D echo showed normal LV function without any wall motion abnormalities. We will consider ischemic evaluation as an outpatient. 2. HTN: controlled 3. DM2: per IM 4. Hypothyroidism: per PCP, on replacement 5. Ac on chr renal insuff: nephrology following Plan Plan of Care Problems Medical Problems: (1) Acute chest pain Status: Acute (2) Dizziness Status: Acute (3) Renal insufficiency Status: Acute (4) Rhabdomyolysis Status: Acute Comment Review of Relevant I have reviewed the following items aditya (where applicable) has been applied. Labs Laboratory Tests Test 04/06/19 12:00 04/06/19 17:26 04/06/19 20:43 04/07/19 03:41 Glucose (Fingerstick) 113 mg/dL (70-99) 102 mg/dL (70-99) 104 mg/dL (70-99) 113 mg/dL (70-99) Test 04/07/19 03:45 04/07/19 04:00 04/07/19 07:51 White Blood Count 8.0 x10^3/uL (4.0-11.0) Red Blood Count 4.56 x10^6/uL (4.30-5.70) Hemoglobin 14.6 g/dL (13.0-17.5) Hematocrit 42.2 % (39.0-53.0) Mean Corpuscular Volume 93 fL (79-100) Mean Corpuscular Hemoglobin 32 pg (25-35) Mean Corpuscular Hemoglobin Concent 35 g/dL (31-37) Red Cell Distribution Width 15.0 % (11.5-14.5) Platelet Count 222 x10^3/uL (140-400) Neutrophils (%) (Auto) 66 % (31-73) Lymphocytes (%) (Auto) 18 % (24-48) Monocytes (%) (Auto) 15 % (0-9) Eosinophils (%) (Auto) 1 % (0-3) Basophils (%) (Auto) 0 % (0-3) Neutrophils # (Auto) 5.2 x10^3/uL (1.8-7.7) Lymphocytes # (Auto) 1.5 x10^3/uL (1.0-4.8) Monocytes # (Auto) 1.2 x10^3/uL (0.0-1.1) Eosinophils # (Auto) 0.1 x10^3/uL (0.0-0.7) Basophils # (Auto) 0.0 x10^3/uL (0.0-0.2) Magnesium Level 1.6 mg/dL (1.8-2.4) Sodium Level 137 mmol/L (136-145) Potassium Level 3.3 mmol/L (3.5-5.1) Chloride Level 103 mmol/L (98-107) Carbon Dioxide Level 26 mmol/L (21-32) Anion Gap 8 (6-14) Blood Urea Nitrogen 24 mg/dL (8-26) Creatinine 1.7 mg/dL (0.7-1.3) Estimated GFR (Cockcroft-Gault) 40.2 Glucose Level 113 mg/dL (70-99) Calcium Level 8.2 mg/dL (8.5-10.1) Phosphorus Level 2.5 mg/dL (2.6-4.7) Albumin 3.2 g/dL (3.4-5.0) Glucose (Fingerstick) 97 mg/dL (70-99) Medications Current Medications Magnesium Sulfate 50 ml @ 25 mls/hr PRN DAILY PRN IV for Mag < 1.7 on am labs; Start 9/7/19 at 13:30 Potassium Phosphate 13.3 mmol/Sodium Chloride 104.4333 ml @ 51.172 m... Q2H IV Last administered on 04/07/19at 10:35; Start 04/07/19 at 10:00; Stop 04/07/19 at 15:59 Potassium Chloride (Klor-Con) 20 meq 1X ONCE PO Last administered on 04/06/19at 15:22; Start 04/06/19 at 15:00; Stop 04/06/19 at 15:01; Status DC Ringer's Solution 1,000 ml @ 125 mls/hr Q8H IV Last administered on 04/07/19at 07:42; Start 04/06/19 at 13:30 Vitals/I & O Vital Sign - Last 24 Hours 04/06/19 04/06/19 04/06/19 04/06/19 11:00 15:00 15:22 16:24 Temp 98.5 98.7 98.5 98.7 Pulse 56 67 Resp 16 18 16 18 B/P (MAP) 141/73 (95) 159/87 (111) Pulse Ox 95 92 O2 Delivery Room Air Room Air Room Air 04/06/19 04/06/19 04/06/19 04/06/19 19:55 19:59 20:00 20:04 Temp 98.6 98.6 Pulse 69 79 82 Resp 18 B/P (MAP) 148/64 (92) 141/88 (105) 151/98 (115) Pulse Ox 96 O2 Delivery Room Air Room Air 04/06/19 04/07/19 04/07/19 04/07/19 23:00 02:14 07:00 07:42 Temp 97.8 98.7 98.6 97.8 98.7 98.6 Pulse 102 91 61 Resp 20 18 16 18 B/P (MAP) 141/75 (97) 147/87 (107) 163/66 (98) Pulse Ox 97 96 96 96 O2 Delivery Room Air Room Air Nasal Cannula Room Air O2 Flow Rate 1.0 04/07/19 04/07/19 04/07/19 04/07/19 08:00 09:52 09:52 09:56 Pulse Ox 96 96 96 O2 Delivery Room Air Room Air Room Air Room Air O2 Flow Rate 1.0 1.0 1.0 1.0 Intake and Output 04/06/19 04/06/19 04/07/19 15:00 23:00 07:00 Intake Total 900 ml 1000 ml 240 ml Output Total 1350 ml 200 ml 300 ml Balance -450 ml 800 ml -60 ml JUAN JOSÉ GODFREY MD Apr 07, 2019 10:41
[2019-04-07 11:00] VITALS: BP 123/56
--- NOTE | 2019-04-07 12:25 | PDOC2 ---
UROLOGY CONSULT Date of Consult Date of Consult DATE: 04/07/19 TIME: 12:17 Source Source: Chart review, Patient History of Present Illness Reason for Visit: Patient admitted for chest pain, dizziness. Asked to see patient re: left hydronephrosis, elevated post-void residual. PVR since admission approx 300 ml. Renal ultrasound 04/06/19 showed mild left hydronephrosis, unchanged from CT in 2018. Noted to have elevated creatinine of 2.7 on admission, now down to 1.7 with hydration. Baseline creatinine approx 1.4. Patient reports slow urinary stream for a while, no previous BPH treatment. Denies fever, chills, hematuria. Nurse attempted oneil, met resistance at the prostate. Patient declining another oneil attempt. Past Medical History Cardiovascular: HTN, Hyperlipidemia Pulmonary: No pertinent hx CENTRAL NERVOUS SYSTEM: Other GI: GERD Heme/Onc: No pertinent hx Hepatobiliary: No pertinent hx Psych: Anxiety Musculoskeletal: Osteoarthritis Rheumatologic: No pertinent hx Infectious disease: No pertinent hx Renal/: No pertinent hx, Chronic renal insuff Endocrine: Diabetes, Hypothyroidism Past Surgical History Past Surgical History: Other Family History Family History: Heart Disease Social History Social History: Parent No ALCOHOL: none Drugs: None Lives: with Family Current Medications Current Medications Current Medications Magnesium Sulfate 50 ml @ 25 mls/hr PRN DAILY PRN IV for Mag < 1.7 on am labs; Start 04/06/19 at 13:30 Potassium Phosphate 13.3 mmol/Sodium Chloride 104.4333 ml @ 51.172 m... Q2H IV Last administered on 04/07/19at 10:35; Start 04/07/19 at 10:00; Stop 04/07/19 at 15:59 Potassium Chloride (Klor-Con) 20 meq 1X ONCE PO Last administered on 04/06/19at 15:22; Start 04/06/19 at 15:00; Stop 04/06/19 at 15:01; Status DC Ringer's Solution 1,000 ml @ 125 mls/hr Q8H IV Last administered on 04/07/19at 07:42; Start 04/06/19 at 13:30 Allergies Allergies: Coded Allergies: hydrocodone (Verified Allergy, Severe, throat swelling, 09/08/18) oxycodone (Verified Allergy, Severe, throat swelling, 09/08/18) ROS Review Of Systems: Except as noted in HPI: CONSTITUTIONAL: No fever or chills EYES: No recent changes SKIN: No rash or itching CARDIOVASCULAR: No chest pain, syncope, palpitations, or edema RESPIRATORY: No SOB or cough GASTROINTESTINAL: No nausea, vomiting or abdominal pain NEUROLOGICAL: No headaches or weakness ENDOCRINE: No cold or heat intolerance GENITOURINARY: No urgency or frequency of urination MUSCULOSKELETAL: No back pain or joint pain LYMPHATICS: No enlarged lymph nodes PSYCHIATRIC: No anxiety or depression Physical Exam Physical Exam: General: Pleasant, no acute distress, well groomed Eyes: conjunctiva anicteric, eyes full range of motion ENT: moist oral mucosa, normal dentition Neck: Trachea midline, no masses Respiratory: unlabored breathing, not using accessory muscles, no crackles or wheezes Cardiovascular: Regular rate and rhythm, no peripheral edema Abdomen: nontender, nondistended, no hepatosplenomegaly, no masses Skin: no rashes or skin lesions on visualized skin Psych: normal mood, affect. Alert and oriented x 3. : prostate smooth, no nodules or tenderness, approx 30 grams Vitals VITALS Vital Signs Date Time Temp Pulse Resp B/P (MAP) Pulse Ox O2 Delivery O2 Flow Rate FiO2 04/07/19 11:00 98.4 54 14 123/56 (78) 97 Nasal Cannula 1.0 98.4 Labs Labs Laboratory Tests Test 04/05/19 13:29 04/05/19 16:15 04/05/19 16:37 04/05/19 17:17 Glucose (Fingerstick) 80 mg/dL (70-99) 70 mg/dL (70-99) Troponin I Quantitative < 0.017 ng/mL (0.000-0.055) Urine Collection Type Unknown Urine Color Yellow Urine Clarity Clear Urine pH 5.[address] [place] 1.025 Urine Protein Negative mg/dL (NEG-TRACE) Urine Glucose (UA) Negative mg/dL (NEG) Urine Ketones (Stick) Negative mg/dL (NEG) Urine Blood Negative (NEG) Urine Nitrite Negative (NEG) Urine Bilirubin Negative (NEG) Urine Urobilinogen Dipstick 0.2 mg/dL (0.2 mg/dL) Urine Leukocyte Esterase Negative (NEG) Urine RBC 0 /HPF (0-2) Urine WBC Occ /HPF (0-4) Urine Bacteria 0 /HPF (0-FEW) Urine Hyaline Casts Many /HPF Urine Mucus Marked /LPF Urine Opiates Screen Pos (NEG) Urine Methadone Screen Neg (NEG) Urine Barbiturates Neg (NEG) Urine Phencyclidine Screen Neg (NEG) Urine Amphetamine/Methamphetamine Neg (NEG) Urine Benzodiazepines Screen Neg (NEG) Urine Cocaine Screen Neg (NEG) Urine Cannabinoids Screen Neg (NEG) Urine Ethyl Alcohol Neg (NEG) Test 04/05/19 19:15 04/05/19 21:04 04/06/19 07:17 04/06/19 08:25 Troponin I Quantitative < 0.017 ng/mL (0.000-0.055) Glucose (Fingerstick) 92 mg/dL (70-99) 96 mg/dL (70-99) White Blood Count 6.5 x10^3/uL (4.0-11.0) Red Blood Count 4.95 x10^6/uL (4.30-5.70) Hemoglobin 15.8 g/dL (13.0-17.5) Hematocrit 46.0 % (39.0-53.0) Mean Corpuscular Volume 93 fL (79-100) Mean Corpuscular Hemoglobin 32 pg (25-35) Mean Corpuscular Hemoglobin Concent 35 g/dL (31-37) Red Cell Distribution Width 15.1 % (11.5-14.5) Platelet Count 231 x10^3/uL (140-400) Neutrophils (%) (Auto) 65 % (31-73) Lymphocytes (%) (Auto) 17 % (24-48) Monocytes (%) (Auto) 15 % (0-9) Eosinophils (%) (Auto) 2 % (0-3) Basophils (%) (Auto) 1 % (0-3) Neutrophils # (Auto) 4.3 x10^3/uL (1.8-7.7) Lymphocytes # (Auto) 1.1 x10^3/uL (1.0-4.8) Monocytes # (Auto) 1.0 x10^3/uL (0.0-1.1) Eosinophils # (Auto) 0.1 x10^3/uL (0.0-0.7) Basophils # (Auto) 0.0 x10^3/uL (0.0-0.2) Sodium Level 139 mmol/L (136-145) Potassium Level 3.3 mmol/L (3.5-5.1) Chloride Level 103 mmol/L (98-107) Carbon Dioxide Level 26 mmol/L (21-32) Anion Gap 10 (6-14) Blood Urea Nitrogen 31 mg/dL (8-26) Creatinine 1.8 mg/dL (0.7-1.3) Estimated GFR (Cockcroft-Gault) 37.6 Glucose Level 93 mg/dL (70-99) Calcium Level 8.4 mg/dL (8.5-10.1) Creatine Kinase 501 U/L (39-308) Triglycerides Level 88 mg/dL (0-150) Cholesterol Level 119 mg/dL (0-200) LDL Cholesterol, Calculated 67 mg/dL (0-100) VLDL Cholesterol, Calculated 18 mg/dL (0-40) Non-HDL Cholesterol Calculated 85 mg/dL (0-129) HDL Cholesterol 34 mg/dL (40-60) Cholesterol/HDL Ratio 3.5 Test 04/06/19 12:00 04/06/19 17:26 04/06/19 20:43 04/07/19 03:41 Glucose (Fingerstick) 113 mg/dL (70-99) 102 mg/dL (70-99) 104 mg/dL (70-99) 113 mg/dL (70-99) Test 04/07/19 03:45 04/07/19 04:00 04/07/19 07:51 04/07/19 12:05 White Blood Count 8.0 x10^3/uL (4.0-11.0) Red Blood Count 4.56 x10^6/uL (4.30-5.70) Hemoglobin 14.6 g/dL (13.0-17.5) Hematocrit 42.2 % (39.0-53.0) Mean Corpuscular Volume 93 fL (79-100) Mean Corpuscular Hemoglobin 32 pg (25-35) Mean Corpuscular Hemoglobin Concent 35 g/dL (31-37) Red Cell Distribution Width 15.0 % (11.5-14.5) Platelet Count 222 x10^3/uL (140-400) Neutrophils (%) (Auto) 66 % (31-73) Lymphocytes (%) (Auto) 18 % (24-48) Monocytes (%) (Auto) 15 % (0-9) Eosinophils (%) (Auto) 1 % (0-3) Basophils (%) (Auto) 0 % (0-3) Neutrophils # (Auto) 5.2 x10^3/uL (1.8-7.7) Lymphocytes # (Auto) 1.5 x10^3/uL (1.0-4.8) Monocytes # (Auto) 1.2 x10^3/uL (0.0-1.1) Eosinophils # (Auto) 0.1 x10^3/uL (0.0-0.7) Basophils # (Auto) 0.0 x10^3/uL (0.0-0.2) Magnesium Level 1.6 mg/dL (1.8-2.4) Sodium Level 137 mmol/L (136-145) Potassium Level 3.3 mmol/L (3.5-5.1) Chloride Level 103 mmol/L (98-107) Carbon Dioxide Level 26 mmol/L (21-32) Anion Gap 8 (6-14) Blood Urea Nitrogen 24 mg/dL (8-26) Creatinine 1.7 mg/dL (0.7-1.3) Estimated GFR (Cockcroft-Gault) 40.2 Glucose Level 113 mg/dL (70-99) Calcium Level 8.2 mg/dL (8.5-10.1) Phosphorus Level 2.5 mg/dL (2.6-4.7) Albumin 3.2 g/dL (3.4-5.0) Glucose (Fingerstick) 97 mg/dL (70-99) 99 mg/dL (70-99) Laboratory Tests Test 04/06/19 17:26 04/06/19 20:43 04/07/19 03:41 04/07/19 03:45 Glucose (Fingerstick) 102 mg/dL (70-99) 104 mg/dL (70-99) 113 mg/dL (70-99) White Blood Count 8.0 x10^3/uL (4.0-11.0) Red Blood Count 4.56 x10^6/uL (4.30-5.70) Hemoglobin 14.6 g/dL (13.0-17.5) Hematocrit 42.2 % (39.0-53.0) Mean Corpuscular Volume 93 fL (79-100) Mean Corpuscular Hemoglobin 32 pg (25-35) Mean Corpuscular Hemoglobin Concent 35 g/dL (31-37) Red Cell Distribution Width 15.0 % (11.5-14.5) Platelet Count 222 x10^3/uL (140-400) Neutrophils (%) (Auto) 66 % (31-73) Lymphocytes (%) (Auto) 18 % (24-48) Monocytes (%) (Auto) 15 % (0-9) Eosinophils (%) (Auto) 1 % (0-3) Basophils (%) (Auto) 0 % (0-3) Neutrophils # (Auto) 5.2 x10^3/uL (1.8-7.7) Lymphocytes # (Auto) 1.5 x10^3/uL (1.0-4.8) Monocytes # (Auto) 1.2 x10^3/uL (0.0-1.1) Eosinophils # (Auto) 0.1 x10^3/uL (0.0-0.7) Basophils # (Auto) 0.0 x10^3/uL (0.0-0.2) Magnesium Level 1.6 mg/dL (1.8-2.4) Test 04/07/19 04:00 04/07/19 07:51 04/07/19 12:05 Sodium Level 137 mmol/L (136-145) Potassium Level 3.3 mmol/L (3.5-5.1) Chloride Level 103 mmol/L (98-107) Carbon Dioxide Level 26 mmol/L (21-32) Anion Gap 8 (6-14) Blood Urea Nitrogen 24 mg/dL (8-26) Creatinine 1.7 mg/dL (0.7-1.3) Estimated GFR (Cockcroft-Gault) 40.2 Glucose Level 113 mg/dL (70-99) Calcium Level 8.2 mg/dL (8.5-10.1) Phosphorus Level 2.5 mg/dL (2.6-4.7) Albumin 3.2 g/dL (3.4-5.0) Glucose (Fingerstick) 97 mg/dL (70-99) 99 mg/dL (70-99) Assessment/Plan Assessment/Plan Incomplete bladder emptying, mild left hydronephrosis most likely secondary to BPH. Will start tamsulosin 0.4 mg nightly. do not recommend oneil at this time. mild hydronephrosis not concerning office followup in 2 weeks for PVR / symptom check DAHIANA POLLARD MD Apr 07, 2019 12:25
[2019-04-07] MEDS ORDERED: ONDANSETRON PF 4 MG/2 ML VIAL. IV PRN (13:00)
[2019-04-07 15:00] VITALS: BP 166/61
[2019-04-07 19:20] VITALS: BP 180/66
[2019-04-07] MEDS: TAMSULOSIN 0.4 MG CAP.ER.24H. PO SCH (20:00)
[2019-04-07 20:31] LABS: INFLUENZA A PATIENT NEGATIVE (NEGATIVE); INFLUENZA B PATIENT NEGATIVE (NEGATIVE)
--- NOTE | 2019-04-07 22:02 | NUR ---
Pt request ivf be held pt stated ivf making him feel worse and soa , poc explained to pt pt still want fluids off. Ivf turned off will reassess pt after hour of being off.
[2019-04-07 23:07] VITALS: BP 151/73
[2019-04-08 02:05] VITALS: BP 151/63
[2019-04-08 07:00] VITALS: BP 145/70
[2019-04-08] MEDS: ACETAMINOPHEN 500 MG TABLET PO PRN ×2 (08:16→23:14)
[2019-04-08] MEDS: ASPIRIN ENTERIC COATED 81 MG TABLET.DR. PO SCH (09:11)
[2019-04-08 09:18] LABS: ALBUMIN 3.3 g/dL (3.4-5.0); CREATININE 1.5 mg/dL (0.7-1.3); GFR 46.4; MAGNESIUM 1.5 mg/dL (1.8-2.4); PHOSPHORUS 2.5 mg/dL (2.6-4.7); POTASSIUM 3.9 mmol/L (3.5-5.1)
--- NOTE | 2019-04-08 10:01 | PDOC ---
Infectious Disease Note Subjective: Subjective pt seen and examined Vital Signs: Vital Signs Vital Signs Date Time Temp Pulse Resp B/P (MAP) Pulse Ox O2 Delivery O2 Flow Rate FiO2 04/08/19 07:00 101.7 68 17 145/70 (95) 94 Nasal Cannula 2.0 101.7 Medications: Inpatient Meds: Current Medications Medications (Trade) Dose Ordered Sig/Xuan Start Time Stop Time Status Last Admin Dose Admin Acetaminophen (Tylenol) 1,000 mg PRN Q6HRS PRN 04/05/19 23:30 04/08/19 08:19 1,000 MG Aspirin (Children'S Aspirin) 324 mg 1X ONCE 04/05/19 12:30 04/05/19 12:31 DC 04/05/19 12:42 243 MG Aspirin (Ecotrin) 81 mg [id number] 04/05/19 16:00 04/08/19 09:11 81 MG Fentanyl Citrate (Fentanyl 2ml Vial) 50 mcg PRN Q2HR PRN 04/05/19 17:15 04/05/19 17:33 50 MCG Hydralazine HCl (Apresoline Inj) 10 mg PRN Q4HRS PRN 04/05/19 16:00 Magnesium Sulfate 50 ml @ 25 mls/hr PRN DAILY PRN 04/06/19 13:30 Magnesium Sulfate/ Dextrose 100 ml @ 100 mls/hr 1X ONCE 04/05/19 16:00 04/05/19 16:59 DC 04/05/19 16:36 100 MLS/HR Morphine Sulfate (Morphine Ir) 15 mg PRN Q4HRS PRN 04/05/19 17:45 04/07/19 07:42 15 MG Ondansetron HCl (Zofran) 4 mg PRN Q4HRS PRN 04/07/19 13:00 04/07/19 13:13 4 MG Oseltamivir Phosphate (Tamiflu) 30 mg BID 04/08/19 21:00 04/13/19 20:59 UNV Piperacillin Sod/ Tazobactam Sod 3.375 gm/Sodium Chloride 50 ml @ 100 mls/hr Q6HRS 04/08/19 12:00 UNV Potassium Phosphate 13.3 mmol/Sodium Chloride 104.4333 ml @ 51.172 m... Q2H 04/07/19 10:00 04/07/19 15:59 DC 04/07/19 14:07 51.172 MLS/HR Potassium Chloride (Klor-Con) 20 meq 1X ONCE 04/06/19 15:00 04/06/19 15:01 DC 04/06/19 15:22 20 MEQ Ringer's Solution 1,000 ml @ 125 mls/hr Q8H 04/06/19 13:30 04/07/19 14:07 125 MLS/HR Sodium Chloride 1,000 ml @ 100 mls/hr Q10H 04/06/19 00:00 04/06/19 13:22 DC 04/06/19 10:16 100 MLS/HR Tamsulosin HCl (Flomax) 0.4 mg QHS 04/07/19 21:00 04/07/19 20:00 0.4 MG Labs: Lab Laboratory Tests Test 04/07/19 12:05 04/07/19 17:25 04/07/19 19:54 04/07/19 20:21 Glucose (Fingerstick) 99 mg/dL (70-99) 102 mg/dL (70-99) 117 mg/dL (70-99) Influenza Type A Antigen Negative (NEGATIVE) Influenza Type B Antigen Negative (NEGATIVE) Test 04/08/19 07:44 04/08/19 08:20 Glucose (Fingerstick) 117 mg/dL (70-99) Sodium Level 135 mmol/L (136-145) Potassium Level 3.9 mmol/L (3.5-5.1) Chloride Level 99 mmol/L (98-107) Carbon Dioxide Level 25 mmol/L (21-32) Anion Gap 11 (6-14) Blood Urea Nitrogen 14 mg/dL (8-26) Creatinine 1.5 mg/dL (0.7-1.3) Estimated GFR (Cockcroft-Gault) 46.4 Glucose Level 108 mg/dL (70-99) Calcium Level 8.0 mg/dL (8.5-10.1) Phosphorus Level 2.5 mg/dL (2.6-4.7) Magnesium Level 1.5 mg/dL (1.8-2.4) Creatine Kinase 232 U/L (39-308) Albumin 3.3 g/dL (3.4-5.0) Objective: Assessment: Febrile illness Viral vs other ,flu screen neg Rhabdomyolysis dizziness and chestpain w/u neg sinus fullness,headache ? sinusitis JOSEPH over CKD DM2 urinary retention abdominal bloating and fullness Plan: Plan of Care Zosyn tamiflu renal dosing ct maxillofacial w/o abdo ct w/o rvp not available at this center bc,ua and uc, sputum cults if diarrhea send for stool cults cont supportive care f/u cults and labs in am maintain aspiration precautions d/w rn [id number] YOUSIF JOHNSON MD Apr 08, 2019 10:01
[2019-04-08 10:44] LABS: BILIRUBIN,URINE NEGATIVE (NEG); CLARITY,URINE CLEAR; COLOR,URINE YELLOW; NITRITE,URINE NEGATIVE (NEG); PROTEIN,URINE NEGATIVE (NEG-TRACE)
--- NOTE | 2019-04-08 10:51 | RAD ---
Examination: CT ABDOMEN PELVIS WO CONTRAST History: Fever Comparison/Correlation: 12/28/2017 CT abdomen and pelvis without contrast Findings: Axial images of the abdomen and pelvis were obtained without contrast. Sagittal and coronal reformatted images were provided. Minimal linear atelectasis at the lung bases is noted. Small hiatal hernia is present. Spleen, pancreas, and adrenal glands are unremarkable. Liver is unremarkable other than calcified granulomas or other calcific densities primarily involving the subcapsular right hepatic lobe region. Numerous left parapelvic cysts are present. A few right parapelvic cysts noted. No radiopaque collecting system calculi. These parapelvic cysts are unchanged compared to prior CT exam. Renal contours are unremarkable. Urinary bladder is unremarkable. Gallbladder fossa is unremarkable. Moderate quantity of stool is present in the colon. Diverticulosis is present without findings of acute inflammation. Appendix is normal. No ascites or pelvic free fluid. No enlarged abdominal or pelvic lymph nodes. No acute bony process. Significant L1-L2 disc space narrowing is present. No enlarged abdominal or pelvic lymph nodes. Impression: Small hiatal hernia. No acute inflammatory process. PQRS Compliance Statement: One or more of the following individualized dose reduction techniques were utilized for this examination: 1. Automated exposure control 2. Adjustment of the mA and/or kV according to patient size 3. Use of iterative reconstruction technique Electronically signed by: Paresh Saravia MD (04/08/2019 10:48 AM) [facility]
[2019-04-08] MEDS: OSELTAMIVIR 30 MG CAPSULE PO SCH ×2 (10:59→21:21)
[2019-04-08 11:00] VITALS: BP 134/72
--- NOTE | 2019-04-08 11:02 | PDOC ---
MER HOLLAND 04/08/19 1102: SUBJECTIVE Subjective No urinary complaints today OBJECTIVE Objective General: Pleasant, no acute distress, well groomed Eyes: conjunctiva anicteric, eyes full range of motion Skin: no rashes or skin lesions on visualized skin Psych: normal mood, affect. Alert and oriented x 3. Vital Signs Vital Signs Date Time Temp Pulse Resp B/P (MAP) Pulse Ox O2 Delivery O2 Flow Rate FiO2 04/08/19 07:00 101.7 68 17 145/70 (95) 94 Nasal Cannula 2.0 101.7 04/08/19 02:05 98.8 92 18 151/63 (92) 95 Room Air 98.8 04/07/19 23:07 98.7 58 18 151/73 (99) 95 Room Air 98.7 04/07/19 19:25 Nasal Cannula 4.0 04/07/19 19:20 100.8 68 18 180/66 (104) 97 Nasal Cannula 4.0 100.8 04/07/19 15:00 99.1 66 16 166/61 (96) 93 Room Air 99.1 I & O Intake and Output 04/08/19 06:59 Intake Total 2400 ml Output Total 1850 ml Balance 550 ml Intake Oral 850 ml Blood Product IV Normal Saline Flush 1550 ml Output Urine Total 1850 ml # Bowel Movements 1 PHYSICAL EXAM Physical Exam General: Pleasant, no acute distress, well groomed Eyes: conjunctiva anicteric, eyes full range of motion Skin: no rashes or skin lesions on visualized skin Psych: normal mood, affect. Alert and oriented x 3. ASSESSMENT/PLAN Assessment/Plan Incomplete bladder emptying, mild left hydronephrosis most likely secondary to BPH. mild hydronephrosis not concerning no oneil needed right now Continue tamsulosin 0.4mg Office f/u with Dr. Pollard and [facility] scheduled for 04/25 at 10:00am Appointment card put in chart Problems: (1) Incomplete bladder emptying (2) BPH (benign prostatic hyperplasia) COMMENT Lab Laboratory Tests Test 04/07/19 12:05 04/07/19 17:25 04/07/19 19:54 04/07/19 20:21 Glucose (Fingerstick) 99 mg/dL (70-99) 102 mg/dL (70-99) 117 mg/dL (70-99) Influenza Type A Antigen Negative (NEGATIVE) Influenza Type B Antigen Negative (NEGATIVE) Test 04/08/19 07:44 04/08/19 08:20 Glucose (Fingerstick) 117 mg/dL (70-99) Sodium Level 135 mmol/L (136-145) Potassium Level 3.9 mmol/L (3.5-5.1) Chloride Level 99 mmol/L (98-107) Carbon Dioxide Level 25 mmol/L (21-32) Anion Gap 11 (6-14) Blood Urea Nitrogen 14 mg/dL (8-26) Creatinine 1.5 mg/dL (0.7-1.3) Estimated GFR (Cockcroft-Gault) 46.4 Glucose Level 108 mg/dL (70-99) Calcium Level 8.0 mg/dL (8.5-10.1) Phosphorus Level 2.5 mg/dL (2.6-4.7) Magnesium Level 1.5 mg/dL (1.8-2.4) Creatine Kinase 232 U/L (39-308) Albumin 3.3 g/dL (3.4-5.0) DAHIANA POLLARD MD 04/11/19 1549: ASSESSMENT/PLAN Assessment/Plan Agree with assessment and plan. MER HOLLAND Apr 08, 2019 11:02 DAHIANA POLLARD MD Apr 11, 2019 15:49
[2019-04-08 11:04] LABS: SQUAMOUS EPITHELIAL CELL,UR FEW /LPF
--- NOTE | 2019-04-08 11:05 | RAD ---
Examination: CT MAXILLOFACIAL WO CONTRAST History: Headache, fever, sinus fullness Comparison/Correlation: None Findings: Axial images of the maxillofacial structures were obtained without contrast. Sagittal and coronal reformatted images were provided. Globes and optic nerves are unremarkable. Extraocular muscles are intact. Defects involving the medial wall of the right maxillary sinus and a defect of the left maxillary sinus are noted. Widened appearance of microvascular ostia which appears to be postoperative noted. No significant opacification of the maxillary sinus ostia. Small mucous retention involvement of the left maxillary sinus. Mild left maxillary sinus mucosal thickening noted. Minimal opacification of the left frontal sinus is noted. Minimal opacification of the right ethmoid air cells noted. Sphenoid sinuses are unremarkable. No fluid levels involving paranasal sinuses. Deformity and spurring of the right mandibular condyle noted. Soft tissues are unremarkable. Impression: No findings of acute sinusitis. Minimal chronic sinusitis. PQRS Compliance Statement: One or more of the following individualized dose reduction techniques were utilized for this examination: 1. Automated exposure control 2. Adjustment of the mA and/or kV according to patient size 3. Use of iterative reconstruction technique Electronically signed by: Paresh Saravia MD (04/08/2019 11:02 AM) [facility]
[2019-04-08 11:07] LABS: BACTERIA,URINE FEW /HPF (0-FEW); RBC,URINE 0 /HPF (0-2); WBC,URINE OCC /HPF (0-4)
--- NOTE | 2019-04-08 11:20 | PDOC ---
PROGRESS NOTES History of Present Illness History of Present Illness VTE Prophylaxis Ordered VTE Prophylaxis Devices: No VTE Pharmacological Prophylaxi: Yes Assessment/Plan Assessment/Plan acute myalgia, SEC TO STATIN generalized pain, not rhabdo, DM DC NSAIDs Stop losartan/HCTZ //nephrology following Mild left hydronephrosis, unchanged.04/06 US 04/06 Large post void urinary residual. The urinary bladder is distended with urine. The prevoid volume of the urinary bladder is 464.5 mL. The post void residual is 285.4 mL. hydrate iv acute vasomotor nephropathy and ATN , Chronic kidney disease stage III presumed diabetic hypertensive nephrosclerosis: stop ibuprofen use, back pain, lidoderm and PO meds allergic to hydro and oxycodone obese, BMI 34 NEPHROLOGY CONSULT HOLD STATIN RX UROLOGY CONSULT Continue tamsulosin 0.4mg Office f/u with Dr. Price and [facility] scheduled for 04/25 at 10:00am Appointment card put in chart IV Zosyn 28 MIN PT EXAM, CHART REVIEW, > 50% OF TIME SPENT WITH EXAM, CHART REVIEW, PT CARE COORDINATION Vitals Vitals Vital Signs Date Time Temp Pulse Resp B/P (MAP) Pulse Ox O2 Delivery O2 Flow Rate FiO2 04/08/19 08:00 Nasal Cannula 2.0 04/08/19 07:00 101.7 68 17 145/70 (95) 94 101.7 Physical Exam General: Alert, Oriented X3, Cooperative, No acute distress, mild distress Heart: Regular rate (SR/SB), Normal S1, Normal S2, No murmurs Lungs: Clear Abdomen: Normal bowel sounds, Soft, No tenderness Extremities: No clubbing, No cyanosis, No edema Skin: No significant lesion Labs LABS Laboratory Tests Test 04/07/19 12:05 04/07/19 17:25 04/07/19 19:54 04/07/19 20:21 Glucose (Fingerstick) 99 mg/dL (70-99) 102 mg/dL (70-99) 117 mg/dL (70-99) Influenza Type A Antigen Negative (NEGATIVE) Influenza Type B Antigen Negative (NEGATIVE) Test 04/08/19 07:44 04/08/19 08:20 04/08/19 10:25 Glucose (Fingerstick) 117 mg/dL (70-99) Sodium Level 135 mmol/L (136-145) Potassium Level 3.9 mmol/L (3.5-5.1) Chloride Level 99 mmol/L (98-107) Carbon Dioxide Level 25 mmol/L (21-32) Anion Gap 11 (6-14) Blood Urea Nitrogen 14 mg/dL (8-26) Creatinine 1.5 mg/dL (0.7-1.3) Estimated GFR (Cockcroft-Gault) 46.4 Glucose Level 108 mg/dL (70-99) Calcium Level 8.0 mg/dL (8.5-10.1) Phosphorus Level 2.5 mg/dL (2.6-4.7) Magnesium Level 1.5 mg/dL (1.8-2.4) Creatine Kinase 232 U/L (39-308) Albumin 3.3 g/dL (3.4-5.0) Urine Collection Type Unknown Urine Color Yellow Urine Clarity Clear Urine pH 6.0 Urine Specific [place] 1.020 Urine Protein Negative mg/dL (NEG-TRACE) Urine Glucose (UA) 100 mg/dL (NEG) Urine Ketones (Stick) Negative mg/dL (NEG) Urine Blood Negative (NEG) Urine Nitrite Negative (NEG) Urine Bilirubin Negative (NEG) Urine Urobilinogen Dipstick 1.0 mg/dL (0.2 mg/dL) Urine Leukocyte Esterase Negative (NEG) Urine RBC 0 /HPF (0-2) Urine WBC Occ /HPF (0-4) Urine Squamous Epithelial Cells Few /LPF Urine Bacteria Few /HPF (0-FEW) Assessment and Plan Assessmemt and Plan Problems Medical Problems: (1) Acute chest pain Status: Acute (2) Acute on chronic renal insufficiency Status: Acute (3) ATN (acute tubular necrosis) Status: Acute (4) BPH (benign prostatic hyperplasia) Status: Chronic (5) Dizziness Status: Acute (6) DM2 (diabetes mellitus, type 2) Status: Chronic (7) HTN (hypertension) Status: Chronic (8) Hypothyroidism Status: Chronic (9) Myalgia Status: Acute (10) Renal insufficiency Status: Acute (11) Rhabdomyolysis Status: Acute (12) Vasomotor nephropathy Status: Acute Comment Review of Relevant I have reviewed the following items aditya (where applicable) has been applied. Labs Laboratory Tests Test 04/06/19 12:00 04/06/19 16:17 04/06/19 17:26 04/06/19 20:43 Glucose (Fingerstick) 113 mg/dL (70-99) 102 mg/dL (70-99) 104 mg/dL (70-99) Urine Random Sodium 136 mmol/L (Not Estab.) Test 04/07/19 03:41 04/07/19 03:45 04/07/19 04:00 04/07/19 07:51 Glucose (Fingerstick) 113 mg/dL (70-99) 97 mg/dL (70-99) White Blood Count 8.0 x10^3/uL (4.0-11.0) Red Blood Count 4.56 x10^6/uL (4.30-5.70) Hemoglobin 14.6 g/dL (13.0-17.5) Hematocrit 42.2 % (39.0-53.0) Mean Corpuscular Volume 93 fL (79-100) Mean Corpuscular Hemoglobin 32 pg (25-35) Mean Corpuscular Hemoglobin Concent 35 g/dL (31-37) Red Cell Distribution Width 15.0 % (11.5-14.5) Platelet Count 222 x10^3/uL (140-400) Neutrophils (%) (Auto) 66 % (31-73) Lymphocytes (%) (Auto) 18 % (24-48) Monocytes (%) (Auto) 15 % (0-9) Eosinophils (%) (Auto) 1 % (0-3) Basophils (%) (Auto) 0 % (0-3) Neutrophils # (Auto) 5.2 x10^3/uL (1.8-7.7) Lymphocytes # (Auto) 1.5 x10^3/uL (1.0-4.8) Monocytes # (Auto) 1.2 x10^3/uL (0.0-1.1) Eosinophils # (Auto) 0.1 x10^3/uL (0.0-0.7) Basophils # (Auto) 0.0 x10^3/uL (0.0-0.2) Magnesium Level 1.6 mg/dL (1.8-2.4) Sodium Level 137 mmol/L (136-145) Potassium Level 3.3 mmol/L (3.5-5.1) Chloride Level 103 mmol/L (98-107) Carbon Dioxide Level 26 mmol/L (21-32) Anion Gap 8 (6-14) Blood Urea Nitrogen 24 mg/dL (8-26) Creatinine 1.7 mg/dL (0.7-1.3) Estimated GFR (Cockcroft-Gault) 40.2 Glucose Level 113 mg/dL (70-99) Calcium Level 8.2 mg/dL (8.5-10.1) Phosphorus Level 2.5 mg/dL (2.6-4.7) Albumin 3.2 g/dL (3.4-5.0) Test 04/07/19 12:05 04/07/19 17:25 04/07/19 19:54 04/07/19 20:21 Glucose (Fingerstick) 99 mg/dL (70-99) 102 mg/dL (70-99) 117 mg/dL (70-99) Influenza Type A Antigen Negative (NEGATIVE) Influenza Type B Antigen Negative (NEGATIVE) Test 04/08/19 07:44 04/08/19 08:20 04/08/19 10:25 Glucose (Fingerstick) 117 mg/dL (70-99) Sodium Level 135 mmol/L (136-145) Potassium Level 3.9 mmol/L (3.5-5.1) Chloride Level 99 mmol/L (98-107) Carbon Dioxide Level 25 mmol/L (21-32) Anion Gap 11 (6-14) Blood Urea Nitrogen 14 mg/dL (8-26) Creatinine 1.5 mg/dL (0.7-1.3) Estimated GFR (Cockcroft-Gault) 46.4 Glucose Level 108 mg/dL (70-99) Calcium Level 8.0 mg/dL (8.5-10.1) Phosphorus Level 2.5 mg/dL (2.6-4.7) Magnesium Level 1.5 mg/dL (1.8-2.4) Creatine Kinase 232 U/L (39-308) Albumin 3.3 g/dL (3.4-5.0) Urine Collection Type Unknown Urine Color Yellow Urine Clarity Clear Urine pH 6.0 Urine Specific [place] 1.020 Urine Protein Negative mg/dL (NEG-TRACE) Urine Glucose (UA) 100 mg/dL (NEG) Urine Ketones (Stick) Negative mg/dL (NEG) Urine Blood Negative (NEG) Urine Nitrite Negative (NEG) Urine Bilirubin Negative (NEG) Urine Urobilinogen Dipstick 1.0 mg/dL (0.2 mg/dL) Urine Leukocyte Esterase Negative (NEG) Urine RBC 0 /HPF (0-2) Urine WBC Occ /HPF (0-4) Urine Squamous Epithelial Cells Few /LPF Urine Bacteria Few /HPF (0-FEW) Laboratory Tests Test 04/07/19 12:05 04/07/19 17:25 04/07/19 19:54 04/07/19 20:21 Glucose (Fingerstick) 99 mg/dL (70-99) 102 mg/dL (70-99) 117 mg/dL (70-99) Influenza Type A Antigen Negative (NEGATIVE) Influenza Type B Antigen Negative (NEGATIVE) Test 04/08/19 07:44 04/08/19 08:20 04/08/19 10:25 Glucose (Fingerstick) 117 mg/dL (70-99) Sodium Level 135 mmol/L (136-145) Potassium Level 3.9 mmol/L (3.5-5.1) Chloride Level 99 mmol/L (98-107) Carbon Dioxide Level 25 mmol/L (21-32) Anion Gap 11 (6-14) Blood Urea Nitrogen 14 mg/dL (8-26) Creatinine 1.5 mg/dL (0.7-1.3) Estimated GFR (Cockcroft-Gault) 46.4 Glucose Level 108 mg/dL (70-99) Calcium Level 8.0 mg/dL (8.5-10.1) Phosphorus Level 2.5 mg/dL (2.6-4.7) Magnesium Level 1.5 mg/dL (1.8-2.4) Creatine Kinase 232 U/L (39-308) Albumin 3.3 g/dL (3.4-5.0) Urine Collection Type Unknown Urine Color Yellow Urine Clarity Clear Urine pH 6.0 Urine Specific [place] 1.020 Urine Protein Negative mg/dL (NEG-TRACE) Urine Glucose (UA) 100 mg/dL (NEG) Urine Ketones (Stick) Negative mg/dL (NEG) Urine Blood Negative (NEG) Urine Nitrite Negative (NEG) Urine Bilirubin Negative (NEG) Urine Urobilinogen Dipstick 1.0 mg/dL (0.2 mg/dL) Urine Leukocyte Esterase Negative (NEG) Urine RBC 0 /HPF (0-2) Urine WBC Occ /HPF (0-4) Urine Squamous Epithelial Cells Few /LPF Urine Bacteria Few /HPF (0-FEW) Microbiology 04/07/19 Blood Culture - Preliminary, Resulted NO GROWTH AFTER 1 DAY Medications Current Medications Fentanyl Citrate (Fentanyl 2ml Vial) 50 mcg 1X ONCE IV Last administered on 04/05/19at 12:24; Start 04/05/19 at 12:15; Stop 04/05/19 at 12:16; Status DC Aspirin (Children'S Aspirin) 324 mg 1X ONCE PO Last administered on 04/05/19at 12:42; Start 04/05/19 at 12:30; Stop 04/05/19 at 12:31; Status DC Sodium Chloride 1,000 ml @ 75 mls/hr [id number] IV Last administered on 04/05/19at 13:56; Start 04/05/19 at 13:10; Stop 04/05/19 at 16:09; Status DC Magnesium Sulfate/ Dextrose 100 ml @ 100 mls/hr 1X ONCE IV Last administered on 04/05/19at 16:36; Start 04/05/19 at 16:00; Stop 04/05/19 at 16:59; Status DC Aspirin (Ecotrin) 81 mg [id number] PO Last administered on 04/08/19at 09:11; Start 04/05/19 at 16:00 Hydralazine HCl (Apresoline Inj) 10 mg PRN Q4HRS PRN IVP ELEVATED BP, SEE COMMENTS; Start 04/05/19 at 16:00 Sodium Chloride 1,000 ml @ 100 mls/hr Q10H IV ; Start 04/05/19 at 16:15; Stop 04/05/19 at 16:51; Status DC Sodium Chloride 1,000 ml @ 100 mls/hr Q10H IV Last administered on 04/06/19at 10:16; Start 04/06/19 at 00:00; Stop 04/06/19 at 13:22; Status DC Fentanyl Citrate (Fentanyl 2ml Vial) 50 mcg PRN Q2HR PRN IV PAIN Last administered on 04/05/19at 17:33; Start 04/05/19 at 17:15 Morphine Sulfate (Morphine Ir) 15 mg PRN Q4HRS PRN PO PAIN SEVERE Last administered on 04/07/19at 07:42; Start 04/05/19 at 17:45 Acetaminophen (Tylenol) 1,000 mg PRN Q6HRS PRN PO PAIN MILD-MODERATE Last administered on 04/08/19at 08:19; Start 04/05/19 at 23:30 Magnesium Sulfate 50 ml @ 25 mls/hr PRN DAILY PRN IV for Mag < 1.7 on am labs Last administered on 04/08/19at 10:59; Start 04/06/19 at 13:30 Ringer's Solution 1,000 ml @ 125 mls/hr Q8H IV Last administered on 04/07/19at 14:07; Start 04/06/19 at 13:30 Potassium Chloride (Klor-Con) 20 meq 1X ONCE PO Last administered on 04/06/19at 15:22; Start 04/06/19 at 15:00; Stop 04/06/19 at 15:01; Status DC Potassium Phosphate 13.3 mmol/Sodium Chloride 104.4333 ml @ 51.172 m... Q2H IV Last administered on 04/07/19at 14:07; Start 04/07/19 at 10:00; Stop 04/07/19 at 15:59; Status DC Tamsulosin HCl (Flomax) 0.4 mg QHS PO Last administered on 04/07/19at 20:00; Start 04/07/19 at 21:00 Ondansetron HCl (Zofran) 4 mg PRN Q4HRS PRN IV NAUSEA/VOMITING Last administered on 04/07/19at 13:13; Start 04/07/19 at 13:00 Piperacillin Sod/ Tazobactam Sod 3.375 gm/Sodium Chloride 50 ml @ 100 mls/hr Q6HRS IV ; Start 04/08/19 at 12:00 Oseltamivir Phosphate (Tamiflu) 30 mg BID PO Last administered on 04/08/19at 10:59; Start 04/08/19 at 10:00; Stop 04/13/19 at 09:59 Lactobacillus Rhamnosus (Culturelle) 1 cap BID PO ; Start 04/08/19 at 21:00 Active Scripts Active Tylenol (Acetaminophen) 325 Mg Tablet 650 Mg PO PRN Q6HRS PRN 30 Days Reported Naproxen 500 Mg Tablet 1 Tab PO BID Losartan-Hctz 100-25 Mg Tab (Losartan/Hydrochlorothiazide) 1 Each Tablet 1 Tab PO DAILY Triamcinolone Acetonide 0.1% Oint (Triamcinolone Acetonide) 15 Gm Oint...g. 1 Zi TP BID PRN MIX WITH EUCERIN DIRECTED BY PHYSICIAN Aspirin Ec (Aspirin) 81 Mg Tablet. 1 Tab PO DAILY Glimepiride 2 Mg Tablet 2 Mg PO DAILY Atorvastatin Calcium 40 Mg Tablet 40 Mg PO HS Gabapentin 300 Mg Capsule 600 Mg PO HS Potassium Citrate 10 Meq Tablet.er 10 Meq PO DAILY Omeprazole 40 Mg Capsule.dr 40 Mg PO DAILYAC Levothyroxine Sodium 50 Mcg Tablet 50 Mcg PO DAILY Vitals/I & O Vital Sign - Last 24 Hours 04/07/19 04/07/19 04/07/19 04/07/19 15:00 19:20 19:25 23:07 Temp 99.1 100.8 98.7 99.1 100.8 98.7 Pulse 66 68 58 Resp 16 18 18 B/P (MAP) 166/61 (96) 180/66 (104) 151/73 (99) Pulse Ox 93 97 95 O2 Delivery Room Air Nasal Cannula Nasal Cannula Room Air O2 Flow Rate 4.0 4.0 04/08/19 04/08/19 04/08/19 02:05 07:00 08:00 Temp 98.8 101.7 98.8 101.7 Pulse 92 68 Resp 18 17 B/P (MAP) 151/63 (92) 145/70 (95) Pulse Ox 95 94 O2 Delivery Room Air Nasal Cannula Nasal Cannula O2 Flow Rate 2.0 2.0 Intake and Output 04/07/19 04/07/19 04/08/19 14:59 22:59 06:59 Intake Total 2000 ml 400 ml Output Total 250 ml 600 ml 1000 ml Balance -250 ml 1400 ml -600 ml JUAN RAMON TAPIA MD Apr 08, 2019 11:20
[2019-04-08] MEDS: PIPERACILLIN/TAZOBACTAM 3.375 GM in IV NORMAL SALINE 50ML 50 ML IV SCH ×3 (13:15→23:07)
--- NOTE | 2019-04-08 14:23 | NUR ---
SS following for discharge planning. SS reviewed pt chart. Pt is from home and is currently requiring oxygen. No discharge needs noted at this time. SS will continue to follow for discharge planning.
[2019-04-08 15:00] VITALS: BP 145/58
[2019-04-08] MEDS ORDERED: MAGNESIUM SULFATE 2GM 50 ML IV ONE (16:00)
--- NOTE | 2019-04-08 16:41 | PDOC ---
Renal-Progress Notes Subjective Notes Notes NONE History of Present Illness Hx of present illness STABLE Vitals Vitals Vital Signs Date Time Temp Pulse Resp B/P (MAP) Pulse Ox O2 Delivery O2 Flow Rate FiO2 04/08/19 11:00 97.8 96 16 134/72 (92) 92 Room Air 97.8 04/08/19 08:00 2.0 Weight Weight [ ] I.O. Intake and Output Intake and Output 04/08/19 07:00 Intake Total 2400 ml Output Total 1850 ml Balance 550 ml Intake Oral 850 ml Blood Product IV Normal Saline Flush 1550 ml Output Urine Total 1850 ml # Bowel Movements 1 Labs Labs Laboratory Tests Test 04/07/19 17:25 04/07/19 19:54 04/07/19 20:21 04/08/19 07:44 Glucose (Fingerstick) 102 mg/dL (70-99) 117 mg/dL (70-99) 117 mg/dL (70-99) Influenza Type A Antigen Negative (NEGATIVE) Influenza Type B Antigen Negative (NEGATIVE) Test 04/08/19 08:20 04/08/19 10:25 04/08/19 11:58 Sodium Level 135 mmol/L (136-145) Potassium Level 3.9 mmol/L (3.5-5.1) Chloride Level 99 mmol/L (98-107) Carbon Dioxide Level 25 mmol/L (21-32) Anion Gap 11 (6-14) Blood Urea Nitrogen 14 mg/dL (8-26) Creatinine 1.5 mg/dL (0.7-1.3) Estimated GFR (Cockcroft-Gault) 46.4 Glucose Level 108 mg/dL (70-99) Calcium Level 8.0 mg/dL (8.5-10.1) Phosphorus Level 2.5 mg/dL (2.6-4.7) Magnesium Level 1.5 mg/dL (1.8-2.4) Creatine Kinase 232 U/L (39-308) Albumin 3.3 g/dL (3.4-5.0) Urine Collection Type Unknown Urine Color Yellow Urine Clarity Clear Urine pH 6.0 Urine Specific [place] 1.020 Urine Protein Negative mg/dL (NEG-TRACE) Urine Glucose (UA) 100 mg/dL (NEG) Urine Ketones (Stick) Negative mg/dL (NEG) Urine Blood Negative (NEG) Urine Nitrite Negative (NEG) Urine Bilirubin Negative (NEG) Urine Urobilinogen Dipstick 1.0 mg/dL (0.2 mg/dL) Urine Leukocyte Esterase Negative (NEG) Urine RBC 0 /HPF (0-2) Urine WBC Occ /HPF (0-4) Urine Squamous Epithelial Cells Few /LPF Urine Bacteria Few /HPF (0-FEW) Glucose (Fingerstick) 98 mg/dL (70-99) Micro Micro Microbiology 04/07/19 Blood Culture - Preliminary, Resulted NO GROWTH AFTER 1 DAY Physical Exam General Appearance: no apparent distress Skin: warm Respiratory: decreased breath sounds Heart: S1S2 Abdomen: soft, bowel sounds present Genitourinary: bladder flat Extremities: pulses present Neurology: alert Musculoskeletal: Osteoarthritis Assessment Assessment IMP JOSEPH-IMPROVED WITH CR DOWN TO 1.5 PROB CKD STAGE 3 RIGHT HYDRO-POSSIBLY CHRONIC DM II HTN PLAN AGREE WITH UROLOGY SUGGESTION LABS IN AM KLUADIA LEONARD MD Apr 08, 2019 16:40
--- NOTE | 2019-04-08 16:54 | NUR ---
Magnesium Sulfate 2 gm administer per EMR standing order. X1 Magnesium Sulfate 2 gm Held.
[2019-04-08 19:26] VITALS: BP 167/77
--- NOTE | 2019-04-08 20:10 | NUR ---
Pt in bed assessment completed vss pt c/o choking when laying flat pt repositioned, poc explained pt stated he just don't know what is going on with him pt seems to be anxious will explain in detail what the poc is and continue to monitor pt. Pt denies pain but stated he has a headache will resume care and continue to monitor pt. call light in reach pt reminded to call for assistance prior to getting oob.
[2019-04-08] MEDS: LACTOBACILLUS RHAMNOSUS GG 1 CAPSULE. PO SCH (21:21)
[2019-04-08] MEDS: TAMSULOSIN 0.4 MG CAP.ER.24H. PO SCH (21:21)
[2019-04-08 22:12] VITALS: BP 172/78
[2019-04-08] MEDS: hydrALAZINE 20 MG/ML VIAL. IVP PRN (23:14)
[2019-04-09 03:00] VITALS: BP 170/87
--- NOTE | 2019-04-09 04:58 | CONS ---
DATE OF CONSULTATION: 04/08/2019 REFERRING PHYSICIAN: Dr. Pizano. REASON FOR CONSULTATION: Fever. HISTORY OF PRESENT ILLNESS: A 68-year-old male who presented to the ER on 04/05/2019 with complaints of dizziness, chest pain, not feeling well and generalized aches and pains. The patient was walking outside and then started feeling the same. He went to urgent care. Blood pressure was low with diaphoresis with complaints of bilateral upper extremity pain, so he was sent here after receiving IV fluid resuscitation. The patient had mild facial droop and slurred speech, which was observed by EMS with no focal neurologic deficit. He was afebrile. White count was normal. CT of the head revealed no acute abnormality. Chest x-ray was normal. The patient underwent a V/Q scan, which showed low probability for pulmonary embolism. He underwent ultrasound of the abdomen, which showed mild left hydronephrosis, unchanged large postvoid urinary residual. He was seen by Urology. They wanted to put a Reilly in. The patient refused as he had failed attempts earlier. UA was negative. The patient was started on Flomax now. He has a good output of urine. The patient was febrile at 101.3 today. He has complaints of headache, sinus fullness, congestion, no ear pain or drainage. Denies any sore throat, runny nose. The patient still feels achy all over. Denies any nausea, though has a lot of GI upset, no vomiting, no diarrhea, though he had 1 loose bowel movement yesterday. Continues to have back pain, but overall has improved. His CK was elevated. He was also found to have JOSEPH, which was attributed to rhabdomyolysis. HI was ruled out. PAST MEDICAL HISTORY: Hypertension, hyperlipidemia, GERD, osteoarthritis, chronic renal insufficiency, diabetes and hypothyroidism. PAST SURGICAL HISTORY: None. FAMILY HISTORY: As per HPI. SOCIAL HISTORY: Denies smoking, EtOH, or illicit drug use. Lives alone, has 2 dogs. CURRENT MEDICATIONS: Antibiotics: None. Other medications: IV Ringer lactate, magnesium sulfate, potassium phosphate, acetaminophen, aspirin, fentanyl, hydralazine, morphine, Zofran, tamsulosin. PHYSICAL EXAMINATION: VITAL SIGNS: Temperature 101.7, pulse 68, respirations 17, blood pressure 145/70, oxygen saturation 94% on 2 liters by nasal cannula. GENERAL: Alert, oriented male, tired appearing, lying in bed comfortably, in mild distress from headache. HEENT: Normocephalic, atraumatic, anicteric. Pupils equal, reactive. Extraocular movements intact. No thrush. Oral mucosa moist. NECK: Supple, no JVD. LUNGS: Clear bilaterally. No wheezing. HEART: S1, S2. No gallops or murmurs. ABDOMEN: Soft, nontender, nondistended, no rebound, no guarding. EXTREMITIES: No edema, no cyanosis, no clubbing. NEUROLOGIC: Alert and oriented x 3, grossly nonfocal. PSYCHIATRIC: Cooperative, appropriate mood and affect. DERMATOLOGIC: Warm and dry. No generalized rash. SINUS: No tenderness over the frontal maxillary area. LABORATORY DATA: WBC 8.0, hemoglobin 14.6, hematocrit 42.2, platelets 222. Sodium 135, potassium 3.9, chloride 99, bicarbonate 25, BUN 14, creatinine 1.5, glucose 108, calcium 8.0, phosphorus 2.5, magnesium 1.5, albumin 3.5. CK 232. UA negative. Toxicology: Urine opiate screen positive. Influenza screen negative. RADIOLOGY: Head CT as above. Chest x-ray as above. Pulmonary perfusion imaging as above. Ultrasound as above. IMPRESSION: 1. Febrile illness, viral versus other. Flu screen negative. Chest x-ray negative. 2. Dizziness and chest pain. Workup negative so far. 3. Sinus fullness with headache, questionable sinusitis. 4. Acute kidney injury on chronic kidney disease. 5. Rhabdomyolysis. 6. Diabetes mellitus 2. 7. Urinary retention, status post attempt to Reilly, now on Flomax with good urine output. 8. Mild hydronephrosis is stable. 9. Hypothyroidism. 10. Abdominal fullness with bloating. RECOMMENDATIONS: 1. Start Zosyn. 2. Start empiric Tamiflu, renal dosing. Influenza is still in the differential. 3. CT maxillofacial without contrast. 4. Abdominal CT without contrast. 5. RVP is not available at this center. 6. Obtain UA and urine culture, blood culture, sputum culture. 7. If diarrhea, send for stool cultures. 8. Continue followup with labs and cultures. 9. Maintain aspiration precaution. 10. Continue supportive care. Discussed with RN. Thank you for allowing [facility] to participate in this patient's care. We will follow along with you. YOUSIF JOHNSON MD DR: Kade JOB#: [id number] / [id number] JC
[2019-04-09] MEDS: PIPERACILLIN/TAZOBACTAM 3.375 GM in IV NORMAL SALINE 50ML 50 ML IV SCH ×3 (06:06→19:07)
[2019-04-09 06:57] LABS: BASO % 0 % (0-3); EOS % 1 % (0-3); HEMATOCRIT 42.9 % (39.0-53.0); HEMOGLOBIN 14.9 g/dL (13.0-17.5); LYMPH # 0.7 x10^3/uL (1.0-4.8); LYMPH % 22 % (24-48); MEAN CORPUSCULAR HEMOGLOBIN 32 pg (25-35); MEAN CORPUSCULAR HGB CONC 35 g/dL (31-37); MEAN CORPUSCULAR VOLUME 92 fL (79-100); MONO # 0.4 x10^3/uL (0.0-1.1); MONO % 14 % (0-9); NEUT % 64 % (31-73); PLATELET COUNT 153 x10^3/uL (140-400); RED BLOOD COUNT 4.66 x10^6/uL (4.30-5.70); RED CELL DISTRIBUTION WIDTH 14.7 % (11.5-14.5); WHITE BLOOD COUNT 3.2 x10^3/uL (4.0-11.0)
[2019-04-09 07:00] VITALS: BP 167/67
[2019-04-09 07:22] LABS: ALBUMIN 3.2 g/dL (3.4-5.0); ALBUMIN/GLOBULIN RATIO 0.9 (1.0-1.7); CALCIUM 8.2 mg/dL (8.5-10.1); CREATININE 1.4 mg/dL (0.7-1.3); GFR 50.2; PHOSPHORUS 2.3 mg/dL (2.6-4.7); POTASSIUM 3.6 mmol/L (3.5-5.1); TOTAL BILIRUBIN 0.4 mg/dL (0.2-1.0); TOTAL PROTEIN 6.7 g/dL (6.4-8.2)
[2019-04-09] MEDS: ASPIRIN ENTERIC COATED 81 MG TABLET.DR. PO SCH (08:31)
[2019-04-09] MEDS: LACTOBACILLUS RHAMNOSUS GG 1 CAPSULE. PO SCH ×2 (08:31→20:49)
[2019-04-09] MEDS: OSELTAMIVIR 30 MG CAPSULE PO SCH (08:31)
--- NOTE | 2019-04-09 08:34 | PDOC ---
Infectious Disease Note Subjective: Subjective Pt complaints of sore throat today still has weakness sinus congestion abdo bloating no fevers ,chills, nausea, vomiting achiness has improved ROS: ROS Negative otherwise. Vital Signs: Vital Signs Vital Signs Date Time Temp Pulse Resp B/P (MAP) Pulse Ox O2 Delivery O2 Flow Rate FiO2 04/09/19 07:00 98.6 59 18 167/67 (100) 96 Room Air 98.6 04/08/19 19:26 2.0 Medications: Inpatient Meds: Current Medications Medications (Trade) Dose Ordered Sig/Xuan Start Time Stop Time Status Last Admin Dose Admin Acetaminophen (Tylenol) 1,000 mg PRN Q6HRS PRN 04/05/19 23:30 04/08/19 23:14 1,000 MG Aspirin (Children'S Aspirin) 324 mg 1X ONCE 04/05/19 12:30 04/05/19 12:31 DC 04/05/19 12:42 243 MG Aspirin (Ecotrin) 81 mg [id number] 04/05/19 16:00 04/09/19 08:32 81 MG Fentanyl Citrate (Fentanyl 2ml Vial) 50 mcg PRN Q2HR PRN 04/05/19 17:15 04/05/19 17:33 50 MCG Hydralazine HCl (Apresoline Inj) 10 mg PRN Q4HRS PRN 04/05/19 16:00 04/08/19 23:14 10 MG Lactobacillus Rhamnosus (Culturelle) 1 cap BID 04/08/19 21:00 04/09/19 08:32 1 CAP Magnesium Sulfate 50 ml @ 25 mls/hr 1X ONCE 04/08/19 16:00 04/08/19 17:59 DC Magnesium Sulfate/ Dextrose 100 ml @ 100 mls/hr 1X ONCE 04/05/19 16:00 04/05/19 16:59 DC 04/05/19 16:36 100 MLS/HR Morphine Sulfate (Morphine Ir) 15 mg PRN Q4HRS PRN 04/05/19 17:45 04/07/19 07:42 15 MG Ondansetron HCl (Zofran) 4 mg PRN Q4HRS PRN 04/07/19 13:00 04/07/19 13:13 4 MG Oseltamivir Phosphate (Tamiflu) 30 mg BID 04/08/19 10:00 04/13/19 09:59 04/09/19 08:32 30 MG Piperacillin Sod/ Tazobactam Sod 3.375 gm/Sodium Chloride 50 ml @ 100 mls/hr Q6HRS 04/08/19 12:00 04/09/19 06:06 100 MLS/HR Potassium Phosphate 13.3 mmol/Sodium Chloride 104.4333 ml @ 51.172 m... Q2H 04/07/19 10:00 04/07/19 15:59 DC 04/07/19 14:07 51.172 MLS/HR Potassium Chloride (Klor-Con) 20 meq 1X ONCE 04/06/19 15:00 04/06/19 15:01 DC 04/06/19 15:22 20 MEQ Ringer's Solution 1,000 ml @ 125 mls/hr Q8H 04/06/19 13:30 04/08/19 12:50 DC 04/07/19 14:07 125 MLS/HR Sodium Chloride 1,000 ml @ 100 mls/hr Q10H 04/06/19 00:00 04/06/19 13:22 DC 04/06/19 10:16 100 MLS/HR Tamsulosin HCl (Flomax) 0.4 mg QHS 04/07/19 21:00 04/08/19 21:21 0.4 MG Labs: Lab Laboratory Tests Test 04/08/19 10:25 04/08/19 11:58 04/08/19 17:02 04/08/19 20:41 Urine Collection Type Unknown Urine Color Yellow Urine Clarity Clear Urine pH 6.0 Urine Specific [place] 1.020 Urine Protein Negative mg/dL (NEG-TRACE) Urine Glucose (UA) 100 mg/dL (NEG) Urine Ketones (Stick) Negative mg/dL (NEG) Urine Blood Negative (NEG) Urine Nitrite Negative (NEG) Urine Bilirubin Negative (NEG) Urine Urobilinogen Dipstick 1.0 mg/dL (0.2 mg/dL) Urine Leukocyte Esterase Negative (NEG) Urine RBC 0 /HPF (0-2) Urine WBC Occ /HPF (0-4) Urine Squamous Epithelial Cells Few /LPF Urine Bacteria Few /HPF (0-FEW) Glucose (Fingerstick) 98 mg/dL (70-99) 109 mg/dL (70-99) 102 mg/dL (70-99) Test 04/09/19 06:10 04/09/19 07:55 White Blood Count 3.2 x10^3/uL (4.0-11.0) Red Blood Count 4.66 x10^6/uL (4.30-5.70) Hemoglobin 14.9 g/dL (13.0-17.5) Hematocrit 42.9 % (39.0-53.0) Mean Corpuscular Volume 92 fL (79-100) Mean Corpuscular Hemoglobin 32 pg (25-35) Mean Corpuscular Hemoglobin Concent 35 g/dL (31-37) Red Cell Distribution Width 14.7 % (11.5-14.5) Platelet Count 153 x10^3/uL (140-400) Neutrophils (%) (Auto) 64 % (31-73) Lymphocytes (%) (Auto) 22 % (24-48) Monocytes (%) (Auto) 14 % (0-9) Eosinophils (%) (Auto) 1 % (0-3) Basophils (%) (Auto) 0 % (0-3) Neutrophils # (Auto) 2.0 x10^3/uL (1.8-7.7) Lymphocytes # (Auto) 0.7 x10^3/uL (1.0-4.8) Monocytes # (Auto) 0.4 x10^3/uL (0.0-1.1) Eosinophils # (Auto) 0.0 x10^3/uL (0.0-0.7) Basophils # (Auto) 0.0 x10^3/uL (0.0-0.2) Sodium Level 138 mmol/L (136-145) Potassium Level 3.6 mmol/L (3.5-5.1) Chloride Level 104 mmol/L (98-107) Carbon Dioxide Level 26 mmol/L (21-32) Anion Gap 8 (6-14) Blood Urea Nitrogen 13 mg/dL (8-26) Creatinine 1.4 mg/dL (0.7-1.3) Estimated GFR (Cockcroft-Gault) 50.2 BUN/Creatinine Ratio 9 (6-20) Glucose Level 109 mg/dL (70-99) Calcium Level 8.2 mg/dL (8.5-10.1) Phosphorus Level 2.3 mg/dL (2.6-4.7) Magnesium Level 2.0 mg/dL (1.8-2.4) Total Bilirubin 0.4 mg/dL (0.2-1.0) Aspartate Amino Transf (AST/SGOT) 37 U/L (15-37) Alanine Aminotransferase (ALT/SGPT) 43 U/L (16-63) Alkaline Phosphatase 53 U/L (46-116) Creatine Kinase 204 U/L (39-308) Total Protein 6.7 g/dL (6.4-8.2) Albumin 3.2 g/dL (3.4-5.0) Albumin/Globulin Ratio 0.9 (1.0-1.7) Glucose (Fingerstick) 108 mg/dL (70-99) Objective: Assessment: Febrile illness Viral vs other ,flu screen neg ,pattern improving sore throat leucopenia Rhabdomyolysis dizziness and chestpain w/u neg Headache JOSEPH over CKD DM2 urinary retention now improving abdominal bloating and fullness,ct abdo unrevealing Plan: Plan of Care Cont zosyn,will dc soon tamiflu renal dosing rvp not available at this center f/u cults strep screen, monospot cont supportive care f/u cults and labs in am d/w YOUSIF Lepe MD Apr 09, 2019 08:34
[2019-04-09 10:43] LABS: MONONUCLEOSIS PATIENT NEGATIVE (NEGATIVE)
[2019-04-09 11:00] VITALS: BP 145/68
--- NOTE | 2019-04-09 12:25 | PDOC ---
[employer] PROGRESS NOTE Chief Complaint Chief Complaint Acute chest pain Acute myalgia secondary to statin DM BPH Dizziness Acute vasomotor nephropathy and ATN , Chronic kidney disease stage III presumed diabetic hypertensive nephrosclerosis: Obese, BMI 34 History of Present Illness History of Present Illness 04/09/19 Pt seen and examined at bedside with DANA MOORE RN Vitals/I&O Vitals/I&O: Vital Signs Date Time Temp Pulse Resp B/P (MAP) Pulse Ox O2 Delivery O2 Flow Rate FiO2 04/09/19 11:00 99.3 68 18 145/68 (93) 97 Room Air 99.3 04/09/19 08:00 2.0 I & O 04/08/19 04/08/19 04/09/19 15:00 23:00 07:00 Intake Total 200 ml Output Total 925 ml 575 ml Balance -925 ml -575 ml 200 ml Physical Exam General: Alert, Oriented X3, Cooperative, No acute distress, mild distress Heart: Regular rate (SR/SB), Normal S1, Normal S2, No murmurs Lungs: Clear Abdomen: Normal bowel sounds, Soft, No tenderness Extremities: No clubbing, No cyanosis, No edema Skin: No significant lesion Labs Labs: Laboratory Tests Test 04/08/19 17:02 04/08/19 20:41 04/09/19 06:10 04/09/19 07:55 Glucose (Fingerstick) 109 mg/dL (70-99) 102 mg/dL (70-99) 108 mg/dL (70-99) White Blood Count 3.2 x10^3/uL (4.0-11.0) Red Blood Count 4.66 x10^6/uL (4.30-5.70) Hemoglobin 14.9 g/dL (13.0-17.5) Hematocrit 42.9 % (39.0-53.0) Mean Corpuscular Volume 92 fL (79-100) Mean Corpuscular Hemoglobin 32 pg (25-35) Mean Corpuscular Hemoglobin Concent 35 g/dL (31-37) Red Cell Distribution Width 14.7 % (11.5-14.5) Platelet Count 153 x10^3/uL (140-400) Neutrophils (%) (Auto) 64 % (31-73) Lymphocytes (%) (Auto) 22 % (24-48) Monocytes (%) (Auto) 14 % (0-9) Eosinophils (%) (Auto) 1 % (0-3) Basophils (%) (Auto) 0 % (0-3) Neutrophils # (Auto) 2.0 x10^3/uL (1.8-7.7) Lymphocytes # (Auto) 0.7 x10^3/uL (1.0-4.8) Monocytes # (Auto) 0.4 x10^3/uL (0.0-1.1) Eosinophils # (Auto) 0.0 x10^3/uL (0.0-0.7) Basophils # (Auto) 0.0 x10^3/uL (0.0-0.2) Sodium Level 138 mmol/L (136-145) Potassium Level 3.6 mmol/L (3.5-5.1) Chloride Level 104 mmol/L (98-107) Carbon Dioxide Level 26 mmol/L (21-32) Anion Gap 8 (6-14) Blood Urea Nitrogen 13 mg/dL (8-26) Creatinine 1.4 mg/dL (0.7-1.3) Estimated GFR (Cockcroft-Gault) 50.2 BUN/Creatinine Ratio 9 (6-20) Glucose Level 109 mg/dL (70-99) Calcium Level 8.2 mg/dL (8.5-10.1) Phosphorus Level 2.3 mg/dL (2.6-4.7) Magnesium Level 2.0 mg/dL (1.8-2.4) Total Bilirubin 0.4 mg/dL (0.2-1.0) Aspartate Amino Transf (AST/SGOT) 37 U/L (15-37) Alanine Aminotransferase (ALT/SGPT) 43 U/L (16-63) Alkaline Phosphatase 53 U/L (46-116) Creatine Kinase 204 U/L (39-308) Total Protein 6.7 g/dL (6.4-8.2) Albumin 3.2 g/dL (3.4-5.0) Albumin/Globulin Ratio 0.9 (1.0-1.7) Heterophil Agglutinins Negative (NEGATIVE) Test 04/09/19 09:50 04/09/19 11:21 Group A Streptococcus Rapid Negative (NEGATIVE) Glucose (Fingerstick) 139 mg/dL (70-99) Review of Systems Review of Systems: C/O throat pain Denies JOSEPH Denies vision change Assessment and Plan Assessmemt and Plan Problems Medical Problems: (1) Acute chest pain Status: Acute (2) Acute on chronic renal insufficiency Status: Acute (3) ATN (acute tubular necrosis) Status: Acute (4) BPH (benign prostatic hyperplasia) Status: Chronic (5) Dizziness Status: Acute (6) DM2 (diabetes mellitus, type 2) Status: Chronic (7) HTN (hypertension) Status: Chronic (8) Hypothyroidism Status: Chronic (9) Myalgia Status: Acute (10) Renal insufficiency Status: Acute (11) Rhabdomyolysis Status: Acute (12) Vasomotor nephropathy Status: Acute Assessment Acute chest pain Acute myalgia secondary to statin DM BPH Dizziness Acute vasomotor nephropathy and ATN , Chronic kidney disease stage III presumed diabetic hypertensive nephrosclerosis: Obese, BMI 34 Plan IV ABX Fluids DVT prophylaxis Home meds PT/OT D/C home tomorrow once cleared with ID Comment Review of Relevant I have reviewed the following items aditya (where applicable) has been applied. Medications: Current Medications Medications (Trade) Dose Ordered Sig/Xuan Route PRN Reason Start Time Stop Time Status Last Admin Dose Admin Lactobacillus Rhamnosus (Culturelle) 1 cap BID PO 04/08/19 21:00 04/09/19 08:32 CARMEL CADET III DO Apr 09, 2019 12:24
--- NOTE | 2019-04-09 13:24 | PDOC ---
Renal-Progress Notes Subjective Notes Notes NONE History of Present Illness Hx of present illness STABLE Vitals Vitals Vital Signs Date Time Temp Pulse Resp B/P (MAP) Pulse Ox O2 Delivery O2 Flow Rate FiO2 04/09/19 11:00 99.3 68 18 145/68 (93) 97 Room Air 99.3 04/09/19 08:00 2.0 Weight Weight [ ] I.O. Intake and Output Intake and Output 04/09/19 06:59 Intake Total 200 ml Output Total 1500 ml Balance -1300 ml Intake Oral 200 ml Output Urine Total 1500 ml Labs Labs Laboratory Tests Test 04/08/19 17:02 04/08/19 20:41 04/09/19 06:10 04/09/19 07:55 Glucose (Fingerstick) 109 mg/dL (70-99) 102 mg/dL (70-99) 108 mg/dL (70-99) White Blood Count 3.2 x10^3/uL (4.0-11.0) Red Blood Count 4.66 x10^6/uL (4.30-5.70) Hemoglobin 14.9 g/dL (13.0-17.5) Hematocrit 42.9 % (39.0-53.0) Mean Corpuscular Volume 92 fL (79-100) Mean Corpuscular Hemoglobin 32 pg (25-35) Mean Corpuscular Hemoglobin Concent 35 g/dL (31-37) Red Cell Distribution Width 14.7 % (11.5-14.5) Platelet Count 153 x10^3/uL (140-400) Neutrophils (%) (Auto) 64 % (31-73) Lymphocytes (%) (Auto) 22 % (24-48) Monocytes (%) (Auto) 14 % (0-9) Eosinophils (%) (Auto) 1 % (0-3) Basophils (%) (Auto) 0 % (0-3) Neutrophils # (Auto) 2.0 x10^3/uL (1.8-7.7) Lymphocytes # (Auto) 0.7 x10^3/uL (1.0-4.8) Monocytes # (Auto) 0.4 x10^3/uL (0.0-1.1) Eosinophils # (Auto) 0.0 x10^3/uL (0.0-0.7) Basophils # (Auto) 0.0 x10^3/uL (0.0-0.2) Sodium Level 138 mmol/L (136-145) Potassium Level 3.6 mmol/L (3.5-5.1) Chloride Level 104 mmol/L (98-107) Carbon Dioxide Level 26 mmol/L (21-32) Anion Gap 8 (6-14) Blood Urea Nitrogen 13 mg/dL (8-26) Creatinine 1.4 mg/dL (0.7-1.3) Estimated GFR (Cockcroft-Gault) 50.2 BUN/Creatinine Ratio 9 (6-20) Glucose Level 109 mg/dL (70-99) Calcium Level 8.2 mg/dL (8.5-10.1) Phosphorus Level 2.3 mg/dL (2.6-4.7) Magnesium Level 2.0 mg/dL (1.8-2.4) Total Bilirubin 0.4 mg/dL (0.2-1.0) Aspartate Amino Transf (AST/SGOT) 37 U/L (15-37) Alanine Aminotransferase (ALT/SGPT) 43 U/L (16-63) Alkaline Phosphatase 53 U/L (46-116) Creatine Kinase 204 U/L (39-308) Total Protein 6.7 g/dL (6.4-8.2) Albumin 3.2 g/dL (3.4-5.0) Albumin/Globulin Ratio 0.9 (1.0-1.7) Heterophil Agglutinins Negative (NEGATIVE) Test 04/09/19 09:50 04/09/19 11:21 Group A Streptococcus Rapid Negative (NEGATIVE) Glucose (Fingerstick) 139 mg/dL (70-99) Micro Micro Microbiology 04/08/19 Blood Culture - Preliminary, Resulted NO GROWTH AFTER 1 DAY Physical Exam General Appearance: no apparent distress Skin: warm Respiratory: decreased breath sounds Heart: S1S2 Abdomen: soft, bowel sounds present Genitourinary: bladder flat Extremities: pulses present Neurology: alert Musculoskeletal: Osteoarthritis Assessment Assessment IMP JOSEPH-IMPROVED WITH CR DOWN TO 1.4 PROB CKD STAGE 3 RIGHT HYDRO-POSSIBLY CHRONIC DM II HTN PLAN AGREE WITH UROLOGY SUGGESTION WILL SIGN OFF PLEASE CALL IF NEEDED KLAUDIA LEONARD MD Apr 09, 2019 13:24
[2019-04-09 15:00] VITALS: BP 173/66
[2019-04-09] MEDS: ACETAMINOPHEN 500 MG TABLET PO PRN (15:43)
[2019-04-09] MEDS ORDERED: TRIAMCINOLONE ACETONIDE 0.1% TOPICAL OINTMENT 15GM TUBE. TP PRN (15:45)
[2019-04-09] MEDS ORDERED: ACETAMINOPHEN 325 MG TABLET. PO PRN (15:45)
[2019-04-09 18:58] VITALS: BP 138/66
--- NOTE | 2019-04-09 19:50 | NUR ---
pt in bed assessment completed vss poc explained pt c/o powell and generalized body aches.Will medicate pt and continue to monitor pt call light [id number] in reach.
[2019-04-09] MEDS: OSELTAMIVIR 75 MG CAPSULE PO SCH (20:49)
[2019-04-09] MEDS: GABAPENTIN 300 MG CAPSULE. PO SCH (20:49)
[2019-04-09] MEDS: TAMSULOSIN 0.4 MG CAP.ER.24H. PO SCH (20:49)
[2019-04-09] MEDS: NAPROXEN 500 MG TABLET PO SCH (20:49)
[2019-04-09] MEDS: ATORVASTATIN CALCIUM 40 MG TABLET. PO SCH (20:49)
[2019-04-09 22:58] VITALS: BP 175/83
[2019-04-09] MEDS: hydrALAZINE 20 MG/ML VIAL. IVP PRN (23:11)
[2019-04-10] VITALS (7 sets, daily range): BP systolic 115–159; BP diastolic 58–77
[2019-04-10] MEDS: PIPERACILLIN/TAZOBACTAM 3.375 GM in IV NORMAL SALINE 50ML 50 ML IV SCH ×2 (00:38→06:06)
[2019-04-10 03:33] LABS: ALBUMIN 2.9 g/dL (3.4-5.0); CALCIUM 8.1 mg/dL (8.5-10.1); CREATININE 1.6 mg/dL (0.7-1.3); GFR 43.1; MAGNESIUM 1.8 mg/dL (1.8-2.4); PHOSPHORUS 2.9 mg/dL (2.6-4.7); POTASSIUM 3.7 mmol/L (3.5-5.1)
[2019-04-10] MEDS: PANTOPRAZOLE 40 MG TABLET.DR. PO SCH (06:05)
[2019-04-10] MEDS: LEVOTHYROXINE 50 MCG TABLET PO SCH (06:05)
--- NOTE | 2019-04-10 08:03 | PDOC ---
Infectious Disease Note Subjective: Subjective pt feels better today had temp of 101 last pm no sore throat weakness is improving some intermitent headache some diarrha no nausea, vomiting achiness has improved ROS: ROS Negative otherwise. Vital Signs: Vital Signs Vital Signs Date Time Temp Pulse Resp B/P (MAP) Pulse Ox O2 Delivery O2 Flow Rate FiO2 04/10/19 07:42 98.2 60 18 116/60 (78) 90 Room Air 98.2 04/09/19 08:00 2.0 Physical Exam: PHYSICAL EXAM GENERAL: Alert, oriented male lying in bed comfortably, in nad HEENT: Normocephalic, atraumatic, anicteric. Pupils equal, reactive. Extraocular movements intact. No thrush. Oral mucosa moist. NECK: Supple, no JVD. LUNGS: Clear bilaterally. No wheezing. HEART: S1, S2. No gallops or murmurs. ABDOMEN: Soft, nontender, nondistended, no rebound, no guarding. EXTREMITIES: No edema, no cyanosis, no clubbing. NEUROLOGIC: Alert and oriented x 3, grossly nonfocal. PSYCHIATRIC: Cooperative, appropriate mood and affect. DERMATOLOGIC: Warm and dry. No generalized rash. SINUS: No tenderness over the frontal maxillary area. Medications: Inpatient Meds: Current Medications Medications (Trade) Dose Ordered Sig/Xuan Start Time Stop Time Status Last Admin Dose Admin Acetaminophen (Tylenol) 650 mg PRN Q6HRS PRN 04/09/19 15:45 Aspirin (Children'S Aspirin) 324 mg 1X ONCE 04/05/19 12:30 04/05/19 12:31 DC 04/05/19 12:42 243 MG Aspirin (Ecotrin) 81 mg DAILY 04/10/19 09:00 Cancel Atorvastatin Calcium (Lipitor) 40 mg HS 04/09/19 21:00 04/09/19 20:50 40 MG Fentanyl Citrate (Fentanyl 2ml Vial) 50 mcg PRN Q2HR PRN 04/05/19 17:15 04/05/19 17:33 50 MCG Gabapentin (Neurontin) 600 mg HS 04/09/19 21:00 04/09/19 20:50 600 MG Glimepiride (Amaryl) 2 mg DAILY 04/10/19 09:00 Hydralazine HCl (Apresoline Inj) 10 mg PRN Q4HRS PRN 04/05/19 16:00 04/09/19 23:11 10 MG Hydrochlorothiazide (Hydrodiuril) 25 mg DAILY 04/10/19 09:00 Lactobacillus Rhamnosus (Culturelle) 1 cap BID 04/08/19 21:00 04/09/19 20:50 1 CAP Levothyroxine Sodium (Synthroid) 50 mcg DAILY06 04/10/19 06:00 04/10/19 06:06 50 MCG Losartan Potassium (Cozaar) 100 mg DAILY 04/10/19 09:00 Magnesium Sulfate 50 ml @ 25 mls/hr 1X ONCE 04/08/19 16:00 04/08/19 17:59 DC Magnesium Sulfate/ Dextrose 100 ml @ 100 mls/hr 1X ONCE 04/05/19 16:00 04/05/19 16:59 DC 04/05/19 16:36 100 MLS/HR Morphine Sulfate (Morphine Ir) 15 mg PRN Q4HRS PRN 04/05/19 17:45 04/07/19 07:42 15 MG Naproxen (Naprosyn) 500 mg BID 04/09/19 21:00 04/09/19 20:50 500 MG Ondansetron HCl (Zofran) 4 mg PRN Q4HRS PRN 04/07/19 13:00 04/07/19 13:13 4 MG Oseltamivir Phosphate (Tamiflu) 75 mg BID 04/09/19 21:00 04/13/19 09:59 04/09/19 20:50 75 MG Pantoprazole Sodium (Protonix) 40 mg DAILYAC 04/10/19 07:30 04/10/19 06:06 40 MG Piperacillin Sod/ Tazobactam Sod 3.375 gm/Sodium Chloride 50 ml @ 100 mls/hr Q6HRS 04/08/19 12:00 04/10/19 06:06 100 MLS/HR Potassium Phosphate 13.3 mmol/Sodium Chloride 104.4333 ml @ 51.172 m... Q2H 04/07/19 10:00 04/07/19 15:59 DC 04/07/19 14:07 51.172 MLS/HR Potassium Chloride (Klor-Con) 20 meq 1X ONCE 04/06/19 15:00 04/06/19 15:01 DC 04/06/19 15:22 20 MEQ Potassium Citrate (Urocit-K) 10 meq DAILY 04/10/19 09:00 Ringer's Solution 1,000 ml @ 125 mls/hr Q8H 04/06/19 13:30 04/08/19 12:50 DC 04/07/19 14:07 125 MLS/HR Sodium Chloride 1,000 ml @ 100 mls/hr Q10H 04/06/19 00:00 04/06/19 13:22 DC 04/06/19 10:16 100 MLS/HR Tamsulosin HCl (Flomax) 0.4 mg QHS 04/07/19 21:00 04/09/19 20:50 0.4 MG Triamcinolone Acetonide (Kenalog 0.1%) 1 ben PRN BID PRN 04/09/19 15:45 Labs: Lab Laboratory Tests Test 04/09/19 09:50 04/09/19 11:21 04/09/19 16:48 04/09/19 20:51 Group A Streptococcus Rapid Negative (NEGATIVE) Glucose (Fingerstick) 139 mg/dL (70-99) 105 mg/dL (70-99) 109 mg/dL (70-99) Test 04/10/19 02:55 04/10/19 07:53 Sodium Level 141 mmol/L (136-145) Potassium Level 3.7 mmol/L (3.5-5.1) Chloride Level 105 mmol/L (98-107) Carbon Dioxide Level 24 mmol/L (21-32) Anion Gap 12 (6-14) Blood Urea Nitrogen 15 mg/dL (8-26) Creatinine 1.6 mg/dL (0.7-1.3) Estimated GFR (Cockcroft-Gault) 43.1 Glucose Level 123 mg/dL (70-99) Calcium Level 8.1 mg/dL (8.5-10.1) Phosphorus Level 2.9 mg/dL (2.6-4.7) Magnesium Level 1.8 mg/dL (1.8-2.4) Creatine Kinase 173 U/L (39-308) Albumin 2.9 g/dL (3.4-5.0) Glucose (Fingerstick) 115 mg/dL (70-99) Objective: Assessment: Febrile illness Viral vs other ,flu screen neg ,pattern improving sore throat resolved, strep screen and mono neg leucopenia Rhabdomyolysis dizziness and chestpain w/u neg Headache JOSEPH over CKD, worse today, ? diuretics DM2 urinary retention now improving abdominal bloating and fullness,ct abdo unrevealing,improved diarrhea Plan: Plan of Care dc zosyn cbc today tamiflu renal dosing to complete course rvp not available at this center f/u cults strep screen, monospot neg check c diff pcr cont supportive care f/u cults and labs in am possibly dc home tomorrow d/w YOUSIF Lepe MD Apr 10, 2019 08:03
[2019-04-10] MEDS: ACETAMINOPHEN 500 MG TABLET PO PRN (08:31)
[2019-04-10] MEDS: POTASSIUM CITRATE 10 MEQ TABLET.ER PO SCH (08:32)
[2019-04-10] MEDS: ASPIRIN ENTERIC COATED 81 MG TABLET.DR. PO SCH (08:32)
[2019-04-10] MEDS: LACTOBACILLUS RHAMNOSUS GG 1 CAPSULE. PO SCH ×2 (08:32→20:53)
[2019-04-10] MEDS: LOSARTAN POTASSIUM 50 MG TABLET. PO SCH (08:33)
[2019-04-10] MEDS: GLIMEPIRIDE 2 MG TABLET. PO SCH (09:00)
[2019-04-10] MEDS ORDERED: ASPIRIN ENTERIC COATED 81 MG TABLET.DR. PO SCH (09:00)
[2019-04-10] MEDS: NAPROXEN 500 MG TABLET PO SCH ×2 (09:00→20:53)
[2019-04-10] MEDS: hydroCHLOROthiazide 25 MG TABLET PO SCH (09:00)
[2019-04-10 09:19] LABS: BASO % 1 % (0-3); EOS % 1 % (0-3); HEMATOCRIT 44.5 % (39.0-53.0); HEMOGLOBIN 15.2 g/dL (13.0-17.5); LYMPH % 33 % (24-48); MEAN CORPUSCULAR HEMOGLOBIN 32 pg (25-35); MEAN CORPUSCULAR HGB CONC 34 g/dL (31-37); MEAN CORPUSCULAR VOLUME 93 fL (79-100); MONO # 0.4 x10^3/uL (0.0-1.1); MONO % 12 % (0-9); NEUT # 1.6 x10^3/uL (1.8-7.7); NEUT % 54 % (31-73); PLATELET COUNT 144 x10^3/uL (140-400); RED BLOOD COUNT 4.79 x10^6/uL (4.30-5.70); RED CELL DISTRIBUTION WIDTH 15.3 % (11.5-14.5)
[2019-04-10] MEDS: OSELTAMIVIR 75 MG CAPSULE PO SCH ×2 (09:55→20:53)
--- NOTE | 2019-04-10 11:32 | NUR ---
SS following up with discharge planning. Pt is currently on room air. No discharge needs noted at this time. SS will continue to follow for discharge planning.
--- NOTE | 2019-04-10 13:35 | PDOC ---
[employer] PROGRESS NOTE Chief Complaint Chief Complaint Acute chest pain Acute myalgia secondary to statin DM BPH Dizziness Acute vasomotor nephropathy and ATN , Chronic kidney disease stage III presumed diabetic hypertensive nephrosclerosis: Obese, BMI 34 History of Present Illness History of Present Illness 04/10/19 Pt seen and examined at bedside Resting comfortably with DANA MOORE RN 04/09/19 Pt seen and examined at bedside with DANA MOORE RN Vitals/I&O Vitals/I&O: Vital Signs Date Time Temp Pulse Resp B/P (MAP) Pulse Ox O2 Delivery O2 Flow Rate FiO2 04/10/19 11:22 98.6 61 18 140/62 (88) 94 Room Air 98.6 04/10/19 08:00 2.0 I & O 04/09/19 04/09/19 04/10/19 15:00 23:00 07:00 Intake Total 480 ml 120 ml 200 ml Output Total 400 ml Balance 80 ml 120 ml 200 ml Physical Exam Physical Exam: GENERAL: Alert, oriented male lying in bed comfortably, in nad HEENT: Normocephalic, atraumatic, anicteric. Pupils equal, reactive. Extraocular movements intact. No thrush. Oral mucosa moist. NECK: Supple, no JVD. LUNGS: Clear bilaterally. No wheezing. HEART: S1, S2. No gallops or murmurs. ABDOMEN: Soft, nontender, nondistended, no rebound, no guarding. EXTREMITIES: No edema, no cyanosis, no clubbing. NEUROLOGIC: Alert and oriented x 3, grossly nonfocal. PSYCHIATRIC: Cooperative, appropriate mood and affect. DERMATOLOGIC: Warm and dry. No generalized rash. SINUS: No tenderness over the frontal maxillary area. General: Alert, Oriented X3, Cooperative, No acute distress, mild distress Heart: Regular rate (SR/SB), Normal S1, Normal S2, No murmurs Lungs: Clear Abdomen: Normal bowel sounds, Soft, No tenderness Extremities: No clubbing, No cyanosis, No edema Skin: No rashes, No significant lesion Labs Labs: Laboratory Tests Test 04/09/19 16:48 04/09/19 20:51 04/10/19 02:55 04/10/19 07:53 Glucose (Fingerstick) 105 mg/dL (70-99) 109 mg/dL (70-99) 115 mg/dL (70-99) White Blood Count 3.0 x10^3/uL (4.0-11.0) Red Blood Count 4.79 x10^6/uL (4.30-5.70) Hemoglobin 15.2 g/dL (13.0-17.5) Hematocrit 44.5 % (39.0-53.0) Mean Corpuscular Volume 93 fL (79-100) Mean Corpuscular Hemoglobin 32 pg (25-35) Mean Corpuscular Hemoglobin Concent 34 g/dL (31-37) Red Cell Distribution Width 15.3 % (11.5-14.5) Platelet Count 144 x10^3/uL (140-400) Neutrophils (%) (Auto) 54 % (31-73) Lymphocytes (%) (Auto) 33 % (24-48) Monocytes (%) (Auto) 12 % (0-9) Eosinophils (%) (Auto) 1 % (0-3) Basophils (%) (Auto) 1 % (0-3) Neutrophils # (Auto) 1.6 x10^3/uL (1.8-7.7) Lymphocytes # (Auto) 1.0 x10^3/uL (1.0-4.8) Monocytes # (Auto) 0.4 x10^3/uL (0.0-1.1) Eosinophils # (Auto) 0.0 x10^3/uL (0.0-0.7) Basophils # (Auto) 0.0 x10^3/uL (0.0-0.2) Sodium Level 141 mmol/L (136-145) Potassium Level 3.7 mmol/L (3.5-5.1) Chloride Level 105 mmol/L (98-107) Carbon Dioxide Level 24 mmol/L (21-32) Anion Gap 12 (6-14) Blood Urea Nitrogen 15 mg/dL (8-26) Creatinine 1.6 mg/dL (0.7-1.3) Estimated GFR (Cockcroft-Gault) 43.1 Glucose Level 123 mg/dL (70-99) Calcium Level 8.1 mg/dL (8.5-10.1) Phosphorus Level 2.9 mg/dL (2.6-4.7) Magnesium Level 1.8 mg/dL (1.8-2.4) Creatine Kinase 173 U/L (39-308) Albumin 2.9 g/dL (3.4-5.0) Test 04/10/19 11:44 Glucose (Fingerstick) 118 mg/dL (70-99) Review of Systems Review of Systems: Denies JOSEPH Denies vision change Assessment and Plan Assessmemt and Plan Problems Medical Problems: (1) Acute chest pain Status: Acute (2) Acute on chronic renal insufficiency Status: Acute (3) ATN (acute tubular necrosis) Status: Acute (4) BPH (benign prostatic hyperplasia) Status: Chronic (5) Dizziness Status: Acute (6) DM2 (diabetes mellitus, type 2) Status: Chronic (7) HTN (hypertension) Status: Chronic (8) Hypothyroidism Status: Chronic (9) Myalgia Status: Acute (10) Renal insufficiency Status: Acute (11) Rhabdomyolysis Status: Acute (12) Vasomotor nephropathy Status: Acute Assessment Acute chest pain Acute myalgia secondary to statin DM BPH Dizziness Acute vasomotor nephropathy and ATN , Chronic kidney disease stage III presumed diabetic hypertensive nephrosclerosis: Obese, BMI 34 Plan Cardiac monitoring Fluids IV ABX Home meds PT/OT DVT prophylaxis D/C home tomorrow once cleared with ID Comment Review of Relevant I have reviewed the following items aditya (where applicable) has been applied. Medications: Current Medications Medications (Trade) Dose Ordered Sig/Xuan Route PRN Reason Start Time Stop Time Status Last Admin Dose Admin Oseltamivir Phosphate (Tamiflu) 75 mg BID PO 04/09/19 21:00 04/13/19 09:59 04/10/19 09:55 Atorvastatin Calcium (Lipitor) 40 mg HS PO 04/09/19 21:00 04/09/19 20:50 Gabapentin (Neurontin) 600 mg HS PO 04/09/19 21:00 04/09/19 20:50 Levothyroxine Sodium (Synthroid) 50 mcg DAILY06 PO 04/10/19 06:00 04/10/19 06:06 Naproxen (Naprosyn) 500 mg BID PO 04/09/19 21:00 04/09/19 20:50 Potassium Citrate (Urocit-K) 10 meq DAILY PO 04/10/19 09:00 04/10/19 08:33 Losartan Potassium (Cozaar) 100 mg DAILY PO 04/10/19 09:00 04/10/19 08:33 Pantoprazole Sodium (Protonix) 40 mg DAILYAC PO 04/10/19 07:30 04/10/19 06:06 CARMEL CADET III DO Apr 10, 2019 13:35
[2019-04-10] MEDS: GABAPENTIN 300 MG CAPSULE. PO SCH (20:53)
[2019-04-10] MEDS: TAMSULOSIN 0.4 MG CAP.ER.24H. PO SCH (20:53)
[2019-04-10] MEDS: ATORVASTATIN CALCIUM 40 MG TABLET. PO SCH (20:54)
[2019-04-11 03:00] VITALS: BP 131/73
[2019-04-11] MEDS: LEVOTHYROXINE 50 MCG TABLET PO SCH (06:17)
[2019-04-11 07:00] VITALS: BP 140/62
--- NOTE | 2019-04-11 07:48 | PDOC ---
Infectious Disease Note Subjective: Subjective pt feels better today no fevers, eager for dc home today no sore throat/headache/ nausea/vomiting some diarrhea Achiness has resolved ROS: ROS Negative otherwise. Vital Signs: Vital Signs Vital Signs Date Time Temp Pulse Resp B/P (MAP) Pulse Ox O2 Delivery O2 Flow Rate FiO2 04/11/19 03:00 98.8 59 20 131/73 (92) 94 Room Air 98.8 04/10/19 08:00 2.0 Physical Exam: PHYSICAL EXAM GENERAL: Alert, oriented male lying in bed comfortably, in nad HEENT: Normocephalic, atraumatic, anicteric. Pupils equal, reactive. Extraocular movements intact. No thrush. Oral mucosa moist. NECK: Supple, no JVD. LUNGS: Clear bilaterally. No wheezing. HEART: S1, S2. No gallops or murmurs. ABDOMEN: Soft, nontender, nondistended, no rebound, no guarding. EXTREMITIES: No edema, no cyanosis, no clubbing. NEUROLOGIC: Alert and oriented x 3, grossly nonfocal. PSYCHIATRIC: Cooperative, appropriate mood and affect. DERMATOLOGIC: Warm and dry. No generalized rash. SINUS: No tenderness over the frontal maxillary area. Medications: Inpatient Meds: Current Medications Medications (Trade) Dose Ordered Sig/Xuan Start Time Stop Time Status Last Admin Dose Admin Acetaminophen (Tylenol) 650 mg PRN Q6HRS PRN 04/09/19 15:45 Aspirin (Children'S Aspirin) 324 mg 1X ONCE 04/05/19 12:30 04/05/19 12:31 DC 04/05/19 12:42 243 MG Aspirin (Ecotrin) 81 mg DAILY 04/10/19 09:00 Cancel Atorvastatin Calcium (Lipitor) 40 mg HS 04/09/19 21:00 04/10/19 20:54 40 MG Fentanyl Citrate (Fentanyl 2ml Vial) 50 mcg PRN Q2HR PRN 04/05/19 17:15 04/05/19 17:33 50 MCG Gabapentin (Neurontin) 600 mg HS 04/09/19 21:00 04/10/19 20:54 600 MG Glimepiride (Amaryl) 2 mg DAILY 04/10/19 09:00 Hydralazine HCl (Apresoline Inj) 10 mg PRN Q4HRS PRN 04/05/19 16:00 04/09/19 23:11 10 MG Hydrochlorothiazide (Hydrodiuril) 25 mg DAILY 04/10/19 09:00 Lactobacillus Rhamnosus (Culturelle) 1 cap BID 04/08/19 21:00 04/10/19 20:54 1 CAP Levothyroxine Sodium (Synthroid) 50 mcg DAILY06 04/10/19 06:00 04/11/19 06:17 50 MCG Losartan Potassium (Cozaar) 100 mg DAILY 04/10/19 09:00 04/10/19 08:33 100 MG Magnesium Sulfate 50 ml @ 25 mls/hr 1X ONCE 04/08/19 16:00 04/08/19 17:59 DC Magnesium Sulfate/ Dextrose 100 ml @ 100 mls/hr 1X ONCE 04/05/19 16:00 04/05/19 16:59 DC 04/05/19 16:36 100 MLS/HR Morphine Sulfate (Morphine Ir) 15 mg PRN Q4HRS PRN 04/05/19 17:45 04/07/19 07:42 15 MG Naproxen (Naprosyn) 500 mg BID 04/09/19 21:00 04/10/19 20:54 500 MG Ondansetron HCl (Zofran) 4 mg PRN Q4HRS PRN 04/07/19 13:00 04/07/19 13:13 4 MG Oseltamivir Phosphate (Tamiflu) 75 mg BID 04/09/19 21:00 04/13/19 09:59 04/10/19 20:54 75 MG Pantoprazole Sodium (Protonix) 40 mg DAILYAC 04/10/19 07:30 04/10/19 06:06 40 MG Piperacillin Sod/ Tazobactam Sod 3.375 gm/Sodium Chloride 50 ml @ 100 mls/hr Q6HRS 04/08/19 12:00 04/10/19 09:03 DC 04/10/19 06:06 100 MLS/HR Potassium Phosphate 13.3 mmol/Sodium Chloride 104.4333 ml @ 51.172 m... Q2H 04/07/19 10:00 04/07/19 15:59 DC 04/07/19 14:07 51.172 MLS/HR Potassium Chloride (Klor-Con) 20 meq 1X ONCE 04/06/19 15:00 04/06/19 15:01 DC 04/06/19 15:22 20 MEQ Potassium Citrate (Urocit-K) 10 meq DAILY 04/10/19 09:00 04/10/19 08:33 10 MEQ Ringer's Solution 1,000 ml @ 125 mls/hr Q8H 04/06/19 13:30 04/08/19 12:50 DC 04/07/19 14:07 125 MLS/HR Sodium Chloride 1,000 ml @ 100 mls/hr Q10H 04/06/19 00:00 04/06/19 13:22 DC 04/06/19 10:16 100 MLS/HR Tamsulosin HCl (Flomax) 0.4 mg QHS 04/07/19 21:00 04/10/19 20:54 0.4 MG Triamcinolone Acetonide (Kenalog 0.1%) 1 ben PRN BID PRN 04/09/19 15:45 Labs: Lab Laboratory Tests Test 04/10/19 07:53 04/10/19 11:30 04/10/19 11:44 04/10/19 16:24 Glucose (Fingerstick) 115 mg/dL (70-99) 118 mg/dL (70-99) 132 mg/dL (70-99) Clostridium difficile Toxin B Gene Negative (Negative) Test 04/10/19 21:12 Glucose (Fingerstick) 111 mg/dL (70-99) Objective: Assessment: Febrile illness Viral vs other ,flu screen neg ,pattern improving sore throat resolved, strep screen and mono neg leucopenia from viral illness Rhabdomyolysis improved dizziness and chestpain w/u neg,resolved Headache resolved JOSEPH over CKD, DM2 urinary retention resolved abdominal bloating and fullness,ct abdo unrevealing,improved diarrhea improving c diff neg Plan: Plan of Care OK to dc home on tamiflu from id standpoint d/w YOUSIF Lepe MD Apr 11, 2019 07:48
[2019-04-11] MEDS: POTASSIUM CITRATE 10 MEQ TABLET.ER PO SCH (08:37)
[2019-04-11] MEDS: OSELTAMIVIR 75 MG CAPSULE PO SCH (08:38)
[2019-04-11] MEDS: PANTOPRAZOLE 40 MG TABLET.DR. PO SCH (08:38)
[2019-04-11] MEDS: NAPROXEN 500 MG TABLET PO SCH (08:38)
[2019-04-11] MEDS: GLIMEPIRIDE 2 MG TABLET. PO SCH (08:38)
[2019-04-11] MEDS: LOSARTAN POTASSIUM 50 MG TABLET. PO SCH (08:38)
[2019-04-11] MEDS: ASPIRIN ENTERIC COATED 81 MG TABLET.DR. PO SCH (08:38)
[2019-04-11] MEDS: LACTOBACILLUS RHAMNOSUS GG 1 CAPSULE. PO SCH (08:38)
[2019-04-11] MEDS: hydroCHLOROthiazide 25 MG TABLET PO SCH (08:40)
--- NOTE | 2019-04-11 09:32 | PDOC ---
[employer] PROGRESS NOTE Chief Complaint Chief Complaint Acute chest pain Acute myalgia secondary to statin DM BPH Dizziness Acute vasomotor nephropathy and ATN , Chronic kidney disease stage III presumed diabetic hypertensive nephrosclerosis: Obese, BMI 34 History of Present Illness History of Present Illness 04/11/19 Pt seen and examined at bedside with NAD Chart Reviewed TERESA JEAN 04/10/19 Pt seen and examined at bedside Resting comfortably with NAD TERESA JEAN 04/09/19 Pt seen and examined at bedside with DANA MOORE RN Vitals/I&O Vitals/I&O: Vital Signs Date Time Temp Pulse Resp B/P (MAP) Pulse Ox O2 Delivery O2 Flow Rate FiO2 04/11/19 08:41 63 140/62 04/11/19 07:00 98.0 18 92 Room Air 98.0 04/10/19 08:00 2.0 I & O 04/10/19 04/10/19 04/11/19 15:00 23:00 07:00 Intake Total 120 ml 120 ml 200 ml Output Total 300 ml 150 ml Balance -180 ml 120 ml 50 ml Physical Exam Physical Exam: GENERAL: Alert, oriented male lying in bed comfortably, in nad HEENT: Normocephalic, atraumatic, anicteric. Pupils equal, reactive. Extraocular movements intact. No thrush. Oral mucosa moist. NECK: Supple, no JVD. LUNGS: Clear bilaterally. No wheezing. HEART: S1, S2. No gallops or murmurs. ABDOMEN: Soft, nontender, nondistended, no rebound, no guarding. EXTREMITIES: No edema, no cyanosis, no clubbing. NEUROLOGIC: Alert and oriented x 3, grossly nonfocal. PSYCHIATRIC: Cooperative, appropriate mood and affect. DERMATOLOGIC: Warm and dry. No generalized rash. SINUS: No tenderness over the frontal maxillary area. General: Alert, Oriented X3, Cooperative, No acute distress, mild distress Heart: Regular rate (SR/SB), Normal S1, Normal S2, No murmurs Lungs: Clear Abdomen: Normal bowel sounds, Soft, No tenderness Extremities: No clubbing, No cyanosis, No edema Skin: No rashes, No significant lesion Labs Labs: Laboratory Tests Test 04/10/19 11:30 04/10/19 11:44 04/10/19 16:24 04/10/19 21:12 Clostridium difficile Toxin B Gene Negative (Negative) Glucose (Fingerstick) 118 mg/dL (70-99) 132 mg/dL (70-99) 111 mg/dL (70-99) Test 04/11/19 07:45 Glucose (Fingerstick) 112 mg/dL (70-99) Review of Systems Review of Systems: no co SOB no co chest pain Assessment and Plan Assessmemt and Plan Problems Medical Problems: (1) Acute chest pain Status: Acute (2) Acute on chronic renal insufficiency Status: Acute (3) ATN (acute tubular necrosis) Status: Acute (4) BPH (benign prostatic hyperplasia) Status: Chronic (5) Diarrhea Status: Acute (6) Dizziness Status: Acute (7) DM2 (diabetes mellitus, type 2) Status: Chronic (8) HTN (hypertension) Status: Chronic (9) Hypothyroidism Status: Chronic (10) Myalgia Status: Acute (11) Renal insufficiency Status: Acute (12) Rhabdomyolysis Status: Acute (13) Vasomotor nephropathy Status: Acute Assessment Acute chest pain Acute myalgia secondary to statin DM BPH Dizziness Acute vasomotor nephropathy and ATN , Chronic kidney disease stage III presumed diabetic hypertensive nephrosclerosis: Obese, BMI 34 Plan Probably Discharge today Fluids Home meds IV ABX PT/OT DVT prophylaxis Encouraged to f/u with PCP Comment Review of Relevant I have reviewed the following items aditya (where applicable) has been applied. CARMEL CADET III, DO Apr 11, 2019 09:32
[2019-04-11 09:42] LABS: ALBUMIN 3.2 g/dL (3.4-5.0); CALCIUM 7.9 mg/dL (8.5-10.1); CREATININE 1.4 mg/dL (0.7-1.3); GFR 50.2; MAGNESIUM 1.8 mg/dL (1.8-2.4); PHOSPHORUS 2.4 mg/dL (2.6-4.7); POTASSIUM 3.9 mmol/L (3.5-5.1)
[2019-04-11 11:00] VITALS: BP 127/69
--- NOTE | 2019-04-11 11:26 | SNU/HH DC ---
DISCHARGE WITH HOME HEALTH DISCHARGE INFORMATION: Final Diagnosis: Problems Medical Problems: (1) Acute chest pain Status: Acute (2) Acute on chronic renal insufficiency Status: Acute (3) ATN (acute tubular necrosis) Status: Acute (4) BPH (benign prostatic hyperplasia) Status: Chronic (5) Diarrhea Status: Acute (6) Dizziness Status: Acute (7) DM2 (diabetes mellitus, type 2) Status: Chronic (8) HTN (hypertension) Status: Chronic (9) Hypothyroidism Status: Chronic (10) Myalgia Status: Acute (11) Renal insufficiency Status: Acute (12) Rhabdomyolysis Status: Acute (13) Vasomotor nephropathy Status: Acute Condition on Discharge: Stable CODE STATUS: Code Status: Full HOME HEALTH: Face to Face: I certify this patient is under my care and that I, or a nurse practitioner or physician's conventions assistant working with me, had a face to face encounter that meets the physician face to face encounter requirements with this patient on []. Medical Complications: Other (dizziness) Mcfp For: Assess & Educate Safety RN For Eval/Treatment: Yes Physical Therapy For: Evalulation/Treatment Occupational Therapy For: Evaluation/Treatment Speech Language Pathology For: Evaluation/Treatment Home Health Aide For: Self-care 2ND PRESSMAN For: Community Resources Pt Meets Homebound Status: Poor coordination w/ amb. POST DISCHARGE ORDERS: Activity Instructions for Disc: Activity as tolerated Weight Bearing Status after Di: As tolerated Bathing Instructions: Shower-keep dressing dry DIET AFTER DISCHARGE: ADA Wound/Incision Care: Other, see below CHECKS AFTER DISCHARGE: Checks after discharge: Check blood press - daily TREATMENT/EQUIPMENT ORDERS: Adaptive Equipment Issued: None CERTIFICATION STATEMENT: Certification Statement: Certification Statement: Based on the above finding, I certify that this patient is confined to the home and needs intermittent senior care care, physical therapy and/or speech therapy, or continues to need occupational therapy.~ This patient is under my care, and I have initiated the establishment of the plan of care.~ This patient will be followed by myself or a community physician who will periodically review the plan of care. Home Meds Active Scripts Acetaminophen (TYLENOL) 325 Mg Tablet, 650 MG PO PRN Q6HRS PRN for PAIN for 30 Days, #30 TAB Prov:MINDY VERNON MD 12/29/17 Reported Medications Naproxen (NAPROXEN) 500 Mg Tablet, 1 TAB PO BID for Pain 9/6/19 Losartan/Hydrochlorothiazide (LOSARTAN-HCTZ 100-25 MG TAB) 1 Each Tablet, 1 TAB PO DAILY for htn, #30 TAB 5 Refills 09/07/18 Triamcinolone Acetonide (TRIAMCINOLONE ACETONIDE 0.1% OINT) 15 Gm Oint...g., 1 NICOLE TP BID PRN for ITCHING, #1 TUBE MIX WITH EUCERIN DIRECTED BY PHYSICIAN 09/07/18 Aspirin (ASPIRIN EC) 81 Mg Tablet.dr, 1 TAB PO DAILY for per list, #30 TAB 3 Refills 09/07/18 Glimepiride (GLIMEPIRIDE) 2 Mg Tablet, 2 MG PO DAILY 12/27/17 Atorvastatin Calcium (ATORVASTATIN CALCIUM) 40 Mg Tablet, 40 MG PO HS 12/27/17 Gabapentin (GABAPENTIN) 300 Mg Capsule, 600 MG PO HS 12/27/17 Potassium Citrate (POTASSIUM CITRATE) 10 Meq Tablet.er, 10 MEQ PO DAILY 12/27/17 Omeprazole (OMEPRAZOLE) 40 Mg Capsule.dr, 40 MG PO DAILYAC 12/27/17 Levothyroxine Sodium (LEVOTHYROXINE SODIUM) 50 Mcg Tablet, 50 MCG PO DAILY 12/27/17 CARMEL CADET III DO Apr 11, 2019 11:26
--- NOTE | 2019-04-11 13:56 | DS ---
DATE OF DISCHARGE: 04/11/2019 ADMISSION DIAGNOSES: Myalgias, chest pain, dizziness, neuropathy and acute tubular necrosis. DISCHARGE DIAGNOSES: Resolving rhabdomyolysis, resolving atypical chest pain, resolving dizziness, benign prostatic hypertrophy, diabetes, neuropathy, chronic kidney disease and obesity. CONSULTS: Dr. Hernandez, Infectious Disease, Dr. Price, Urology and Dr. Reyes, Cardiology. HOSPITAL COURSE: The patient is a pleasant elderly male who had some myalgias and chest pain. He was admitted. We noticed that he was in rhabdo with mild elevation of his CPK of 500. We thought that might be from statins. We did consult Cardiology, did a full cardiac workup, everything seems to be okay. We have started him on Flomax 0.4 daily for his BPH. I saw him and examined him today. His heart tones are normal. Lungs are clear. We plan to discharge. DISPOSITION: Home. ACTIVITY: As tolerated. DIET: Low sodium. MEDICATIONS: Please see the MRAD. TOTAL TIME: 34 minutes. CARMEL CADET DO DR: TOM/geovanna JOB#: [id number] / [id number]
--- NOTE | 2019-04-11 14:05 | NUR ---
Discharge Note: BONNIE HENSON 2 DEANE Discharge instructions and discharge home medications reviewed with Patient and a copy given. All questions have been answered and understanding verbalized. The following instructions and handouts were given: Stress Test Discontinued IV line Patient discharged to home with self care via wheelchair
== END 2019-04-11 14:06 | disposition home or self-care (01) | DRG 205 ==
LOC: ER 11:05 → 2 NORTH 12:28
PROVIDERS: ADMIT Internal Medicine; ATTEND Internal Medicine
DX: M94.0 Chondrocostal junction syndrome [Tietze] (principal); N17.0 Acute kidney failure with tubular necrosis; M62.82 Rhabdomyolysis; N13.30 Unspecified hydronephrosis; B34.9 Viral infection, unspecified; D72.819 Decreased white blood cell count, unspecified; E03.9 Hypothyroidism, unspecified; E11.22 Type 2 diabetes mellitus with diabetic chronic kidney disease; E11.40 Type 2 diabetes mellitus with diabetic neuropathy, unspecified; E66.9 Obesity, unspecified; E78.00 Pure hypercholesterolemia, unspecified; E78.5 Hyperlipidemia, unspecified; G25.81 Restless legs syndrome; I12.9 Hypertensive chronic kidney disease with stage 1 through stage 4 chronic kidney disease, or unspecified chronic kidney disease; K21.9 Gastro-esophageal reflux disease without esophagitis; K44.9 Diaphragmatic hernia without obstruction or gangrene; M19.90 Unspecified osteoarthritis, unspecified site; N40.1 Benign prostatic hyperplasia with lower urinary tract symptoms; F41.9 Anxiety disorder, unspecified; M54.9 Dorsalgia, unspecified; N18.3 Chronic kidney disease, stage 3 (moderate); R39.14 Feeling of incomplete bladder emptying; Z68.33 Body mass index [BMI] 33.0-33.9, adult; Z88.8 Allergy status to other drugs, medicaments and biological substances; Z79.899 Other long term (current) drug therapy; Z82.49 Family history of ischemic heart disease and other diseases of the circulatory system
CPT/HCPCS: 36415; 70450; 70486; 71045; 74176; 76770; 78582; 80048; 80053; 80061; 80069; 80307; 81001; 82533; 82550; 82962; 83690; 83735; 83880; 84100; 84300; 84443; 84484; 85025; 85379; 85610; 86308; 86644; 86645; 87040; 87045; 87070; 87205; 87493; 87798; 87804; 87880; 93005; 96374; 99292; A9540; A9558; J0360; J2405; J2543; J3010; J3475; J7030; J7120; 99291-25; G0378

== ENCOUNTER 2019-04-16 05:40 | Emergency (ER) | payer OTHER ==
[~2019-04-16] VITALS: Ht 182.9 cm; Wt 108.9 kg
[~2019-04-16 05:40] MED LIST changes: +NAPR-514 PO
[2019-04-16] MEDS ORDERED: IV NORMAL SALINE 1000ML BAG 1,000 ML IV ONE ×2 (06:30→07:45)
[2019-04-16 06:43] LABS: CALCIUM 9.6 mg/dL (8.5-10.1); CREATININE 1.4 mg/dL (0.7-1.3); GFR 50.2; POTASSIUM 3.9 mmol/L (3.5-5.1)
[2019-04-16 06:48] LABS: ALBUMIN 3.7 g/dL (3.4-5.0); MAGNESIUM 1.8 mg/dL (1.8-2.4); TOTAL BILIRUBIN 0.9 mg/dL (0.2-1.0); TOTAL PROTEIN 7.4 g/dL (6.4-8.2)
[2019-04-16] MEDS ORDERED: MECLIZINE HCL 12.5 MG TABLET. PO ONE (07:00)
[2019-04-16] MEDS ORDERED: cloNIDine HCL 0.1 MG TABLET PO ONE (07:00)
--- NOTE | 2019-04-16 07:04 | RAD ---
CT head without contrast PQRS statement: CT scans at this facility use dose reduction including either automated exposure control, iterative reconstructions, and /or weight based radiation dosing via mA and kV modification when appropriate to reduce radiation dose to as low as reasonably achievable. HISTORY: Dizziness. COMPARISON: CT head April 05, 2019. FINDINGS: No intracranial hemorrhage, mass, hydrocephalus, extra-axial fluid collections or infarction. No acute ischemic change. Orbits, mastoids and bones are unremarkable. IMPRESSION: No acute intracranial CT abnormality. Electronically signed by: Jann Cottrell MD (04/16/2019 7:01 AM) [id number]
[2019-04-16 07:06] LABS: BILIRUBIN,URINE NEGATIVE (NEG); CLARITY,URINE CLEAR; COLOR,URINE YELLOW; NITRITE,URINE NEGATIVE (NEG); PROTEIN,URINE NEGATIVE (NEG-TRACE); UROBILINOGEN,URINE 0.2 mg/dL (0.2 mg/dL)
--- NOTE | 2019-04-16 07:12 | EKG ---
[facility] [address] [place] [address] Test Date: 2019-04-16 Test Time: 05:52:00 Pat Name: BONNIE HENSON Department: Room: Gender: M Wood Piler: : 1950 Requested By: CB GOLDEN Order Number: [id number] Reading MD: Measurements Intervals Jackson Rate: 65 P: 38 KS: 148 QRS: 0 QRSD: 76 T: 7 QT: 408 QTc: 429 Interpretive Statements SINUS RHYTHM LEFTWARD AXIS NON SPECIFIC T ABNORMALITY BORDERLINE ECG No previous ECG available for comparison
[2019-04-16 07:18] LABS: PROTHROMBIN TIME PATIENT 12.3 SEC (11.7-14.0)
[2019-04-16 07:56] LABS: BACTERIA,URINE 0 /HPF (0-FEW); RBC,URINE 0 /HPF (0-2); WBC,URINE 0 /HPF (0-4)
[2019-04-16 08:13] LABS: BASO % 1 % (0-3); EOS # 0.1 x10^3/uL (0.0-0.7); EOS % 2 % (0-3); HEMATOCRIT 40.9 % (39.0-53.0); LYMPH # 1.3 x10^3/uL (1.0-4.8); LYMPH % 21 % (24-48); MEAN CORPUSCULAR HEMOGLOBIN 31 pg (25-35); MEAN CORPUSCULAR HGB CONC 34 g/dL (31-37); MEAN CORPUSCULAR VOLUME 92 fL (79-100); MONO # 0.8 x10^3/uL (0.0-1.1); MONO % 12 % (0-9); NEUT # 4.2 x10^3/uL (1.8-7.7); NEUT % 65 % (31-73); PLATELET COUNT 156 x10^3/uL (140-400); RED BLOOD COUNT 4.46 x10^6/uL (4.30-5.70); RED CELL DISTRIBUTION WIDTH 14.9 % (11.5-14.5); WHITE BLOOD COUNT 6.4 x10^3/uL (4.0-11.0)
--- NOTE | 2019-04-16 08:27 | PHYS DOC ---
Past Medical History Past Medical History: Diabetes-Type II, GERD, High Cholesterol, Hypertension, Hypothyroid, Other Additional Past Medical Histor: vertigo, restless leg syndrome Past Surgical History: Other Additional Past Surgical Histo: stents in back(to try to stop pain in knees), rt knee surgery/acl Alcohol Use: None Drug Use: None Adult General Chief Complaint Chief Complaint: MULTIPLE COMPLAINTS [facility] HPI Patient is a 68 year old male with history of vertigo, restless leg syndrome and neuropathy who presents with JSOEPH, dizziness described as room spinning, bilateral leg pain. Symptoms began this morning. Nausea no vomiting. Dizziness is chronic leg pain or chronic. Patient did not take any on his home or pain medications prior to ED arrival. No loss of vision. No focal extremity weakness or loss of sensation. Patient did drive to the emergency department. He said hospitalization for rhabdo with septic workup possible viral syndrome. Patient has not utilized PCP in follow-up since discharge from hospital but does have a follow-up appointment next week. [] Review of Systems Review of Systems Constitutional: Denies fever or chills [] Eyes: Denies change in visual acuity, redness, or eye pain [] HENT: Denies nasal congestion or sore throat [] Respiratory: Denies cough or shortness of breath [] Cardiovascular: No additional information not addressed in HPI [] GI: Denies abdominal pain, nausea, vomiting, bloody stools or diarrhea [] : Denies dysuria or hematuria [] Musculoskeletal: Denies back pain or joint pain [] Integument: Denies rash or skin lesions [] Neurologic: Denies headache, focal weakness or sensory changes [] Endocrine: Denies polyuria or polydipsia [] All other systems were reviewed and found to be within normal limits, except as documented in this note. Current Medications Current Medications Current Medications Medications (Trade) Dose Ordered Sig/Xuan Start Time Stop Time Status Last Admin Dose Admin Clonidine HCl (Catapres) 0.1 mg 1X ONCE 04/16/19 07:00 04/16/19 07:01 DC 04/16/19 06:34 0.1 MG Meclizine HCl (Antivert) 50 mg 1X ONCE 04/16/19 07:00 04/16/19 07:01 DC 04/16/19 06:34 50 MG Sodium Chloride 1,000 ml @ 1,000 mls/hr 1X ONCE 04/16/19 07:45 04/16/19 08:44 DC 04/16/19 08:25 1,000 MLS/HR Allergies Allergies Allergies Coded Allergies Type Severity Reaction Last Updated Verified hydrocodone Allergy Severe throat swelling 09/08/18 Yes oxycodone Allergy Severe throat swelling 09/08/18 Yes Physical Exam Physical Exam Constitutional: Well developed, well nourished, no acute distress, non-toxic appearance. [] HENT: Normocephalic, atraumatic, bilateral external ears normal, oropharynx moist, no oral exudates, nose normal. [] Eyes: PERRLA, EOMI, conjunctiva normal, no discharge. [] Neck: Normal range of motion, no tenderness, supple, no stridor. [] Cardiovascular:Heart rate regular rhythm, no murmur [] Lungs & Thorax: Bilateral breath sounds clear to auscultation [] Abdomen: Bowel sounds normal, soft, no tenderness, no masses, no pulsatile masses. [] Skin: Warm, dry, no erythema, no rash. [] Back: No tenderness, no CVA tenderness. [] Extremities: No tenderness, no cyanosis, no clubbing, ROM intact, no edema. [] Neurologic: Alert and oriented X 3, normal motor function, normal sensory function, no focal deficits noted. [] Psychologic: Affect normal, judgement normal, mood normal. [] Current Patient Data Vital Signs Vital Signs Date Time Temp Pulse Resp B/P (MAP) Pulse Ox O2 Delivery O2 Flow Rate FiO2 04/16/19 09:46 72 20 182/87 (118) 98 Room Air 04/16/19 05:52 97.6 97.6 Lab Values Laboratory Tests Test 04/16/19 06:00 04/16/19 06:42 04/16/19 08:06 Prothrombin Time 12.3 SEC (11.7-14.0) Prothrombin Time INR 0.9 (0.8-1.1) Activated Partial Thromboplast Time 22 SEC (24-38) L Sodium Level 141 mmol/L (136-145) Potassium Level 3.9 mmol/L (3.5-5.1) Chloride Level 105 mmol/L (98-107) Carbon Dioxide Level 26 mmol/L (21-32) Anion Gap 10 (6-14) Blood Urea Nitrogen 19 mg/dL (8-26) Creatinine 1.4 mg/dL (0.7-1.3) H Estimated GFR (Cockcroft-Gault) 50.2 BUN/Creatinine Ratio 14 (6-20) Glucose Level 134 mg/dL (70-99) H Lactic Acid Level 2.4 mmol/L (0.4-2.0) H Calcium Level 9.6 mg/dL (8.5-10.1) Magnesium Level 1.8 mg/dL (1.8-2.4) Total Bilirubin 0.9 mg/dL (0.2-1.0) Aspartate Amino Transferase (AST) 43 U/L (15-37) H Alanine Aminotransferase (ALT) 64 U/L (16-63) H Alkaline Phosphatase 59 U/L (46-116) Creatine Kinase 384 U/L (39-308) H Creatine Kinase MB (Mass) 3.1 ng/mL (0.0-3.6) Creatine Kinase MB Relative Index 0.8 % (0-4) Troponin I Quantitative < 0.017 ng/mL (0.000-0.055) Total Protein 7.4 g/dL (6.4-8.2) Albumin 3.7 g/dL (3.4-5.0) Albumin/Globulin Ratio 1.0 (1.0-1.7) Lipase 151 U/L (73-393) Urine Collection Type Unknown Urine Color Yellow Urine Clarity Clear Urine pH 8.0 Urine Specific [place] 1.015 Urine Protein Negative mg/dL (NEG-TRACE) Urine Glucose (UA) Negative mg/dL (NEG) Urine Ketones (Stick) Negative mg/dL (NEG) Urine Blood Negative (NEG) Urine Nitrite Negative (NEG) Urine Bilirubin Negative (NEG) Urine Urobilinogen Dipstick 0.2 mg/dL (0.2 mg/dL) Urine Leukocyte Esterase Negative (NEG) Urine RBC 0 /HPF (0-2) Urine WBC 0 /HPF (0-4) Urine Bacteria 0 /HPF (0-FEW) Urine Mucus Slight /LPF White Blood Count 6.4 x10^3/uL (4.0-11.0) Red Blood Count 4.46 x10^6/uL (4.30-5.70) Hemoglobin 14.0 g/dL (13.0-17.5) Hematocrit 40.9 % (39.0-53.0) Mean Corpuscular Volume 92 fL (79-100) Mean Corpuscular Hemoglobin 31 pg (25-35) Mean Corpuscular Hemoglobin Concent 34 g/dL (31-37) Red Cell Distribution Width 14.9 % (11.5-14.5) H Platelet Count 156 x10^3/uL (140-400) Neutrophils (%) (Auto) 65 % (31-73) Lymphocytes (%) (Auto) 21 % (24-48) L Monocytes (%) (Auto) 12 % (0-9) H Eosinophils (%) (Auto) 2 % (0-3) Basophils (%) (Auto) 1 % (0-3) Neutrophils # (Auto) 4.2 x10^3/uL (1.8-7.7) Lymphocytes # (Auto) 1.3 x10^3/uL (1.0-4.8) Monocytes # (Auto) 0.8 x10^3/uL (0.0-1.1) Eosinophils # (Auto) 0.1 x10^3/uL (0.0-0.7) Basophils # (Auto) 0.0 x10^3/uL (0.0-0.2) Laboratory Tests 04/16/19 08:06 Laboratory Tests 04/16/19 06:00 EKG EKG [EKG: reviewed] Radiology/Procedures Radiology/Procedures [CT head: NAD] Course & Med Decision Making Course & Med Decision Making Pertinent Labs and Imaging studies reviewed. (See chart for details) [No chronic medical complaint/symptoms. Headache, dizziness and retention res olved in the ED with treatment. Patient states he feels much better. Patient with elevated lactic and CK improved from recent hospital stay. IV fluids given. This does not appear to be an acute process. Recommendations are continued supportive care with follow-up with PCP as scheduled] Dragon Disclaimer Dragon Disclaimer This electronic medical record was generated, in whole or in part, using a voice recognition dictation system. Departure Departure Impression: Primary Impression: Vertigo Additional Impressions: Neuropathy Headache Hypertension Disposition: HOME, SELF-CARE Condition: IMPROVED Referrals: AUGUST KNOX (PCP) Additional Instructions: Please continue home medications and follow-up with your PCP for reevaluation next week. Return to the ED if new or worsening symptoms. Problem Qualifiers CRUZ,OSVALDO DO Apr 16, 2019 08:27
[2019-04-16 09:46] VITALS: BP 182/87
== END 2019-04-16 10:47 | disposition home or self-care (01) ==
LOC: ER 05:40
DX: E11.40 Type 2 diabetes mellitus with diabetic neuropathy, unspecified (principal); R42 Dizziness and giddiness; R51 Headache; I10 Essential (primary) hypertension; G25.81 Restless legs syndrome; K21.9 Gastro-esophageal reflux disease without esophagitis; E78.00 Pure hypercholesterolemia, unspecified; E03.9 Hypothyroidism, unspecified; Z88.5 Allergy status to narcotic agent
CPT/HCPCS: 36415; 70450; 80053; 81001; 82553; 83605; 83690; 83735; 84484; 85025; 85610; 85730; 93005; 96360; 96361; 99285; J7030; J8597

== ENCOUNTER → 2019-04-23 | Outpatient (CLI) | payer OTHER ==
[2019-04-16 09:46] VITALS: BP 182/87
[~2019-04-23] MED LIST changes: +REGADENOSON 0.4 MG/5 ML DISP.SYRIN. IV ONE
--- NOTE | 2019-04-23 12:37 | RAD ---
MR#: [id number] Date of Study: 04/23/2019 Ordering Physician: IVET RAMÍREZ, Referring Physician: RICHARD TALAVERA Tech: DEBI Ramirez APPROVED REPORT Test Type: Pharmacological Stress Nurse/Tech: Adela Terry R.N. Test Indications: c/p Cardiac History: HTN Medications: See Electronic Medical Record Medical History: See Electronic Medical Record Resting ECG: SB w/ inverted T wave in lead III Resting Heart Rate: 53 bpm Resting Blood Pressure: 165/80mmHg Pretest Chest Pain: No chest pain Nurse/Tech Notes S1S2, lungs CTA Consent: The procedure was explained to the patient in lay terms. Informed consent was witnessed. Neel eout was entered into [employer]. History and Stress Test performed by ROSALINA Bergman, SANTY (R) (N) Pharm. Details Pharmacologic stress testing was performed using 0.4mg per 5ml of regadenoson given intravenously ove r 7-10 seconds. Stress Symptoms slight SOB POST EXERCISE Reason for Termination: Infusion complete Max HR: 78 bpm Max Blood Pressure: 168/63mmHg Blood Pressure response to exercise: Normal blood pressure response during stress. Heart Rate response to exercise: WNL Chest Pain: No. Arrhythmia: No. ST Change: No. INTERPRETATION Stress EKG Conclusion: Baseline EKG showed sinus rhythm. No ischemic changes at peak stress. No arr hythmias. Imaging Protocol IMAGE PROTOCOL: Rest Tc-99m/stress Tc-99m 1 day Rest: Stress: Viability: Radiopharm.Tc99m [id number] Sestamibi Dose10.5mCi 32.8mCi Duration 15min. 13min. Img Date 04/23/2019 04/23/2019 Inj-Img [id number]. 60min. Rest Admin Site:IV - Right AntecubitalAdministrator:DEBI Ramirez Stress Admin Site: IV - Right AntecubitalAdministrator: ROSALINA Bergman, SANTY (R)(N) STRESS DATA End Diast. Vol.111.0mlLVEDV index BSA48.0ml End Syst. Vol.43.0mlLVESV index BSA18.0ml Myocardial Ftoe984.0gEject. Butsomua26.0% Stress Scores Regional WT1.00Summed WT5.00 Regional WM0.00Summed WM2.00 Study quality was good. Left Ventricular size was Normal at Rest and Stress. Lung uptake was . Left Ventricular ejection fraction is 61%. The rest and stress images show normal perfusion, normal contraction and thickening. LV Perf. Quant 17 Seg. SSS0.00 17 Seg. SRS2.00 17 Seg. SDS0.00 Stress Defect Extent (% LAD)0.00Rest Defect Extent (% LAD)0.00Rev. Defect Extent (% LAD)0.00 Stress Defect Extent (% LCX) 5.00Rest Defect Extent (% LCX)13.80Rev. Defect Extent (% LCX)0.00 Stress Defect Extent (% RCA)0.00Rest Defect Extent (% RCA)0.00Rev. Defect Extent (% RCA)0.00 Stress Defect Extent (% EBER)0.90Rest Defect Extent (% EBER)4.30Rev. Defect Extent (% EBER)0.00 Conclusion 1. Regadenoson cardioisotope stress test did not show any evidence of ischemia or infarct. 2. Normal left ventricular systolic function with ejection fraction calculated at 61%. 3. Low risk for cardiac events. Signed by : Mario Reyes, Electronically Approved : 04/23/2019 12:37:10
== END | disposition home or self-care (01) ==
LOC: NM 07:59
PROVIDERS: ATTEND Internal Medicine Cardiovascular Disease
DX: R07.9 Chest pain, unspecified (principal); I10 Essential (primary) hypertension
CPT/HCPCS: 78452; 93017; A9500; J2785

== ENCOUNTER 2019-08-15 22:56 | Emergency (ER) | payer OTHER ==
[~2019-08-15] VITALS: Ht 182.9 cm; Wt 120.2 kg
[~2019-08-15 22:56] MED LIST changes: -GLIM2TAB2 PO; +GLIM2TAB7 PO; +LINE600T12 PO; -LINE600T37 PO; +OMEP40CA45 PO; -OMEP40CA5 PO; -REGADENOSON 0.4 MG/5 ML DISP.SYRIN. IV ONE
[2019-08-15] MEDS ORDERED: KETOROLAC 30 MG/ML VIAL. IVP ONE (23:30)
[2019-08-15] MEDS ORDERED: cloNIDine HCL 0.1 MG TABLET PO ONE (23:30)
[2019-08-15 23:55] LABS: BASO % 0 % (0-3); EOS % 0 % (0-3); HEMATOCRIT 46.7 % (39.0-53.0); HEMOGLOBIN 16.2 g/dL (13.0-17.5); LYMPH # 0.9 x10^3/uL (1.0-4.8); LYMPH % 8 % (24-48); MEAN CORPUSCULAR HEMOGLOBIN 32 pg (25-35); MEAN CORPUSCULAR HGB CONC 35 g/dL (31-37); MEAN CORPUSCULAR VOLUME 92 fL (79-100); MONO # 0.1 x10^3/uL (0.0-1.1); MONO % 1 % (0-9); NEUT # 9.5 x10^3/uL (1.8-7.7); NEUT % 91 % (31-73); PLATELET COUNT 305 x10^3/uL (140-400); RED BLOOD COUNT 5.08 x10^6/uL (4.30-5.70); RED CELL DISTRIBUTION WIDTH 14.2 % (11.5-14.5); WHITE BLOOD COUNT 10.6 x10^3/uL (4.0-11.0)
[2019-08-16 00:05] LABS: CALCIUM 9.4 mg/dL (8.5-10.1); CREATININE 1.9 mg/dL (0.7-1.3); GFR 35.3; POTASSIUM 3.5 mmol/L (3.5-5.1)
[2019-08-16 00:10] LABS: ALBUMIN 3.7 g/dL (3.4-5.0); ALBUMIN/GLOBULIN RATIO 0.9 (1.0-1.7); TOTAL BILIRUBIN 0.5 mg/dL (0.2-1.0); TOTAL PROTEIN 7.6 g/dL (6.4-8.2)
[2019-08-16 00:15] LABS: % LYMPHS 7 % (24-48); % SEGS 93 % (35-66); PLT ESTIMATE ADEQUATE (ADEQUATE)
[2019-08-16 00:20] LABS: INFLUENZA A PATIENT NEGATIVE (NEGATIVE); INFLUENZA B PATIENT NEGATIVE (NEGATIVE)
[2019-08-16] MEDS ORDERED: IV NORMAL SALINE 1000ML BAG 1,000 ML IV ONE (00:30)
--- NOTE | 2019-08-16 00:34 | PHYS DOC ---
Past Medical History Past Medical History: Diabetes-Type II, GERD, High Cholesterol, Hypertension, Hypothyroid, Other Additional Past Medical Histor: vertigo, restless leg syndrome Past Surgical History: Other Additional Past Surgical Histo: stents in back(to try to stop pain in knees), rt knee surgery/acl Alcohol Use: None Drug Use: None Adult General Chief Complaint Chief Complaint: HYPERTENSION HPI HPI Patient is a 68 year old female with history of hypothyroidism, restless leg syndrome retention who presents with diffuse body aches and subjective fever. Patient reports body aches and fever after seeing cortisone injections both knees earlier today at his doctor's office. His feet and dizziness difficulty remaining still. Also reports headache dizziness. The pressure 220s over 100s. Patient states he did not take his blood pressure medication until just prior to ED arrival. No neck pain, stiffness, rash, no vomiting. No chest pain palpitations. Other acute symptoms or complaints. [] Review of Systems Review of Systems ROS as per HPI All other systems were reviewed and found to be within normal limits, except as documented in this note. Current Medications Current Medications Current Medications Medications (Trade) Dose Ordered Sig/Xuan Start Time Stop Time Status Last Admin Dose Admin Clonidine HCl (Catapres) 0.2 mg 1X ONCE 08/15/19 23:30 08/15/19 23:31 DC 08/15/19 23:40 0.2 MG Ketorolac Tromethamine (Toradol 30mg Vial) 30 mg 1X ONCE 08/15/19 23:30 08/15/19 23:31 DC 08/15/19 23:40 30 MG Sodium Chloride 1,000 ml @ 1,000 mls/hr 1X ONCE 08/16/19 00:30 08/16/19 01:29 DC 08/16/19 00:25 1,000 MLS/HR Allergies Allergies Allergies Coded Allergies Type Severity Reaction Last Updated Verified hydrocodone Allergy Severe throat swelling 09/08/18 Yes oxycodone Allergy Severe throat swelling 09/08/18 Yes Physical Exam Physical Exam Constitutional: Well developed, well nourished, no acute distress, non-toxic ebn earance. [] HENT: Normocephalic, atraumatic, bilateral external ears normal, oropharynx moist, no oral exudates, nose normal. [] Eyes: PERRLA, EOMI, conjunctiva normal, no discharge. [] Neck: Normal range of motion, no tenderness, supple, no stridor. [] Cardiovascular:Heart rate regular rhythm, no murmur [] Lungs & Thorax: Bilateral breath sounds clear to auscultation [] Abdomen: Bowel sounds normal, soft, no tenderness. [] Skin: Warm, dry, no erythema, no rash. [] Back: No tenderness, no CVA tenderness. [] Extremities: No tenderness, no edema. [] Neurologic: Alert and oriented X 3, normal motor function, normal sensory function, no focal deficits noted. [] Psychologic: Affect anxioousl, judgement normal, mood normal. [] Current Patient Data Vital Signs Vital Signs Date Time Temp Pulse Resp B/P (MAP) Pulse Ox O2 Delivery O2 Flow Rate FiO2 08/16/19 01:06 63 20 95 08/15/19 23:40 179/77 08/15/19 22:58 97.3 Room Air 97.3 Lab Values Laboratory Tests Test 08/15/19 00:43 08/15/19 23:10 08/15/19 23:55 Lactic Acid Level 2.9 mmol/L (0.4-2.0) H White Blood Count 10.6 x10^3/uL (4.0-11.0) Red Blood Count 5.08 x10^6/uL (4.30-5.70) Hemoglobin 16.2 g/dL (13.0-17.5) Hematocrit 46.7 % (39.0-53.0) Mean Corpuscular Volume 92 fL (79-100) Mean Corpuscular Hemoglobin 32 pg (25-35) Mean Corpuscular Hemoglobin Concent 35 g/dL (31-37) Red Cell Distribution Width 14.2 % (11.5-14.5) Platelet Count 305 x10^3/uL (140-400) Neutrophils (%) (Auto) 91 % (31-73) H Lymphocytes (%) (Auto) 8 % (24-48) L Monocytes (%) (Auto) 1 % (0-9) Eosinophils (%) (Auto) 0 % (0-3) Basophils (%) (Auto) 0 % (0-3) Neutrophils # (Auto) 9.5 x10^3/uL (1.8-7.7) H Lymphocytes # (Auto) 0.9 x10^3/uL (1.0-4.8) L Monocytes # (Auto) 0.1 x10^3/uL (0.0-1.1) Eosinophils # (Auto) 0.0 x10^3/uL (0.0-0.7) Basophils # (Auto) 0.0 x10^3/uL (0.0-0.2) Segmented Neutrophils % 93 % (35-66) H Lymphocytes % 7 % (24-48) L Platelet Estimate Adequate (ADEQUATE) Sodium Level 136 mmol/L (136-145) Potassium Level 3.5 mmol/L (3.5-5.1) Chloride Level 103 mmol/L (98-107) Carbon Dioxide Level 22 mmol/L (21-32) Anion Gap 11 (6-14) Blood Urea Nitrogen 20 mg/dL (8-26) Creatinine 1.9 mg/dL (0.7-1.3) H Estimated GFR (Cockcroft-Gault) 35.3 BUN/Creatinine Ratio 11 (6-20) Glucose Level 254 mg/dL (70-99) H Calcium Level 9.4 mg/dL (8.5-10.1) Total Bilirubin 0.5 mg/dL (0.2-1.0) Aspartate Amino Transferase (AST) 27 U/L (15-37) Alanine Aminotransferase (ALT) 38 U/L (16-63) Alkaline Phosphatase 80 U/L (46-116) Total Protein 7.6 g/dL (6.4-8.2) Albumin 3.7 g/dL (3.4-5.0) Albumin/Globulin Ratio 0.9 (1.0-1.7) L Thyroid Stimulating Hormone (TSH) 3.317 uIU/mL (0.358-3.74) Glucose (Fingerstick) 223 mg/dL (70-99) H Influenza Type A Antigen Negative (NEGATIVE) Influenza Type B Antigen Negative (NEGATIVE) Laboratory Tests 08/15/19 23:10 Laboratory Tests 08/15/19 23:10 EKG EKG [EKG:reviewed] Radiology/Procedures Radiology/Procedures CT head: No acute findings per radiology report Chest x-ray: No acute findings on preliminary ED review[] Course & Med Decision Making Course & Med Decision Making Pertinent Labs and Imaging studies reviewed. (See chart for details) [Take, dizziness improved with treatment of blood pressure. Restlessness resolved with Toradol. Patient resting comfortably. Lab work reviewed. Suspect symptoms are combination of missed blood pressure medication for restless leg syndrome. Recommend supportive care, watchful waiting and PCP follow-up. Return precautions reviewed. Patient verbalizes understanding and agreement discharge instructions prior to departure.] Dragon Disclaimer Dragon Disclaimer This electronic medical record was generated, in whole or in part, using a voice recognition dictation system. Departure Departure Impression: Primary Impression: Restless leg syndrome Additional Impressions: Hypertension Dizziness Disposition: HOME, SELF-CARE Condition: STABLE Referrals: AUGUST KNOX (PCP) Problem Qualifiers OSVALDO CRUZ DO Aug 16, 2019 00:34
--- NOTE | 2019-08-16 00:55 | RAD ---
Chest AP portable at 12:22 AM: Reason for examination: Short of breath. Altered mental status. The heart size is normal. Mediastinum is unremarkable. Lung lozano are clear. No acute bony abnormalities are seen. Impression: No acute cardiopulmonary disease. CT head without contrast: Comparison is made to previous study dated 04/16/2019. Axial images were obtained through the brain. No contrast was administered. Exposure: One or more of the following individualized dose reduction techniques were utilized for this examination: 1. Automated exposure control 2. Adjustment of the mA and/or kV according to patient size 3. Use of iterative reconstruction technique. Ventricular systems are symmetric and not dilated. No midline shift is seen. There is no evidence of intracranial hemorrhage, infarct, mass or edema. No abnormalities of seen at the orbits. The paranasal sinuses and mastoid air cells are clear. No acute skull abnormality is seen. IMPRESSION: No acute intracranial abnormality evident. Electronically signed by: Elisa Maria MD (08/16/2019 12:52 AM) [id number]
[2019-08-16 01:06] VITALS: BP 155/70
== END 2019-08-16 01:30 | disposition home or self-care (01) ==
LOC: ER 22:56
DX: G25.81 Restless legs syndrome (principal); I10 Essential (primary) hypertension; R42 Dizziness and giddiness; E11.9 Type 2 diabetes mellitus without complications; K21.9 Gastro-esophageal reflux disease without esophagitis; E78.00 Pure hypercholesterolemia, unspecified; E03.9 Hypothyroidism, unspecified; Z88.5 Allergy status to narcotic agent
CPT/HCPCS: 36415; 70470; 71045; 80053; 82962; 83605; 84443; 85007; 85025; 87040; 87804; 96361; 96374; 99285; J1885; J7030

== ENCOUNTER → 2019-09-13 | Outpatient (CLI) | payer OTHER ==
[2019-08-16 01:06] VITALS: BP 155/70
--- NOTE | 2019-09-13 14:33 | KCIC ---
MRI right knee without contrast dated 09/13/2019. No comparison available. CLINICAL INDICATION: Right knee pain. TECHNIQUE: Routine multiplanar multisequence MR imaging performed. No contrast administered. FINDINGS: Mild tricompartmental hypertrophic change with small marginal osteophytes. Thinning and surface irregularity of the articular cartilage throughout. There is near full-thickness cartilage loss at the patellar apex and medial femoral trochlea and trochlear groove. There is also probable small focus of full-thickness cartilage loss at the weightbearing surface lateral femoral condyle posteriorly measuring about 4 mm. Small joint effusion. No intra-articular loose body. No significant popliteal cyst. Anterior cruciate ligament is not well visualized and may be chronically torn. The PCL is intact. Medial and lateral collateral complexes are intact. Iliotibial band, popliteus tendon and pes anserine complex within normal limits. Quadriceps and patellar tendon are intact. No abnormality of the medial or lateral retinaculum. 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 Both menisci are normal in morphology and signal. No articular surface tear or para meniscal cyst. IMPRESSION: 1. 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 There are small zones of full-thickness cartilage loss in the anterior and lateral compartments. 2. Nonvisualization of the anterior cruciate ligament which is likely chronically torn. Correlate with physical exam findings. 3. Small joint effusion. 4. No apparent meniscal tear. Electronically signed by: Matteo Leon MD (09/13/2019 2:30 PM) [id number]
== END | disposition home or self-care (01) ==
LOC: KCIC MRI 13:17
PROVIDERS: ATTEND Orthopaedic Surgery
DX: M17.11 Unilateral primary osteoarthritis, right knee (principal); M89.38 Hypertrophy of bone, other site; M25.761 Osteophyte, right knee; M25.461 Effusion, right knee
CPT/HCPCS: 73721

== ENCOUNTER 2019-11-23 16:01 | Emergency (ER) | payer OTHER ==
[~2019-11-23] VITALS: Ht 182.9 cm; Wt 130.0 kg
[2019-11-23 16:05] VITALS: BP 144/79
[2019-11-23] MEDS ORDERED: traMADol 50 MG TABLET PO ONE (16:30)
--- NOTE | 2019-11-23 16:33 | PHYS DOC ---
Past Medical History Past Medical History: Diabetes-Type II, GERD, High Cholesterol, Hypertension, Hypothyroid, Other Additional Past Medical Histor: vertigo, restless leg syndrome Past Surgical History: Other Additional Past Surgical Histo: stents in back(to try to stop pain in knees), rt knee surgery/acl Smoking Status: Never Smoker Alcohol Use: None Drug Use: None General Adult EDM: Chief Complaint: KNEE INJURY HPI: HPI: Patient is a 69 year old male who presents with has just finished mowing his lawn when he lost his footing stepping down off of his porch step. He fell onto his right knee. He states it is too painful to touch or bend. He states when hes just sitting he has no pain but with movement very painful. He rates his pain with movement a 10/10. Review of Systems: Review of Systems: Musculoskeletal: Denies back pain. Right knee joint pain. [] Heart Score: Risk Factors: Risk Factors: DM, Current or recent (<one month) smoker, HTN, HLP, family history of CAD, obesity. Risk Scores: Score 0 - 3: 2.5% MACE over next 6 weeks - Discharge Home Score 4 - 6: 20.3% MACE over next 6 weeks - Admit for Clinical Observation Score 7 - 10: 72.7% MACE over next 6 weeks - Early Invasive Strategies Current Medications: Current Medications Medications (Trade) Dose Ordered Sig/Xuan Start Time Stop Time Status Last Admin Dose Admin Tramadol HCl (Ultram) 50 mg 1X ONCE 11/23/19 16:30 11/23/19 16:31 Allergies: Allergies: Allergies Coded Allergies Type Severity Reaction Last Updated Verified hydrocodone Allergy Severe throat swelling 09/08/18 Yes oxycodone Allergy Severe throat swelling 09/08/18 Yes Physical Exam: PE: Constitutional: Well developed, well nourished, no acute distress, non-toxic appearance. [] HENT: Normocephalic, atraumatic, bilateral external ears normal, oropharynx moist, no oral exudates, nose normal. [] Eyes: PERRLA, EOMI, conjunctiva normal, no discharge. [] Neck: Normal range of motion, no tenderness, supple, no stridor. [] Cardiovascular:Heart rate regular rhythm, no murmur [] Lungs & Thorax: Bilateral breath sounds clear to auscultation [] Abdomen: Bowel sounds normal, soft, no tenderness, no masses, no pulsatile masses. [] Skin: Warm, dry, no erythema, no rash. [] Back: No tenderness, no CVA tenderness. [] Extremities: Right anterior knee tenderness, no cyanosis, no clubbing, Right knee ROM not intact, 1+ edema. [] Neurologic: Alert and oriented X 3, normal motor function, normal sensory function, no focal deficits noted. [] Psychologic: Affect normal, judgement normal, mood normal. [] EKG: EKG: [] Radiology/Procedures: Radiology/Procedures: [] Impression: [facility] [address] [place] [address] IMAGING REPORT Signed PATIENT: BONNIE HENSON ACCOUNT: [id number] : 1950 LOCATION: ER AGE: 69 SEX: M EXAM STATUS: REG ER ORD. PHYSICIAN: CARA MIGUEL APRN REASON: PAIN, TRIED TO WALK UP A STEP AND KNEE GAVE OUT PROCEDURE: KNEE RIGHT 4V Examination: 4 views of the right knee HISTORY: History of right knee pain COMPARISON: 09/02/2019 FINDINGS: The alignment of the knee joint grossly appears unremarkable. There is no acute fracture or dislocation identified. Small patellar enthesophyte identified. Well-formed bone density identified in the tibial tuberosity region similar to prior exam probably old elevation or unfused ossicle. IMPRESSION: No acute osseous findings. Electronically signed by: Bay Long MD (11/23/2019 4:48 PM) [id number] DICTATED and SIGNED BY: BAY LONG MD DATE: 11/23/19 1648 Course & Med Decision Making: Course & Med Decision Making Pertinent Labs and Imaging studies reviewed. (See chart for details) Patient gave me verbal permission to cut his ginger borden right leg so that I can see his knee. He has no bruising or deformity. 1+ swelling. No redness. No laxity in joint but he resists when I try to rotate the extremity. No posterior, lateral or medial tenderness but all anterior tenderness with palpation. Popiteal pulse present. Skin pink warm and dry. Patient states that he can take Tramadol for pain as he has taken it before. Denies any ankle pain and has full range of motion to the ankle. Denies numbness or tingling. Patient has the knee at a 45 degree angle and will not bend the knee and further due to pain. Knee immobilizer placed. [] Dragon Disclaimer: Yvonne Disclaimer: This electronic medical record was generated, in whole or in part, using a voice recognition dictation system. Departure Departure Impression: Primary Impression: Contusion of knee, right Qualified Codes: S80.01XA - Contusion of right knee, initial encounter Disposition: HOME, SELF-CARE Condition: STABLE Referrals: AUGUST KNOX (PCP) MC DONIS MD Patient Instructions: Contusion, [id number], Knee Pain, [id number]-[id number] Additional Instructions: Take pain medication as prescribed. Follow up with primary care physician or Dr Donis. Use crutches and knee immobilizer. Try using ice and heat. Scripts Tramadol Hcl (TRAMADOL HCL) 50 Mg Tablet 50 MG PO Q6HRS PRN for PAIN, #10 TAB Prov: CARA MIGUEL APRN 11/23/19 CARA MIGUEL APRN Nov 23, 2019 16:33
--- NOTE | 2019-11-23 16:51 | RAD ---
Examination: 4 views of the right knee HISTORY: History of right knee pain COMPARISON: 09/02/2019 FINDINGS: The alignment of the knee joint grossly appears unremarkable. There is no acute fracture or dislocation identified. Small patellar enthesophyte identified. Well-formed bone density identified in the tibial tuberosity region similar to prior exam probably old elevation or unfused ossicle. IMPRESSION: No acute osseous findings. Electronically signed by: Bay Long MD (11/23/2019 4:48 PM) [id number]
[2019-11-23] MEDS ORDERED: TRAM50TA PO (16:57)
== END 2019-11-23 17:19 | disposition home or self-care (01) ==
LOC: ER 16:01
DX: S80.01XA Contusion of right knee, initial encounter (principal); E11.9 Type 2 diabetes mellitus without complications; K21.9 Gastro-esophageal reflux disease without esophagitis; E78.00 Pure hypercholesterolemia, unspecified; I10 Essential (primary) hypertension; E03.9 Hypothyroidism, unspecified; G25.81 Restless legs syndrome; Z88.5 Allergy status to narcotic agent; W18.39XA Other fall on same level, initial encounter; Y93.89 Activity, other specified; Y92.89 Other specified places as the place of occurrence of the external cause; Y99.8 Other external cause status
CPT/HCPCS: 29505; 73564; 99283

== ENCOUNTER → 2020-03-25 | Outpatient (CLI) | payer OTHER ==
[~2020-03-25] MED LIST changes: -ASPI-612 PO; +ASPI-886 PO; +TRAM50TA PO
--- NOTE | 2020-03-25 15:03 | KCIC ---
LUMBAR SPINE WO CONTRAST Date: 03/25/2020 12:30 PM Indication: LBP WITH RADICULOPATHY. LBP with new leg pain since fishing in December. Comparison: CT abdomen pelvis 04/08/2019. Technique: Multi-planar multi-weighted magnetic resonance imaging of the lumbar spine was performed without intravenous contrast using the standard lumbar spine protocol. FINDINGS: The lumbar spine is normally aligned. No acute fracture. Mild to moderate multilevel degenerative disc desiccation and disc height loss. Fatty degenerative endplate changes at L1-2 and L2-3. The conus terminates at a normal level. No abnormal signal is seen within the visualized distal spinal cord. No clumping of intrathecal nerve roots. No soft tissue abnormality in the visualized abdomen or pelvis. T12-L1: No disc bulge. Mild facet arthropathy. No significant spinal stenosis or neural foraminal narrowing. L1-L2: Disc bulge. Mild facet arthropathy. No significant spinal stenosis or neural foraminal narrowing. L2-L3: Disc bulge. Mild facet arthropathy. Mild spinal stenosis and lateral recess. Moderate bilateral neural foraminal narrowing. L3-L4: Disc bulge. Mild to moderate facet arthropathy. No significant spinal stenosis. Mild left lateral recess narrowing. Mild to moderate bilateral neural foraminal narrowing. L4-L5: Disc bulge. Mild right and moderate left facet arthropathy. Mild spinal canal stenosis and lateral recess narrowing. Mild to moderate right and moderate to severe left neural foraminal narrowing. L5-S1: Disc bulge with annular tear. Mild facet arthropathy. No significant spinal stenosis. Mild right and moderate left neural foraminal narrowing. IMPRESSION: Moderate lumbar spondylosis, detailed level by level above. Electronically signed by: Pablo Phipps MD (03/25/2020 3:00 PM) [id number]
== END | disposition home or self-care (01) ==
LOC: KCIC MRI 12:23
PROVIDERS: ATTEND Family Medicine
DX: M47.26 Other spondylosis with radiculopathy, lumbar region (principal); M48.061 Spinal stenosis, lumbar region without neurogenic claudication
CPT/HCPCS: 72148

== ENCOUNTER 2020-10-26 02:17 | Observation (INO) | payer OTHER ==
[~2020-10-26] VITALS: Ht 182.9 cm; Wt 117.5 kg
[~2020-10-26 02:17] MED LIST changes: +AMLO-187 PO; -AMLO10TA8 PO; +SERT-267 PO; -SERT50TA8 PO
--- NOTE | 2020-10-26 02:37 | EKG ---
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
[2020-10-26 02:52] LABS: BASO # 0.1 x10^3/uL (0.0-0.2); BASO % 1 % (0-3); EOS # 0.3 x10^3/uL (0.0-0.7); EOS % 3 % (0-3); HEMATOCRIT 40.7 % (36.0-47.0); HEMOGLOBIN 13.9 g/dL (12.0-15.5); LYMPH # 1.8 x10^3/uL (1.0-4.8); LYMPH % 18 % (24-48); MEAN CORPUSCULAR HEMOGLOBIN 31 pg (25-35); MEAN CORPUSCULAR HGB CONC 34 g/dL (31-37); MEAN CORPUSCULAR VOLUME 92 fL (79-100); MONO # 0.9 x10^3/uL (0.0-1.1); MONO % 9 % (0-9); NEUT # 6.9 x10^3/uL (1.8-7.7); NEUT % 70 % (31-73); PLATELET COUNT 250 x10^3/uL (140-400); RED BLOOD COUNT 4.44 x10^6/uL (3.50-5.40); RED CELL DISTRIBUTION WIDTH 14.6 % (11.5-14.5); WHITE BLOOD COUNT 9.9 x10^3/uL (4.0-11.0)
[2020-10-26] MEDS ORDERED: ASPIRIN ENTERIC COATED 325 MG TABLET.DR. PO ONE (03:00)
[2020-10-26] MEDS ORDERED: IV NORMAL SALINE 1000ML BAG 1,000 ML IV ONE (03:00)
[2020-10-26] MEDS ORDERED: FAMOTIDINE 20 MG/2 ML VIAL IVP ONE (03:00)
--- NOTE | 2020-10-26 03:02 | PHYS DOC ---
Past Medical History Past Medical History: Diabetes-Type II, GERD, High Cholesterol, Hypertension, Hypothyroid, Other Additional Past Medical Histor: vertigo, restless leg syndrome Past Surgical History: Other Additional Past Surgical Histo: stents in back(to try to stop pain in knees), rt knee surgery/acl Smoking Status: Never Smoker Alcohol Use: None Drug Use: None General Adult EDM: Chief Complaint: DIZZY/LIGHT HEADED HPI: HPI: Yinka is a 69-year-old male who presents to the emergency room via EMS with complaints of dizziness. The patient is alert and oriented x4, but has some slowed verbal responses. He states that he was on the couch watching TV and when he got up to go to bed he was unstable on his feet and felt dizzy. He states that he did not fall but came close to falling. He took his normal daily dose of tramadol, but took 2 of his muscle relaxers instead of 1. In addition, the patient is complaining of right sided pinpoint chest pain. When the pain occurs, he rates it as a 10 out of 10. He describes it as stabbing, nonradiating, with no palliative or provoking factors. Review of Systems: Review of Systems: Constitutional: Denies fever or chills Eyes: Denies redness or eye pain HENT: Denies nasal congestion or sore throat Respiratory: Denies cough or shortness of breath Cardiovascular: Reports pinpoint right chest pain GI: Denies abdominal pain, nausea, or vomiting : Denies dysuria or hematuria Musculoskeletal: Denies back pain or joint pain Integument: Denies rash or skin lesions Neurologic: Denies headache; reports dizziness and a history of vertigo Complete systems were reviewed and found to be within normal limits, except as documented in this note. Heart Score: C/O Chest Pain: Yes HEART Score for Chest Pain: HEART Score for Chest Pain Response (Comments) Value History Slighlty/Non-Suspicious 0 ECG Normal 0 Age > 65 2 Risk Factors >3 Risk Factors or Hx CAD 2 Total 4 Risk Factors: Risk Factors: DM, Current or recent (<one month) smoker, HTN, HLP, family history of CAD, obesity. Risk Scores: Score 0 - 3: 2.5% MACE over next 6 weeks - Discharge Home Score 4 - 6: 20.3% MACE over next 6 weeks - Admit for Clinical Observation Score 7 - 10: 72.7% MACE over next 6 weeks - Early Invasive Strategies Current Medications: Current Medications Medications (Trade) Dose Ordered Sig/Xuan Start Time Stop Time Status Last Admin Dose Admin Aspirin (Ecotrin) 325 mg 1X ONCE 10/26/20 03:00 10/26/20 03:01 Famotidine (Pepcid Vial) 20 mg 1X ONCE 10/26/20 03:00 10/26/20 03:01 Sodium Chloride 1,000 ml @ 1,000 mls/hr 1X ONCE 10/26/20 03:00 10/26/20 03:59 Allergies: Allergies: Allergies Coded Allergies Type Severity Reaction Last Updated Verified hydrocodone Allergy Severe throat swelling 09/08/18 Yes oxycodone Allergy Severe throat swelling 09/08/18 Yes Physical Exam: PE: Constitutional: Well developed, well nourished, no acute distress, non-toxic appearance HENT: Normocephalic, atraumatic, largely edentulous, dry mouth Eyes: Pupils equally round, constricted, and minimally reactive to light, EOMI, conjunctiva normal, no discharge, no nystagmus Neck: Normal range of motion, no tenderness, supple Lungs & Thorax: No respiratory distress, equal chest rise and fall Abdomen: Soft, no tenderness Skin: Warm, dry, no erythema, no rash Back: No tenderness, no CVA tenderness Extremities: No tenderness, ROM intact, no edema Neurologic: Alert and oriented X 4, normal motor function, normal sensory function, no focal deficits noted, cranial nerves II through XII intact, pronator sign negative, [id number] normal, [id number] normal Psychologic: Affect normal, judgment normal, slow verbal responses EKG: EK10/26/2020, 0230 Heart rate: 60 bpm QRS: 82 ms QT: 446 ms QTc: 451 ms EKG shows NSR at a rate of 60 bpm, left axis deviation, normal ST segments. Radiology/Procedures: Radiology/Procedures: PROCEDURE: CT HEAD WO CONTRAST PQRS Compliance Statement: One or more of the following individualized dose reduction techniques were utilized for this examination: 1. Automated exposure control 2. Adjustment of the mA and/or kV according to patient size 3. Use of iterative reconstruction technique CT HEAD WITHOUT CONTRAST History: Reason: dizziness / Spl. Instructions: / History: Comparison: CT head without contrast August 16, 2019. Procedure: Axial images are obtained of the head from the skull base through the vertex without IV contrast. Findings: The ventricles and sulci are normal for the patient's age. No mass-effect, midline shift, hemorrhage, extra-axial fluid collection, or obvious acute infarction is identified. Basilar cisterns are patent. Bone windows demonstrate no acute calvarial abnormality. Mild wall thickening of the left maxillary sinus. There is no air-fluid level. Mastoid air cells are well aerated. IMPRESSION: No acute intracranial abnormality. Electronically signed by: Aaron Monsivais MD (10/26/2020 4:02 AM) [facility] PROCEDURE: CHEST AP ONLY XR CHEST 1V Clinical Indication: Reason: chest pain / Spl. Instructions: / History: Comparison: AP chest August 16, 2019. Findings: The cardiomediastinal silhouette is normal. Lungs are clear. There is no pneumothorax. No pleural effusion is appreciated. No acute bone abnormality. IMPRESSION: No acute cardiopulmonary process. Electronically signed by: Aaron Monsivais MD (10/26/2020 4:06 AM) [facility] Course & Med Decision Making: Course & Med Decision Making Yinka is a 69 year-old male, who presents via EMS after an episode of vertigo and stabbing chest pain. Due to the patient's age, risk factors, presentation he was worked up for atypical chest pain. His chest x-ray, EKG, cardiac enzyme panel were within normal limits. Furthermore, the patient underwent a head CT, which showed no acute intracranial process. The patient is diabetic, hypertensive, has high cholesterol, and has a family history of cardiac disease. Due to these for risk factors and his atypical chest pain presentation, he will be admitted for observation. Patient requiring admission for further evaluation and treatment. Discussed with Dr. Cruz (hospitalist) who is in agreement with admission. Discussed findings and plan with patient, who acknowledges understanding and agreement. Dragon Disclaimer: Dragyao Disclaimer: This electronic medical record was generated, in whole or in part, using a voice recognition dictation system. Departure Departure Referrals: AUGUST KNOX (PCP) CB GOLDEN DO Oct 26, 2020 03:02
[2020-10-26 03:08] LABS: CREATININE 1.7 mg/dL (0.6-1.0); GFR 29.7; POTASSIUM 3.5 mmol/L (3.5-5.1)
[2020-10-26 03:14] LABS: ALBUMIN/GLOBULIN RATIO 0.9 (1.0-1.7); MAGNESIUM 1.8 mg/dL (1.8-2.4); TOTAL BILIRUBIN 0.6 mg/dL (0.2-1.0); TOTAL PROTEIN 6.4 g/dL (6.4-8.2)
--- NOTE | 2020-10-26 04:05 | RAD ---
PQRS Compliance Statement: One or more of the following individualized dose reduction techniques were utilized for this examinat ion: 1. Automated exposure control 2. Adjustment of the mA and/or kV according to patient size 3. Use of iterative reconstruction technique CT HEAD WITHOUT CONTRAST History: Reason: dizziness / Spl. Instructions: / History: Comparison: CT head without contrast August 16, 2019. Procedure: Axial images are obtained of the head from the skull base through the vertex without IV co ntrast. Findings: The ventricles and sulci are normal for the patient's age. No mass-effect, midline shift, hemorrhage, extra-axial fluid collection, or obvious acute infarction is identified. Basilar cisterns are patent. Bone windows demonstrate no acute calvarial abnormality. Mild wall thickening of the left maxillary sinus. There is no air-fluid level. Mastoid air cells are well aerated. IMPRESSION: No acute intracranial abnormality. Electronically signed by: Aaron Monsivais MD (10/26/2020 4:02 AM) [facility]
--- NOTE | 2020-10-26 04:09 | RAD ---
XR CHEST 1V Clinical Indication: Reason: chest pain / Spl. Instructions: / History: Comparison: AP chest August 16, 2019. Findings: The cardiomediastinal silhouette is normal. Lungs are clear. There is no pneumothorax. No pleural eff usion is appreciated. No acute bone abnormality. IMPRESSION: No acute cardiopulmonary process. Electronically signed by: Aaron Monsivais MD (10/26/2020 4:06 AM) [facility], [place]
[2020-10-26] MEDS ORDERED: DEXTROSE 50% 25 GM / 50ML DISP.SYRIN. IV PRN ×2 (05:30→08:45)
[2020-10-26] MEDS ORDERED: ONDANSETRON PF 4 MG/2 ML VIAL. IV PRN ×2 (05:30→08:45)
[2020-10-26] MEDS ORDERED: MECLIZINE HCL 12.5 MG TABLET. PO ONE (06:00)
[2020-10-26 06:58] LABS: BILIRUBIN,URINE NEGATIVE (NEG); CLARITY,URINE CLEAR; COLOR,URINE YELLOW; NITRITE,URINE NEGATIVE (NEG); PROTEIN,URINE NEGATIVE (NEG-TRACE); UROBILINOGEN,URINE 0.2 mg/dL (0.2 mg/dL)
[2020-10-26 07:04] LABS: BARBITURATES NEG (NEG); BENZODIAZEPINES NEG (NEG); CANNABINOIDS NEG (NEG); COCAINE NEG (NEG); METHADONE NEG (NEG); OPIATES NEG (NEG); PHENCYCLIDINE NEG (NEG)
[2020-10-26 07:06] LABS: AMPHETAMINE/METHAMPHETAMINE NEG (NEG); BACTERIA,URINE 0 /HPF (0-FEW); RBC,URINE 0 /HPF (0-2); WBC,URINE OCC /HPF (0-4)
[2020-10-26] MEDS: IV NORMAL SALINE 1000ML BAG 1,000 ML IV SCH ×2 (07:07→15:30)
[2020-10-26] MEDS ORDERED: INSULIN LISPRO 300 UNITS/3 ML VIAL. SQ SCH (08:00)
[2020-10-26] MEDS ORDERED: traMADol 50 MG TABLET PO PRN (08:45)
[2020-10-26] MEDS ORDERED: ACETAMINOPHEN 325 MG TABLET. PO PRN (08:45)
--- NOTE | 2020-10-26 08:47 | PDOC1 ---
History and Physical Date of Admission Date of Admission DATE: 10/26/20 TIME: 08:28 Identification/Chief Complaint Chief Complaint Chest pain, dizziness Source Source: Patient History of Present Illness History of Present Illness Mr Gómez is a 69-year-old male w/ PMHx DM2, GERD, HLD, HTN, hypothyroidism, vertigo, RLS who presents to the emergency room via EMS with complaints of sharp left sided chest pain. Pain is sharp, left sided, intermittent, occurred at rest while watching television, and took his breath away. He describes it as stabbing, nonradiating, with no palliative or provoking factors. 10 out of 10 at worst. He also c/o sudden onset dizziness that occurred soon after his chest pain. He was on the couch watching [place] on TV and when he got up to go to bed he was unstable on his feet and felt dizzy. Came close to falling. He took his normal daily dose of tramadol as well as tizanidine 4mg x2 about an hour before this episode. 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 He notes a sore throat on further review. He has had both COVID 19 vaccines, notes no sick contacts or travel. Lives alone with dogs. CT head negative. Chest radiograph with no abnormality. EKG NSR rate of 60bpm with leftward axis. No ST segment changes or TWI. Labs with normal CBC, bland UA, tox screen negative, troponin 0. NA 133, K3.5, BUN 18, CR 1.7, glucose 155, albumin 3, magnesium 1.8. Admitted for further care Past Medical History Cardiovascular: HTN, Hyperlipidemia Pulmonary: No pertinent hx CENTRAL NERVOUS SYSTEM: Other GI: GERD Heme/Onc: No pertinent hx Hepatobiliary: No pertinent hx Psych: Anxiety Musculoskeletal: Osteoarthritis Rheumatologic: No pertinent hx Infectious disease: No pertinent hx Renal/: No pertinent hx, Chronic renal insuff Endocrine: Diabetes, Hypothyroidism Past Surgical History Past Surgical History: Other Family History Family History: Heart Disease Family History: Parent Social History Smoke: No ALCOHOL: none Drugs: None Current Medications Current Medications Current Medications Sodium Chloride 1,000 ml @ 1,000 mls/hr 1X ONCE IV Last administered on 10/26/20at 03:18; Start 10/26/20 at 03:00; Stop 10/26/20 at 03:59; Status DC Famotidine (Pepcid Vial) 20 mg 1X ONCE IVP Last administered on 10/26/20at 03:18; Start 10/26/20 at 03:00; Stop 10/26/20 at 03:01; Status DC Aspirin (Ecotrin) 325 mg 1X ONCE PO ; Start 10/26/20 at 03:00; Stop 10/26/20 at 03:01; Status DC Ondansetron HCl (Zofran) 4 mg PRN Q8HRS PRN IV NAUSEA/VOMITING 1ST CHOICE; Start 10/26/20 at 05:30; Stop 10/27/20 at 05:29 Sodium Chloride 1,000 ml @ 100 mls/hr Q10H IV Last administered on 10/26/20at 07:07; Start 10/26/20 at 05:30; Stop 10/27/20 at 05:29 Insulin Human Lispro (HumaLOG) 0-5 UNITS TIDWMEALS SQ ; Start 10/26/20 at 08:00 Dextrose (Dextrose 50%-Water Syringe) 12.5 gm PRN Q15MIN PRN IV SEE COMMENTS; Start 10/26/20 at 05:30 Meclizine HCl (Antivert) 25 mg 1X ONCE PO Last administered on 10/26/20at 06:47; Start 10/26/20 at 06:00; Stop 10/26/20 at 06:01; Status DC Active Scripts Active Tramadol Hcl 50 Mg Tablet 50 Mg PO Q6HRS PRN Tylenol (Acetaminophen) 325 Mg Tablet 650 Mg PO PRN Q6HRS PRN 30 Days Reported Naproxen 500 Mg Tablet 1 Tab PO BID Losartan-Hctz 100-25 Mg Tab (Losartan/Hydrochlorothiazide) 1 Each Tablet 1 Tab PO DAILY Triamcinolone Acetonide 0.1% Oint (Triamcinolone Acetonide) 15 Gm Oint...g. 1 Zi TP BID PRN MIX WITH EUCERIN DIRECTED BY PHYSICIAN Aspirin Ec (Aspirin) 81 Mg Tablet. 1 Tab PO DAILY Glimepiride 2 Mg Tablet 2 Mg PO DAILY Atorvastatin Calcium 40 Mg Tablet 40 Mg PO HS Gabapentin 300 Mg Capsule 600 Mg PO HS Potassium Citrate 10 Meq Tablet.er 10 Meq PO DAILY Omeprazole 40 Mg Capsule.dr 40 Mg PO DAILYAC Levothyroxine Sodium 50 Mcg Tablet 50 Mcg PO DAILY Allergies Allergies: Coded Allergies: hydrocodone (Verified Allergy, Severe, throat swelling, 09/08/18) oxycodone (Verified Allergy, Severe, throat swelling, 09/08/18) ROS General: YES: Fatigue, Malaise; No: Chills, Night Sweats, Appetite, Other PSYCHOLOGICAL ROS: YES: Anxiety; No: Behavioral Disorder, Concentration difficultie, Decreased libido, Depression, Disorientation, Hallucinations, Hostility, Irritablity, Memory difficulties, Mood Swings, Obsessive thoughts, Physical abuse, Sexual abuse, Sleep disturbances, Suicidal ideation, Other Eyes: No Blurry vision, No Decreased vision, No Double vision, No Dry eyes, No Excessive tearing, No Eye Pain, No Itchy Eyes, No Loss of vision, No Photophobia, No Scotomata, No Uses contacts, No Uses glasses, No Other HEENT: YES: Sore Throat; No: Heacaches, Visual Changes, Hearing change, Nasal congestion, Nasal discharge, Oral lesions, Sinus pain, Epistaxis, Sneezing, Snoring, Tinnitus, Vertigo, Vocal changes, Other ALLERGY AND IMMUNOLOGY: No: Hives, Insect Bite Sensitivity, Itchy/Watery Eyes, Nasal Congestion, Post Nasal Drip, Seasonal Allergies, Other Hematological and Lymphatic: No: Bleeding Problems, Blood Clots, Blood Transfusions, Brusing, Night Sweats, Pallor, Swollen Lymph Nodes, Other ENDOCRINE: No: Breast Changes, Galactorrhea, Hair Pattern Changes, Hot Flashes, Malaise/lethargy, Mood Swings, Palpitations, Polydipsia/polyuria, Skin Changes, Temperature Intolerance, Unexpected Weight Changes, Other Breast: No New/Changing Breast Lumps, No Nipple changes, No Nipple discharge, No Other Respiratory: YES: Shortness of breath; No: Cough, Hemoptysis, Orthopnea, Pleuritic Pain, SOB with excertion, Sputum Changes, Stridor, Tachypnea, Wheezing, Other Cardiovascular: yes Chest Pain; No Palpitations, No Orthopnea, No Paroxysmal Noc. Dyspnea, No Edema, No Lt Headedness, No Other Gastrointestinal: No Nausea, No Vomiting, No Abdominal Pain, No Diarrhea, No Constipation, No Melena, No Hematochezia, No Other Genitourinary: No Dysuria, No Frequency, No Incontinence, No Hematuria, No Retention, No Discharge, No Urgency, No Pain, No Flank Pain, No Other, No , No , No , No , No , No , No Musculoskeletal: Yes Gait Disturbance; No Joint Pain, No Joint Stiffness, No Joint Swelling, No Muscle Pain, No Muscular Weakness, No Pain In:, No Swelling In:, No Other Neurological: Yes Dizziness, Yes Gait Disturbance; No Behavorial Changes, No Bowel/Bladder ControlChng, No Confusion, No Headaches, No Impaired Coord/balance, No Memory Loss, No Numbness/Tingling, No Seizures, No Speech Problems, No Tremors, No Visual Changes, No Weakness, No Other Skin: No Dry Skin, No Eczema, No Hair Changes, No Lumps, No Mole Changes, No Mottling, No Nail Changes, No Pruritus, No Rash, No Skin Lesion Changes, No Other, No Acne Physical Exam General: Alert, Oriented X3, Cooperative, mild distress HEENT: Atraumatic, PERRLA, EOMI, Mucous membr. moist/pink Lungs: Clear to auscultation, Normal air movement Heart: S1S2, RRR, no thrills, no rubs, no gallops, no murmurs Abdomen: Normal bowel sounds, Soft, No tenderness, No hepatosplenomegaly, No masses Rectal Exam: not examined Extremities: No clubbing, No cyanosis, No edema, Normal pulses, No tenderness/swelling Skin: No rashes, No breakdown, No significant lesion Neuro: Normal speech, Strength at 5/5 X4 ext, Normal tone, Sensation intact, Cranial nerves 3-12 NL, Reflexes 2+, Other (unsteady gait, normal rapid alternating movements and finger to nose) Psych/Mental Status: Mental status NL, Mood NL Vitals Vitals Vital Signs Date Time Temp Pulse Resp B/P (MAP) Pulse Ox O2 Delivery O2 Flow Rate FiO2 10/26/20 06:22 52 14 104/51 (68) 93 Room Air 10/26/20 02:19 97.8 97.8 Labs Labs Laboratory Tests Test 10/26/20 02:41 10/26/20 06:50 White Blood Count 9.9 x10^3/uL (4.0-11.0) Red Blood Count 4.44 x10^6/uL (3.50-5.40) Hemoglobin 13.9 g/dL (12.0-15.5) Hematocrit 40.7 % (36.0-47.0) Mean Corpuscular Volume 92 fL (79-100) Mean Corpuscular Hemoglobin 31 pg (25-35) Mean Corpuscular Hemoglobin Concent 34 g/dL (31-37) Red Cell Distribution Width 14.6 % (11.5-14.5) Platelet Count 250 x10^3/uL (140-400) Neutrophils (%) (Auto) 70 % (31-73) Lymphocytes (%) (Auto) 18 % (24-48) Monocytes (%) (Auto) 9 % (0-9) Eosinophils (%) (Auto) 3 % (0-3) Basophils (%) (Auto) 1 % (0-3) Neutrophils # (Auto) 6.9 x10^3/uL (1.8-7.7) Lymphocytes # (Auto) 1.8 x10^3/uL (1.0-4.8) Monocytes # (Auto) 0.9 x10^3/uL (0.0-1.1) Eosinophils # (Auto) 0.3 x10^3/uL (0.0-0.7) Basophils # (Auto) 0.1 x10^3/uL (0.0-0.2) D-Dimer (Jessica) 0.35 ug/mlFEU (0.00-0.50) Sodium Level 133 mmol/L (136-145) Potassium Level 3.5 mmol/L (3.5-5.1) Chloride Level 98 mmol/L (98-107) Carbon Dioxide Level 27 mmol/L (21-32) Anion Gap 8 (6-14) Blood Urea Nitrogen 18 mg/dL (7-20) Creatinine 1.7 mg/dL (0.6-1.0) Estimated GFR (Cockcroft-Gault) 29.7 BUN/Creatinine Ratio 11 (6-20) Glucose Level 155 mg/dL (70-99) Calcium Level 8.0 mg/dL (8.5-10.1) Magnesium Level 1.8 mg/dL (1.8-2.4) Total Bilirubin 0.6 mg/dL (0.2-1.0) Aspartate Amino Transf (AST/SGOT) 20 U/L (15-37) Alanine Aminotransferase (ALT/SGPT) 30 U/L (14-59) Alkaline Phosphatase 72 U/L (46-116) Creatine Kinase 187 U/L (26-192) Creatine Kinase MB (Mass) 0.5 ng/mL (0.0-3.6) Creatine Kinase MB Relative Index 0.3 % (0-4) Troponin I Quantitative < 0.017 ng/mL (0.000-0.055) Total Protein 6.4 g/dL (6.4-8.2) Albumin 3.0 g/dL (3.4-5.0) Albumin/Globulin Ratio 0.9 (1.0-1.7) Ethyl Alcohol Level < 10 mg/dL (0-10) Urine Collection Type Void Urine Color Yellow Urine Clarity Clear Urine pH 6.0 (<5.0-8.0) Urine Specific Lynn 1.015 (1.000-1.030) Urine Protein Negative mg/dL (NEG-TRACE) Urine Glucose (UA) Negative mg/dL (NEG) Urine Ketones (Stick) Negative mg/dL (NEG) Urine Blood Negative (NEG) Urine Nitrite Negative (NEG) Urine Bilirubin Negative (NEG) Urine Urobilinogen Dipstick 0.2 mg/dL (0.2 mg/dL) Urine Leukocyte Esterase Negative (NEG) Urine RBC 0 /HPF (0-2) Urine WBC Occ /HPF (0-4) Urine Bacteria 0 /HPF (0-FEW) Urine Mucus Slight /LPF Urine Opiates Screen Neg (NEG) Urine Methadone Screen Neg (NEG) Urine Barbiturates Neg (NEG) Urine Phencyclidine Screen Neg (NEG) Urine Amphetamine/Methamphetamine Neg (NEG) Urine Benzodiazepines Screen Neg (NEG) Urine Cocaine Screen Neg (NEG) Urine Cannabinoids Screen Neg (NEG) Urine Ethyl Alcohol Neg (NEG) Laboratory Tests Test 10/26/20 02:41 10/26/20 06:50 White Blood Count 9.9 x10^3/uL (4.0-11.0) Red Blood Count 4.44 x10^6/uL (3.50-5.40) Hemoglobin 13.9 g/dL (12.0-15.5) Hematocrit 40.7 % (36.0-47.0) Mean Corpuscular Volume 92 fL (79-100) Mean Corpuscular Hemoglobin 31 pg (25-35) Mean Corpuscular Hemoglobin Concent 34 g/dL (31-37) Red Cell Distribution Width 14.6 % (11.5-14.5) Platelet Count 250 x10^3/uL (140-400) Neutrophils (%) (Auto) 70 % (31-73) Lymphocytes (%) (Auto) 18 % (24-48) Monocytes (%) (Auto) 9 % (0-9) Eosinophils (%) (Auto) 3 % (0-3) Basophils (%) (Auto) 1 % (0-3) Neutrophils # (Auto) 6.9 x10^3/uL (1.8-7.7) Lymphocytes # (Auto) 1.8 x10^3/uL (1.0-4.8) Monocytes # (Auto) 0.9 x10^3/uL (0.0-1.1) Eosinophils # (Auto) 0.3 x10^3/uL (0.0-0.7) Basophils # (Auto) 0.1 x10^3/uL (0.0-0.2) D-Dimer (Jessica) 0.35 ug/mlFEU (0.00-0.50) Sodium Level 133 mmol/L (136-145) Potassium Level 3.5 mmol/L (3.5-5.1) Chloride Level 98 mmol/L (98-107) Carbon Dioxide Level 27 mmol/L (21-32) Anion Gap 8 (6-14) Blood Urea Nitrogen 18 mg/dL (7-20) Creatinine 1.7 mg/dL (0.6-1.0) Estimated GFR (Cockcroft-Gault) 29.7 BUN/Creatinine Ratio 11 (6-20) Glucose Level 155 mg/dL (70-99) Calcium Level 8.0 mg/dL (8.5-10.1) Magnesium Level 1.8 mg/dL (1.8-2.4) Total Bilirubin 0.6 mg/dL (0.2-1.0) Aspartate Amino Transf (AST/SGOT) 20 U/L (15-37) Alanine Aminotransferase (ALT/SGPT) 30 U/L (14-59) Alkaline Phosphatase 72 U/L (46-116) Creatine Kinase 187 U/L (26-192) Creatine Kinase MB (Mass) 0.5 ng/mL (0.0-3.6) Creatine Kinase MB Relative Index 0.3 % (0-4) Troponin I Quantitative < 0.017 ng/mL (0.000-0.055) Total Protein 6.4 g/dL (6.4-8.2) Albumin 3.0 g/dL (3.4-5.0) Albumin/Globulin Ratio 0.9 (1.0-1.7) Ethyl Alcohol Level < 10 mg/dL (0-10) Urine Collection Type Void Urine Color Yellow Urine Clarity Clear Urine pH 6.0 (<5.0-8.0) Urine Specific Lynn 1.015 (1.000-1.030) Urine Protein Negative mg/dL (NEG-TRACE) Urine Glucose (UA) Negative mg/dL (NEG) Urine Ketones (Stick) Negative mg/dL (NEG) Urine Blood Negative (NEG) Urine Nitrite Negative (NEG) Urine Bilirubin Negative (NEG) Urine Urobilinogen Dipstick 0.2 mg/dL (0.2 mg/dL) Urine Leukocyte Esterase Negative (NEG) Urine RBC 0 /HPF (0-2) Urine WBC Occ /HPF (0-4) Urine Bacteria 0 /HPF (0-FEW) Urine Mucus Slight /LPF Urine Opiates Screen Neg (NEG) Urine Methadone Screen Neg (NEG) Urine Barbiturates Neg (NEG) Urine Phencyclidine Screen Neg (NEG) Urine Amphetamine/Methamphetamine Neg (NEG) Urine Benzodiazepines Screen Neg (NEG) Urine Cocaine Screen Neg (NEG) Urine Cannabinoids Screen Neg (NEG) Urine Ethyl Alcohol Neg (NEG) Images Images Chest radiograph: The cardiomediastinal silhouette is normal. Lungs are clear. There is no pneumothorax. No pleural effusion is appreciated. No acute bone abnormality. IMPRESSION: No acute cardiopulmonary process. CT head: The ventricles and sulci are normal for the patient's age. No mass-effect, midline shift, hemorrhage, extra-axial fluid collection, or obvious acute infarction is identified. Basilar cisterns are patent. Bone windows demonstrate no acute calvarial abnormality. Mild wall thickening of the left maxillary sinus. There is no air-fluid level. Mastoid air cells are well aerated. IMPRESSION: No acute intracranial abnormality. VTE Prophylaxis Ordered VTE Prophylaxis Devices: No VTE Pharmacological Prophylaxi: Yes Assessment/Plan Assessment/Plan A/P: Chest pain - high risk ACS given his DM2, HTN. Trend troponins, telemetry. Consult cardiology. Likely GERD vs costochondritis Sore throat - no signs of thrush, no recent antibiotic exposure. No sick contacts, no sign of strep throat JOSEPH - on CKD1. Likely vasomotor nephropathy. Baseline Cr 1.3-1.4. Will hold HCTZ losartan HTN - cont home meds DM2 - Sliding scale + sulfonylurea HLD - cont statin Hypothyroidism - cont levothyroxine GERD - cont PPI Moderate protein calorie malnutrition - superintendent power to see Hyponatremia - likely due to HCTZ, will hold Hypokalemia - likely due to diuretic, also likely with some RTA due to DM2 FEN - ADA cardiac diet PPX - heparin FULL CODE DIspo - inpatient Justifications for Admission Other Justification KAREN DIALLO MD Oct 26, 2020 08:47
[2020-10-26] MEDS: LEVOTHYROXINE 50 MCG TABLET PO SCH (11:05)
[2020-10-26] MEDS: POTASSIUM CITRATE 10 MEQ TABLET.ER PO SCH (11:07)
[2020-10-26] MEDS: HEPARIN for SUB-Q USE 5,000 UNIT/ML VIAL. SQ SCH ×3 (11:07→21:12)
[2020-10-26] MEDS: GLIMEPIRIDE 2 MG TABLET. PO SCH (11:07)
[2020-10-26 11:15] VITALS: BP 179/84
[2020-10-26] MEDS: INSULIN LISPRO 300 UNITS/3 ML VIAL. SQ SCH ×2 (12:00→17:00)
[2020-10-26] MEDS ORDERED: MELO15TA23 PO (12:49)
[2020-10-26] MEDS ORDERED: DICL100G54 TP (12:49)
--- NOTE | 2020-10-26 14:00 | PDOC2 ---
COSME ACOSTA [employer] 10/26/20 1400: CARDIAC CONSULT DATE OF CONSULT Date of Consult DATE: 10/26/20 TIME: 13:53 REASON FOR CONSULT Reason for Consult: Chest pain REFERRING PHYSICIAN Referring Physician: Dr. Benavidez SOURCE Source: Chart review, Patient HISTORY OF PRESENT ILLNESS HISTORY OF PRESENT ILLNESS This is a 69 yo male who presented secondary to dizziness with near syncope. Also complained of pinpoint pain in his left chest, which prompted this consult. Describes as sharp, stabbing pain. Last only seconds and resolved without intervention. Patient reports he got up to go to bed around 1am this morning and was significantly dizzy. [place] as if he was going to pass out. He does have a history of vertigo. Reports dizziness to be worse with turning his head side to side. He denies any recent illness, fevers. No diaphoresis, SOA, or nausea/vomiting. PAST MEDICAL HISTORY Past Medical History Cardiovascular: HTN, Hyperlipidemia Pulmonary: No pertinent hx CENTRAL NERVOUS SYSTEM: Other (vertigo) GI: GERD Heme/Onc: No pertinent hx Hepatobiliary: No pertinent hx Psych: Anxiety Musculoskeletal: Osteoarthritis Rheumatologic: No pertinent hx Infectious disease: No pertinent hx Renal/: No pertinent hx Endocrine: Diabetes, Hypothyroidism PAST SURGICAL HISTORY Past Surgical History: No pertinent history (ACL surgery ) FAMILY HISTORY Family History: Heart Disease SOCIAL HISTORY Smoke: No ALCOHOL: none Drugs: None Lives: Alone CURRENT MEDICATIONS CURRENT MEDICATIONS Current Medications Medications (Trade) Dose Ordered Sig/Xuan Route PRN Reason Start Time Stop Time Status Last Admin Dose Admin Sodium Chloride 1,000 ml @ 1,000 mls/hr 1X ONCE IV 10/26/20 03:00 10/26/20 03:59 DC 10/26/20 03:18 Famotidine (Pepcid Vial) 20 mg 1X ONCE IVP 10/26/20 03:00 10/26/20 03:01 DC 10/26/20 03:18 Sodium Chloride 1,000 ml @ 100 mls/hr Q10H IV 10/26/20 05:30 10/27/20 05:29 10/26/20 07:07 Meclizine HCl (Antivert) 25 mg 1X ONCE PO 10/26/20 06:00 10/26/20 06:01 DC 10/26/20 06:47 Glimepiride (Amaryl) 2 mg DAILY PO 10/26/20 09:00 10/26/20 11:07 Levothyroxine Sodium (Synthroid) 50 mcg DAILY06 PO 10/26/20 10:30 10/26/20 11:05 Potassium Citrate (Urocit-K) 10 meq DAILY PO 10/26/20 09:00 10/26/20 11:07 Tramadol HCl (Ultram) 50 mg PRN Q6HRS PRN PO MODERATE TO SEVERE PAIN 10/26/20 08:45 10/26/20 11:05 Heparin Sodium (Porcine) (Heparin Sodium) 5,000 unit Q8HRS SQ 10/26/20 09:00 10/26/20 13:39 ALLERGIES ALLERGIES: Coded Allergies: hydrocodone (Verified Allergy, Severe, throat swelling, 09/08/18) oxycodone (Verified Allergy, Severe, throat swelling, 09/08/18) ROS Review of System 14 point ROS conducted with pertinent positives noted above in hPI PHYSICAL EXAM General: Alert, Oriented X3, Cooperative, No acute distress HEENT: Atraumatic, Mucous membr. moist/pink Lungs: Clear to auscultation Heart: Regular rate Abdomen: Soft, No tenderness Extremities: No edema, Normal pulses Skin: No significant lesion Neuro: Normal speech, Sensation intact Psych/Mental Status: Mental status NL, Mood NL, Other (flat affect ) MUSCULOSKELETAL: Osteoarthritic changes both hands VITALS/I&O VITALS/I&O: Vital Signs Date Time Temp Pulse Resp B/P (MAP) Pulse Ox O2 Delivery O2 Flow Rate FiO2 10/26/20 11:15 97.7 58 20 179/84 (115) 98 Room Air 97.7 LABS Lab: Laboratory Tests Test 10/26/20 02:41 10/26/20 06:50 10/26/20 08:26 10/26/20 08:28 White Blood Count 9.9 x10^3/uL (4.0-11.0) Red Blood Count 4.44 x10^6/uL (3.50-5.40) Hemoglobin 13.9 g/dL (12.0-15.5) Hematocrit 40.7 % (36.0-47.0) Mean Corpuscular Volume 92 fL (79-100) Mean Corpuscular Hemoglobin 31 pg (25-35) Mean Corpuscular Hemoglobin Concent 34 g/dL (31-37) Red Cell Distribution Width 14.6 % (11.5-14.5) H Platelet Count 250 x10^3/uL (140-400) Neutrophils (%) (Auto) 70 % (31-73) Lymphocytes (%) (Auto) 18 % (24-48) L Monocytes (%) (Auto) 9 % (0-9) Eosinophils (%) (Auto) 3 % (0-3) Basophils (%) (Auto) 1 % (0-3) Neutrophils # (Auto) 6.9 x10^3/uL (1.8-7.7) Lymphocytes # (Auto) 1.8 x10^3/uL (1.0-4.8) Monocytes # (Auto) 0.9 x10^3/uL (0.0-1.1) Eosinophils # (Auto) 0.3 x10^3/uL (0.0-0.7) Basophils # (Auto) 0.1 x10^3/uL (0.0-0.2) D-Dimer (Jessica) 0.35 ug/mlFEU (0.00-0.50) Sodium Level 133 mmol/L (136-145) L Potassium Level 3.5 mmol/L (3.5-5.1) Chloride Level 98 mmol/L (98-107) Carbon Dioxide Level 27 mmol/L (21-32) Anion Gap 8 (6-14) Blood Urea Nitrogen 18 mg/dL (7-20) Creatinine 1.7 mg/dL (0.6-1.0) H Estimated GFR (Cockcroft-Gault) 29.7 BUN/Creatinine Ratio 11 (6-20) Glucose Level 155 mg/dL (70-99) H Calcium Level 8.0 mg/dL (8.5-10.1) L Magnesium Level 1.8 mg/dL (1.8-2.4) Total Bilirubin 0.6 mg/dL (0.2-1.0) Aspartate Amino Transferase (AST) 20 U/L (15-37) Alanine Aminotransferase (ALT) 30 U/L (14-59) Alkaline Phosphatase 72 U/L (46-116) Creatine Kinase 187 U/L (26-192) Creatine Kinase MB (Mass) 0.5 ng/mL (0.0-3.6) Creatine Kinase MB Relative Index 0.3 % (0-4) Troponin I Quantitative < 0.017 ng/mL (0.000-0.055) < 0.017 ng/mL (0.000-0.055) Total Protein 6.4 g/dL (6.4-8.2) Albumin 3.0 g/dL (3.4-5.0) L Albumin/Globulin Ratio 0.9 (1.0-1.7) L Ethyl Alcohol Level < 10 mg/dL (0-10) Urine Collection Type Void Urine Color Yellow Urine Clarity Clear Urine pH 6.0 (<5.0-8.0) Urine Specific [place] 1.015 (1.000-1.030) Urine Protein Negative mg/dL (NEG-TRACE) Urine Glucose (UA) Negative mg/dL (NEG) Urine Ketones (Stick) Negative mg/dL (NEG) Urine Blood Negative (NEG) Urine Nitrite Negative (NEG) Urine Bilirubin Negative (NEG) Urine Urobilinogen Dipstick 0.2 mg/dL (0.2 mg/dL) Urine Leukocyte Esterase Negative (NEG) Urine RBC 0 /HPF (0-2) Urine WBC Occ /HPF (0-4) Urine Bacteria 0 /HPF (0-FEW) Urine Mucus Slight /LPF Urine Opiates Screen Neg (NEG) Urine Methadone Screen Neg (NEG) Urine Barbiturates Neg (NEG) Urine Phencyclidine Screen Neg (NEG) Urine Amphetamine/Methamphetamine Neg (NEG) Urine Benzodiazepines Screen Neg (NEG) Urine Cocaine Screen Neg (NEG) Urine Cannabinoids Screen Neg (NEG) Urine Ethyl Alcohol Neg (NEG) Glucose (Fingerstick) 138 mg/dL (70-99) H Test 10/26/20 11:25 10/26/20 13:30 Troponin I Quantitative < 0.017 ng/mL (0.000-0.055) Glucose (Fingerstick) 131 mg/dL (70-99) H Laboratory Tests 10/26/20 02:41 Laboratory Tests 10/26/20 02:41 ECHOCARDIOGRAM ECHOCARDIOGRAM <Conclusion> The left ventricular systolic function is normal. The Ejection Fraction is 55-60%. There is normal LV segmental wall motion. The left atrium is moderately dilated. Trace to mild mitral regurgitation. Trace tricuspid regurgitation. There is mild pulmonary hypertension. The PA pressure was estimated at 32 mmHg. There is no evidence of significant pericardial effusion. DATE: 11/14/18 1255 STRESS TEST STRESS TEST Conclusion 1. Regadenoson cardioisotope stress test did not show any evidence of ischemia or infarct. 2. Normal left ventricular systolic function with ejection fraction calculated at 61%. 3. Low risk for cardiac events. DATE: 04/23/19 1049 ASSESSMENT/PLAN ASSESSMENT/PLAN 1. Dizziness, near syncope with h/o vertigo. CT head without acute findings. No significant arrhythmias noted on tele thus far 2. Chest pain, atypical. AMI ruled out. 3. HTN: controlled 4. Diabetes, II 5. Hyperlipidemia; statin 6. JOSEPH on CKD 7. Sinus bradycardia. Lowest 48 overnight. No pauses. Mean near 60 8. Hypothyroidism; on replacement Recommendations Echocardiogram to assess LV systolic function, r/o cardiac anomalies Monitor tele Avoid AV joseph blocking agents Orthostatic VS Lipids, TSH Consider outpatient event monitor and ischemic evaluation with stress testing. Supportive care IVET RAMÍREZ MD 10/27/20 0955: CARDIAC CONSULT ASSESSMENT/PLAN ASSESSMENT/PLAN Patient seen and examined on 10/26/20 I agree with our nurse practitioners assessment and plan. Dizziness, near syncope with h/o vertigo. CT head without acute findings. No significant arrhythmias noted on tele. We will check an echocardiogram to evaluate LV function. Possible outpatient monitor. Chest pain, atypical. AMI ruled out. Continue medical treatment. Consider outpatient stress testing. HTN: controlled Diabetes, II Hyperlipidemia; statin. Rechecking cholesterol panel. JOSEPH on CKD. Monitoring lab. Sinus bradycardia. Lowest 48 overnight. No pauses. Mean near 60. Checking TSH. Holding AV joseph blocking agents. Outpatient monitoring as above. Hypothyroidism; on replacement COSME ACOSTA APRN Oct 26, 2020 14:00 IVET RAMÍREZ MD Oct 27, 2020 09:55
[2020-10-26 15:00] VITALS: BP 142/62
--- NOTE | 2020-10-26 16:26 | NUR ---
TIZANIDINE 4MG AND TRAMADOL 50MG BOTTLES BELONGING TO PT WERE SENT DOWN TO PHARMACY IN [facility].
[2020-10-26] MEDS ORDERED: MECLIZINE HCL 12.5 MG TABLET. PO PRN (19:30)
[2020-10-26] MEDS ORDERED: LIDO:MAALOX 1:1 20 ML SINGLE DOSE. SWSW ONE (19:30)
[2020-10-26 19:40] VITALS: BP 137/80
[2020-10-26] MEDS ORDERED: GABAPENTIN 300 MG CAPSULE. PO SCH (21:00)
[2020-10-26] MEDS ORDERED: ATORVASTATIN CALCIUM 40 MG TABLET. PO SCH (21:00)
[2020-10-26 22:55] VITALS: BP 140/65
[2020-10-27] MEDS: IV NORMAL SALINE 1000ML BAG 1,000 ML IV SCH (01:30)
[2020-10-27 03:55] VITALS: BP 124/67
[2020-10-27] MEDS: LEVOTHYROXINE 50 MCG TABLET PO SCH (05:53)
[2020-10-27] MEDS: HEPARIN for SUB-Q USE 5,000 UNIT/ML VIAL. SQ SCH ×2 (05:56→15:02)
[2020-10-27 07:25] VITALS: BP 162/74
[2020-10-27 07:27] VITALS: BP 143/68
[2020-10-27 07:29] VITALS: BP 127/64
[2020-10-27] MEDS ORDERED: PANTOPRAZOLE 40 MG TABLET.DR. PO SCH (07:30)
[2020-10-27 07:36] LABS: CHOLESTEROL/HDL RATIO 3.9
[2020-10-27] MEDS: INSULIN LISPRO 300 UNITS/3 ML VIAL. SQ SCH ×2 (08:00→11:46)
[2020-10-27] MEDS: GLIMEPIRIDE 2 MG TABLET. PO SCH (08:09)
[2020-10-27] MEDS: POTASSIUM CITRATE 10 MEQ TABLET.ER PO SCH (08:09)
[2020-10-27] MEDS ORDERED: ASPIRIN ENTERIC COATED 81 MG TABLET.DR. PO SCH (09:00)
[2020-10-27 11:00] VITALS: BP 129/71
--- NOTE | 2020-10-27 12:45 | NUR ---
SS following for discharge planning. SS reviewed pt chart and discussed with pt RN. Pt is from home and is currently on oxygen at two liters nasal canula for comfort. Cardiology following. Anticipate discharge to home today if Cardiology signs off. SS will continue to follow for discharge planning.
--- NOTE | 2020-10-27 13:39 | PDOC ---
CARDIO Progress Notes Date and Time Date of Service 10/27/20 Time of Evaluation 1315 Subjective Subjective: No Chest Pain, No shortness of breath, No Palpitations Vitals Vitals Vital Signs Date Time Temp Pulse Resp B/P (MAP) Pulse Ox O2 Delivery O2 Flow Rate FiO2 10/27/20 11:00 98.2 66 22 129/71 (90) 95 Nasal Cannula 2.0 98.2 Weight Weight [ ] Input and Output Intake and Output Intake and Output0 10/27/20 07:00 Intake Total 1971 ml Output Total 1850 ml Balance 121 ml Intake Oral 600 ml IV Total 1371 ml Output Urine Total 1850 ml Laboratory Labs Laboratory Tests Test 10/26/20 17:12 10/26/20 21:06 10/27/20 06:20 10/27/20 07:32 Glucose (Fingerstick) 133 mg/dL (70-99) 170 mg/dL (70-99) 115 mg/dL (70-99) Triglycerides Level 164 mg/dL (0-150) Cholesterol Level 104 mg/dL (0-200) LDL Cholesterol, Calculated 44 mg/dL (0-100) VLDL Cholesterol, Calculated 33 mg/dL (0-40) Non-HDL Cholesterol Calculated 77 mg/dL (0-129) HDL Cholesterol 27 mg/dL (40-60) Cholesterol/HDL Ratio 3.9 Test 10/27/20 11:22 Glucose (Fingerstick) 143 mg/dL (70-99) Physical Exam Chest: Symmetric LUNGS: Clear to Auscultation Heart: S1S2, RRR Abdomen: Soft N/T Extremities: No Edema Neurology: alert, oriented, follow commands, other (flat affect ) Assessment Assessment 1. Dizziness, near syncope with h/o vertigo. CT head without acute findings. No significant arrhythmias noted on tele. Echo with preserved LV systolic function, no WMA. Orthostatic VS + 2. Chest pain, atypical. AMI ruled out. 3. HTN: controlled 4. Diabetes, II 5. Hyperlipidemia; statin 6. JOSEPH on CKD 7. Sinus bradycardia. Lowest 48 overnight. No pauses. Mean near 60 8. Hypothyroidism; on replacement Recommendations Fluid bolus compression stockings. Avoid AV joseph blocking agents Consider outpatient event monitor and ischemic evaluation with stress testing. Supportive care Justicifation of Admission Dx: Justifications for Admission: Justification of Admission Dx: Yes Comments: orthostatic hypotension, syncope COSME ACOSTA APRN Oct 27, 2020 13:39
[2020-10-27] MEDS ORDERED: IV NORMAL SALINE 500ML BAG 500 ML IV ONE (13:45)
[2020-10-27 15:00] VITALS: BP 123/56
--- NOTE | 2020-10-27 15:45 | CARD ---
MR#: [id number] Date of Study: 10/27/2020 Ordering Physician: COSME ACOSTA, Referring Physician: COSME ACOSTA, Tech: Preethi Denise, [facility] APPROVED REPORT EXAM: Two-dimensional and M-mode echocardiogram with Doppler and color Doppler. Other Information Quality : AverageHR: 70bpm INDICATION Dizziness and Vertigo Chest Pain Near syncope RISK FACTORS Hypertension Diabetes 2D DIMENSIONS RVDd3.7 (2.9-3.5cm)Left Atrium(2D)3.5 (1.6-4.0cm) IVSd1.1 (0.7-1.1cm)Aortic Root(2D)3.0 (2.0-3.7cm) LVDd5.3 (3.9-5.9cm)LVOT Diameter1.9 (1.8-2.4cm) PWd1.2 (0.7-1.1cm)LVDs3.6 (2.5-4.0cm) FS (%) 32.3 %SV79.5 ml LVEF(%)60.1 (>50%) Aortic Valve AoV Peak Santy.171.5cm/sAoV VTI32.5cm AO Peak GR.11.8mmHgLVOT Peak Santy.113.2cm/s LVOT VTI 22.80cmAO Mean GR.6mmHg AGUSTIN (VMAX)1.93ba3SVC (VTI)2.09cm2 Mitral Valve MV E Homcmhcr46.7cm/sMV DECEL KXCE322ob MV A Jiydfmkk78.9cm/sMV HTJ99ke E/A Ratio0.8MVA (PHT)2.83cm2 TDI E/Lateral E'5.5E/Medial E'7.0 Pulmonary Valve PV Peak Puuzfzcu945.4cm/sPV Peak Grad.5mmHg Tricuspid Valve TR P. Ancjgiep660uo/sRAP WCYDZDJW9dmMa TR Peak Gr.67zpJsBRVC76eiXh Pulmonary Vein S1 Qzraedjs72.2cm/sD2 Dsfnodvf39.0cm/s LEFT VENTRICLE The left ventricle is normal size. There is mild concentric left ventricular hypertrophy. The left ve ntricular systolic function is normal and the ejection fraction is within normal range. The Ejection Fraction is 50-55%. There is normal LV segmental wall motion. Transmitral Doppler flow pattern is Gra de II-pseudonormal filling dynamics. RIGHT VENTRICLE The right ventricle is normal size. There is normal right ventricular wall thickness. The right ventr icular systolic function is normal. ATRIA The left atrium is mildly dilated. The right atrium size is normal. The interatrial septum is intact with no evidence for an atrial septal defect or patent foramen ovale as noted on 2-D or Doppler imagi ng. AORTIC VALVE The aortic valve is normal in structure and function. Doppler and Color Flow revealed no significant aortic regurgitation. There is no significant aortic valvular stenosis. Calculated aortic valve area is 2.11 cm2 with maximum pressure gradient of 14 mmHg and mean pressure gradient of 8 mmHg. MITRAL VALVE The mitral valve is normal in structure and function. There is no evidence of mitral valve prolapse. There is no mitral valve stenosis. Doppler and Color-flow revealed trace mitral regurgitation. TRICUSPID VALVE The tricuspid valve is normal in structure and function. Doppler and Color Flow revealed trace tricus pid regurgitation with an estimated PAP of 39 mmHg. There is no tricuspid valve stenosis. PULMONIC VALVE The pulmonic valve is not well visualized. Doppler and Color Flow revealed trace pulmonic valvular re gurgitation. There is no pulmonic valvular stenosis. GREAT VESSELS The aortic root is normal in size. The IVC is dilated. PERICARDIAL EFFUSION There is no evidence of significant pericardial effusion. Critical Notification Critical Value: No <Conclusion> The left ventricular systolic function is normal and the ejection fraction is within normal range. Th e Ejection Fraction is 50-55%. There is normal LV segmental wall motion. Signed by : Darren Montgomery, Electronically Approved : 10/27/2020 15:45:00
--- NOTE | 2020-10-27 16:28 | PDOC3 ---
Discharge Summary Visit Information Date of Admission: Oct 26, 2020 Date of Discharge: Oct 27, 2020 Final Diagnosis presyncope chest pain, r/o ACS chronic pain pre-renal azotemia on CKD, dehydrated Brief Hospital Course Allergies Allergies Coded Allergies Type Severity Reaction Last Updated Verified hydrocodone Allergy Severe throat swelling 09/08/18 Yes oxycodone Allergy Severe throat swelling 09/08/18 Yes Vital Signs Vital Signs Date Time Temp Pulse Resp B/P (MAP) Pulse Ox O2 Delivery O2 Flow Rate FiO2 10/27/20 15:00 97.9 63 20 123/56 (78) 95 Nasal Cannula 2.0 97.9 Lab Results Laboratory Tests Test 10/26/20 02:41 10/26/20 06:50 10/26/20 08:26 10/26/20 08:28 White Blood Count 9.9 x10^3/uL (4.0-11.0) Red Blood Count 4.44 x10^6/uL (3.50-5.40) Hemoglobin 13.9 g/dL (12.0-15.5) Hematocrit 40.7 % (36.0-47.0) Mean Corpuscular Volume 92 fL (79-100) Mean Corpuscular Hemoglobin 31 pg (25-35) Mean Corpuscular Hemoglobin Concent 34 g/dL (31-37) Red Cell Distribution Width 14.6 % (11.5-14.5) Platelet Count 250 x10^3/uL (140-400) Neutrophils (%) (Auto) 70 % (31-73) Lymphocytes (%) (Auto) 18 % (24-48) Monocytes (%) (Auto) 9 % (0-9) Eosinophils (%) (Auto) 3 % (0-3) Basophils (%) (Auto) 1 % (0-3) Neutrophils # (Auto) 6.9 x10^3/uL (1.8-7.7) Lymphocytes # (Auto) 1.8 x10^3/uL (1.0-4.8) Monocytes # (Auto) 0.9 x10^3/uL (0.0-1.1) Eosinophils # (Auto) 0.3 x10^3/uL (0.0-0.7) Basophils # (Auto) 0.1 x10^3/uL (0.0-0.2) D-Dimer (Jessica) 0.35 ug/mlFEU (0.00-0.50) Sodium Level 133 mmol/L (136-145) Potassium Level 3.5 mmol/L (3.5-5.1) Chloride Level 98 mmol/L (98-107) Carbon Dioxide Level 27 mmol/L (21-32) Anion Gap 8 (6-14) Blood Urea Nitrogen 18 mg/dL (7-20) Creatinine 1.7 mg/dL (0.6-1.0) Estimated GFR (Cockcroft-Gault) 29.7 BUN/Creatinine Ratio 11 (6-20) Glucose Level 155 mg/dL (70-99) Calcium Level 8.0 mg/dL (8.5-10.1) Magnesium Level 1.8 mg/dL (1.8-2.4) Total Bilirubin 0.6 mg/dL (0.2-1.0) Aspartate Amino Transf (AST/SGOT) 20 U/L (15-37) Alanine Aminotransferase (ALT/SGPT) 30 U/L (14-59) Alkaline Phosphatase 72 U/L (46-116) Creatine Kinase 187 U/L (26-192) Creatine Kinase MB (Mass) 0.5 ng/mL (0.0-3.6) Creatine Kinase MB Relative Index 0.3 % (0-4) Troponin I Quantitative < 0.017 ng/mL (0.000-0.055) < 0.017 ng/mL (0.000-0.055) Total Protein 6.4 g/dL (6.4-8.2) Albumin 3.0 g/dL (3.4-5.0) Albumin/Globulin Ratio 0.9 (1.0-1.7) Ethyl Alcohol Level < 10 mg/dL (0-10) Urine Collection Type Void Urine Color Yellow Urine Clarity Clear Urine pH 6.0 (<5.0-8.0) Urine Specific [place] 1.015 (1.000-1.030) Urine Protein Negative mg/dL (NEG-TRACE) Urine Glucose (UA) Negative mg/dL (NEG) Urine Ketones (Stick) Negative mg/dL (NEG) Urine Blood Negative (NEG) Urine Nitrite Negative (NEG) Urine Bilirubin Negative (NEG) Urine Urobilinogen Dipstick 0.2 mg/dL (0.2 mg/dL) Urine Leukocyte Esterase Negative (NEG) Urine RBC 0 /HPF (0-2) Urine WBC Occ /HPF (0-4) Urine Bacteria 0 /HPF (0-FEW) Urine Mucus Slight /LPF Urine Opiates Screen Neg (NEG) Urine Methadone Screen Neg (NEG) Urine Barbiturates Neg (NEG) Urine Phencyclidine Screen Neg (NEG) Urine Amphetamine/Methamphetamine Neg (NEG) Urine Benzodiazepines Screen Neg (NEG) Urine Cocaine Screen Neg (NEG) Urine Cannabinoids Screen Neg (NEG) Urine Ethyl Alcohol Neg (NEG) Glucose (Fingerstick) 138 mg/dL (70-99) Test 10/26/20 11:25 10/26/20 13:30 10/26/20 17:12 10/26/20 21:06 Troponin I Quantitative < 0.017 ng/mL (0.000-0.055) Thyroid Stimulating Hormone (TSH) 7.009 uIU/mL (0.358-3.74) Glucose (Fingerstick) 131 mg/dL (70-99) 133 mg/dL (70-99) 170 mg/dL (70-99) Test 10/27/20 06:20 10/27/20 07:32 10/27/20 11:22 Triglycerides Level 164 mg/dL (0-150) Cholesterol Level 104 mg/dL (0-200) LDL Cholesterol, Calculated 44 mg/dL (0-100) VLDL Cholesterol, Calculated 33 mg/dL (0-40) Non-HDL Cholesterol Calculated 77 mg/dL (0-129) HDL Cholesterol 27 mg/dL (40-60) Cholesterol/HDL Ratio 3.9 Glucose (Fingerstick) 115 mg/dL (70-99) 143 mg/dL (70-99) Laboratory Tests Test 10/26/20 17:12 10/26/20 21:06 10/27/20 06:20 10/27/20 07:32 Glucose (Fingerstick) 133 mg/dL (70-99) 170 mg/dL (70-99) 115 mg/dL (70-99) Triglycerides Level 164 mg/dL (0-150) Cholesterol Level 104 mg/dL (0-200) LDL Cholesterol, Calculated 44 mg/dL (0-100) VLDL Cholesterol, Calculated 33 mg/dL (0-40) Non-HDL Cholesterol Calculated 77 mg/dL (0-129) HDL Cholesterol 27 mg/dL (40-60) Cholesterol/HDL Ratio 3.9 Test 10/27/20 11:22 Glucose (Fingerstick) 143 mg/dL (70-99) Brief Hospital Course Mr. Gómez is a 69 old admit from ER, brought by EMS with complaints of chest pain and near syncop e pain was severe, and today is better, gone, r.o ACS done, WAS dizzy at home and almost fell, had taken pain meds andd tizanidine about an hour before He has had both COVID 19 vaccines, cr up a bit, dry on admit, fluids given, Discharge Information Condition at Discharge: Improved Follow Up: Weeks Disposition/Orders: D/C to Home Scheduled Aspirin (Aspirin Ec) 81 Mg Tablet.dr, 1 TAB PO DAILY for per list, #30 Ref 3 (Reported) Entered as Reported by: ADAM SMITH on 09/07/18 1527 Last Action: Continued on 10/26/20840 by KAREN DIALLO MD Atorvastatin Calcium (Atorvastatin Calcium) 40 Mg Tablet, 40 MG PO HS, (Reported) Entered as Reported by: LA LARA on 12/27/17 1353 Last Action: Continued on 10/26/20840 by KAREN DIALLO MD Diclofenac Sodium (Voltaren) 100 Gm Gel..gram., 1 GM TP QID for pain for 30 Days, #1 Ref 0 (Reported) apply to affected area(s) Entered as Reported by: ABDON WOOTEN RN on 10/26/201248 Last Action: New Order on 10/26/201248 by ABDON WOOTEN RN Gabapentin (Gabapentin) 300 Mg Capsule, 600 MG PO HS, (Reported) Entered as Reported by: LA LARA on 12/27/17 1353 Last Action: Continued on 10/26/20840 by KAREN DIALLO MD Glimepiride (Glimepiride) 2 Mg Tablet, 2 MG PO DAILY, (Reported) Entered as Reported by: LA LARA on 12/27/17 1353 Last Action: Continued on 10/26/20840 by KAREN DIALLO MD Levothyroxine Sodium (Synthroid) 75 Mcg Tablet, 1 TAB PO DAILY for hypothyroid, #30 Ref 1 Prescribed by: RAY DIOP on 10/27/20 1631 Losartan/Hydrochlorothiazide (Losartan-Hctz 100-25 Mg Tab) 1 Each Tablet, 1 TAB PO DAILY for htn, #30 Ref 5 (Reported) Entered as Reported by: ADAM SMITH on 09/07/18 1527 Meloxicam (Meloxicam) 15 Mg Tablet, 15 MG PO DAILY for JOINT PAIN, (Reported) Entered as Reported by: ABDON WOOTEN RN on 10/26/201248 Last Action: New Order on 10/26/201248 by ABDON WOOTEN RN Omeprazole (Omeprazole) 40 Mg Capsule.dr, 40 MG PO DAILYAC, (Reported) Entered as Reported by: LA LARA on 12/27/171352 Last Action: Converted on 10/26/20841 by KAREN DIALLO MD Potassium Citrate (Potassium Citrate) 10 Meq Tablet.er, 10 MEQ PO DAILY, (Reported) Entered as Reported by: LA LARA on 12/27/171352 Last Action: Continued on 10/26/20841 by KAREN DIALLO MD Discontinued Medications Diclofenac Sodium (Voltaren) 100 Gm Gel..gram., 1 GM TP QID for pain for 30 Days, #1 Ref 0 (Reported) apply to affected area(s) Entered as Reported by: ABDON WOOTEN RN on 10/26/201248 Last Action: New Order on 10/26/201248 by ABDON WOOTEN RN Levothyroxine Sodium (Levothyroxine Sodium) 50 Mcg Tablet, 50 MCG PO DAILY, (Reported) Entered as Reported by: LA LARA on 12/27/171352 Last Action: Continued on 10/26/20 0841 by KAREN DIALLO MD Patient Instructions Patient Instructions time > 30 min seeen in his room, discussed results reviewed ECHO <Conclusion> The left ventricular systolic function is normal and the ejection fraction is within normal range. The Ejection Fraction is 50-55%. There is normal LV segmental wall motion. Justicifation of Admission Dx: Justifications for Admission: Justification of Admission Dx: Yes RAY DIOP MD Oct 27, 2020 16:28
[2020-10-27] MEDS ORDERED: LEVO75TA90 PO (16:31)
--- NOTE | 2020-10-27 17:52 | NUR ---
Discharge Note: [facility] Discharge instructions and discharge home medications reviewed with Patient and a copy given. All questions have been answered and understanding verbalized. The following instructions and handouts were given: VERTIGO, ORTHOSTATIC HYPOTENSION Discontinued lines and drains: Peripheral IV intact. Patient discharged to Home or Self Care with Family Member via Wheelchair
== END 2020-10-27 17:57 | disposition home or self-care (01) ==
LOC: EDSEX 02:17 → ER 02:17 → 6 SOUTH 06:01 → ED HOLD 06:30 → 2 SOUTH 11:08
PROVIDERS: ADMIT Internal Medicine; ATTEND Internal Medicine
DX: R07.89 Other chest pain (principal); R55 Syncope and collapse; E86.0 Dehydration; N17.0 Acute kidney failure with tubular necrosis; I12.9 Hypertensive chronic kidney disease with stage 1 through stage 4 chronic kidney disease, or unspecified chronic kidney disease; N18.1 Chronic kidney disease, stage 1; J02.9 Acute pharyngitis, unspecified; E11.22 Type 2 diabetes mellitus with diabetic chronic kidney disease; E03.9 Hypothyroidism, unspecified; E44.0 Moderate protein-calorie malnutrition; K21.9 Gastro-esophageal reflux disease without esophagitis; E78.00 Pure hypercholesterolemia, unspecified; E78.5 Hyperlipidemia, unspecified; E87.1 Hypo-osmolality and hyponatremia; E87.6 Hypokalemia; G25.81 Restless legs syndrome; G89.29 Other chronic pain; M19.90 Unspecified osteoarthritis, unspecified site; F41.9 Anxiety disorder, unspecified; R79.89 Other specified abnormal findings of blood chemistry; R00.1 Bradycardia, unspecified; Z79.82 Long term (current) use of aspirin; Z79.4 Long term (current) use of insulin; Z95.1 Presence of aortocoronary bypass graft; Z79.899 Other long term (current) drug therapy
CPT/HCPCS: 36415; 70450; 71045; 80053; 80061; 80307; 81001; 82553; 82962; 83735; 84443; 84484; 85025; 85379; 93005; 93306; 96361; 96372; 96374; 99285; G0378; G0480; J1644; J1815; J3490; J7030; J7040; J8597; G0379

== ENCOUNTER 2021-01-26 20:26 | Emergency (ER) | payer OTHER ==
[~2021-01-26] VITALS: Ht 182.9 cm; Wt 113.0 kg
[~2021-01-26 20:26] MED LIST changes: +DICL100G54 TP; +LEVO75TA90 PO; +MELO15TA23 PO; -OMEP40CA45 PO; +OMEP40CA7 PO
[2021-01-26] MEDS ORDERED: IV NORMAL SALINE 1000ML BAG 1,000 ML IV ONE ×2 (21:00→23:00)
[2021-01-26] MEDS ORDERED: ACETAMINOPHEN 500 MG TABLET PO ONE (21:00)
[2021-01-26 21:28] LABS: BASO # 0.1 x10^3/uL (0.0-0.2); BASO % 1 % (0-3); EOS # 0.3 x10^3/uL (0.0-0.7); EOS % 3 % (0-3); HEMATOCRIT 42.6 % (39.0-53.0); LYMPH # 0.9 x10^3/uL (1.0-4.8); LYMPH % 8 % (24-48); MEAN CORPUSCULAR HEMOGLOBIN 32 pg (25-35); MEAN CORPUSCULAR HGB CONC 35 g/dL (31-37); MEAN CORPUSCULAR VOLUME 92 fL (79-100); MONO % 9 % (0-9); NEUT # 8.3 x10^3/uL (1.8-7.7); NEUT % 79 % (31-73); PLATELET COUNT 262 x10^3/uL (140-400); RED BLOOD COUNT 4.62 x10^6/uL (4.30-5.70); RED CELL DISTRIBUTION WIDTH 15.1 % (11.5-14.5); WHITE BLOOD COUNT 10.6 x10^3/uL (4.0-11.0)
--- NOTE | 2021-01-26 21:42 | RAD ---
XR CHEST 1V History: Reason: fever / Spl. Instructions: / History: Comparison: October 26, 2020 Findings: Patchy left basilar opacity. No pleural effusion. No pneumothorax. Unchanged heart size. Impression: 1. Patchy left basilar opacity, may represent atelectasis or developing infiltrate. Electronically signed by: Ag Larsen DO (01/26/2021 9:40 PM) [facility] [place]
[2021-01-26 21:44] LABS: CALCIUM 8.7 mg/dL (8.5-10.1); CREATININE 2.1 mg/dL (0.7-1.3); GFR 31.3; POTASSIUM 3.9 mmol/L (3.5-5.1)
[2021-01-26 21:49] LABS: ALBUMIN 3.7 g/dL (3.4-5.0); ALBUMIN/GLOBULIN RATIO 1.1 (1.0-1.7); MAGNESIUM 1.8 mg/dL (1.8-2.4); TOTAL BILIRUBIN 0.6 mg/dL (0.2-1.0); TOTAL PROTEIN 7.2 g/dL (6.4-8.2)
--- NOTE | 2021-01-26 21:52 | PHYS DOC ---
Past Medical History Past Medical History: Diabetes-Type II, GERD, High Cholesterol, Hypertension, Hypothyroid, Other Additional Past Medical Histor: vertigo, restless leg syndrome Past Surgical History: Other Additional Past Surgical Histo: stents in back(to try to stop pain in knees), rt knee surgery/acl, LUE surg Smoking Status: Never Smoker Alcohol Use: None Drug Use: None General Adult EDM: Chief Complaint: FEVER HPI: HPI: Patient is a 70 year old male who presented to ER due to fever and chill with headache started this morning. Patient denies any cough, no abdominal pain, no nausea vomiting, no trouble breathing, no chest pain. Patient said he yet not feeling well, having body ache and chills. Patient was vaccinated for COVID-19 3 to 4 months ago. Denies any sick contact. Patient denies any neck stiffness. Review of Systems: Review of Systems: Constitutional: Positive for fever and chill Eyes: Denies change in visual acuity. [] HENT: Denies nasal congestion or sore throat. [] Respiratory: Denies cough or shortness of breath. [] Cardiovascular: Denies chest pain or edema. [] GI: Denies abdominal pain, nausea, vomiting, bloody stools or diarrhea. [] : Denies dysuria. [] Musculoskeletal: Denies back pain or joint pain. [] Integument: Denies rash. [] Neurologic: Positive for headache, no focal weakness or numbness. Endocrine: Denies polyuria or polydipsia. [] Lymphatic: Denies swollen glands. [] Psychiatric: Denies depression or anxiety. [] Heart Score: C/O Chest Pain: N/A Risk Factors: Risk Factors: DM, Current or recent (<one month) smoker, HTN, HLP, family history of CAD, obesity. Risk Scores: Score 0 - 3: 2.5% MACE over next 6 weeks - Discharge Home Score 4 - 6: 20.3% MACE over next 6 weeks - Admit for Clinical Observation Score 7 - 10: 72.7% MACE over next 6 weeks - Early Invasive Strategies Current Medications: Current Medications Medications (Trade) Dose Ordered Sig/Xuan Start Time Stop Time Status Last Admin Dose Admin Acetaminophen (Tylenol) 1,000 mg 1X ONCE 01/26/21 21:00 01/26/21 21:01 DC 6/29/21 21:25 1,000 MG Sodium Chloride 1,000 ml @ 1,000 mls/hr 1X ONCE 01/26/21 21:00 01/26/21 21:59 01/26/21 21:26 1,000 MLS/HR Allergies: Allergies: Allergies Coded Allergies Type Severity Reaction Last Updated Verified hydrocodone Allergy Severe throat swelling 09/08/18 Yes oxycodone Allergy Severe throat swelling 09/08/18 Yes Physical Exam: PE: Constitutional: Well developed, well nourished, no acute distress, non-toxic appearance. [] HENT: Normocephalic, atraumatic, bilateral external ears normal, oropharynx moist, no oral exudates, nose normal. [] Eyes: PERRLA, EOMI, conjunctiva normal, no discharge. [] Neck: Normal range of motion, no tenderness, supple, no stridor. No nuchal rigidity Cardiovascular:Heart rate regular rhythm, no murmur [] Lungs & Thorax: Bilateral breath sounds clear to auscultation [] Abdomen: Bowel sounds normal, soft, no tenderness, no masses, no pulsatile masses. [] Skin: Warm, dry, no erythema, no rash. [] Back: No tenderness, no CVA tenderness. [] Extremities: No tenderness, no cyanosis, no clubbing, ROM intact, no edema. [] Neurologic: Alert and oriented X 3, normal motor function, normal sensory function, no focal deficits noted. [] Psychologic: Affect normal, judgement normal, mood normal. [] Current Patient Data: Labs: Laboratory Tests Test 01/26/21 21:10 01/26/21 21:18 SARS-CoV-2 Antigen (Rapid) Negative (NEGATIVE) White Blood Count 10.6 x10^3/uL (4.0-11.0) Red Blood Count 4.62 x10^6/uL (4.30-5.70) Hemoglobin 15.0 g/dL (13.0-17.5) Hematocrit 42.6 % (39.0-53.0) Mean Corpuscular Volume 92 fL (79-100) Mean Corpuscular Hemoglobin 32 pg (25-35) Mean Corpuscular Hemoglobin Concent 35 g/dL (31-37) Red Cell Distribution Width 15.1 % (11.5-14.5) H Platelet Count 262 x10^3/uL (140-400) Neutrophils (%) (Auto) 79 % (31-73) H Lymphocytes (%) (Auto) 8 % (24-48) L Monocytes (%) (Auto) 9 % (0-9) Eosinophils (%) (Auto) 3 % (0-3) Basophils (%) (Auto) 1 % (0-3) Neutrophils # (Auto) 8.3 x10^3/uL (1.8-7.7) H Lymphocytes # (Auto) 0.9 x10^3/uL (1.0-4.8) L Monocytes # (Auto) 1.0 x10^3/uL (0.0-1.1) Eosinophils # (Auto) 0.3 x10^3/uL (0.0-0.7) Basophils # (Auto) 0.1 x10^3/uL (0.0-0.2) Sodium Level 137 mmol/L (136-145) Potassium Level 3.9 mmol/L (3.5-5.1) Chloride Level 101 mmol/L (98-107) Carbon Dioxide Level 23 mmol/L (21-32) Anion Gap 13 (6-14) Blood Urea Nitrogen 16 mg/dL (8-26) Creatinine 2.1 mg/dL (0.7-1.3) H Estimated GFR (Cockcroft-Gault) 31.3 BUN/Creatinine Ratio 8 (6-20) Glucose Level 78 mg/dL (70-99) Lactic Acid Level 1.2 mmol/L (0.4-2.0) Calcium Level 8.7 mg/dL (8.5-10.1) Magnesium Level 1.8 mg/dL (1.8-2.4) Total Bilirubin 0.6 mg/dL (0.2-1.0) Aspartate Amino Transferase (AST) 25 U/L (15-37) Alanine Aminotransferase (ALT) 30 U/L (16-63) Alkaline Phosphatase 70 U/L (46-116) Total Protein 7.2 g/dL (6.4-8.2) Albumin 3.7 g/dL (3.4-5.0) Albumin/Globulin Ratio 1.1 (1.0-1.7) Laboratory Tests 01/26/21 21:18 Laboratory Tests 01/26/21 21:18 Vital Signs: Vital Signs Date Time Temp Pulse Resp B/P (MAP) Pulse Ox O2 Delivery O2 Flow Rate FiO2 01/26/21 20:37 100.4 90 24 148/101 (117) 97 Room Air 100.4 EKG: EKG: [] Radiology/Procedures: Radiology/Procedures: [][facility] [address] [place] [address] IMAGING REPORT Signed PATIENT: BONNIE HENSON ACCOUNT: [id number] : 1950 LOCATION: ER AGE: 70 SEX: M EXAM STATUS: REG ER ORD. PHYSICIAN: ENMANUEL TUCKER DO REASON: fever PROCEDURE: CHEST AP ONLY XR CHEST 1V History: Reason: fever / Spl. Instructions: / History: Comparison: October 26, 2020 Findings: Patchy left basilar opacity. No pleural effusion. No pneumothorax. Unchanged heart size. Impression: 1. Patchy left basilar opacity, may represent atelectasis or developing infiltrate. Electronically signed by: Ag Larsen DO (01/26/2021 9:40 PM) [facility] DICTATED and SIGNED BY: AG LARSEN DO DATE: 01/26/21 [id number] 0 Course & Med Decision Making: Course & Med Decision Making Pertinent Labs and Imaging studies reviewed. (See chart for details) Patient is a 70-year-old male who presented to ER due to fever and chills, not feeling well. Patient was given IV fluid and antipyretics in the ER, he felt much better. Her lab work came back normal. Blood work culture, lactic were normal, he was tested negative for COVID-19. Chest x-ray showed Patchy left basilar opacity, may represent atelectasis or developing infiltrate. Patient had no cough however due to fever and this finding on the chest x-ray, will treat him for early pneumonia with Omnicef 300 mg twice a day for 10 days. The medication was sent to [facility] pharmacy in [place]. [place] Disclaimer: Yvonne Disclaimer: This electronic medical record was generated, in whole or in part, using a voice recognition dictation system. Departure Departure Impression: Primary Impression: Viral syndrome Additional Impressions: Fever Pneumonia Disposition: HOME / SELF CARE / HOMELESS Condition: IMPROVED Referrals: AUGUST KNOX (PCP) Follow up with your doctor this week. Patient Instructions: Fever, Adult, Pneumonia, Adult, Viral Syndrome Additional Instructions: Thank you for visiting our Emergency Department. We appreciate you trusting us with your care. If any additional problems come up don't hesitate to return to visit us. Please follow up with your primary care provider so they can plan additional care if needed and know about the problem that you had. If symptoms worsen come back to the Emergency Department. Any concerning symptoms that start such as chest pain, shortness of air, weakness or numbness on one side of the body, running high fevers or any other concerning symptoms return to the ER. Scripts Cefdinir (CEFDINIR) 300 Mg Capsule 1 CAP PO BID for 10 Days, #20 CAP Prov: ENMANUEL TUCKER DO 01/27/21 ENMANUEL TUCKER DO Jan 26, 2021 21:52
[2021-01-26] MEDS ORDERED: KETOROLAC 15 MG/ML VIAL. IVP ONE (22:00)
[2021-01-26 22:01] LABS: INFLUENZA A PATIENT NEGATIVE (NEGATIVE); INFLUENZA B PATIENT NEGATIVE (NEGATIVE)
[2021-01-27 00:01] LABS: BILIRUBIN,URINE NEGATIVE (NEG); CLARITY,URINE CLEAR; COLOR,URINE YELLOW; NITRITE,URINE NEGATIVE (NEG); PH,URINE 6.5 (<5.0-8.0); PROTEIN,URINE NEGATIVE (NEG-TRACE); UROBILINOGEN,URINE 0.2 mg/dL (0.2 mg/dL)
[2021-01-27 00:13] LABS: BACTERIA,URINE 0 /HPF (0-FEW)
[2021-01-27 01:03] VITALS: BP 117/58
[2021-01-27] MEDS ORDERED: CEFD300C PO (02:52)
== END 2021-01-27 01:15 | disposition home or self-care (01) ==
LOC: ER 20:26
DX: J18.9 Pneumonia, unspecified organism (principal); B34.9 Viral infection, unspecified; E11.9 Type 2 diabetes mellitus without complications; K21.9 Gastro-esophageal reflux disease without esophagitis; E78.00 Pure hypercholesterolemia, unspecified; I10 Essential (primary) hypertension; E03.9 Hypothyroidism, unspecified; Z88.5 Allergy status to narcotic agent; Z95.5 Presence of coronary angioplasty implant and graft
CPT/HCPCS: 36415; 71045; 80053; 81001; 83605; 83735; 85025; 87040; 87426; 87804; 96361; 96374; 99285; J1885; J7030; U0003; U0005

== ENCOUNTER 2021-01-27 11:58 | Inpatient (IN) | payer OTHER ==
[~2021-01-27] VITALS: Ht 182.9 cm; Wt 113.6 kg
[~2021-01-27 11:58] MED LIST changes: +CEFD300C PO
[2021-01-27] MEDS ORDERED: PIPERACILLIN/TAZOBACTAM 4.5 GM in IV NORMAL SALINE 100ML 100 ML IV ONE (12:30)
[2021-01-27] MEDS ORDERED: ACETAMINOPHEN 500 MG TABLET PO ONE (12:30)
[2021-01-27] MEDS ORDERED: VANCOMYCIN PER PHARMACY MC ONE (12:30)
[2021-01-27] MEDS ORDERED: IBUPROFEN 200 MG TABLET. PO ONE (12:30)
[2021-01-27 12:47] LABS: BASO # 0.1 x10^3/uL (0.0-0.2); BASO % 1 % (0-3); EOS # 0.3 x10^3/uL (0.0-0.7); EOS % 3 % (0-3); HEMATOCRIT 39.6 % (39.0-53.0); HEMOGLOBIN 13.8 g/dL (13.0-17.5); LYMPH # 0.5 x10^3/uL (1.0-4.8); LYMPH % 6 % (24-48); MEAN CORPUSCULAR HEMOGLOBIN 32 pg (25-35); MEAN CORPUSCULAR HGB CONC 35 g/dL (31-37); MEAN CORPUSCULAR VOLUME 93 fL (79-100); MONO # 0.9 x10^3/uL (0.0-1.1); MONO % 10 % (0-9); NEUT # 7.1 x10^3/uL (1.8-7.7); NEUT % 80 % (31-73); PLATELET COUNT 264 x10^3/uL (140-400); RED BLOOD COUNT 4.27 x10^6/uL (4.30-5.70); RED CELL DISTRIBUTION WIDTH 14.7 % (11.5-14.5); WHITE BLOOD COUNT 8.9 x10^3/uL (4.0-11.0)
--- NOTE | 2021-01-27 12:49 | RAD ---
EXAM: Chest CT without intravenous contrast. HISTORY: Shortness of air. TECHNIQUE: Computed tomographic images of the chest were obtained without contrast. Multiplanar refor matting was performed. *One or more of the following individualized dose reduction techniques were utilized for this examina tion: 1. Automated exposure control. 2. Adjustment of the mA and/or kV according to patient size. 3. Use of iterative reconstruction technique. COMPARISON: None. FINDINGS: The heart is mildly enlarged. There is calcified atherosclerotic plaque involving the coron zara arteries. The aorta is normal in caliber. There are nonspecific mediastinal and hilar lymph nodes . There is a small hiatal hernia. There is no pneumothorax or pleural effusion. There is groundglass opacity within the medial right lower lobe overlying prominent right anterior lateral endplate osteop hytes. There is also bilateral posterior dependent and basilar atelectasis and lingular atelectasis o r scarring. There is a 3 mm pleural-based nodule within the medial right upper lobe (series 2, image 21). There i s a 7 mm nodule within the right upper lobe (series 2, image 23). There is a 2 mm nodule within the l ateral right upper lobe (series 2, image 28) There is no acute finding involving the upper abdomen. There are degenerative changes involving the s pine. There is a sebaceous cyst within the subcutaneous soft tissues of the upper back to the left of midline measuring 1.3 cm. There is a smaller sebaceous cyst inferior to this location measuring 9 mm . IMPRESSION: 1. Groundglass opacity within the medial right lower lobe likely due to atelectasis given the presenc e of an overlying prominent vertebral endplate osteophytes. There is no convincing infiltrate. 2. Prominent mediastinal and hilar lymph nodes. These are nonspecific and may be physiologic or react sarthak. 3. Right-sided pulmonary nodules measuring up to 7 mm. Follow-up can be performed in 6 months to conf irm stability. Electronically signed by: Stephanie Shen MD (01/27/2021 12:47 PM) [id number]
[2021-01-27 12:57] LABS: CALCIUM 8.1 mg/dL (8.5-10.1); CREATININE 2.1 mg/dL (0.7-1.3); GFR 31.3
[2021-01-27] MEDS: IV NORMAL SALINE 1000ML BAG 1,000 ML IV SCH ×3 (12:59→15:34)
[2021-01-27] MEDS ORDERED: VANCOMYCIN 2 GM in IV NORMAL SALINE 500ML BAG 500 ML IV ONE (13:00)
[2021-01-27 13:03] LABS: ALBUMIN 3.2 g/dL (3.4-5.0); MAGNESIUM 1.5 mg/dL (1.8-2.4); TOTAL BILIRUBIN 0.5 mg/dL (0.2-1.0); TOTAL PROTEIN 6.5 g/dL (6.4-8.2)
[2021-01-27] MEDS ORDERED: ACETAMINOPHEN 325 MG TABLET. PO PRN (15:15)
[2021-01-27] MEDS ORDERED: ONDANSETRON PF 4 MG/2 ML VIAL. IV PRN (15:15)
[2021-01-27] MEDS ORDERED: methylPREDNISolone SOD SUCC PF 125 MG/2 ML VIAL. IV ONE (15:15)
[2021-01-27] MEDS ORDERED: cefTRIAXone IV Push 1 GM VIAL. IVP ONE (15:15)
--- NOTE | 2021-01-27 15:27 | PHYS DOC ---
Past Medical History Past Medical History: Diabetes-Type II, GERD, High Cholesterol, Hypertension, Hypothyroid, Other Additional Past Medical Histor: vertigo, restless leg syndrome Past Surgical History: Other Additional Past Surgical Histo: stents in back(to try to stop pain in knees), rt knee surgery/acl, LUE surg Smoking Status: Never Smoker Alcohol Use: None Drug Use: None General Adult EDM: Chief Complaint: SHORTNESS OF BREATH HPI: HPI: Patient is a 70 year old male with history of diabetes type 2, hypertension, high cholesterol, who presents to the ED today complaining of subjective fevers, shortness of breath, chills, headache, symptoms began 2 days ago. Patient states he was seen in the ED yesterday and today he received a phone call stating he could have pneumonia and is to return to the ED. He states his symptoms have worsened. Denies any neck pain. Denies any chest pain. He states he received both his Covid vaccines last dose in October Review of Systems: Review of Systems: Constitutional: Reports fever and chills Eyes: Denies change in visual acuity. [] HENT: Denies nasal congestion or sore throat. [] Respiratory: Reports shortness of breath. Denies cough Cardiovascular: Denies chest pain or edema. [] GI: Denies abdominal pain, nausea, vomiting, bloody stools or diarrhea. [] : Denies dysuria. [] Musculoskeletal: Denies back pain or joint pain. [] Integument: Denies rash. [] Neurologic: Reports headache, denies focal weakness or sensory changes. [] Psychiatric: Denies depression or anxiety. [] Heart Score: C/O Chest Pain: N/A Risk Factors: Risk Factors: DM, Current or recent (<one month) smoker, HTN, HLP, family history of CAD, obesity. Risk Scores: Score 0 - 3: 2.5% MACE over next 6 weeks - Discharge Home Score 4 - 6: 20.3% MACE over next 6 weeks - Admit for Clinical Observation Score 7 - 10: 72.7% MACE over next 6 weeks - Early Invasive Strategies Current Medications: Current Medications Medications (Trade) Dose Ordered Sig/Xuan Start Time Stop Time Status Last Admin Dose Admin Acetaminophen (Tylenol) 650 mg PRN Q4HRS PRN 01/27/21 15:15 01/28/21 15:14 UNV Ceftriaxone Sodium (Rocephin) 1 gm 1X ONCE 01/27/21 15:15 01/27/21 15:16 UNV Ibuprofen (Motrin) 600 mg 1X ONCE 01/27/21 12:30 01/27/21 12:31 DC 01/27/21 12:59 600 MG Methylprednisolone Sodium Succinate (SOLU-Medrol 125MG VIAL) 125 mg 1X ONCE 01/27/21 15:15 01/27/21 15:16 UNV Ondansetron HCl (Zofran) 4 mg PRN Q8HRS PRN 01/27/21 15:15 01/28/21 15:14 UNV Piperacillin Sod/ Tazobactam Sod 4.5 gm/Sodium Chloride 100 ml @ 200 mls/hr 1X ONCE 01/27/21 12:30 01/27/21 12:59 DC 01/27/21 12:59 200 MLS/HR Sodium Chloride 1,000 ml @ 2,340 mls/hr Q26M 01/27/21 12:30 01/27/21 13:30 DC 01/27/21 13:56 2,340 MLS/HR Vancomycin HCl (Vanco Per Pharmacy) 1 each 1X ONCE 01/27/21 12:30 01/27/21 13:11 DC Vancomycin HCl 2 gm/Sodium Chloride 500 ml @ 250 mls/hr 1X ONCE 01/27/21 13:00 01/27/21 14:59 DC 01/27/21 13:59 250 MLS/HR Allergies: Allergies: Allergies Coded Allergies Type Severity Reaction Last Updated Verified hydrocodone Allergy Severe throat swelling 01/27/21 Yes oxycodone Allergy Severe throat swelling 01/27/21 Yes Physical Exam: PE: Constitutional: Well developed, well nourished, no acute distress, non-toxic ben earance. [] HENT: Normocephalic, atraumatic, bilateral external ears normal, oropharynx moist, no oral exudates, nose normal. [] Eyes: PERRLA, EOMI, conjunctiva normal, no discharge. [] Neck: Normal range of motion, no tenderness, supple, no stridor. Negative meningeal signs Cardiovascular:Heart rate regular rhythm, no murmur [] Lungs & Thorax: Diminished breath sounds, patient is short of air. Abdomen: Bowel sounds normal, soft, no tenderness, no masses, no pulsatile masses. [] Skin: Warm, dry, no erythema, no rash. [] Back: No tenderness, no CVA tenderness. [] Extremities: No tenderness, no cyanosis, no clubbing, ROM intact, no edema. [] Neurologic: Alert and oriented X 3, normal motor function, normal sensory function, no focal deficits noted. Cranial nerves II through XII intact Psychologic: Affect normal, judgement normal, mood normal. [] Current Patient Data: Labs: Laboratory Tests Test 01/27/21 12:35 White Blood Count 8.9 x10^3/uL (4.0-11.0) Red Blood Count 4.27 x10^6/uL (4.30-5.70) L Hemoglobin 13.8 g/dL (13.0-17.5) Hematocrit 39.6 % (39.0-53.0) Mean Corpuscular Volume 93 fL (79-100) Mean Corpuscular Hemoglobin 32 pg (25-35) Mean Corpuscular Hemoglobin Concent 35 g/dL (31-37) Red Cell Distribution Width 14.7 % (11.5-14.5) H Platelet Count 264 x10^3/uL (140-400) Neutrophils (%) (Auto) 80 % (31-73) H Lymphocytes (%) (Auto) 6 % (24-48) L Monocytes (%) (Auto) 10 % (0-9) H Eosinophils (%) (Auto) 3 % (0-3) Basophils (%) (Auto) 1 % (0-3) Neutrophils # (Auto) 7.1 x10^3/uL (1.8-7.7) Lymphocytes # (Auto) 0.5 x10^3/uL (1.0-4.8) L Monocytes # (Auto) 0.9 x10^3/uL (0.0-1.1) Eosinophils # (Auto) 0.3 x10^3/uL (0.0-0.7) Basophils # (Auto) 0.1 x10^3/uL (0.0-0.2) Sodium Level 133 mmol/L (136-145) L Potassium Level 4.0 mmol/L (3.5-5.1) Chloride Level 103 mmol/L (98-107) Carbon Dioxide Level 22 mmol/L (21-32) Anion Gap 8 (6-14) Blood Urea Nitrogen 18 mg/dL (8-26) Creatinine 2.1 mg/dL (0.7-1.3) H Estimated GFR (Cockcroft-Gault) 31.3 BUN/Creatinine Ratio 9 (6-20) Glucose Level 135 mg/dL (70-99) H Lactic Acid Level 1.5 mmol/L (0.4-2.0) Calcium Level 8.1 mg/dL (8.5-10.1) L Magnesium Level 1.5 mg/dL (1.8-2.4) L Total Bilirubin 0.5 mg/dL (0.2-1.0) Aspartate Amino Transferase (AST) 20 U/L (15-37) Alanine Aminotransferase (ALT) 25 U/L (16-63) Alkaline Phosphatase 66 U/L (46-116) Troponin I Quantitative < 0.017 ng/mL (0.000-0.055) Total Protein 6.5 g/dL (6.4-8.2) Albumin 3.2 g/dL (3.4-5.0) L Albumin/Globulin Ratio 1.0 (1.0-1.7) Laboratory Tests 01/27/21 12:35 Laboratory Tests 01/27/21 12:35 Vital Signs: Vital Signs Date Time Temp Pulse Resp B/P (MAP) Pulse Ox O2 Delivery O2 Flow Rate FiO2 01/27/21 14:09 65 184/83 (116) 95 Room Air 01/27/21 12:05 101.4 32 101.4 EKG: EK interpreted by Dr. benson Sinus rhythm HR 78 no STEMI[] Radiology/Procedures: Radiology/Procedures: []PROCEDURE: CT CHEST WO CONTRAST EXAM: Chest CT without intravenous contrast. HISTORY: Shortness of air. TECHNIQUE: Computed tomographic images of the chest were obtained without contrast. Multiplanar reformatting was performed. *One or more of the following individualized dose reduction techniques were utilized for this examination: 1. Automated exposure control. 2. Adjustment of the mA and/or kV according to patient size. 3. Use of iterative reconstruction technique. COMPARISON: None. FINDINGS: The heart is mildly enlarged. There is calcified atherosclerotic plaque involving the coronary arteries. The aorta is normal in caliber. There are nonspecific mediastinal and hilar lymph nodes. There is a small hiatal hernia. There is no pneumothorax or pleural effusion. There is groundglass opacity within the medial right lower lobe overlying prominent right anterior lateral endplate osteophytes. There is also bilateral posterior dependent and basilar atelectasis and lingular atelectasis or scarring. There is a 3 mm pleural-based nodule within the medial right upper lobe (series 2, image 21). There is a 7 mm nodule within the right upper lobe (series 2, image 23). There is a 2 mm nodule within the lateral right upper lobe (series 2, image 28) There is no acute finding involving the upper abdomen. There are degenerative changes involving the spine. There is a sebaceous cyst within the subcutaneous soft tissues of the upper back to the left of midline measuring 1.3 cm. There is a smaller sebaceous cyst inferior to this location measuring 9 mm. IMPRESSION: 1. Groundglass opacity within the medial right lower lobe likely due to atelectasis given the presence of an overlying prominent vertebral endplate osteophytes. There is no convincing infiltrate. 2. Prominent mediastinal and hilar lymph nodes. These are nonspecific and may be physiologic or reactive. 3. Right-sided pulmonary nodules measuring up to 7 mm. Follow-up can be performed in 6 months to confirm stability. Electronically signed by: Stephanie Patiño MD (01/27/2021 12:47 PM) [id number] DICTATED and SIGNED BY: STEPHANIE PATIÑO MD DATE: 01/27/21 [id number] 0 Course & Med Decision Making: Course & Med Decision Making Pertinent Labs and Imaging studies reviewed. (See chart for details) This is a 70-year-old male patient presenting to the ED today with headache dizziness fever shortness of breath for 2 days. Patient's vitals on arrival to the ED temperature 101.4 heart rate 79 respiration 32 on room air blood pressure 159/84, O2 sats 96%. Patient was started on the sepsis protocol. Spoke with Dr. Sánchez who accepted patient for admission Yvonne Disclaimer: Yvonne Disclaimer: This electronic medical record was generated, in whole or in part, using a voice recognition dictation system. Departure Departure Impression: Primary Impression: Shortness of breath Additional Impressions: Person under investigation for COVID-19 Fever Qualified Codes: R50.9 - Fever, unspecified Chills Disposition: ADMITTED INPATIENT Condition: STABLE Referrals: AUGUST KNOX (PCP) CARMITA ROCHA CALL TAKER Jan 27, 2021 15:27
[2021-01-27] MEDS ORDERED: diphenhydrAMINE 50 MG/ML VIAL IVP ONE (16:30)
[2021-01-27 17:19] VITALS: BP 103/34
--- NOTE | 2021-01-27 18:49 | EKG ---
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
[2021-01-27 19:00] VITALS: BP 116/39
--- NOTE | 2021-01-27 20:09 | PDOC1 ---
History and Physical Date of Admission Date of Admission DATE: 01/27/21 TIME: 20:08 Identification/Chief Complaint Chief Complaint cough, dyspnea Source Source: Chart review, Patient History of Present Illness History of Present Illness Mr. Gómez is a 70 year old male admit with fever and cough. He has recent subjective fevers for 2 days , with acute shortness of breath, chills, and headache. He has been able to eat since being seen in the ER and feels a bit better. He feels sweaty, but his room is set at 76 degrees. Was in the ER yesterday, sent home and today he received a phone call stating he could have pneumonia and is to return to the ED, which he was sure he should anyway as he felt worse than he did. no COVID exposure, has been vaccinated Past Medical History Past Medical History diabetes type 2, hypertension, high cholesterol Cardiovascular: HTN, Hyperlipidemia Pulmonary: No pertinent hx CENTRAL NERVOUS SYSTEM: Other GI: GERD Heme/Onc: No pertinent hx Hepatobiliary: No pertinent hx Psych: Anxiety Musculoskeletal: Osteoarthritis Rheumatologic: No pertinent hx Infectious disease: No pertinent hx Renal/: No pertinent hx, Chronic renal insuff Endocrine: Diabetes, Hypothyroidism Past Surgical History Past Surgical History: No pertinent history Family History Family History: Heart Disease Family History: Parent Social History Smoke: No ALCOHOL: none Drugs: None Current Problem List Problem List Problems Medical Problems: (1) Chills Status: Acute (2) Fever Status: Acute (3) Person under investigation for COVID-19 Status: Acute (4) Shortness of breath Status: Acute Current Medications Current Medications Current Medications Sodium Chloride 1,000 ml @ 2,340 mls/hr Q26M IV Last administered on 01/27/21at 15:34; Start 01/27/21 at 12:30; Stop 01/27/21 at 13:30; Status DC Piperacillin Sod/ Tazobactam Sod 4.5 gm/Sodium Chloride 100 ml @ 200 mls/hr 1X ONCE IV Last administered on 01/27/21at 12:59; Start 01/27/21 at 12:30; Stop 01/27/21 at 12:59; Status DC Vancomycin HCl (Vanco Per Pharmacy) 1 each 1X ONCE [facility] ; Start 01/27/21 at 12:30; Stop 01/27/21 at 13:11; Status DC Acetaminophen (Tylenol) 1,000 mg 1X ONCE PO Last administered on 01/27/21at 12:58; Start 01/27/21 at 12:30; Stop 01/27/21 at 12:31; Status DC Ibuprofen (Motrin) 600 mg 1X ONCE PO Last administered on 01/27/21at 12:59; Start 01/27/21 at 12:30; Stop 01/27/21 at 12:31; Status DC Vancomycin HCl 2 gm/Sodium Chloride 500 ml @ 250 mls/hr 1X ONCE IV Last administered on 01/27/21at 13:59; Start 01/27/21 at 13:00; Stop 01/27/21 at 14 :59; Status DC Ondansetron HCl (Zofran) 4 mg PRN Q8HRS PRN IV NAUSEA/VOMITING; Start 01/27/21 at 15:15; Stop 01/28/21 at 15:14 Acetaminophen (Tylenol) 650 mg PRN Q4HRS PRN PO FEVER > 100.3'F; Start 01/27/21 at 15:15; Stop 01/28/21 at 15:14 Ceftriaxone Sodium (Rocephin) 1 gm 1X ONCE IVP ; Start 01/27/21 at 15:15; Stop 01/27/21 at 15:16; Status Cancel Methylprednisolone Sodium Succinate (SOLU-Medrol 125MG VIAL) 125 mg 1X ONCE IV Last administered on 01/27/21at 16:42; Start 01/27/21 at 15:15; Stop 01/27/21 at 15:20; Status DC Diphenhydramine HCl (Benadryl) 25 mg 1X ONCE IVP Last administered on 01/27/21at 16:42; Start 01/27/21 at 16:30; Stop 01/27/21 at 16:31; Status DC Tramadol HCl (Ultram) 50 mg PRN Q6HRS PRN PO MILD TO MODERATE PAIN; Start 01/27/21 at 19:30 Hydrochlorothiazide (Hydrodiuril) 25 mg DAILY PO ; Start 01/28/21 at 09:00 Active Scripts Active Cefdinir 300 Mg Capsule 1 Cap PO BID 10 Days Synthroid (Levothyroxine Sodium) 75 Mcg Tablet 1 Tab PO DAILY Reported Meloxicam 15 Mg Tablet 15 Mg PO DAILY Voltaren (Diclofenac Sodium) 100 Gm Gel..gram. 1 Gm TP QID 30 Days apply to affected area(s) Losartan-Hctz 100-25 Mg Tab (Losartan/Hydrochlorothiazide) 1 Each Tablet 1 Tab PO DAILY Aspirin Ec (Aspirin) 81 Mg Tablet.dr 1 Tab PO DAILY Glimepiride 2 Mg Tablet 2 Mg PO DAILY Atorvastatin Calcium 40 Mg Tablet 40 Mg PO HS Gabapentin 300 Mg Capsule 600 Mg PO HS Potassium Citrate 10 Meq Tablet.er 10 Meq PO DAILY Omeprazole 40 Mg Capsule.dr 40 Mg PO DAILYAC Allergies Allergies: Coded Allergies: hydrocodone (Verified Allergy, Severe, throat swelling, 01/27/21) oxycodone (Verified Allergy, Severe, throat swelling, 01/27/21) vancomycin (Verified Adverse Reaction, Intermediate, Rash, 01/27/21) Redness extending up BUE ROS General: YES: Chills, Fatigue; No: Night Sweats, Malaise, Appetite, Other PSYCHOLOGICAL ROS: No: Anxiety, Behavioral Disorder, Concentration difficultie, Decreased libido, Depression, Disorientation, Hallucinations, Hostility, Irritablity, Memory difficulties, Mood Swings, Obsessive thoughts, Physical abuse, Sexual abuse, Sleep disturbances, Suicidal ideation, Other Eyes: No Blurry vision, No Decreased vision, No Double vision, No Dry eyes, No Excessive tearing, No Eye Pain, No Itchy Eyes, No Loss of vision, No Photophobia, No Scotomata, No Uses contacts, No Uses glasses, No Other HEENT: No: Heacaches, Visual Changes, Hearing change, Nasal congestion, Nasal discharge, Oral lesions, Sinus pain, Sore Throat, Epistaxis, Sneezing, Snoring, Tinnitus, Vertigo, Vocal changes, Other Respiratory: YES: Cough, SOB with excertion, Tachypnea; No: Hemoptysis, Orthopnea, Pleuritic Pain, Shortness of breath, Sputum Changes, Stridor, Wheezing, Other Cardiovascular: No Chest Pain, No Palpitations, No Orthopnea, No Paroxysmal Noc. Dyspnea, No Edema, No Lt Headedness, No Other Gastrointestinal: Yes Nausea; No Vomiting, No Abdominal Pain, No Diarrhea, No Constipation, No Melena, No Hematochezia, No Other Genitourinary: No Dysuria, No Frequency, No Incontinence, No Hematuria, No Retention, No Discharge, No Urgency, No Pain, No Flank Pain, No Other, No , No , No , No , No , No , No Musculoskeletal: Yes Joint Stiffness; No Gait Disturbance, No Joint Pain, No Joint Swelling, No Muscle Pain, No Muscular Weakness, No Pain In:, No Swelling In:, No Other Neurological: No Behavorial Changes, No Bowel/Bladder ControlChng, No Confusion, No Dizziness, No Gait Disturbance, No Headaches, No Impaired Coord/balance, No Memory Loss, No Numbness/Tingling, No Seizures, No Speech Problems, No Tremors, No Visual Changes, No Weakness, No Other Skin: No Dry Skin, No Eczema, No Hair Changes, No Lumps, No Mole Changes, No Mottling, No Nail Changes, No Pruritus, No Rash, No Skin Lesion Changes, No Other, No Acne Physical Exam Physical Exam obese, sweat on forehead General: Alert, Cooperative, mild distress HEENT: Atraumatic, PERRLA Lungs: Other (rales, no wheeze, ) Abdomen: Normal bowel sounds, Soft Extremities: No cyanosis, No edema, Normal pulses Skin: No rashes Neuro: Normal speech, Normal tone, Cranial nerves 3-12 NL Psych/Mental Status: Mood NL Vitals Vitals Vital Signs Date Time Temp Pulse Resp B/P (MAP) Pulse Ox O2 Delivery O2 Flow Rate FiO2 01/27/21 18:32 Nasal Cannula 2.0 01/27/21 17:19 98.1 59 20 103/34 (57) 96 98.1 Labs Labs Laboratory Tests Test 01/27/21 12:35 White Blood Count 8.9 x10^3/uL (4.0-11.0) Red Blood Count 4.27 x10^6/uL (4.30-5.70) Hemoglobin 13.8 g/dL (13.0-17.5) Hematocrit 39.6 % (39.0-53.0) Mean Corpuscular Volume 93 fL (79-100) Mean Corpuscular Hemoglobin 32 pg (25-35) Mean Corpuscular Hemoglobin Concent 35 g/dL (31-37) Red Cell Distribution Width 14.7 % (11.5-14.5) Platelet Count 264 x10^3/uL (140-400) Neutrophils (%) (Auto) 80 % (31-73) Lymphocytes (%) (Auto) 6 % (24-48) Monocytes (%) (Auto) 10 % (0-9) Eosinophils (%) (Auto) 3 % (0-3) Basophils (%) (Auto) 1 % (0-3) Neutrophils # (Auto) 7.1 x10^3/uL (1.8-7.7) Lymphocytes # (Auto) 0.5 x10^3/uL (1.0-4.8) Monocytes # (Auto) 0.9 x10^3/uL (0.0-1.1) Eosinophils # (Auto) 0.3 x10^3/uL (0.0-0.7) Basophils # (Auto) 0.1 x10^3/uL (0.0-0.2) Sodium Level 133 mmol/L (136-145) Potassium Level 4.0 mmol/L (3.5-5.1) Chloride Level 103 mmol/L (98-107) Carbon Dioxide Level 22 mmol/L (21-32) Anion Gap 8 (6-14) Blood Urea Nitrogen 18 mg/dL (8-26) Creatinine 2.1 mg/dL (0.7-1.3) Estimated GFR (Cockcroft-Gault) 31.3 BUN/Creatinine Ratio 9 (6-20) Glucose Level 135 mg/dL (70-99) Lactic Acid Level 1.5 mmol/L (0.4-2.0) Calcium Level 8.1 mg/dL (8.5-10.1) Magnesium Level 1.5 mg/dL (1.8-2.4) Total Bilirubin 0.5 mg/dL (0.2-1.0) Aspartate Amino Transf (AST/SGOT) 20 U/L (15-37) Alanine Aminotransferase (ALT/SGPT) 25 U/L (16-63) Alkaline Phosphatase 66 U/L (46-116) Troponin I Quantitative < 0.017 ng/mL (0.000-0.055) Total Protein 6.5 g/dL (6.4-8.2) Albumin 3.2 g/dL (3.4-5.0) Albumin/Globulin Ratio 1.0 (1.0-1.7) Laboratory Tests Test 01/27/21 12:35 White Blood Count 8.9 x10^3/uL (4.0-11.0) Red Blood Count 4.27 x10^6/uL (4.30-5.70) Hemoglobin 13.8 g/dL (13.0-17.5) Hematocrit 39.6 % (39.0-53.0) Mean Corpuscular Volume 93 fL (79-100) Mean Corpuscular Hemoglobin 32 pg (25-35) Mean Corpuscular Hemoglobin Concent 35 g/dL (31-37) Red Cell Distribution Width 14.7 % (11.5-14.5) Platelet Count 264 x10^3/uL (140-400) Neutrophils (%) (Auto) 80 % (31-73) Lymphocytes (%) (Auto) 6 % (24-48) Monocytes (%) (Auto) 10 % (0-9) Eosinophils (%) (Auto) 3 % (0-3) Basophils (%) (Auto) 1 % (0-3) Neutrophils # (Auto) 7.1 x10^3/uL (1.8-7.7) Lymphocytes # (Auto) 0.5 x10^3/uL (1.0-4.8) Monocytes # (Auto) 0.9 x10^3/uL (0.0-1.1) Eosinophils # (Auto) 0.3 x10^3/uL (0.0-0.7) Basophils # (Auto) 0.1 x10^3/uL (0.0-0.2) Sodium Level 133 mmol/L (136-145) Potassium Level 4.0 mmol/L (3.5-5.1) Chloride Level 103 mmol/L (98-107) Carbon Dioxide Level 22 mmol/L (21-32) Anion Gap 8 (6-14) Blood Urea Nitrogen 18 mg/dL (8-26) Creatinine 2.1 mg/dL (0.7-1.3) Estimated GFR (Cockcroft-Gault) 31.3 BUN/Creatinine Ratio 9 (6-20) Glucose Level 135 mg/dL (70-99) Lactic Acid Level 1.5 mmol/L (0.4-2.0) Calcium Level 8.1 mg/dL (8.5-10.1) Magnesium Level 1.5 mg/dL (1.8-2.4) Total Bilirubin 0.5 mg/dL (0.2-1.0) Aspartate Amino Transf (AST/SGOT) 20 U/L (15-37) Alanine Aminotransferase (ALT/SGPT) 25 U/L (16-63) Alkaline Phosphatase 66 U/L (46-116) Troponin I Quantitative < 0.017 ng/mL (0.000-0.055) Total Protein 6.5 g/dL (6.4-8.2) Albumin 3.2 g/dL (3.4-5.0) Albumin/Globulin Ratio 1.0 (1.0-1.7) VTE Prophylaxis Ordered VTE Prophylaxis Devices: Yes VTE Pharmacological Prophylaxi: Yes Assessment/Plan Assessment/Plan cough, fever, dyspnea, sputum, pneumonia, broad abx started in ER, poss gram negative organisms, will cont zosyn, vanc given SIRS + sepsis Dm2 obesity, BMI 34 IV steroids gievn in ER, unsure if he has COPD Justifications for Admission Other Justification RAY DIOP MD Jan 27, 2021 20:08
[2021-01-27] MEDS: traMADol 50 MG TABLET PO PRN (20:11)
[2021-01-27] MEDS ORDERED: DEXTROSE 50% 25 GM / 50ML DISP.SYRIN. IV PRN (21:00)
[2021-01-27] MEDS ORDERED: PIP/TAZO PER PHARMACY MC PRN (21:00)
[2021-01-27] MEDS ORDERED: MAGNESIUM SULFATE 2GM 50 ML IV ONE (21:30)
[2021-01-27] MEDS: GABAPENTIN 300 MG CAPSULE. PO SCH (22:27)
[2021-01-27] MEDS: ATORVASTATIN CALCIUM 40 MG TABLET. PO SCH (22:28)
[2021-01-27] MEDS: DICLOFENAC SODIUM 1% TOPICAL GEL 100GM TUBE. TP SCH (22:28)
[2021-01-27 23:00] VITALS: BP 132/62
[2021-01-28] VITALS (7 sets, daily range): BP systolic 104–125; BP diastolic 33–65
[2021-01-28 05:12] LABS: BASO % 0 % (0-3); EOS % 0 % (0-3); HEMATOCRIT 39.4 % (39.0-53.0); HEMOGLOBIN 13.5 g/dL (13.0-17.5); LYMPH # 0.6 x10^3/uL (1.0-4.8); LYMPH % 8 % (24-48); MEAN CORPUSCULAR HEMOGLOBIN 32 pg (25-35); MEAN CORPUSCULAR HGB CONC 34 g/dL (31-37); MEAN CORPUSCULAR VOLUME 93 fL (79-100); MONO # 0.1 x10^3/uL (0.0-1.1); MONO % 1 % (0-9); NEUT # 7.1 x10^3/uL (1.8-7.7); NEUT % 90 % (31-73); PLATELET COUNT 249 x10^3/uL (140-400); RED BLOOD COUNT 4.22 x10^6/uL (4.30-5.70); RED CELL DISTRIBUTION WIDTH 15.3 % (11.5-14.5); WHITE BLOOD COUNT 7.9 x10^3/uL (4.0-11.0)
[2021-01-28 05:43] LABS: ALBUMIN 2.9 g/dL (3.4-5.0); ALBUMIN/GLOBULIN RATIO 0.8 (1.0-1.7); CALCIUM 8.1 mg/dL (8.5-10.1); CREATININE 1.8 mg/dL (0.7-1.3); GFR 37.4; POTASSIUM 4.6 mmol/L (3.5-5.1); TOTAL BILIRUBIN 0.5 mg/dL (0.2-1.0); TOTAL PROTEIN 6.4 g/dL (6.4-8.2)
[2021-01-28] MEDS: LEVOTHYROXINE 75 MCG TABLET PO SCH (06:21)
[2021-01-28] MEDS: PIPERACILLIN/TAZOBACTAM 3.375 GM in IV NORMAL SALINE 50ML 50 ML IV SCH ×5 (06:21→23:33)
[2021-01-28 08:02] LABS: % ATYL 1 % (0-0); % BANDS 3 % (0-9); % LYMPHS 6 % (24-48); % MONOS 5 % (0-10); % SEGS 85 % (35-66)
[2021-01-28 08:03] LABS: ANISOCYTOSIS SLIGHT; PLT ESTIMATE ADEQUATE (ADEQUATE)
[2021-01-28] MEDS: INSULIN LISPRO 300 UNITS/3 ML VIAL. SQ SCH ×3 (08:10→17:48)
[2021-01-28] MEDS: ASPIRIN ENTERIC COATED 81 MG TABLET.DR. PO SCH (08:11)
[2021-01-28] MEDS: POTASSIUM CITRATE 10 MEQ TABLET.ER PO SCH (08:11)
[2021-01-28] MEDS: hydroCHLOROthiazide 25 MG TABLET PO SCH (08:11)
[2021-01-28] MEDS: PANTOPRAZOLE 40 MG TABLET.DR. PO SCH (08:11)
[2021-01-28] MEDS: GLIMEPIRIDE 2 MG TABLET. PO SCH (08:11)
[2021-01-28] MEDS: DICLOFENAC SODIUM 1% TOPICAL GEL 100GM TUBE. TP SCH ×4 (08:11→20:42)
--- NOTE | 2021-01-28 08:40 | PDOC ---
PULMONARY PROGRESS NOTES DATE: 01/28/21 TIME: 08:40 Vitals Vital Signs Date Time Temp Pulse Resp B/P (MAP) Pulse Ox O2 Delivery O2 Flow Rate FiO2 01/28/21 07:00 97.7 54 18 104/33 (56) 95 Nasal Cannula 97.7 01/28/21 03:32 2.0 Lungs: Clear Labs Laboratory Tests Test 01/27/21 12:35 01/28/21 04:40 White Blood Count 8.9 x10^3/uL (4.0-11.0) 7.9 x10^3/uL (4.0-11.0) Red Blood Count 4.27 x10^6/uL (4.30-5.70) 4.22 x10^6/uL (4.30-5.70) Hemoglobin 13.8 g/dL (13.0-17.5) 13.5 g/dL (13.0-17.5) Hematocrit 39.6 % (39.0-53.0) 39.4 % (39.0-53.0) Mean Corpuscular Volume 93 fL (79-100) 93 fL (79-100) Mean Corpuscular Hemoglobin 32 pg (25-35) 32 pg (25-35) Mean Corpuscular Hemoglobin Concent 35 g/dL (31-37) 34 g/dL (31-37) Red Cell Distribution Width 14.7 % (11.5-14.5) 15.3 % (11.5-14.5) Platelet Count 264 x10^3/uL (140-400) 249 x10^3/uL (140-400) Neutrophils (%) (Auto) 80 % (31-73) 90 % (31-73) Lymphocytes (%) (Auto) 6 % (24-48) 8 % (24-48) Monocytes (%) (Auto) 10 % (0-9) 1 % (0-9) Eosinophils (%) (Auto) 3 % (0-3) 0 % (0-3) Basophils (%) (Auto) 1 % (0-3) 0 % (0-3) Neutrophils # (Auto) 7.1 x10^3/uL (1.8-7.7) 7.1 x10^3/uL (1.8-7.7) Lymphocytes # (Auto) 0.5 x10^3/uL (1.0-4.8) 0.6 x10^3/uL (1.0-4.8) Monocytes # (Auto) 0.9 x10^3/uL (0.0-1.1) 0.1 x10^3/uL (0.0-1.1) Eosinophils # (Auto) 0.3 x10^3/uL (0.0-0.7) 0.0 x10^3/uL (0.0-0.7) Basophils # (Auto) 0.1 x10^3/uL (0.0-0.2) 0.0 x10^3/uL (0.0-0.2) Sodium Level 133 mmol/L (136-145) 138 mmol/L (136-145) Potassium Level 4.0 mmol/L (3.5-5.1) 4.6 mmol/L (3.5-5.1) Chloride Level 103 mmol/L (98-107) 105 mmol/L (98-107) Carbon Dioxide Level 22 mmol/L (21-32) 21 mmol/L (21-32) Anion Gap 8 (6-14) 12 (6-14) Blood Urea Nitrogen 18 mg/dL (8-26) 19 mg/dL (8-26) Creatinine 2.1 mg/dL (0.7-1.3) 1.8 mg/dL (0.7-1.3) Estimated GFR (Cockcroft-Gault) 31.3 37.4 BUN/Creatinine Ratio 9 (6-20) 11 (6-20) Glucose Level 135 mg/dL (70-99) 241 mg/dL (70-99) Lactic Acid Level 1.5 mmol/L (0.4-2.0) Calcium Level 8.1 mg/dL (8.5-10.1) 8.1 mg/dL (8.5-10.1) Magnesium Level 1.5 mg/dL (1.8-2.4) 2.2 mg/dL (1.8-2.4) Total Bilirubin 0.5 mg/dL (0.2-1.0) 0.5 mg/dL (0.2-1.0) Aspartate Amino Transf (AST/SGOT) 20 U/L (15-37) 22 U/L (15-37) Alanine Aminotransferase (ALT/SGPT) 25 U/L (16-63) 28 U/L (16-63) Alkaline Phosphatase 66 U/L (46-116) 58 U/L (46-116) Troponin I Quantitative < 0.017 ng/mL (0.000-0.055) Total Protein 6.5 g/dL (6.4-8.2) 6.4 g/dL (6.4-8.2) Albumin 3.2 g/dL (3.4-5.0) 2.9 g/dL (3.4-5.0) Albumin/Globulin Ratio 1.0 (1.0-1.7) 0.8 (1.0-1.7) Segmented Neutrophils % 85 % (35-66) Band Neutrophils % 3 % (0-9) Lymphocytes % 6 % (24-48) Atypical Lymphocytes % (Manual) 1 % (0-0) Monocytes % 5 % (0-10) Platelet Estimate Adequate (ADEQUATE) Giant Platelets Anisocytosis Slight Laboratory Tests Test 01/27/21 12:35 01/28/21 04:40 White Blood Count 8.9 x10^3/uL (4.0-11.0) 7.9 x10^3/uL (4.0-11.0) Red Blood Count 4.27 x10^6/uL (4.30-5.70) 4.22 x10^6/uL (4.30-5.70) Hemoglobin 13.8 g/dL (13.0-17.5) 13.5 g/dL (13.0-17.5) Hematocrit 39.6 % (39.0-53.0) 39.4 % (39.0-53.0) Mean Corpuscular Volume 93 fL (79-100) 93 fL (79-100) Mean Corpuscular Hemoglobin 32 pg (25-35) 32 pg (25-35) Mean Corpuscular Hemoglobin Concent 35 g/dL (31-37) 34 g/dL (31-37) Red Cell Distribution Width 14.7 % (11.5-14.5) 15.3 % (11.5-14.5) Platelet Count 264 x10^3/uL (140-400) 249 x10^3/uL (140-400) Neutrophils (%) (Auto) 80 % (31-73) 90 % (31-73) Lymphocytes (%) (Auto) 6 % (24-48) 8 % (24-48) Monocytes (%) (Auto) 10 % (0-9) 1 % (0-9) Eosinophils (%) (Auto) 3 % (0-3) 0 % (0-3) Basophils (%) (Auto) 1 % (0-3) 0 % (0-3) Neutrophils # (Auto) 7.1 x10^3/uL (1.8-7.7) 7.1 x10^3/uL (1.8-7.7) Lymphocytes # (Auto) 0.5 x10^3/uL (1.0-4.8) 0.6 x10^3/uL (1.0-4.8) Monocytes # (Auto) 0.9 x10^3/uL (0.0-1.1) 0.1 x10^3/uL (0.0-1.1) Eosinophils # (Auto) 0.3 x10^3/uL (0.0-0.7) 0.0 x10^3/uL (0.0-0.7) Basophils # (Auto) 0.1 x10^3/uL (0.0-0.2) 0.0 x10^3/uL (0.0-0.2) Sodium Level 133 mmol/L (136-145) 138 mmol/L (136-145) Potassium Level 4.0 mmol/L (3.5-5.1) 4.6 mmol/L (3.5-5.1) Chloride Level 103 mmol/L (98-107) 105 mmol/L (98-107) Carbon Dioxide Level 22 mmol/L (21-32) 21 mmol/L (21-32) Anion Gap 8 (6-14) 12 (6-14) Blood Urea Nitrogen 18 mg/dL (8-26) 19 mg/dL (8-26) Creatinine 2.1 mg/dL (0.7-1.3) 1.8 mg/dL (0.7-1.3) Estimated GFR (Cockcroft-Gault) 31.3 37.4 BUN/Creatinine Ratio 9 (6-20) 11 (6-20) Glucose Level 135 mg/dL (70-99) 241 mg/dL (70-99) Lactic Acid Level 1.5 mmol/L (0.4-2.0) Calcium Level 8.1 mg/dL (8.5-10.1) 8.1 mg/dL (8.5-10.1) Magnesium Level 1.5 mg/dL (1.8-2.4) 2.2 mg/dL (1.8-2.4) Total Bilirubin 0.5 mg/dL (0.2-1.0) 0.5 mg/dL (0.2-1.0) Aspartate Amino Transf (AST/SGOT) 20 U/L (15-37) 22 U/L (15-37) Alanine Aminotransferase (ALT/SGPT) 25 U/L (16-63) 28 U/L (16-63) Alkaline Phosphatase 66 U/L (46-116) 58 U/L (46-116) Troponin I Quantitative < 0.017 ng/mL (0.000-0.055) Total Protein 6.5 g/dL (6.4-8.2) 6.4 g/dL (6.4-8.2) Albumin 3.2 g/dL (3.4-5.0) 2.9 g/dL (3.4-5.0) Albumin/Globulin Ratio 1.0 (1.0-1.7) 0.8 (1.0-1.7) Segmented Neutrophils % 85 % (35-66) Band Neutrophils % 3 % (0-9) Lymphocytes % 6 % (24-48) Atypical Lymphocytes % (Manual) 1 % (0-0) Monocytes % 5 % (0-10) Platelet Estimate Adequate (ADEQUATE) Giant Platelets Anisocytosis Slight Medications Active Scripts Medications Dose Route/Sig Max Daily Dose Days Date Category Dose Instructions Cefdinir 300 Mg Capsule 1 Cap PO BID 10 01/27/21 Rx Synthroid (Levothyroxine Sodium) 75 Mcg Tablet 1 Tab PO DAILY 10/27/20 Rx Meloxicam 15 Mg Tablet 15 Mg PO DAILY 10/26/20 Reported Voltaren (Diclofenac Sodium) 100 Gm Gel..gram. 1 Gm TP QID 30 10/26/20 Reported apply to affected area(s) Losartan-Hctz 100-25 Mg Tab (Losartan/Hydrochlorothiazide) 1 Each Tablet 1 Tab PO DAILY 09/07/18 Reported Aspirin Ec (Aspirin) 81 Mg Tablet.dr 1 Tab PO DAILY 09/07/18 Reported Glimepiride 2 Mg Tablet 2 Mg PO DAILY 12/27/17 Reported Atorvastatin Calcium 40 Mg Tablet 40 Mg PO HS 12/27/17 Reported Gabapentin 300 Mg Capsule 600 Mg PO HS 12/27/17 Reported Potassium Citrate 10 Meq Tablet.er 10 Meq PO DAILY 12/27/17 Reported Omeprazole 40 Mg Capsule.dr 40 Mg PO DAILYAC 12/27/17 Reported Impression . Full note dictated Pneumonia Repeat CT chest in 12 months PARTH METZ MD Jan 28, 2021 08:40
--- NOTE | 2021-01-28 09:16 | PDOC ---
[facility] PROGRESS NOTE Date of Service DOS: DATE: 01/28/21 TIME: 09:12 Chief Complaint Chief Complaint cough, fever, dyspnea, sputum, pneumonia, broad abx started in ER, poss gram negative organisms, will cont ashley vanc given SIRS + sepsis JOSEPH due to vasomotor nephropathy Hypomagnesemia improved She of diabetes mellitus type 2 obesity, BMI 34 Severe protein malnutrition History of Present Illness History of Present Illness 01/28/2021 No acute events overnight. Patient seen and examined bedside. Afebrile. Satur ating between 93 to 95% on 2 L nasal cannula. Patient's chart, labs, images were reviewed and discussed with RN 70 year old male admit with fever and cough. He has recent subjective fevers for 2 days , with acute shortness of breath, chills, and headache. He has been able to eat since being seen in the ER and feels a bit better. He feels sweaty, but his room is set at 76 degrees. Was in the ER yesterday, sent home and today he received a phone call stating he could have pneumonia and is to return to the ED, which he was sure he should anyway as he felt worse than he did. no COVID exposure, has been vaccinated Vitals/I&O Vitals/I&O: Vital Signs Date Time Temp Pulse Resp B/P (MAP) Pulse Ox O2 Delivery O2 Flow Rate FiO2 01/28/21 07:00 97.7 54 18 104/33 (56) 95 Nasal Cannula 97.7 01/28/21 03:32 2.0 I & O 01/27/21 01/27/21 01/28/21 15:00 23:00 07:00 Intake Total 100 ml 2840 ml 238 ml Output Total 725 ml 900 ml Balance 100 ml 2115 ml -662 ml Physical Exam General: Alert, Cooperative, mild distress Lungs: Clear Abdomen: Normal bowel sounds, Soft Extremities: No cyanosis, No edema, Normal pulses Skin: No rashes Labs Labs: Laboratory Tests Test 01/27/21 12:35 01/28/21 04:40 White Blood Count 8.9 x10^3/uL (4.0-11.0) 7.9 x10^3/uL (4.0-11.0) Red Blood Count 4.27 x10^6/uL (4.30-5.70) 4.22 x10^6/uL (4.30-5.70) Hemoglobin 13.8 g/dL (13.0-17.5) 13.5 g/dL (13.0-17.5) Hematocrit 39.6 % (39.0-53.0) 39.4 % (39.0-53.0) Mean Corpuscular Volume 93 fL (79-100) 93 fL (79-100) Mean Corpuscular Hemoglobin 32 pg (25-35) 32 pg (25-35) Mean Corpuscular Hemoglobin Concent 35 g/dL (31-37) 34 g/dL (31-37) Red Cell Distribution Width 14.7 % (11.5-14.5) 15.3 % (11.5-14.5) Platelet Count 264 x10^3/uL (140-400) 249 x10^3/uL (140-400) Neutrophils (%) (Auto) 80 % (31-73) 90 % (31-73) Lymphocytes (%) (Auto) 6 % (24-48) 8 % (24-48) Monocytes (%) (Auto) 10 % (0-9) 1 % (0-9) Eosinophils (%) (Auto) 3 % (0-3) 0 % (0-3) Basophils (%) (Auto) 1 % (0-3) 0 % (0-3) Neutrophils # (Auto) 7.1 x10^3/uL (1.8-7.7) 7.1 x10^3/uL (1.8-7.7) Lymphocytes # (Auto) 0.5 x10^3/uL (1.0-4.8) 0.6 x10^3/uL (1.0-4.8) Monocytes # (Auto) 0.9 x10^3/uL (0.0-1.1) 0.1 x10^3/uL (0.0-1.1) Eosinophils # (Auto) 0.3 x10^3/uL (0.0-0.7) 0.0 x10^3/uL (0.0-0.7) Basophils # (Auto) 0.1 x10^3/uL (0.0-0.2) 0.0 x10^3/uL (0.0-0.2) Sodium Level 133 mmol/L (136-145) 138 mmol/L (136-145) Potassium Level 4.0 mmol/L (3.5-5.1) 4.6 mmol/L (3.5-5.1) Chloride Level 103 mmol/L (98-107) 105 mmol/L (98-107) Carbon Dioxide Level 22 mmol/L (21-32) 21 mmol/L (21-32) Anion Gap 8 (6-14) 12 (6-14) Blood Urea Nitrogen 18 mg/dL (8-26) 19 mg/dL (8-26) Creatinine 2.1 mg/dL (0.7-1.3) 1.8 mg/dL (0.7-1.3) Estimated GFR (Cockcroft-Gault) 31.3 37.4 BUN/Creatinine Ratio 9 (6-20) 11 (6-20) Glucose Level 135 mg/dL (70-99) 241 mg/dL (70-99) Lactic Acid Level 1.5 mmol/L (0.4-2.0) Calcium Level 8.1 mg/dL (8.5-10.1) 8.1 mg/dL (8.5-10.1) Magnesium Level 1.5 mg/dL (1.8-2.4) 2.2 mg/dL (1.8-2.4) Total Bilirubin 0.5 mg/dL (0.2-1.0) 0.5 mg/dL (0.2-1.0) Aspartate Amino Transf (AST/SGOT) 20 U/L (15-37) 22 U/L (15-37) Alanine Aminotransferase (ALT/SGPT) 25 U/L (16-63) 28 U/L (16-63) Alkaline Phosphatase 66 U/L (46-116) 58 U/L (46-116) Troponin I Quantitative < 0.017 ng/mL (0.000-0.055) Total Protein 6.5 g/dL (6.4-8.2) 6.4 g/dL (6.4-8.2) Albumin 3.2 g/dL (3.4-5.0) 2.9 g/dL (3.4-5.0) Albumin/Globulin Ratio 1.0 (1.0-1.7) 0.8 (1.0-1.7) Segmented Neutrophils % 85 % (35-66) Band Neutrophils % 3 % (0-9) Lymphocytes % 6 % (24-48) Atypical Lymphocytes % (Manual) 1 % (0-0) Monocytes % 5 % (0-10) Platelet Estimate Adequate (ADEQUATE) Giant Platelets Anisocytosis Slight Assessment and Plan Assessmemt and Plan Problems Medical Problems: (1) Chills Status: Acute (2) Fever Status: Acute (3) Person under investigation for COVID-19 Status: Acute (4) Shortness of breath Status: Acute Comment Review of Relevant I have reviewed the following items aditya (where applicable) has been applied. Medications: Current Medications Medications (Trade) Dose Ordered Sig/Xuan Route PRN Reason Start Time Stop Time Status Last Admin Dose Admin Sodium Chloride 1,000 ml @ 2,340 mls/hr Q26M IV 01/27/21 12:30 01/27/21 13:30 DC 01/27/21 15:34 Piperacillin Sod/ Tazobactam Sod 4.5 gm/Sodium Chloride 100 ml @ 200 mls/hr 1X ONCE IV 01/27/21 12:30 01/27/21 12:59 DC 01/27/21 12:59 Acetaminophen (Tylenol) 1,000 mg 1X ONCE PO 01/27/21 12:30 01/27/21 12:31 DC 01/27/21 12:58 Ibuprofen (Motrin) 600 mg 1X ONCE PO 01/27/21 12:30 01/27/21 12:31 DC 01/27/21 12:59 Vancomycin HCl 2 gm/Sodium Chloride 500 ml @ 250 mls/hr 1X ONCE IV 01/27/21 13:00 01/27/21 14:59 DC 01/27/21 13:59 Methylprednisolone Sodium Succinate (SOLU-Medrol 125MG VIAL) 125 mg 1X ONCE IV 01/27/21 15:15 01/27/21 15:20 DC 01/27/21 16:42 Diphenhydramine HCl (Benadryl) 25 mg 1X ONCE IVP 01/27/21 16:30 01/27/21 16:31 DC 01/27/21 16:42 Tramadol HCl (Ultram) 50 mg PRN Q6HRS PRN PO MILD TO MODERATE PAIN 01/27/21 19:30 01/27/21 20:11 Hydrochlorothiazide (Hydrodiuril) 25 mg DAILY PO 01/28/21 09:00 01/28/21 08:11 Aspirin (Ecotrin) 81 mg DAILY PO 01/28/21 09:00 01/28/21 08:11 Atorvastatin Calcium (Lipitor) 40 mg HS PO 01/27/21 21:00 01/27/21 22:28 Diclofenac Sodium (Voltaren) 1 ben QID TP 01/27/21 21:00 01/28/21 08:11 Gabapentin (Neurontin) 600 mg HS PO 01/27/21 21:00 01/27/21 22:27 Glimepiride (Amaryl) 2 mg DAILY PO 01/28/21 09:00 01/28/21 08:11 Levothyroxine Sodium (Synthroid) 75 mcg DAILY06 PO 01/28/21 06:00 01/28/21 06:21 Potassium Citrate (Urocit-K) 10 meq DAILY PO 01/28/21 09:00 01/28/21 08:11 Pantoprazole Sodium (Protonix) 40 mg DAILYAC PO 01/28/21 07:30 01/28/21 08:11 Magnesium Sulfate 50 ml @ 25 mls/hr 1X ONCE IV 01/27/21 21:30 01/27/21 23:29 DC 01/27/21 22:32 Insulin Human Lispro (HumaLOG) 0-9 UNITS TIDWMEALS SQ 01/28/21 08:00 01/28/21 08:10 Piperacillin Sod/ Tazobactam Sod 3.375 gm/Sodium Chloride 50 ml @ 100 mls/hr Q6HRS IV 01/28/21 00:00 01/28/21 06:21 Justifications for Admission Other Justification SUDHEER CHEN MD Jan 28, 2021 09:16
[2021-01-28] MEDS: ATORVASTATIN CALCIUM 40 MG TABLET. PO SCH (20:42)
[2021-01-28] MEDS: LACTOBACILLUS RHAMNOSUS GG 1 CAPSULE. PO SCH (20:42)
[2021-01-28] MEDS: GABAPENTIN 300 MG CAPSULE. PO SCH (20:42)
--- NOTE | 2021-01-28 21:15 | CONS ---
DATE OF CONSULTATION: 01/28/2021 ATTENDING PHYSICIAN: Jessica Sánchez MD. REASON FOR CONSULTATION: The patient is seen in Pulmonary consultation at the request of Dr. Sánchez for abnormal CT chest. HISTORY OF PRESENT ILLNESS: The patient is a 70-year-old that had fever, chills, and coughing up some mucus presented to the Emergency Room. He was seen, he was discharged and he continued to have difficulty. He was admitted. He underwent a CT chest, which I personally reviewed. There is a ground-glass opacity in the right lower lobe, there is also mediastinal hilar lymph node enlargement, right-sided pulmonary nodule measuring 7 mm. The patient has never smoked in his life. He has no COVID-19 exposures. He did get vaccinated. PAST MEDICAL HISTORY: Type 2 diabetes, hypertension, hyperlipidemia, gastroesophageal reflux, osteoarthritis along with chronic renal insufficiency. ALLERGIES: HYDROCODONE, VANCOMYCIN. FAMILY HISTORY: No family history of lung disorders. SOCIAL HISTORY: He is currently disabled. REVIEW OF SYSTEMS: CONSTITUTIONAL: Fevers as indicated above. EYES: No change in visual acuity. HENT: No nasal congestion or sore throat. PULMONARY: As indicated above. CARDIOVASCULAR: No chest pain or pressure. GASTROINTESTINAL: No nausea, vomiting, diarrhea. GENITOURINARY: No dysuria or frequency. MUSCULOSKELETAL: No localized muscle aches or joint pains. SKIN: No new skin rashes. NEUROLOGIC: No headaches, diplopia or blurred vision. MEDICATIONS: List was reviewed. He is currently undergoing treatment with IV Zosyn. PHYSICAL EXAMINATION: VITAL SIGNS: Stable. T-max was 101.4. He is currently on 2 liters of oxygen supplementation. HEENT: Eyes, the sclerae was nonicteric. NECK: Jugular venous distention was not elevated. No lymphadenopathy. CHEST: Full expansion. LUNGS: Adequate flow with no wheezes. CARDIOVASCULAR: Regular rate and rhythm with S1, S2, no S3. ABDOMEN: Soft. EXTREMITIES: No clubbing, cyanosis or pitting edema. NEUROLOGIC: The patient was awake, alert, following commands. A detailed neuro exam was not performed. LABORATORY DATA: White count is 7.9, hemoglobin and hematocrit were noted. Electrolytes were noted. Albumin was 2.9. CT as indicated above. IMPRESSION: 1. Fever secondary to pneumonia. 2. Abnormal CT scan compatible with pneumonia, gram-negative, possibly gram-positive organisms. 3. Hypoxic respiratory failure secondary to above. 4. Abnormal CT chest revealing evidence of 7 mm nodule. PLAN: 1. Continue IV antibiotics. 2. Nebulized treatments. 3. DVT prophylaxis. 4. Repeat CT chest in 12 months, patient has never smoked. 5. Monitor blood sugars. 6. Check SARS-CoV-2. I do appreciate the privilege in sharing in his care. KOLTON DR: Holland TID: [id number]
[2021-01-29 03:00] VITALS: BP 100/47
[2021-01-29] MEDS: LEVOTHYROXINE 75 MCG TABLET PO SCH (05:41)
[2021-01-29] MEDS: PIPERACILLIN/TAZOBACTAM 3.375 GM in IV NORMAL SALINE 50ML 50 ML IV SCH (05:42)
[2021-01-29] MEDS: traMADol 50 MG TABLET PO PRN (05:47)
[2021-01-29 07:00] VITALS: BP 106/46
[2021-01-29] MEDS: INSULIN LISPRO 300 UNITS/3 ML VIAL. SQ SCH ×2 (08:00→12:00)
--- NOTE | 2021-01-29 08:52 | PDOC ---
PULMONARY PROGRESS NOTES DATE: 01/29/21 TIME: 08:52 Subjective Pt. is on room air no overnight concerns No SOA or Cough Vitals Vital Signs Date Time Temp Pulse Resp B/P (MAP) Pulse Ox O2 Delivery O2 Flow Rate FiO2 01/29/21 07:00 97.5 57 16 106/46 (66) 95 97.5 01/29/21 06:17 Room Air 2.0 ROS: No Nausea, No Chest Pain, No Abdominal Pain, No Increase Cough General: Alert, Oriented X4 Lungs: Clear Cardiovascular: S1, S2 Abdomen: Soft Neuro Exam: Alert Extremities: No Edema Skin: Warm Labs Laboratory Tests Test 01/27/21 12:35 01/28/21 04:40 01/28/21 08:07 01/28/21 11:34 White Blood Count 8.9 x10^3/uL (4.0-11.0) 7.9 x10^3/uL (4.0-11.0) Red Blood Count 4.27 x10^6/uL (4.30-5.70) 4.22 x10^6/uL (4.30-5.70) Hemoglobin 13.8 g/dL (13.0-17.5) 13.5 g/dL (13.0-17.5) Hematocrit 39.6 % (39.0-53.0) 39.4 % (39.0-53.0) Mean Corpuscular Volume 93 fL (79-100) 93 fL (79-100) Mean Corpuscular Hemoglobin 32 pg (25-35) 32 pg (25-35) Mean Corpuscular Hemoglobin Concent 35 g/dL (31-37) 34 g/dL (31-37) Red Cell Distribution Width 14.7 % (11.5-14.5) 15.3 % (11.5-14.5) Platelet Count 264 x10^3/uL (140-400) 249 x10^3/uL (140-400) Neutrophils (%) (Auto) 80 % (31-73) 90 % (31-73) Lymphocytes (%) (Auto) 6 % (24-48) 8 % (24-48) Monocytes (%) (Auto) 10 % (0-9) 1 % (0-9) Eosinophils (%) (Auto) 3 % (0-3) 0 % (0-3) Basophils (%) (Auto) 1 % (0-3) 0 % (0-3) Neutrophils # (Auto) 7.1 x10^3/uL (1.8-7.7) 7.1 x10^3/uL (1.8-7.7) Lymphocytes # (Auto) 0.5 x10^3/uL (1.0-4.8) 0.6 x10^3/uL (1.0-4.8) Monocytes # (Auto) 0.9 x10^3/uL (0.0-1.1) 0.1 x10^3/uL (0.0-1.1) Eosinophils # (Auto) 0.3 x10^3/uL (0.0-0.7) 0.0 x10^3/uL (0.0-0.7) Basophils # (Auto) 0.1 x10^3/uL (0.0-0.2) 0.0 x10^3/uL (0.0-0.2) Sodium Level 133 mmol/L (136-145) 138 mmol/L (136-145) Potassium Level 4.0 mmol/L (3.5-5.1) 4.6 mmol/L (3.5-5.1) Chloride Level 103 mmol/L (98-107) 105 mmol/L (98-107) Carbon Dioxide Level 22 mmol/L (21-32) 21 mmol/L (21-32) Anion Gap 8 (6-14) 12 (6-14) Blood Urea Nitrogen 18 mg/dL (8-26) 19 mg/dL (8-26) Creatinine 2.1 mg/dL (0.7-1.3) 1.8 mg/dL (0.7-1.3) Estimated GFR (Cockcroft-Gault) 31.3 37.4 BUN/Creatinine Ratio 9 (6-20) 11 (6-20) Glucose Level 135 mg/dL (70-99) 241 mg/dL (70-99) Lactic Acid Level 1.5 mmol/L (0.4-2.0) Calcium Level 8.1 mg/dL (8.5-10.1) 8.1 mg/dL (8.5-10.1) Magnesium Level 1.5 mg/dL (1.8-2.4) 2.2 mg/dL (1.8-2.4) Total Bilirubin 0.5 mg/dL (0.2-1.0) 0.5 mg/dL (0.2-1.0) Aspartate Amino Transf (AST/SGOT) 20 U/L (15-37) 22 U/L (15-37) Alanine Aminotransferase (ALT/SGPT) 25 U/L (16-63) 28 U/L (16-63) Alkaline Phosphatase 66 U/L (46-116) 58 U/L (46-116) Troponin I Quantitative < 0.017 ng/mL (0.000-0.055) Total Protein 6.5 g/dL (6.4-8.2) 6.4 g/dL (6.4-8.2) Albumin 3.2 g/dL (3.4-5.0) 2.9 g/dL (3.4-5.0) Albumin/Globulin Ratio 1.0 (1.0-1.7) 0.8 (1.0-1.7) Segmented Neutrophils % 85 % (35-66) Band Neutrophils % 3 % (0-9) Lymphocytes % 6 % (24-48) Atypical Lymphocytes % (Manual) 1 % (0-0) Monocytes % 5 % (0-10) Platelet Estimate Adequate (ADEQUATE) Giant Platelets Anisocytosis Slight Glucose (Fingerstick) 266 mg/dL (70-99) 202 mg/dL (70-99) Test 01/28/21 17:04 01/28/21 20:53 01/29/21 07:43 Glucose (Fingerstick) 165 mg/dL (70-99) 117 mg/dL (70-99) 74 mg/dL (70-99) Laboratory Tests Test 01/28/21 11:34 01/28/21 17:04 01/28/21 20:53 01/29/21 07:43 Glucose (Fingerstick) 202 mg/dL (70-99) 165 mg/dL (70-99) 117 mg/dL (70-99) 74 mg/dL (70-99) Medications Active Scripts Medications Dose Route/Sig Max Daily Dose Days Date Category Dose Instructions Cefdinir 300 Mg Capsule 1 Cap PO BID 10 01/27/21 Rx Synthroid (Levothyroxine Sodium) 75 Mcg Tablet 1 Tab PO DAILY 10/27/20 Rx Meloxicam 15 Mg Tablet 15 Mg PO DAILY 10/26/20 Reported Voltaren (Diclofenac Sodium) 100 Gm Gel..gram. 1 Gm TP QID 30 10/26/20 Reported apply to affected area(s) Losartan-Hctz 100-25 Mg Tab (Losartan/Hydrochlorothiazide) 1 Each Tablet 1 Tab PO DAILY 09/07/18 Reported Aspirin Ec (Aspirin) 81 Mg Tablet.dr 1 Tab PO DAILY 09/07/18 Reported Glimepiride 2 Mg Tablet 2 Mg PO DAILY 12/27/17 Reported Atorvastatin Calcium 40 Mg Tablet 40 Mg PO HS 12/27/17 Reported Gabapentin 300 Mg Capsule 600 Mg PO HS 12/27/17 Reported Potassium Citrate 10 Meq Tablet.er 10 Meq PO DAILY 12/27/17 Reported Omeprazole 40 Mg Capsule.dr 40 Mg PO DAILYAC 12/27/[address] chest IMPRESSION: 1. Groundglass opacity within the medial right lower lobe likely due to atelectasis given the presence of an overlying prominent vertebral endplate osteophytes. There is no convincing infiltrate. 2. Prominent mediastinal and hilar lymph nodes. These are nonspecific and may be physiologic or reactive. 3. Right-sided pulmonary nodules measuring up to 7 mm. Follow-up can be performed in 6 months to confirm stability. Impression . IMPRESSION: 1. Fever secondary to pneumonia. 2. Abnormal CT scan compatible with pneumonia, gram-negative, possibly gram-positive organisms. 3. Hypoxic respiratory failure secondary to above. 4. Abnormal CT chest revealing evidence of 7 mm nodule. Plan . PLAN Respiratory status compensated on room air Continue ABX for full course, transition to po for DC NEBS Repeat CT chest in 12 months, patient has never smoked. DVT/GI PPX D/W RN ok to DC home today Follow up in office in March PARTH METZ MD Jan 29, 2021 08:52
[2021-01-29] MEDS: DICLOFENAC SODIUM 1% TOPICAL GEL 100GM TUBE. TP SCH (09:47)
[2021-01-29] MEDS: LACTOBACILLUS RHAMNOSUS GG 1 CAPSULE. PO SCH (09:47)
[2021-01-29] MEDS: hydroCHLOROthiazide 25 MG TABLET PO SCH (09:47)
[2021-01-29] MEDS: POTASSIUM CITRATE 10 MEQ TABLET.ER PO SCH (09:47)
[2021-01-29] MEDS: ASPIRIN ENTERIC COATED 81 MG TABLET.DR. PO SCH (09:47)
[2021-01-29] MEDS: PANTOPRAZOLE 40 MG TABLET.DR. PO SCH (09:48)
[2021-01-29] MEDS: GLIMEPIRIDE 2 MG TABLET. PO SCH (09:48)
[2021-01-29] MEDS ORDERED: ACETAMINOPHEN 325 MG TABLET. PO PRN (10:00)
[2021-01-29] MEDS ORDERED: AMOX1TAB58 PO (10:45)
--- NOTE | 2021-01-29 10:46 | DISCH ---
DISCHARGE INSTRUCTIONS Condition on Discharge Condition on Discharge: Stable Activity After Discharge Activity Instructions for Disc: Activity as tolerated Bathing Instructions: Shower-keep dressing dry Lifting Instructions after Dis: No heavy lifting, No pulling or pushing Exercise Instruction after Dis: Progress as tolerated Driving Instructions after Dis: Do not drive today, Other, see below Weight Bearing Status after Di: No restrictions Diet after Discharge Diet after Discharge: Cardiac, Diabetic No Calorie Level Diet Texture: Regular Liquid Texture: Thin Liquid Swallowing Supervision: None needed Wound Incision Care Wound/Incision Care: Other, see below Checks after Discharge Checks after discharge: Check blood press - daily Contacting the DR. after DC Call your doctor for: If your condition worsens Follow-Up Follow up with: PCP within 2 weeks Follow Up With: Pulmonology in March Treatment/Equipment after DC Adaptive Equipment Issued: None SUDHEER CHEN MD Jan 29, 2021 10:46
[2021-01-29 11:00] VITALS: BP 119/62
--- NOTE | 2021-02-01 16:13 | PDOC3 ---
[facility]-Discharge Summary Date of Admission: Date of Admission: Jan 27, 2021 Date of Discharge: Date of Discharge: Jan 29, 2021 Discharge Diagnosis: Discharge Diagnosis: cough, fever, dyspnea, sputum, pneumonia, broad abx started in ER, poss gram negative organisms, will cont zosyn, vanc given SIRS + sepsis JOSEPH due to vasomotor nephropathy Hypomagnesemia improved She of diabetes mellitus type 2 obesity, BMI 34 Severe protein malnutrition Hospital Course: Hospital Course: By day of discharge, pt was clinically stable and ready for discharge. Rest of hospital course was uneventful 01/28/2021 No acute events overnight. Patient seen and examined bedside. Afebrile. Saturating between 93 to 95% on 2 L nasal cannula. Patient's chart, labs, images were reviewed and discussed with RN 70 year old male admit with fever and cough. He has recent subjective fevers for 2 days , with acute shortness of breath, chills, and headache. He has been able to eat since being seen in the ER and feels a bit better. He feels sweaty, but his room is set at 76 degrees. Was in the ER yesterday, sent home and today he received a phone call stating he could have pneumonia and is to return to the ED, which he was sure he should anyway as he felt worse than he did. no COVID exposure, has been vaccinated Disposition: Disposition/Orders: D/C to Home Activity: Activity: Resume previous activity Diet: Diet: Regular Medications: Home Meds Active Scripts Levothyroxine Sodium (SYNTHROID) 75 Mcg Tablet, 1 TAB PO DAILY for hypothyroid, #30 TAB 1 Refill Prov:RAY DIOP MD 10/27/20 Reported Medications Meloxicam (MELOXICAM) 15 Mg Tablet, 15 MG PO DAILY for JOINT PAIN, TAB 10/26/20 Diclofenac Sodium (VOLTAREN) 100 Gm Gel..gram., 1 GM TP QID for pain for 30 Days, #1 EACH 0 Refills apply to affected area(s) 10/26/20 Losartan/Hydrochlorothiazide (LOSARTAN-HCTZ 100-25 MG TAB) 1 Each Tablet, 1 TAB PO DAILY for htn, #30 TAB 5 Refills 09/07/18 Aspirin (ASPIRIN EC) 81 Mg Tablet.dr, 1 TAB PO DAILY for per list, #30 TAB 3 Refills 09/07/18 Glimepiride (GLIMEPIRIDE) 2 Mg Tablet, 2 MG PO DAILY 12/27/17 Atorvastatin Calcium (ATORVASTATIN CALCIUM) 40 Mg Tablet, 40 MG PO HS 12/27/17 Gabapentin (GABAPENTIN) 300 Mg Capsule, 600 MG PO HS 12/27/17 Potassium Citrate (POTASSIUM CITRATE) 10 Meq Tablet.er, 10 MEQ PO DAILY 12/27/17 Omeprazole (OMEPRAZOLE) 40 Mg Capsule.dr, 40 MG PO DAILYAC 12/27/17 Discontinued Scripts Cefdinir (CEFDINIR) 300 Mg Capsule, 1 CAP PO BID for 10 Days, #20 CAP Prov:ENMANUEL TUCKER DO 01/27/21 Scheduled Aspirin (Aspirin Ec), 1 TAB PO DAILY, (Reported) Atorvastatin Calcium (Atorvastatin Calcium), 40 MG PO HS, (Reported) Diclofenac Sodium (Voltaren), 1 GM TP QID, (Reported) Gabapentin (Gabapentin), 600 MG PO HS, (Reported) Glimepiride (Glimepiride), 2 MG PO DAILY, (Reported) Levothyroxine Sodium (Synthroid), 1 TAB PO DAILY Losartan/Hydrochlorothiazide (Losartan-Hctz 100-25 Mg Tab), 1 TAB PO DAILY, (Reported) Meloxicam (Meloxicam), 15 MG PO DAILY, (Reported) Omeprazole (Omeprazole), 40 MG PO DAILYAC, (Reported) Potassium Citrate (Potassium Citrate), 10 MEQ PO DAILY, (Reported) Discontinued Medications Cefdinir (Cefdinir), 1 CAP PO BID Total Time: Total Time: Total time spent was 35 minutes in preparing scripts, discharge planning with SW and RN, and preparing this discharge summary. Patient seen and examined on day of discharge. Justicifation of Admission Dx: Justifications for Admission: Justification of Admission Dx: Yes SUDHEER CHEN MD Feb 01, 2021 16:13
== END 2021-01-29 13:22 | disposition home or self-care (01) | DRG 871 ==
LOC: ER 11:58 → 6 SOUTH 14:28 → UNDOADMIN 15:21
PROVIDERS: ADMIT Internal Medicine; ATTEND Internal Medicine
DX: A41.9 Sepsis, unspecified organism (principal); E43 Unspecified severe protein-calorie malnutrition; J96.91 Respiratory failure, unspecified with hypoxia; N17.0 Acute kidney failure with tubular necrosis; J15.6 Pneumonia due to other Gram-negative bacteria; J15.9 Unspecified bacterial pneumonia; J98.11 Atelectasis; E03.9 Hypothyroidism, unspecified; E11.22 Type 2 diabetes mellitus with diabetic chronic kidney disease; E66.9 Obesity, unspecified; E78.00 Pure hypercholesterolemia, unspecified; E78.5 Hyperlipidemia, unspecified; E83.42 Hypomagnesemia; G25.81 Restless legs syndrome; I12.9 Hypertensive chronic kidney disease with stage 1 through stage 4 chronic kidney disease, or unspecified chronic kidney disease; N18.9 Chronic kidney disease, unspecified; Z20.822 Contact with and (suspected) exposure to COVID-19; Z68.34 Body mass index [BMI] 34.0-34.9, adult; F41.9 Anxiety disorder, unspecified; K21.9 Gastro-esophageal reflux disease without esophagitis; M19.90 Unspecified osteoarthritis, unspecified site; Z88.8 Allergy status to other drugs, medicaments and biological substances
CPT/HCPCS: 36415; 71250; 80053; 82962; 83605; 83735; 84484; 85007; 85025; 87040; 93005; 96365; 96366; 96367; 96375; J1200; J1815; J2543; J2930; J3370; J3475; J7030; J7040; 99285-25; G0378

== ENCOUNTER → 2021-09-13 | Outpatient (CLI) | payer OTHER ==
[2021-02-04 11:01] VITALS: BP 140/87
[~2021-09-13] MED LIST changes: +AMOX1TAB58 PO
--- NOTE | 2021-09-13 16:38 | RAD ---
INDICATION: Reason: LT Leg Numbness and Pain / Spl. Instructions: / History: COMPARISON: None. TECHNIQUE: Grayscale, color and doppler ultrasound images were obtained of the left lower extremity v enous vasculature. LEFT: No thrombus identified in the common femoral vein, femoral vein, popliteal vein or visualized calf ve ins. IMPRESSION: * No thrombus identified in deep venous system of the left lower extremity. Electronically signed by: Osmar Cuellar MD (09/13/2021 4:36 PM) [id number]
== END ==
LOC: US 15:31
PROVIDERS: ATTEND Nurse Practitioner Family
DX: M79.605 Pain in left leg (principal); R20.0 Anesthesia of skin
CPT/HCPCS: 93971

== ENCOUNTER 2021-12-02 15:52 | Inpatient (IN) | payer OTHER ==
[~2021-12-02] VITALS: Ht 182.9 cm; Wt 100.0 kg
[~2021-12-02 15:52] MED LIST changes: +BENZ-8 PO; +CITA20TA9 PO; +HYDR-2145 PO; +LOSA100T14 PO
--- NOTE | 2021-12-02 16:49 | PHYS DOC ---
Past Medical History Past Medical History: CVA, Diabetes-Type II, GERD, High Cholesterol, Hype rtension, Hypothyroid, Pneumonia, Other Additional Past Medical Histor: vertigo, restless leg syndrome Past Surgical History: Other Additional Past Surgical Histo: stents in back(to try to stop pain in knees), rt knee surgery/acl, LUE surg Smoking Status: Never Smoker Alcohol Use: None Drug Use: None General Adult EDM: Chief Complaint: WEAKNESS/GENERALIZED HPI: HPI: Is a 71-year-old male who presents today with dizziness and fatigue. Patient states that he was discharged from the hospital yesterday after having a stroke, he states that they [facility] that [facility] to [facility], he said at the time I did not want ago he felt he would be better going home, he states he went home yesterday, he says that over the last 12 to 24 hours she has had increased dizziness, he says that his home health nurse came by this afternoon and since he was so dizzy with ambulation she recommended that he come back to the emergency department for further evaluation and management of this and for possible admission to an inpatient to see if he can go to a [facility] facility. Patient states the dizziness is when he stands up he says he feels like he cannot get his balance, patient denies chest pain, he states he is always short of breath and that is nothing new, he denies fever chills. Review of Systems: Review of Systems: Constitutional: Denies fever or chills. [] Eyes: Denies change in visual acuity. [] HENT: Denies nasal congestion or sore throat. [] Respiratory: Denies cough or shortness of breath. [] Cardiovascular: Denies chest pain or edema. [] GI: Denies abdominal pain, nausea, vomiting, bloody stools or diarrhea. [] : Denies dysuria. [] Musculoskeletal: Denies back pain or joint pain. [] Integument: Denies rash. [] Neurologic: Dizziness denies headache, focal weakness or sensory changes. [] Endocrine: Denies polyuria or polydipsia. [] Lymphatic: Denies swollen glands. [] Psychiatric: Denies depression or anxiety. [] Heart Score: C/O Chest Pain: No Risk Factors: Risk Factors: DM, Current or recent (<one month) smoker, HTN, HLP, family history of CAD, obesity. Risk Scores: Score 0 - 3: 2.5% MACE over next 6 weeks - Discharge Home Score 4 - 6: 20.3% MACE over next 6 weeks - Admit for Clinical Observation Score 7 - 10: 72.7% MACE over next 6 weeks - Early Invasive Strategies Allergies: Allergies: Allergies Coded Allergies Type Severity Reaction Last Updated Verified hydrocodone Allergy Severe throat swelling 01/27/21 Yes oxycodone Allergy Severe throat swelling 01/27/21 Yes vancomycin Adverse Reaction Intermediate Rash 01/27/21 Yes Physical Exam: PE: Constitutional: Well developed, well nourished, mild distress, non-toxic appearance. [] HENT: Normocephalic, atraumatic, bilateral external ears normal, oropharynx moist, no oral exudates, nose normal. [] Eyes: PERRLA, EOMI, conjunctiva normal, no discharge. [] Neck: Normal range of motion, no tenderness, supple, no stridor. [] Cardiovascular:Heart rate regular rhythm, no murmur [] Lungs & Thorax: Bilateral breath sounds diminished Abdomen: Bowel sounds normal, soft, no tenderness, no masses, no pulsatile masses. [] Skin: Warm, dry, no erythema, no rash. [] Back: No tenderness, no CVA tenderness. [] Extremities: No tenderness, no cyanosis, no clubbing, ROM intact, no edema. [] Neurologic: Alert and oriented X 3, normal motor function, normal sensory function, no focal deficits noted. [] Psychologic: Affect normal, judgement normal, mood normal. [] Current Patient Data: Labs: Laboratory Tests Test 12/02/21 17:30 12/02/21 17:37 White Blood Count 16.2 x10^3/uL Red Blood Count 4.19 x10^6/uL Hemoglobin 13.3 g/dL Hematocrit 38.1 % Mean Corpuscular Volume 91 fL Mean Corpuscular Hemoglobin 32 pg Mean Corpuscular Hemoglobin Concent 35 g/dL Red Cell Distribution Width 14.6 % Platelet Count 444 x10^3/uL Neutrophils (%) (Auto) 80 % Lymphocytes (%) (Auto) 13 % Monocytes (%) (Auto) 5 % Eosinophils (%) (Auto) 2 % Basophils (%) (Auto) 1 % Neutrophils # (Auto) 13.0 x10^3/uL Lymphocytes # (Auto) 2.1 x10^3/uL Monocytes # (Auto) 0.8 x10^3/uL Eosinophils # (Auto) 0.3 x10^3/uL Basophils # (Auto) 0.1 x10^3/uL Segmented Neutrophils % 67 % Band Neutrophils % 3 % Lymphocytes % 22 % Monocytes % 7 % Eosinophils % 1 % Platelet Estimate Increased Sodium Level 137 mmol/L Potassium Level 3.7 mmol/L Chloride Level 104 mmol/L Carbon Dioxide Level 26 mmol/L Anion Gap 7 Blood Urea Nitrogen 11 mg/dL Creatinine 1.4 mg/dL Estimated GFR (Cockcroft-Gault) 49.8 BUN/Creatinine Ratio 8 Glucose Level 106 mg/dL Calcium Level 8.1 mg/dL Total Bilirubin 0.5 mg/dL Aspartate Amino Transf (AST/SGOT) 36 U/L Alanine Aminotransferase (ALT/SGPT) 56 U/L Alkaline Phosphatase 54 U/L Troponin I High Sensitivity 7 ng/L JI-Qfs-[id number]-Type Natriuretic Peptide 575 pg/mL Total Protein 6.6 g/dL Albumin 2.6 g/dL Albumin/Globulin Ratio 0.7 Urine Collection Type Unknown Urine Color Yellow Urine Clarity Clear Urine pH 8.5 Urine Specific [place] 1.015 Urine Protein Negative mg/dL Urine Glucose (UA) Negative mg/dL Urine Ketones (Stick) Negative mg/dL Urine Blood Negative Urine Nitrite Negative Urine Bilirubin Negative Urine Urobilinogen Dipstick 1.0 mg/dL Urine Leukocyte Esterase Negative Urine RBC 0 /HPF Urine WBC 0 /HPF Urine Bacteria 0 /HPF Urine Mucus Slight /LPF Vital Signs: Vital Signs Date Time Temp Pulse Resp B/P (MAP) Pulse Ox O2 Delivery O2 Flow Rate FiO2 12/02/21 19:02 74 31 157/79 (105) 97 Room Air 12/02/21 16:03 98.4 72 24 149/76 (100) 98 Room Air 98.4 Vital Signs Date Time Temp Pulse Resp B/P (MAP) Pulse Ox O2 Delivery O2 Flow Rate FiO2 12/02/21 16:03 98.4 72 24 149/76 (100) 98 Room Air 98.4 EKG: EKG: [] Radiology/Procedures: Radiology/Procedures: [REASON: dizziness PROCEDURE: CT HEAD WO CONTRAST Exam: CT head INDICATION: Dizziness TECHNIQUE: Sequential axial images through the head were obtained without the administration of IV contrast. Exposure: One or more of the following in the visualized dose reduction techniques were utilized for this examination: 1. Automated exposure control 2. Adjustment of the MA and/or KV according to patient size 3. Use of iterative of reconstructive technique Comparisons: 11/19/2021 FINDINGS: No focal parenchymal lesion or hemorrhage is identified. There is no midline shift or sulcal effacement. Mild patchy hypodensity in periventricular white matter. This is stable from prior study No acute vascular territory infarction is identified. Ramon-white distinction is preserved. The ventricular system is within normal limits without compression hydrocephalus. The basal cisterns are well maintained. The visualized portions of the paranasal sinuses and mastoid air cells are well- pneumatized. No acute fractures. IMPRESSION: No acute intracranial abnormality. Electronically signed by: Alexis Paige MD (12/02/2021 5:17 PM) CLEMENTINEMERYL REASON: SOA PROCEDURE: PORTABLE CHEST 1V Exam: Chest one view INDICATION: Short of air, pain TECHNIQUE: Frontal view of the chest Comparisons: 11/29/2021 FINDINGS: The cardiomediastinal silhouette and pulmonary vessels are within normal limits. The lung and pleural spaces are clear. IMPRESSION: No acute cardiopulmonary process. Electronically signed by: Alexis Paige MD (12/02/2021 5:02 PM) [facility] ] Course & Med Decision Making: Course & Med Decision Making Pertinent Labs and Imaging studies reviewed. (See chart for details) [address] Mcdowell with the hospitalist group in regards to this patient, I did inform him of the patient's continued dizziness when standing and his situation and he is agreeable to admitting the patient since the patient's white count is 16,000 and we did elect to give a dose of Rocephin here in the emergency department. I did speak to patient and he is agreeable to admitting and the plan of care. Yvonne Disclaimer: Yvonne Disclaimer: This electronic medical record was generated, in whole or in part, using a voice recognition dictation system. Departure Departure Impression: Primary Impression: Dizziness Additional Impression: Leukocytosis Qualified Codes: D72.829 - Elevated white blood cell count, unspecified Disposition: 09 ADMITTED INPATIENT Admitting Physician: OREN Condition: STABLE Referrals: AUGUST KNOX (PCP) TONY QUEZADA APRN December 02, 2021 16:49
[2021-12-02] MEDS: DICLOFENAC SODIUM 1% TOPICAL GEL 100GM TUBE. TP SCH (17:00)
--- NOTE | 2021-12-02 17:04 | RAD ---
Exam: Chest one view INDICATION: Short of air, pain TECHNIQUE: Frontal view of the chest Comparisons: 11/29/2021 FINDINGS: The cardiomediastinal silhouette and pulmonary vessels are within normal limits. The lung and pleural spaces are clear. IMPRESSION: No acute cardiopulmonary process. Electronically signed by: Alexis Paige MD (12/02/2021 5:02 PM) [facility]
--- NOTE | 2021-12-02 17:19 | RAD ---
Exam: CT head INDICATION: Dizziness TECHNIQUE: Sequential axial images through the head were obtained without the administration of IV co ntrast. Exposure: One or more of the following in the visualized dose reduction techniques were utilized for this examination: 1. Automated exposure control 2. Adjustment of the MA and/or KV according to patient size 3. Use of iterative of reconstructive technique Comparisons: 11/19/2021 FINDINGS: No focal parenchymal lesion or hemorrhage is identified. There is no midline shift or sulcal effaceme nt. Mild patchy hypodensity in periventricular white matter. This is stable from prior study No acute vas cular territory infarction is identified. Ramon-white distinction is preserved. The ventricular system is within normal limits without compression hydrocephalus. The basal cisterns are well maintained. The visualized portions of the paranasal sinuses and mastoid air cells are well-pneumatized. No acute fractures. IMPRESSION: No acute intracranial abnormality. Electronically signed by: Alexis Paige MD (12/02/2021 5:17 PM) MAR[facility]US[facility]
[2021-12-02 17:44] LABS: BASO # 0.1 x10^3/uL (0.0-0.2); BASO % 1 % (0-3); EOS # 0.3 x10^3/uL (0.0-0.7); EOS % 2 % (0-3); HEMATOCRIT 38.1 % (39.0-53.0); HEMOGLOBIN 13.3 g/dL (13.0-17.5); LYMPH # 2.1 x10^3/uL (1.0-4.8); LYMPH % 13 % (24-48); MEAN CORPUSCULAR HEMOGLOBIN 32 pg (25-35); MEAN CORPUSCULAR HGB CONC 35 g/dL (31-37); MEAN CORPUSCULAR VOLUME 91 fL (79-100); MONO # 0.8 x10^3/uL (0.0-1.1); MONO % 5 % (0-9); NEUT % 80 % (31-73); PLATELET COUNT 444 x10^3/uL (140-400); RED BLOOD COUNT 4.19 x10^6/uL (4.30-5.70); RED CELL DISTRIBUTION WIDTH 14.6 % (11.5-14.5); WHITE BLOOD COUNT 16.2 x10^3/uL (4.0-11.0)
[2021-12-02 17:55] LABS: BILIRUBIN,URINE NEGATIVE (NEG); CLARITY,URINE CLEAR; COLOR,URINE YELLOW; NITRITE,URINE NEGATIVE (NEG); PH,URINE 8.5; PROTEIN,URINE NEGATIVE (NEG-TRACE)
[2021-12-02 17:56] LABS: BACTERIA,URINE 0 /HPF (0-FEW); RBC,URINE 0 /HPF (0-2); WBC,URINE 0 /HPF (0-4)
[2021-12-02 18:03] LABS: GFR 49.8; POTASSIUM 3.7 mmol/L (3.5-5.1)
[2021-12-02 18:09] LABS: ALBUMIN 2.6 g/dL (3.4-5.0); TOTAL BILIRUBIN 0.5 mg/dL (0.2-1.0)
[2021-12-02 18:16] LABS: CALCIUM 8.1 mg/dL (8.5-10.1); CREATININE 1.4 mg/dL (0.7-1.3)
[2021-12-02 18:21] LABS: ALBUMIN/GLOBULIN RATIO 0.7 (1.0-1.7); TOTAL PROTEIN 6.6 g/dL (6.4-8.2)
[2021-12-02 18:31] LABS: % BANDS 3 % (0-9); % EOS 1 % (0-5); % LYMPHS 22 % (24-48); % MONOS 7 % (0-10); % SEGS 67 % (35-66)
[2021-12-02 18:32] LABS: PLT ESTIMATE INCREASED (ADEQUATE)
[2021-12-02] MEDS ORDERED: cefTRIAXone IV Push 1 GM VIAL. IVP ONE (19:30)
--- NOTE | 2021-12-02 21:00 | NUR ---
The patient, BONNIE HENSON, 71 y/o, M admitted by CARMEL CADET III, DO, was given written information regarding hospital policies, unit procedures and contact persons. Valuables were checked and documented. assessment complete. call light in place, encourage pt to call staff for assistance when needing to get up, pt verbalized understanding. will monitor pt status and safety. pmrn
[2021-12-02] MEDS ORDERED: BENZONATATE 100 MG CAPSULE. PO PRN (21:30)
[2021-12-02] MEDS ORDERED: traMADol 50 MG TABLET PO PRN (21:30)
[2021-12-02 22:51] VITALS: BP 166/77
[2021-12-02] MEDS: ATORVASTATIN CALCIUM 40 MG TABLET. PO SCH (22:51)
[2021-12-02] MEDS: GABAPENTIN 300 MG CAPSULE. PO SCH (22:51)
[2021-12-03 02:51] VITALS: BP 115/62
[2021-12-03] MEDS: LEVOTHYROXINE 50 MCG TABLET PO SCH (06:31)
[2021-12-03] MEDS: PANTOPRAZOLE 40 MG TABLET.DR. PO SCH (06:31)
[2021-12-03 07:00] VITALS: BP 148/76
[2021-12-03] MEDS: ASPIRIN ENTERIC COATED 81 MG TABLET.DR. PO SCH (09:00)
[2021-12-03] MEDS: POTASSIUM CITRATE 10 MEQ TABLET.ER PO SCH (09:00)
[2021-12-03] MEDS: GLIMEPIRIDE 2 MG TABLET. PO SCH (09:00)
[2021-12-03] MEDS: CITALOPRAM 20 MG TABLET. PO SCH (09:00)
[2021-12-03] MEDS: DICLOFENAC SODIUM 1% TOPICAL GEL 100GM TUBE. TP SCH ×3 (09:00→21:23)
[2021-12-03] MEDS: hydroCHLOROthiazide 25 MG TABLET PO SCH (09:00)
[2021-12-03] MEDS: LOSARTAN POTASSIUM 50 MG TABLET. PO SCH (09:00)
[2021-12-03 11:00] VITALS: BP 124/73
[2021-12-03] MEDS ORDERED: ACETAMINOPHEN 325 MG TABLET. PO PRN (11:45)
[2021-12-03] MEDS ORDERED: CALCIUM CARBONATE 500 MG TAB.CHEW PO PRN (11:45)
[2021-12-03] MEDS ORDERED: MAGNESIUM HYDROXIDE 2,400 MG/30 ML ORAL.SUSP. PO PRN (11:45)
[2021-12-03] MEDS ORDERED: MECLIZINE HCL 12.5 MG TABLET. PO PRN (11:45)
[2021-12-03] MEDS ORDERED: ONDANSETRON PF 4 MG/2 ML VIAL. IVP PRN (11:45)
[2021-12-03] MEDS ORDERED: MAG HYDROX/ALUMINUM HYD/SIMETH 30 ML ORAL.SUSP PO PRN (11:45)
--- NOTE | 2021-12-03 11:54 | PDOC1 ---
History and Physical Date of Admission Date of Admission DATE: 12/03/21 TIME: 11:43 Identification/Chief Complaint Chief Complaint Dizziness, weakness Source Source: Patient History of Present Illness History of Present Illness Patient is a 71-year-old male who was just recently discharged from our facility, presents with complaints continued dizziness and weakness at home. On previous admission there was some concern for posterior circulation CVA. Consultation was placed to neurology and he had an MRI that showed no evidence for acute or subacute ischemia. His dizziness was deemed to be due to vertigo. However patient does report a cyclical history of dizziness for a number of years around this time of year. He was seen by his home health nurse yesterday who directed him to the emergency department due to concerns for his symptoms. States his symptoms are worse with ambulation. Labs admission showed WBC 16.2, creatinine 1.5, CBG 106, proBNP 575, albumin 2.6. Chest x-ray and CT head s howed no acute process. He was admitted for further medical management. Past Medical History Cardiovascular: HTN, Hyperlipidemia Pulmonary: No pertinent hx CENTRAL NERVOUS SYSTEM: Other GI: GERD Heme/Onc: No pertinent hx Hepatobiliary: No pertinent hx Psych: Anxiety Musculoskeletal: Osteoarthritis Rheumatologic: No pertinent hx Infectious disease: No pertinent hx Renal/: No pertinent hx, Chronic renal insuff Endocrine: Diabetes, Hypothyroidism Past Surgical History Past Surgical History Rotator cuff surgery Family History Family History: Cancer, Heart Disease Family History: Parent Social History Smoke: No ALCOHOL: none Drugs: None Current Problem List Problem List Problems Medical Problems: (1) Leukocytosis Status: Acute Current Medications Current Medications Current Medications Ceftriaxone Sodium (Rocephin) 1 gm 1X ONCE IVP Last administered on 12/02/21at 19:42; Start 12/02/21 at 19:30; Stop 12/02/21 at 19:31; Status DC Aspirin (Ecotrin) 81 mg DAILY PO Last administered on 12/03/21at 09:00; Start 12/03/21 at 09:00 Atorvastatin Calcium (Lipitor) 40 mg HS PO Last administered on 12/02/21at 22:51; Start 12/02/21 at 22:00 Benzonatate (Tessalon Perle) 100 mg PRN Q8HRS PRN PO COUGH; Start 12/02/21 at 21:30 Citalopram Hydrobromide (CeleXA) 20 mg DAILY PO Last administered on 12/03/21at 09:00; Start 12/03/21 at 09:00 Diclofenac Sodium (Voltaren) 1 ben QID TP ; Start 12/03/21 at 09:00 Gabapentin (Neurontin) 600 mg HS PO Last administered on 12/02/21at 22:51; Start 12/02/21 at 22:00 Glimepiride (Amaryl) 2 mg DAILY PO Last administered on 12/03/21at 09:00; Start 12/03/21 at 09:00 Hydrochlorothiazide (Hydrodiuril) 25 mg DAILY PO Last administered on 12/03/21at 09:00; Start 12/03/21 at 09:00 Levothyroxine Sodium (Synthroid) 50 mcg DAILY06 PO Last administered on 12/03/21at 06:31; Start 12/03/21 at 06:00 Potassium Citrate (Urocit-K) 10 meq DAILY PO Last administered on 12/03/21at 09:00; Start 12/03/21 at 09:00 Tramadol HCl (Ultram) 50 mg PRN BID PRN PO MODERATE PAIN 4-6; Start 12/02/21 at 21:30 Losartan Potassium (Cozaar) 100 mg DAILY PO Last administered on 12/03/21at 09:00; Start 12/03/21 at 09:00 Pantoprazole Sodium (Protonix) 40 mg DAILYAC PO Last administered on 12/03/21at 06:31; Start 12/03/21 at 07:30 Active Scripts Active Benzonatate 100 Mg Capsule 100 Mg PO PRN Q8HRS PRN Celexa (Citalopram Hydrobromide) 20 Mg Tablet 20 Mg PO DAILY 60 Days Reported Levothyroxine Sodium 50 Mcg Tablet 1 Tab PO DAILY Tramadol Hcl 50 Mg Tablet 50 Mg PO PRN BID PRN Losartan Potassium 100 Mg Tablet 100 Mg PO DAILY Hydrochlorothiazide Tablet (Hydrochlorothiazide) 25 Mg Tablet 25 Mg PO DAILY Voltaren (Diclofenac Sodium) 100 Gm Gel..gram. 1 Gm TP QID 30 Days apply to affected area(s) Aspirin Ec (Aspirin) 81 Mg Tablet.dr 1 Tab PO DAILY Glimepiride 2 Mg Tablet 2 Mg PO DAILY Atorvastatin Calcium 40 Mg Tablet 40 Mg PO HS Gabapentin 300 Mg Capsule 600 Mg PO HS Potassium Citrate 10 Meq Tablet.er 10 Meq PO DAILY Omeprazole 40 Mg Capsule.dr 40 Mg PO DAILYAC Allergies Allergies: Coded Allergies: hydrocodone (Verified Allergy, Severe, throat swelling, 12/02/21) oxycodone (Verified Allergy, Severe, throat swelling, 12/02/21) vancomycin (Verified Adverse Reaction, Intermediate, Rash, 12/02/21) Redness extending up BUE ROS Review of System GENERAL: Weakness. No history of weight change or fevers. SKIN: No bruising, hair changes or rashes. EYES: No blurred, double or loss of vision. NOSE AND THROAT: No history of nosebleeds, hoarseness or sore throat. HEART: Denies chest pain, denies palpitations. LUNGS: Denies cough, hemoptysis, wheezing or shortness of breath. GASTROINTESTINAL: Denies nausea, vomiting, abdominal pain. GENITOURINARY: Denies dysuria, frequency, urgency, hematuria. NEUROLOGIC: Dizziness. Denies history of numbness, tingling, tremor or weakness. PSYCHIATRIC: Denies anxiety, denies depression. ENDOCRINE: No history of heat or cold intolerance, polyuria or polydipsia. EXTREMITIES: Denies muscle weakness, joint pain, pain on walking or stiffness. Physical Exam Physical Exam General: Alert, Oriented X3, Cooperative, mild distress HEENT: PERRLA, EOMI Lungs: Clear to auscultation, Normal air movement Heart: RRR, no murmurs Cardiovascular: S1, S2 Abdomen: Normal bowel sounds, Soft, No tenderness Extremities: No clubbing, No cyanosis Skin: No rashes, No significant lesion Neuro: Normal speech, Normal tone, Sensation intact Psych/Mental Status: Mental status NL, Mood NL Vitals Vitals Vital Signs Date Time Temp Pulse Resp B/P (MAP) Pulse Ox O2 Delivery O2 Flow Rate FiO2 12/03/21 11:00 97.9 70 16 124/73 (90) 96 Room Air 97.9 Labs Labs Laboratory Tests Test 12/02/21 17:30 12/02/21 17:37 12/02/21 22:54 12/03/21 08:02 White Blood Count 16.2 x10^3/uL (4.0-11.0) Red Blood Count 4.19 x10^6/uL (4.30-5.70) Hemoglobin 13.3 g/dL (13.0-17.5) Hematocrit 38.1 % (39.0-53.0) Mean Corpuscular Volume 91 fL (79-100) Mean Corpuscular Hemoglobin 32 pg (25-35) Mean Corpuscular Hemoglobin Concent 35 g/dL (31-37) Red Cell Distribution Width 14.6 % (11.5-14.5) Platelet Count 444 x10^3/uL (140-400) Neutrophils (%) (Auto) 80 % (31-73) Lymphocytes (%) (Auto) 13 % (24-48) Monocytes (%) (Auto) 5 % (0-9) Eosinophils (%) (Auto) 2 % (0-3) Basophils (%) (Auto) 1 % (0-3) Neutrophils # (Auto) 13.0 x10^3/uL (1.8-7.7) Lymphocytes # (Auto) 2.1 x10^3/uL (1.0-4.8) Monocytes # (Auto) 0.8 x10^3/uL (0.0-1.1) Eosinophils # (Auto) 0.3 x10^3/uL (0.0-0.7) Basophils # (Auto) 0.1 x10^3/uL (0.0-0.2) Segmented Neutrophils % 67 % (35-66) Band Neutrophils % 3 % (0-9) Lymphocytes % 22 % (24-48) Monocytes % 7 % (0-10) Eosinophils % 1 % (0-5) Platelet Estimate Increased (ADEQUATE) Sodium Level 137 mmol/L (136-145) Potassium Level 3.7 mmol/L (3.5-5.1) Chloride Level 104 mmol/L (98-107) Carbon Dioxide Level 26 mmol/L (21-32) Anion Gap 7 (6-14) Blood Urea Nitrogen 11 mg/dL (8-26) Creatinine 1.4 mg/dL (0.7-1.3) Estimated GFR (Cockcroft-Gault) 49.8 BUN/Creatinine Ratio 8 (6-20) Glucose Level 106 mg/dL (70-99) Calcium Level 8.1 mg/dL (8.5-10.1) Total Bilirubin 0.5 mg/dL (0.2-1.0) Aspartate Amino Transf (AST/SGOT) 36 U/L (15-37) Alanine Aminotransferase (ALT/SGPT) 56 U/L (16-63) Alkaline Phosphatase 54 U/L (46-116) Troponin I High Sensitivity 7 ng/L (4-75) FR-Evi-L-Type Natriuretic Peptide 575 pg/mL (0-124) Total Protein 6.6 g/dL (6.4-8.2) Albumin 2.6 g/dL (3.4-5.0) Albumin/Globulin Ratio 0.7 (1.0-1.7) Urine Collection Type Unknown Urine Color Yellow Urine Clarity Clear Urine pH 8.5 Urine Specific [place] 1.015 Urine Protein Negative mg/dL (NEG-TRACE) Urine Glucose (UA) Negative mg/dL (NEG) Urine Ketones (Stick) Negative mg/dL (NEG) Urine Blood Negative (NEG) Urine Nitrite Negative (NEG) Urine Bilirubin Negative (NEG) Urine Urobilinogen Dipstick 1.0 mg/dL (0.2 mg/dL) Urine Leukocyte Esterase Negative (NEG) Urine RBC 0 /HPF (0-2) Urine WBC 0 /HPF (0-4) Urine Bacteria 0 /HPF (0-FEW) Urine Mucus Slight /LPF Glucose (Fingerstick) 149 mg/dL (70-99) 154 mg/dL (70-99) Laboratory Tests Test 12/02/21 17:30 12/02/21 17:37 12/02/21 22:54 12/03/21 08:02 White Blood Count 16.2 x10^3/uL (4.0-11.0) Red Blood Count 4.19 x10^6/uL (4.30-5.70) Hemoglobin 13.3 g/dL (13.0-17.5) Hematocrit 38.1 % (39.0-53.0) Mean Corpuscular Volume 91 fL (79-100) Mean Corpuscular Hemoglobin 32 pg (25-35) Mean Corpuscular Hemoglobin Concent 35 g/dL (31-37) Red Cell Distribution Width 14.6 % (11.5-14.5) Platelet Count 444 x10^3/uL (140-400) Neutrophils (%) (Auto) 80 % (31-73) Lymphocytes (%) (Auto) 13 % (24-48) Monocytes (%) (Auto) 5 % (0-9) Eosinophils (%) (Auto) 2 % (0-3) Basophils (%) (Auto) 1 % (0-3) Neutrophils # (Auto) 13.0 x10^3/uL (1.8-7.7) Lymphocytes # (Auto) 2.1 x10^3/uL (1.0-4.8) Monocytes # (Auto) 0.8 x10^3/uL (0.0-1.1) Eosinophils # (Auto) 0.3 x10^3/uL (0.0-0.7) Basophils # (Auto) 0.1 x10^3/uL (0.0-0.2) Segmented Neutrophils % 67 % (35-66) Band Neutrophils % 3 % (0-9) Lymphocytes % 22 % (24-48) Monocytes % 7 % (0-10) Eosinophils % 1 % (0-5) Platelet Estimate Increased (ADEQUATE) Sodium Level 137 mmol/L (136-145) Potassium Level 3.7 mmol/L (3.5-5.1) Chloride Level 104 mmol/L (98-107) Carbon Dioxide Level 26 mmol/L (21-32) Anion Gap 7 (6-14) Blood Urea Nitrogen 11 mg/dL (8-26) Creatinine 1.4 mg/dL (0.7-1.3) Estimated GFR (Cockcroft-Gault) 49.8 BUN/Creatinine Ratio 8 (6-20) Glucose Level 106 mg/dL (70-99) Calcium Level 8.1 mg/dL (8.5-10.1) Total Bilirubin 0.5 mg/dL (0.2-1.0) Aspartate Amino Transf (AST/SGOT) 36 U/L (15-37) Alanine Aminotransferase (ALT/SGPT) 56 U/L (16-63) Alkaline Phosphatase 54 U/L (46-116) Troponin I High Sensitivity 7 ng/L (4-75) OQ-Vdo-N-Type Natriuretic Peptide 575 pg/mL (0-124) Total Protein 6.6 g/dL (6.4-8.2) Albumin 2.6 g/dL (3.4-5.0) Albumin/Globulin Ratio 0.7 (1.0-1.7) Urine Collection Type Unknown Urine Color Yellow Urine Clarity Clear Urine pH 8.5 Urine Specific [place] 1.015 Urine Protein Negative mg/dL (NEG-TRACE) Urine Glucose (UA) Negative mg/dL (NEG) Urine Ketones (Stick) Negative mg/dL (NEG) Urine Blood Negative (NEG) Urine Nitrite Negative (NEG) Urine Bilirubin Negative (NEG) Urine Urobilinogen Dipstick 1.0 mg/dL (0.2 mg/dL) Urine Leukocyte Esterase Negative (NEG) Urine RBC 0 /HPF (0-2) Urine WBC 0 /HPF (0-4) Urine Bacteria 0 /HPF (0-FEW) Urine Mucus Slight /LPF Glucose (Fingerstick) 149 mg/dL (70-99) 154 mg/dL (70-99) Images Images PROCEDURE: CT HEAD WO CONTRAST Exam: CT head INDICATION: Dizziness TECHNIQUE: Sequential axial images through the head were obtained without the administration of IV contrast. Exposure: One or more of the following in the visualized dose reduction techniques were utilized for this examination: 1. Automated exposure control 2. Adjustment of the MA and/or KV according to patient size 3. Use of iterative of reconstructive technique Comparisons: 11/19/2021 FINDINGS: No focal parenchymal lesion or hemorrhage is identified. There is no midline shift or sulcal effacement. Mild patchy hypodensity in periventricular white matter. This is stable from prior study No acute vascular territory infarction is identified. Ramon-white distinction is preserved. The ventricular system is within normal limits without compression hydrocephalus. The basal cisterns are well maintained. The visualized portions of the paranasal sinuses and mastoid air cells are well- pneumatized. No acute fractures. IMPRESSION: No acute intracranial abnormality. Electronically signed by: Alexis Paige MD (12/02/2021 5:17 PM) [facility] REASON: SOA PROCEDURE: PORTABLE CHEST 1V Exam: Chest one view INDICATION: Short of air, pain TECHNIQUE: Frontal view of the chest Comparisons: 11/29/2021 FINDINGS: The cardiomediastinal silhouette and pulmonary vessels are within normal limits. The lung and pleural spaces are clear. IMPRESSION: No acute cardiopulmonary process. VTE Prophylaxis Ordered VTE Prophylaxis Devices: No VTE Pharmacological Prophylaxi: Yes Assessment/Plan Assessment/Plan Dizziness, likely vertigo Leukocytosis Physical debility Severe malnutrition Plan: We will schedule meclizine Will be swabbed for COVID-19 and influenza given his leukocytosis and febrile illness and minus admission. Blood cultures pending Patient FAILED home health therapy and FAILED self-care at home. He will need inpatient vestibular therapy and rehab treatment. PT/OT Resume home medications FEN - Cardiac diet PPX - Heparin FULL CODE/patient names his son (Jose Gómez) as surrogate decision-katt er Dispo - inpatient for above Justifications for Admission Other Justification VICKY CORONADO MD December 03, 2021 11:54
[2021-12-03 12:30] LABS: INFLUENZA A PATIENT NEGATIVE (NEGATIVE); INFLUENZA B PATIENT NEGATIVE (NEGATIVE)
--- NOTE | 2021-12-03 14:46 | NUR ---
SS following for discharge planning. SS reviewed pt chart and discussed with pt RN. Pt is from home and is currently on room air. PT/OT ordered. Pt was on services with [facility], ; fax [phone], at home. PT/OT ordered. COVID19 PCR test pending. Per physician, pt needing alf unit. [facility] denied pt for alf unit at [facility], ; fax [phone], on last admission. SS will send referral again once PT/OT has evaluated pt. SS will continue to follow for discharge planning.
[2021-12-03 14:54] VITALS: BP 128/73
[2021-12-03 19:00] VITALS: BP 97/51
[2021-12-03] MEDS: ATORVASTATIN CALCIUM 40 MG TABLET. PO SCH (21:22)
[2021-12-03] MEDS: GABAPENTIN 300 MG CAPSULE. PO SCH (21:22)
[2021-12-03] MEDS: HEPARIN for SUB-Q USE 5,000 UNIT/ML VIAL. SQ SCH (21:26)
[2021-12-03 23:05] VITALS: BP 133/70
--- NOTE | 2021-12-04 00:18 | EKG ---
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
[2021-12-04 03:00] VITALS: BP 113/49
[2021-12-04] MEDS: LEVOTHYROXINE 50 MCG TABLET PO SCH (05:45)
[2021-12-04 06:41] LABS: BASO # 0.1 x10^3/uL (0.0-0.2); BASO % 1 % (0-3); EOS # 0.3 x10^3/uL (0.0-0.7); EOS % 3 % (0-3); HEMATOCRIT 39.7 % (39.0-53.0); HEMOGLOBIN 13.6 g/dL (13.0-17.5); LYMPH # 2.1 x10^3/uL (1.0-4.8); LYMPH % 20 % (24-48); MEAN CORPUSCULAR HEMOGLOBIN 32 pg (25-35); MEAN CORPUSCULAR HGB CONC 34 g/dL (31-37); MEAN CORPUSCULAR VOLUME 92 fL (79-100); MONO # 0.6 x10^3/uL (0.0-1.1); MONO % 6 % (0-9); NEUT # 7.4 x10^3/uL (1.8-7.7); NEUT % 70 % (31-73); PLATELET COUNT 411 x10^3/uL (140-400); RED BLOOD COUNT 4.31 x10^6/uL (4.30-5.70); RED CELL DISTRIBUTION WIDTH 14.7 % (11.5-14.5); WHITE BLOOD COUNT 10.5 x10^3/uL (4.0-11.0)
[2021-12-04 06:47] LABS: CALCIUM 8.4 mg/dL (8.5-10.1); CREATININE 1.4 mg/dL (0.7-1.3); GFR 49.8; POTASSIUM 3.7 mmol/L (3.5-5.1)
[2021-12-04 07:00] VITALS: BP 119/65
[2021-12-04] MEDS: PANTOPRAZOLE 40 MG TABLET.DR. PO SCH (08:43)
[2021-12-04] MEDS: ASPIRIN ENTERIC COATED 81 MG TABLET.DR. PO SCH (08:43)
[2021-12-04] MEDS: LOSARTAN POTASSIUM 50 MG TABLET. PO SCH (08:43)
[2021-12-04] MEDS: CITALOPRAM 20 MG TABLET. PO SCH (08:43)
[2021-12-04] MEDS: hydroCHLOROthiazide 25 MG TABLET PO SCH (08:43)
[2021-12-04] MEDS: GLIMEPIRIDE 2 MG TABLET. PO SCH (08:43)
[2021-12-04] MEDS: HEPARIN for SUB-Q USE 5,000 UNIT/ML VIAL. SQ SCH ×2 (08:47→21:39)
[2021-12-04] MEDS: DICLOFENAC SODIUM 1% TOPICAL GEL 100GM TUBE. TP SCH ×4 (08:50→21:00)
[2021-12-04 11:00] VITALS: BP 124/68
--- NOTE | 2021-12-04 12:35 | PDOC ---
[facility] PROGRESS NOTE Date of Service DOS: DATE: 12/04/21 TIME: 12:33 Chief Complaint Chief Complaint Dizziness, likely vertigo Leukocytosis Physical debility Severe malnutrition Plan: We will schedule meclizine Will be swabbed for COVID-19 and influenza given his leukocytosis and febrile illness and minus admission. Blood cultures pending Patient FAILED home health therapy and FAILED self-care at home. He will need inpatient vestibular therapy and rehab treatment. PT/OT Resume home medications FEN - Cardiac diet PPX - Heparin FULL CODE/patient names his son (Jose Gómez) as surrogate decision- maker Dispo - inpatient for above History of Present Illness History of Present Illness 12/04 Patient evaluate examined at bedside. Little bit of improvement in dizziness. Continue current medications. PT OT evaluation. Discussed with bedside RN. We will continue to follow ongoing work-up. Vitals/I&O Vitals/I&O: Vital Signs Date Time Temp Pulse Resp B/P (MAP) Pulse Ox O2 Delivery O2 Flow Rate FiO2 12/04/21 11:00 97.8 75 20 124/68 (86) 93 Room Air 97.8 I & O 12/03/21 12/03/21 12/04/21 15:00 23:00 07:00 Intake Total 200 ml 440 ml 200 ml Output Total 600 ml Balance -400 ml 440 ml 200 ml Physical Exam General: Alert, Oriented X3, Cooperative Heart: Regular rate, Normal S1, Normal S2 Lungs: Clear Abdomen: Normal bowel sounds, Soft, No tenderness Extremities: No edema, Normal pulses Skin: No significant lesion Labs Labs: Laboratory Tests Test 12/03/21 16:46 12/03/21 20:36 12/04/21 06:00 12/04/21 07:22 Glucose (Fingerstick) 93 mg/dL (70-99) 100 mg/dL (70-99) 131 mg/dL (70-99) White Blood Count 10.5 x10^3/uL (4.0-11.0) Red Blood Count 4.31 x10^6/uL (4.30-5.70) Hemoglobin 13.6 g/dL (13.0-17.5) Hematocrit 39.7 % (39.0-53.0) Mean Corpuscular Volume 92 fL (79-100) Mean Corpuscular Hemoglobin 32 pg (25-35) Mean Corpuscular Hemoglobin Concent 34 g/dL (31-37) Red Cell Distribution Width 14.7 % (11.5-14.5) Platelet Count 411 x10^3/uL (140-400) Neutrophils (%) (Auto) 70 % (31-73) Lymphocytes (%) (Auto) 20 % (24-48) Monocytes (%) (Auto) 6 % (0-9) Eosinophils (%) (Auto) 3 % (0-3) Basophils (%) (Auto) 1 % (0-3) Neutrophils # (Auto) 7.4 x10^3/uL (1.8-7.7) Lymphocytes # (Auto) 2.1 x10^3/uL (1.0-4.8) Monocytes # (Auto) 0.6 x10^3/uL (0.0-1.1) Eosinophils # (Auto) 0.3 x10^3/uL (0.0-0.7) Basophils # (Auto) 0.1 x10^3/uL (0.0-0.2) Sodium Level 137 mmol/L (136-145) Potassium Level 3.7 mmol/L (3.5-5.1) Chloride Level 102 mmol/L (98-107) Carbon Dioxide Level 24 mmol/L (21-32) Anion Gap 11 (6-14) Blood Urea Nitrogen 13 mg/dL (8-26) Creatinine 1.4 mg/dL (0.7-1.3) Estimated GFR (Cockcroft-Gault) 49.8 Glucose Level 117 mg/dL (70-99) Calcium Level 8.4 mg/dL (8.5-10.1) Test 12/04/21 11:06 Glucose (Fingerstick) 171 mg/dL (70-99) Assessment and Plan Assessmemt and Plan Problems Medical Problems: (1) Leukocytosis Status: Acute Comment Review of Relevant I have reviewed the following items aditya (where applicable) has been applied. Medications: Current Medications Medications (Trade) Dose Ordered Sig/Xuan Route PRN Reason Start Time Stop Time Status Last Admin Dose Admin Heparin Sodium (Porcine) (Heparin Sodium) 5,000 unit Q12HR SQ 12/03/21 21:00 12/04/21 08:47 Justifications for Admission Other Justification JOSE TANNER MD December 04, 2021 12:35
[2021-12-04] MEDS: POTASSIUM CITRATE 10 MEQ TABLET.ER PO SCH (12:53)
[2021-12-04 15:04] VITALS: BP 97/57
[2021-12-04 19:00] VITALS: BP 111/57
[2021-12-04] MEDS: GABAPENTIN 300 MG CAPSULE. PO SCH (21:33)
[2021-12-04] MEDS: ATORVASTATIN CALCIUM 40 MG TABLET. PO SCH (21:33)
[2021-12-04 23:04] VITALS: BP 97/48
[2021-12-05 03:04] VITALS: BP 116/72
[2021-12-05] MEDS: LEVOTHYROXINE 50 MCG TABLET PO SCH (05:54)
[2021-12-05 07:00] VITALS: BP 129/75
[2021-12-05] MEDS: DICLOFENAC SODIUM 1% TOPICAL GEL 100GM TUBE. TP SCH ×4 (09:00→21:00)
[2021-12-05] MEDS: POTASSIUM CITRATE 10 MEQ TABLET.ER PO SCH (09:31)
[2021-12-05] MEDS: CITALOPRAM 20 MG TABLET. PO SCH (09:31)
[2021-12-05] MEDS: ASPIRIN ENTERIC COATED 81 MG TABLET.DR. PO SCH (09:31)
[2021-12-05] MEDS: PANTOPRAZOLE 40 MG TABLET.DR. PO SCH (09:31)
[2021-12-05] MEDS: LOSARTAN POTASSIUM 50 MG TABLET. PO SCH (09:31)
[2021-12-05] MEDS: hydroCHLOROthiazide 25 MG TABLET PO SCH (09:31)
[2021-12-05] MEDS: HEPARIN for SUB-Q USE 5,000 UNIT/ML VIAL. SQ SCH ×2 (09:34→21:28)
[2021-12-05] MEDS: GLIMEPIRIDE 2 MG TABLET. PO SCH (09:35)
[2021-12-05 11:00] VITALS: BP 120/60
--- NOTE | 2021-12-05 11:50 | PDOC ---
[facility] [facility] PROGRESS NOTE Date of Service DOS: DATE: 12/05/21 TIME: 11:49 Chief Complaint Chief Complaint Dizziness, likely vertigo Leukocytosis Physical debility Severe malnutrition Plan: We will schedule meclizine Will be swabbed for COVID-19 and influenza given his leukocytosis and febrile illness and minus admission. Blood cultures pending Patient FAILED home health therapy and FAILED self-care at home. He will need inpatient vestibular therapy and rehab treatment. PT/OT Resume home medications FEN - Cardiac diet PPX - Heparin FULL CODE/patient names his son (Jose Gómez) as surrogate decision- maker Dispo - inpatient for above History of Present Illness History of Present Illness 12/05 Evaluated examined at bedside. Orthostatics positive this morning. Ongoing therapy evaluation. Dizziness improving. Continue current. Possible discharge in next day or 2. 12/04 Patient evaluate examined at bedside. Little bit of improvement in dizziness. Continue current medications. PT OT evaluation. Discussed with bedside RN. We will continue to follow ongoing work-up. Vitals/I&O Vitals/I&O: Vital Signs Date Time Temp Pulse Resp B/P (MAP) Pulse Ox O2 Delivery O2 Flow Rate FiO2 12/05/21 09:31 77 129/75 12/05/21 08:00 Room Air 12/05/21 07:00 97.5 20 96 97.5 I & O 12/04/21 12/04/21 12/05/21 15:00 23:00 07:00 Intake Total 400 ml 200 ml Output Total 575 ml Balance 400 ml 200 ml -575 ml Physical Exam General: Alert, Oriented X3, Cooperative Heart: Regular rate, Normal S1, Normal S2 Lungs: Clear Abdomen: Normal bowel sounds, Soft, No tenderness Extremities: No edema, Normal pulses Skin: No significant lesion Labs Labs: Laboratory Tests Test 12/04/21 16:40 12/04/21 20:21 12/05/21 07:26 12/05/21 10:55 Glucose (Fingerstick) 78 mg/dL (70-99) 100 mg/dL (70-99) 162 mg/dL (70-99) 177 mg/dL (70-99) Assessment and Plan Assessmemt and Plan Problems Medical Problems: (1) Leukocytosis Status: Acute Comment Review of Relevant I have reviewed the following items aditya (where applicable) has been applied. Justifications for Admission Other Justification TANNER,CHRISTOPHER MD December 05, 2021 11:50
[2021-12-05 15:00] VITALS: BP 86/46
[2021-12-05] MEDS ORDERED: IV NORMAL SALINE 1000ML BAG 1,000 ML IV ONE (16:00)
[2021-12-05 16:25] LABS: BASO # 0.1 x10^3/uL (0.0-0.2); BASO % 1 % (0-3); EOS # 0.2 x10^3/uL (0.0-0.7); EOS % 2 % (0-3); LYMPH # 1.8 x10^3/uL (1.0-4.8); LYMPH % 16 % (24-48); MEAN CORPUSCULAR HEMOGLOBIN 31 pg (25-35); MEAN CORPUSCULAR HGB CONC 34 g/dL (31-37); MEAN CORPUSCULAR VOLUME 91 fL (79-100); MONO # 0.7 x10^3/uL (0.0-1.1); MONO % 6 % (0-9); NEUT # 8.7 x10^3/uL (1.8-7.7); NEUT % 76 % (31-73); PLATELET COUNT 444 x10^3/uL (140-400); RED CELL DISTRIBUTION WIDTH 14.6 % (11.5-14.5); WHITE BLOOD COUNT 11.4 x10^3/uL (4.0-11.0)
[2021-12-05 16:42] LABS: ALBUMIN 2.7 g/dL (3.4-5.0); ALBUMIN/GLOBULIN RATIO 0.7 (1.0-1.7); CALCIUM 8.3 mg/dL (8.5-10.1); CREATININE 1.9 mg/dL (0.7-1.3); TOTAL BILIRUBIN 0.5 mg/dL (0.2-1.0); TOTAL PROTEIN 6.7 g/dL (6.4-8.2)
[2021-12-05] MEDS ORDERED: ALBUMIN HUMAN 25% 100 ML IV ONE (17:30)
[2021-12-05 19:00] VITALS: BP 108/64
[2021-12-05] MEDS: GABAPENTIN 300 MG CAPSULE. PO SCH (21:24)
[2021-12-05] MEDS: ATORVASTATIN CALCIUM 40 MG TABLET. PO SCH (21:24)
[2021-12-05 23:04] VITALS: BP 110/44
[2021-12-06] VITALS (8 sets, daily range): BP systolic 95–146; BP diastolic 62–91
[2021-12-06] MEDS: LEVOTHYROXINE 50 MCG TABLET PO SCH (06:28)
[2021-12-06] MEDS: DICLOFENAC SODIUM 1% TOPICAL GEL 100GM TUBE. TP SCH ×4 (07:59→21:00)
[2021-12-06] MEDS: POTASSIUM CITRATE 10 MEQ TABLET.ER PO SCH (09:01)
[2021-12-06] MEDS: PANTOPRAZOLE 40 MG TABLET.DR. PO SCH (09:01)
[2021-12-06] MEDS: ASPIRIN ENTERIC COATED 81 MG TABLET.DR. PO SCH (09:01)
[2021-12-06] MEDS: hydroCHLOROthiazide 25 MG TABLET PO SCH (09:01)
[2021-12-06] MEDS: GLIMEPIRIDE 2 MG TABLET. PO SCH (09:01)
[2021-12-06] MEDS: CITALOPRAM 20 MG TABLET. PO SCH (09:01)
[2021-12-06] MEDS: HEPARIN for SUB-Q USE 5,000 UNIT/ML VIAL. SQ SCH ×2 (09:05→21:43)
--- NOTE | 2021-12-06 13:33 | PDOC ---
[facility] [facility] PROGRESS NOTE Date of Service DOS: DATE: 12/06/21 TIME: 13:32 Chief Complaint Chief Complaint Dizziness, likely vertigo Leukocytosis Physical debility Severe malnutrition Plan: We will schedule meclizine Will be swabbed for COVID-19 and influenza given his leukocytosis and febrile illness and minus admission. Blood cultures pending Patient FAILED home health therapy and FAILED self-care at home. He will need inpatient vestibular therapy and rehab treatment. PT/OT Resume home medications FEN - Cardiac diet PPX - Heparin FULL CODE/patient names his son (Jose Gómez) as surrogate decision- maker Dispo - inpatient for above History of Present Illness History of Present Illness 12/05/2021 No acute events overnight. Patient seen examined bedside. Compression stockings placed for orthostatic vital signs. We will repeat again today. Ongoing PT OT evaluation. PT has recommended home health while OT has recommended care home facility. We will await further final recommendations to determine disposition. Patient is motivated and willing to go to rehab. Patient states he was stubborn initially and has changed his ways. Patient's chart, labs, images were reviewed and discussed with RN 12/05 Evaluated examined at bedside. Orthostatics positive this morning. Ongoing therapy evaluation. Dizziness improving. Continue current. Possible discharge in next day or 2. 12/04 Patient evaluate examined at bedside. Little bit of improvement in dizziness. Continue current medications. PT OT evaluation. Discussed with bedside RN. We will continue to follow ongoing work-up. Vitals/I&O Vitals/I&O: Vital Signs Date Time Temp Pulse Resp B/P (MAP) Pulse Ox O2 Delivery O2 Flow Rate FiO2 12/06/21 11:00 98.0 80 18 137/73 (94) 98 Room Air 98.0 I & O 12/05/21 12/05/21 12/06/21 15:00 23:00 07:00 Intake Total 500 ml 450 ml Output Total 225 ml 125 ml 600 ml Balance 275 ml 325 ml -600 ml Physical Exam General: Alert, Oriented X3, Cooperative Heart: Regular rate, Normal S1, Normal S2 Lungs: Clear Abdomen: Normal bowel sounds, Soft, No tenderness Extremities: No edema, Normal pulses Skin: No significant lesion Labs Labs: Laboratory Tests Test 12/05/21 16:12 12/05/21 16:50 12/05/21 20:11 12/06/21 07:30 White Blood Count 11.4 x10^3/uL (4.0-11.0) Red Blood Count 4.50 x10^6/uL (4.30-5.70) Hemoglobin 14.0 g/dL (13.0-17.5) Hematocrit 41.0 % (39.0-53.0) Mean Corpuscular Volume 91 fL (79-100) Mean Corpuscular Hemoglobin 31 pg (25-35) Mean Corpuscular Hemoglobin Concent 34 g/dL (31-37) Red Cell Distribution Width 14.6 % (11.5-14.5) Platelet Count 444 x10^3/uL (140-400) Neutrophils (%) (Auto) 76 % (31-73) Lymphocytes (%) (Auto) 16 % (24-48) Monocytes (%) (Auto) 6 % (0-9) Eosinophils (%) (Auto) 2 % (0-3) Basophils (%) (Auto) 1 % (0-3) Neutrophils # (Auto) 8.7 x10^3/uL (1.8-7.7) Lymphocytes # (Auto) 1.8 x10^3/uL (1.0-4.8) Monocytes # (Auto) 0.7 x10^3/uL (0.0-1.1) Eosinophils # (Auto) 0.2 x10^3/uL (0.0-0.7) Basophils # (Auto) 0.1 x10^3/uL (0.0-0.2) Sodium Level 135 mmol/L (136-145) Potassium Level 4.0 mmol/L (3.5-5.1) Chloride Level 103 mmol/L (98-107) Carbon Dioxide Level 22 mmol/L (21-32) Anion Gap 10 (6-14) Blood Urea Nitrogen 24 mg/dL (8-26) Creatinine 1.9 mg/dL (0.7-1.3) Estimated GFR (Cockcroft-Gault) 35.0 BUN/Creatinine Ratio 13 (6-20) Glucose Level 97 mg/dL (70-99) Calcium Level 8.3 mg/dL (8.5-10.1) Total Bilirubin 0.5 mg/dL (0.2-1.0) Aspartate Amino Transf (AST/SGOT) 29 U/L (15-37) Alanine Aminotransferase (ALT/SGPT) 49 U/L (16-63) Alkaline Phosphatase 47 U/L (46-116) Total Protein 6.7 g/dL (6.4-8.2) Albumin 2.7 g/dL (3.4-5.0) Albumin/Globulin Ratio 0.7 (1.0-1.7) Glucose (Fingerstick) 85 mg/dL (70-99) 111 mg/dL (70-99) 117 mg/dL (70-99) Test 12/06/21 07:40 12/06/21 12:12 SARS-CoV-2 Antigen (Rapid) Negative (NEGATIVE) Glucose (Fingerstick) 141 mg/dL (70-99) Assessment and Plan Assessmemt and Plan Problems Medical Problems: (1) Leukocytosis Status: Acute Comment Review of Relevant I have reviewed the following items aditya (where applicable) has been applied. Medications: Current Medications Medications (Trade) Dose Ordered Sig/Xuan Route PRN Reason Start Time Stop Time Status Last Admin Dose Admin Sodium Chloride 1,000 ml @ 1,000 mls/hr 1X ONCE IV 12/05/21 16:00 12/05/21 16:59 DC 12/05/21 16:12 Albumin Human 100 ml @ 100 mls/hr 1X ONCE IV 12/05/21 17:30 12/05/21 18:29 DC 12/05/21 17:50 Justifications for Admission Other Justification SUDHEER CHEN MD December 06, 2021 13:33
--- NOTE | 2021-12-06 14:04 | NUR ---
SS following up with discharge planning. SS reviewed pt chart and discussed with pt RN. Pt is currently on room air. COVID19 negative. PT recommended home with home healthcare and OT recommended alf unit. Pt is current on services with [facility], ; fax [phone]. SS will continue to follow for discharge planning.
[2021-12-06] MEDS: ATORVASTATIN CALCIUM 40 MG TABLET. PO SCH (21:40)
[2021-12-06] MEDS: GABAPENTIN 300 MG CAPSULE. PO SCH (21:40)
[2021-12-07 03:00] VITALS: BP 128/62
[2021-12-07] MEDS: LEVOTHYROXINE 50 MCG TABLET PO SCH (06:00)
[2021-12-07 07:00] VITALS: BP 145/79
[2021-12-07 07:02] VITALS: BP 121/81
[2021-12-07 07:04] VITALS: BP 89/58
[2021-12-07] MEDS: hydroCHLOROthiazide 25 MG TABLET PO SCH (08:50)
[2021-12-07] MEDS: POTASSIUM CITRATE 10 MEQ TABLET.ER PO SCH (08:50)
[2021-12-07] MEDS: PANTOPRAZOLE 40 MG TABLET.DR. PO SCH (08:50)
[2021-12-07] MEDS: GLIMEPIRIDE 2 MG TABLET. PO SCH (08:50)
[2021-12-07] MEDS: CITALOPRAM 20 MG TABLET. PO SCH (08:50)
[2021-12-07] MEDS: ASPIRIN ENTERIC COATED 81 MG TABLET.DR. PO SCH (08:50)
[2021-12-07] MEDS: DICLOFENAC SODIUM 1% TOPICAL GEL 100GM TUBE. TP SCH ×2 (08:51→13:00)
[2021-12-07] MEDS: HEPARIN for SUB-Q USE 5,000 UNIT/ML VIAL. SQ SCH (08:56)
[2021-12-07] MEDS: LOSARTAN POTASSIUM 50 MG TABLET. PO SCH (09:00)
[2021-12-07 11:00] VITALS: BP 148/70
[2021-12-07] MEDS ORDERED: MECL12.582 PO (12:21)
--- NOTE | 2021-12-07 12:25 | SNU/HH DC ---
DISCHARGE WITH HOME HEALTH DISCHARGE INFORMATION: Discharge Date: December 07, 2021 Final Diagnosis: Problems Medical Problems: (1) Leukocytosis Status: Acute Condition on Discharge: Stable CODE STATUS: Code Status: Full HOME HEALTH: Face to Face: I certify this patient is under my care and that I, or a nurse practitioner or physician's casino assistant manager working with me, had a face to face encounter that meets the physician face to face encounter requirements with this patient on []. Medical Complications: Falls, HTN Correction For: Assess Cardiopulm Status, Assess & Educate Safety, Assess/Skilled Observatio, Medication Management RN For Eval/Treatment: Yes Physical Therapy For: Evalulation/Treatment Occupational Therapy For: Evaluation/Treatment Home Health Aide For: Self-care Pt Meets Homebound Status: Poor coordination w/ amb., Extreme weakness w/ amb., Frequent falls w/ injury, Limited distance walking, Unable to negotiate home POST DISCHARGE ORDERS: Activity Instructions for Disc: Activity as tolerated Weight Bearing Status after Di: As tolerated Bathing Instructions: Shower-keep dressing dry DIET AFTER DISCHARGE: ADA Wound/Incision Care: No wound care needed CHECKS AFTER DISCHARGE: Checks after discharge: Check blood press - daily Comment: Wear compression stockings while walking FOLLOW-UP: PCP to follow Home Health: [facility] Follow up with: PCP within 2 weeks of discharge TREATMENT/EQUIPMENT ORDERS: Adaptive Equipment Issued: None CERTIFICATION STATEMENT: Certification Statement: Certification Statement: Based on the above finding, I certify that this patient is confined to the home and needs intermittent [facility] care, physical therapy and/or speech therapy, or continues to need occupational therapy.~ This patient is under my care, and I have initiated the establishment of the plan of care.~ This patient will be followed by myself or a community physician who will periodically review the plan of care. Home Meds Active Scripts Meclizine Hcl (MECLIZINE HCL) 12.5 Mg Tablet, 12.5 MG PO PRN Q6HRS PRN for DIZZINESS for 5 Days, #20 TAB Prov:SUDHEER CHEN MD 12/07/21 Benzonatate (BENZONATATE) 100 Mg Capsule, 100 MG PO PRN Q8HRS PRN for COUGH, #30 CAP 1 Refill Prov:VICKY CORONADO MD 11/26/21 Citalopram Hydrobromide (CELEXA) 20 Mg Tablet, 20 MG PO DAILY for Depression for 60 Days, #60 TAB 5 Refills Prov:VICKY CORONADO MD 11/26/21 Reported Medications Levothyroxine Sodium (LEVOTHYROXINE SODIUM) 50 Mcg Tablet, 1 TAB PO DAILY for hypothyroid, #30 TAB 5 Refills 11/19/21 Tramadol Hcl (TRAMADOL HCL) 50 Mg Tablet, 50 MG PO PRN BID PRN for PAIN, TAB 0 Refills 11/19/21 Diclofenac Sodium (VOLTAREN) 100 Gm Gel..gram., 1 GM TP QID for pain for 30 Days, #1 EACH 0 Refills apply to affected area(s) 10/26/20 Aspirin (ASPIRIN EC) 81 Mg Tablet.dr, 1 TAB PO DAILY for per list, #30 TAB 3 Refills 09/07/18 Glimepiride (GLIMEPIRIDE) 2 Mg Tablet, 2 MG PO DAILY 12/27/17 Atorvastatin Calcium (ATORVASTATIN CALCIUM) 40 Mg Tablet, 40 MG PO HS 12/27/17 Gabapentin (GABAPENTIN) 300 Mg Capsule, 600 MG PO HS 12/27/17 Potassium Citrate (POTASSIUM CITRATE) 10 Meq Tablet.er, 10 MEQ PO DAILY 12/27/17 Omeprazole (OMEPRAZOLE) 40 Mg Capsule.dr, 40 MG PO DAILYAC 12/27/17 Discontinued Reported Medications Losartan Potassium (LOSARTAN POTASSIUM) 100 Mg Tablet, 100 MG PO DAILY for HYPERTENSION, TAB 11/19/21 Hydrochlorothiazide (HYDROCHLOROTHIAZIDE TABLET ) 25 Mg Tablet, 25 MG PO DAILY for DIURETIC, TAB 0 Refills 11/19/21 SUDHEER CHEN MD December 07, 2021 12:25
--- NOTE | 2021-12-07 13:51 | NUR ---
SS following up with discharge planning. SS reviewed pt chart and discussed with pt RN. Pt is currently on room air. COVID19 negative. Pt is current on services with [facility], ; fax [phone]. Discharge orders received for home healthcare and sent to [facility] with clinical updates. Pt's RN notified.
[2021-12-07 15:00] VITALS: BP 144/69
--- NOTE | 2021-12-07 16:45 | NUR ---
This RN escorted patient to main entrance when patient's son was waiting to take him home via personal vehicle.
== END 2021-12-07 16:45 | disposition home health service (06) | DRG 682 ==
LOC: ER 15:52 → ED HOLD 19:18 → 6 SOUTH 20:40 → 5 NORTH 12-03 15:05
PROVIDERS: ADMIT Internal Medicine; ATTEND Internal Medicine
DX: N17.0 Acute kidney failure with tubular necrosis (principal); E43 Unspecified severe protein-calorie malnutrition; R42 Dizziness and giddiness; D72.829 Elevated white blood cell count, unspecified; Z20.822 Contact with and (suspected) exposure to COVID-19; Z88.8 Allergy status to other drugs, medicaments and biological substances; Z68.29 Body mass index [BMI] 29.0-29.9, adult; E03.9 Hypothyroidism, unspecified; E11.9 Type 2 diabetes mellitus without complications; E78.00 Pure hypercholesterolemia, unspecified; E78.5 Hyperlipidemia, unspecified; G25.81 Restless legs syndrome; I10 Essential (primary) hypertension; Z86.73 Personal history of transient ischemic attack (TIA), and cerebral infarction without residual deficits; F41.9 Anxiety disorder, unspecified; K21.9 Gastro-esophageal reflux disease without esophagitis; M19.90 Unspecified osteoarthritis, unspecified site; R53.81 Other malaise
CPT/HCPCS: 36415; 70450; 71045; 80048; 80053; 81001; 82962; 83880; 84484; 85007; 85025; 87040; 87077; 87426; 87804; 93005; 96374; J0696; J1644; J7030; P9046; U0003; 97110-GP; 97116-GP; 97530-GO; 97530-GP; 99285-25; G0378; J8597